=== PATIENT | male | born 1945 | race Caucasian/White ===

== ENCOUNTER 2017-05-26 16:38 | Inpatient (IN) | payer OTHER, MEDICARE ==
[~2017-05-26] VITALS: Ht 172.7 cm; Wt 82.2 kg
[2017-05-26] VITALS (8 sets, daily range): BP systolic 102–134; BP diastolic 74–91; PULSE 96–150; RESP 16–18; TEMP 97.6; O2SAT 94–97
[~2017-05-26 16:38] MED LIST: AMLO5 PO; CARD120C4 PO; ECASA PO; METO25 PO; TERA5CAP3 PO
[2017-05-26] MEDS ORDERED: TERA5CAP3 PO (16:54)
[2017-05-26] MEDS ORDERED: AMLO5TAB2 PO (16:54)
[2017-05-26] MEDS ORDERED: ASPIRIN 81 MG CHEW TAB PO ONE (17:00)
[2017-05-26] MEDS ORDERED: SODIUM CHLORIDE 0.9% FLUSH 10 ML FLUSH IVF PRN ×2 (17:00→20:15)
--- NOTE | 2017-05-26 17:01 | PD ---
HPI Chief Complaint: Cardiac Complaint Time Seen by Provider: 16:54 Travel History International Travel<30 days: No Contact w/Intl Traveler<30days: No Traveled to known affect area: No History of Present Illness HPI Patient is a 71-year-old male presents emergency department for evaluation of shortness of breath. Patient states that he call 911 today because he felt like he was in the back. Patient was found to be in A. fib RVR by EMS and was given 20 Cardizem prior to arrival. Transported in position of comfort. He denies any chest pain but states she still feeling short of breath. Fairly heavy smoker, normal saturations in the field. States she's never had a heart attack cardiac catheterization before. Patient is unsure of all of his histories. States his been taking his medications as prescribed. PFSH Past Medical History Cancer: No Cardiovascular Problems: Yes (HTN) High Cholesterol: Yes COPD: Yes Diminished Hearing: No Endocrine: No Genitourinary: No Headaches: Yes Hypertension: Yes Immune Disorder: No Kidney Stones: Yes Musculoskeletal: No Neurologic: Yes Psychiatric: No Reproductive: No Respiratory: Yes Tetanus Vaccination: Unknown Influenza Vaccination: No ?: Not Past Surgical History Oral Surgery: Yes (EXTENSIVE JAW SURGERY DUE TO TRAUMA) Other Surgery: Yes Social History Alcohol Use: Yes (1-2 beers per day) Tobacco Use: Yes (4-5 cig per day) Substance Use: No Allergies-Medications (Allergen,Severity, Reaction): Coded Allergies: No Known Allergies (Unverified , 06/23/15) Reported Meds & Prescriptions Reported Meds & Active Scripts Active Reported Terazosin (Terazosin HCl) 5 Mg Cap 5 Mg PO HS Amlodipine (Amlodipine Besylate) 5 Mg Tab 5 Mg PO DAILY Review of Systems Except as stated in HPI: all other systems reviewed are Neg Physical Exam Narrative GENERAL: Well-developed well-nourished no apparent distress. Smells heavily of cigarette smoke. Unkempt. SKIN: Focused skin assessment warm/dry. HEAD: Atraumatic. Normocephalic. EYES: Pupils equal and round. No scleral icterus. No injection or drainage. ENT: No nasal bleeding or discharge. Mucous membranes pink and moist. NECK: Trachea midline. No JVD. CARDIOVASCULAR: Irregularly irregular and tachycardic. No murmur appreciated. 2+ bilateral equal pulses in all 4 extremities. RESPIRATORY: No accessory muscle use. Clear to auscultation. Breath sounds equal bilaterally. GASTROINTESTINAL: Abdomen soft, non-tender, nondistended. Hepatic and splenic margins not palpable. MUSCULOSKELETAL: No obvious deformities. No clubbing. No cyanosis. There is 2 + pitting edema bilateral lower extremities, significantly larger on the right.. NEUROLOGICAL: Awake and alert. No obvious cranial nerve deficits. Motor grossly within normal limits. Normal speech. PSYCHIATRIC: Appropriate mood and affect; insight and judgment normal. Data Data Last Documented VS Vital Signs Date Time Temp Pulse Resp B/P Pulse Ox O2 Delivery O2 Flow Rate FiO2 05/26/17 18:22 140 102/81 94 05/26/17 17:28 16 05/26/17 16:48 97.6 Orders Vital Signs (Adult) Q15MX4,Q4H (05/26/17 16:58) Student Dean / Telemetry CATE.Q8H (05/26/17 16:58) Cardiac Rhythm CATE.Q8H (05/26/17 16:58) Notify Dr: Other (05/26/17 16:58) Diltiazem Inj (Cardizem Inj) (05/26/17 17:00) Diltiazem Inj (Cardizem Inj) (05/26/17 17:30) Electrocardiogram (05/26/17 16:58) Ckmb (Isoenzyme) Profile (05/26/17 16:58) Complete Blood Count With Diff (05/26/17 16:58) Comprehensive Metabolic Panel (05/26/17 16:58) Magnesium (Mg) (05/26/17 16:58) Prothrombin Time / Inr (Pt) (05/26/17 16:58) Act Partial Throm Time (Ptt) (05/26/17 16:58) Troponin I (05/26/17 16:58) Chest, Single Ap (05/26/17 16:58) Ecg Monitoring (05/26/17 16:58) Iv Access Insert/Monitor (05/26/17 16:58) Oximetry (05/26/17 16:58) Oxygen Administration (05/26/17 16:58) Aspirin Chew (Aspirin Chew) (05/26/17 17:00) Sodium Chloride 0.9% Flush (Ns Flush) (05/26/17 17:00) Ct Pulmonary Angiogram (05/26/17 16:58) Us Leg Venous Doppler (05/26/17 16:58) Sodium Chlor 0.9% 1000 Ml Inj (Ns 1000 M (05/26/17 17:30) Phosphorus (Po4) (05/26/17 17:28) Lactic Acid (05/26/17 17:28) Iohexol 350 Inj (Omnipaque 350 Inj) (05/26/17 18:34) Amiodarone Inj (Cordarone Inj) (05/26/17 19:15) Amiodarone Inj (Cordarone Inj) (05/26/17 19:30) Calcium Gluconate Inj (Calcium Gluconate (05/26/17 20:00) Alcohol (Ethanol) (05/26/17 17:00) Admit Order (Ed Use Only) (05/26/17 ) ^ Saline Lock (05/26/17 20:14) Resp Oxygen Rojas C Titrat 1-4 L (05/26/17 ) Notify Dr: Other (05/26/17 20:14) Consult Cardiology (05/26/17 20:14) Digoxin Inj (Lanoxin Inj) (05/26/17 20:15) Labs Laboratory Tests Test 05/26/17 05/26/17 17:00 20:00 White Blood Count 6.7 TH/MM3 Red Blood Count 5.65 MIL/MM3 Hemoglobin 15.9 GM/DL Hematocrit 47.4 % Mean Corpuscular Volume 83.9 FL Mean Corpuscular Hemoglobin 28.1 PG Mean Corpuscular Hemoglobin 33.5 % Concent Red Cell Distribution Width 13.5 % Platelet Count 180 TH/MM3 Mean Platelet Volume 9.6 FL Neutrophils (%) (Auto) 73.2 % Lymphocytes (%) (Auto) 12.1 % Monocytes (%) (Auto) 14.5 % Eosinophils (%) (Auto) 0.0 % Basophils (%) (Auto) 0.2 % Neutrophils # (Auto) 4.9 TH/MM3 Lymphocytes # (Auto) 0.8 TH/MM3 Monocytes # (Auto) 1.0 TH/MM3 Eosinophils # (Auto) 0.0 TH/MM3 Basophils # (Auto) 0.0 TH/MM3 CBC Comment DIFF FINAL Differential Comment Prothrombin Time 22.2 SEC Prothromb Time International 2.0 RATIO Ratio Activated Partial 33.3 SEC Thromboplast Time Sodium Level 136 MEQ/L Potassium Level 4.1 MEQ/L Chloride Level 103 MEQ/L Carbon Dioxide Level 20.2 MEQ/L Anion Gap 13 MEQ/L Blood Urea Nitrogen 48 MG/DL Creatinine 1.50 MG/DL Estimat Glomerular Filtration 46 ML/MIN Rate Random Glucose 111 MG/DL Calcium Level 7.9 MG/DL Phosphorus Level 5.4 MG/DL Magnesium Level 1.9 MG/DL Total Bilirubin 2.1 MG/DL Aspartate Amino Transf 195 U/L (AST/SGOT) Alanine Aminotransferase 179 U/L (ALT/SGPT) Alkaline Phosphatase 69 U/L Total Creatine Kinase 85 U/L Troponin I 0.04 NG/ML Total Protein 5.8 GM/DL Albumin 2.9 GM/DL Ethyl Alcohol Level LESS THAN 3 MG/DL Lactic Acid Level 1.6 mmol/L MDM Medical Decision Making Medical Screen Exam Complete: Yes Emergency Medical Condition: Yes Differential Diagnosis PE, DVT, CHF, COPD, A. fib RVR, ACS, AMI. Narrative Course Patient roomed in the emergency department, he did receive 20 mg of Cardizem IV prior to arrival. He was given an additional bolus of 25 mg Cardizem on arrival. This did not significantly control his rate. He was started on a drip and his rate was gradually increased to 15 mg an hour. He is gradually becoming more controlled however still having runs of significant tachycardia. Rate is now between 90 and 120. There are short durations of rate of approximately 150. Patient also received 2 L of fluid. Patient is mildly acidotic with a CO2 of 20.2, normal anion gap, phosphorus of 5.4. Creatinine 1.5 a BUN of 48. AST and ALT are elevated. No fever in the emergency department. Patient DVT study negative, PE study negative for PE but does have a pleural effusion Patient discussed with Dr. Mellisa Mccall to continue to monitor heart rate and reassess patient after some time on 15 mg per hour. Patient will obviously need admission. Diagnosis Primary Impression: Atrial fibrillation with RVR Additional Impression: CHF (congestive heart failure) Qualified Code: I50.9 - Congestive heart failure, unspecified congestive heart failure chronicity, unspecified congestive heart failure type Disposition: 01 DISCHARGE HOME Condition: Stable Rakesh Oconnor MD May 26, 2017 17:01
[2017-05-26] MEDS ORDERED: NORC5TAB PO (17:22)
[2017-05-26] MEDS ORDERED: CLIN1CAP5 PO (17:22)
[2017-05-26] MEDS ORDERED: DOXY100C PO (17:22)
[2017-05-26] MEDS ORDERED: LEVA750T9 PO (17:22)
--- NOTE | 2017-05-26 17:22 | RADRPT ---
EXAM DATE/TIME: 05/26/2017 17:11 [facility] COMPARISON: NBilateral chest FINDINGS: The lungs are clear without infiltrate, nodule, or mass. There is no appreciable pleural effusion fo r technique. Borderline cardiomegaly has not changed. CONCLUSION: No acute cardiopulmonary disease. Jimi Aalmo MD on May 26, 2017 at 17:19 Board Certified Radiologist. This report was verified electronically.
[2017-05-26] MEDS: DILTIAZEM INJ 125 MG in SODIUM CHLORIDE 0.9% INJ 100 ML IV SCH (17:24)
[2017-05-26 17:28] LABS: AUTOMATED NEUTROPHIL # 4.9 TH/MM3 (1.8-7.7); BASOPHIL % 0.2 % (0.0-2.0); HEMATOCRIT 47.4 % (39.0-51.0); HEMO FLAGS DIFF FINAL; LYMPH % 12.1 % (9.0-44.0); LYMPHOCYTE # 0.8 TH/MM3 (1.0-4.8); MEAN CELL VOLUME 83.9 FL (80.0-100.0); MEAN CORPUSCULAR HEMOGLOBIN 28.1 PG (27.0-34.0); MEAN CORPUSCULAR HGB CONC 33.5 % (32.0-36.0); MONO % 14.5 % (0.0-8.0); NEUT % 73.2 % (16.0-70.0); PLATELET COUNT 180 TH/MM3 (150-450); RED BLOOD COUNT 5.65 MIL/MM3 (4.50-5.90); RED CELL DISTRIBUTION WIDTH 13.5 % (11.6-17.2); WHITE BLOOD COUNT 6.7 TH/MM3 (4.0-11.0)
[2017-05-26 17:29] LABS: CHLORIDE 103 MEQ/L (98-107); POTASSIUM 4.1 MEQ/L (3.5-5.1); SODIUM (NA) 136 MEQ/L (136-145)
[2017-05-26] MEDS ORDERED: DILTIAZEM HCL 25 MG/5 ML VIAL IV PUSH PRN (17:30)
[2017-05-26] MEDS ORDERED: SODIUM CHLOR 0.9% 1000 ML INJ 1,000 ML IV ONE (17:30)
[2017-05-26 17:33] LABS: ANION GAP 13 MEQ/L (5-15); BICARBONATE 20.2 MEQ/L (21.0-32.0); BLOOD UREA NITROGEN 48 MG/DL (7-18); MAGNESIUM 1.9 MG/DL (1.5-2.5)
[2017-05-26 17:35] LABS: APTT (PATIENT) 33.3 SEC (24.3-30.1); PROTHROMBIN TIME - PATIENT 22.2 SEC (9.8-11.6)
[2017-05-26 17:36] LABS: ALT (GPT) 179 U/L (12-78); AST (GOT) 195 U/L (15-37); GLOMERULAR FILTRATION RATE 46 ML/MIN (>89)
[2017-05-26 17:37] LABS: TOTAL BILIRUBIN ADULT 2.1 MG/DL (0.2-1.0)
[2017-05-26 17:39] LABS: ALKALINE PHOSPHATASE 69 U/L (45-117)
--- NOTE | 2017-05-26 17:48 | RADRPT ---
EXAM DATE/TIME: 05/26/2017 22:30 [facility] COMPARISON: No previous studies available for comparison. INDICATIONS : Right leg swelling. MEDICAL HISTORY : Hypertension. Chronic obstructive pulmonary disease. Kidney stones. SURGICAL HISTORY : Jaw surgery. ENCOUNTER: Initial ACUITY: 1 day PAIN SCORE: 0/10 LOCATION: Right leg. TECHNIQUE: Venous ultrasound of the leg was performed from the inguinal ligament to the proximal calf. Real-navin e, color Doppler and spectral tracing, compression and augmentation techniques were used. FINDINGS: There is normal compressibility of the deep venous system from the inguinal region to the proximal ca lf. No echogenic clot is seen in the lumen of the common femoral, femoral, popliteal, and posterior tibial veins. There is a normal response of the venous system to proximal and distal augmentation an d respiration. CONCLUSION: Normal examination. Jimi Alamo MD on May 26, 2017 at 17:46 Board Certified Radiologist. This report was verified electronically.
[2017-05-26 18:05] LABS: CREATINE KINASE 85 U/L (39-308)
--- NOTE | 2017-05-26 18:14 | RADRPT ---
EXAM DATE/TIME: 05/26/2017 17:52 [place] Corrected on: May 26, 2017; [facility] COMPARISON: No previous studies available for comparison. INDICATIONS : Rapid heart rate. IV CONTRAST: 75 cc Omnipaque 350 (iohexol) IV RADIATION DOSE: 14.92 CTDIvol (mGy) MEDICAL HISTORY : Hypertension. SURGICAL HISTORY : None. ENCOUNTER: Initial ACUITY: 1 day PAIN SCALE: 4/10 LOCATION: middle chest TECHNIQUE: Volumetric scanning of the chest was performed using a pulmonary embolism protocol MIP images were re constructed. Using automated exposure control and adjustment of the mA and/or kV according to patien t size, radiation dose was kept as low as reasonably achievable to obtain optimal diagnostic quality images. DICOM format image data is available electronically for review and comparison. Follow-up recommendations for detected pulmonary nodules are based at a minimum on nodule size and pa tient risk factors according to Fleischner Society Guidelines. FINDINGS: There is no evidence for PE for technique. Small right pleural effusion is seen. Lungs are clear . There are atherosclerotic calcifications of the aorta due to chronic atherosclerotic disease. CONCLUSION: Small right pleural effusion. Jimi Alamo MD on May 26, 2017 at 18:17 Board Certified Radiologist. This report was verified electronically.
[2017-05-26] MEDS ORDERED: IOHEXOL 350 MG/ML 10 ML VIAL (for RAD DIAG) IV ONE (18:34)
[2017-05-26] MEDS ORDERED: CALCIUM GLUCONATE 10% 1 GM/10 ML VIAL IV PUSH ONE (19:00)
[2017-05-26] MEDS ORDERED: AMIODARONE INJ 150 MG in DEXTROSE 5% IN WATER 100ML INJ 97 ML IV ONE ×2 (19:15)
--- NOTE | 2017-05-26 19:19 | PD ---
Physical Exam Date Seen by Provider: May 26, 2017 Time Seen by Provider: 19:15 Narrative Accepted transfer of care from Dr. Oconnor GENERAL: Well-developed disheveled male in no acute distress no respiratory distress SKIN: Warm and dry. HEAD: Normocephalic. EYES: No scleral icterus. No injection or drainage. NECK: Supple, trachea midline. No JVD or lymphadenopathy. CARDIOVASCULAR: Increased irregular irregular rate and rhythm without murmurs, gallops, or rubs. RESPIRATORY: Breath sounds equal bilaterally. No accessory muscle use. GASTROINTESTINAL: Abdomen soft, non-tender, nondistended. MUSCULOSKELETAL: No cyanosis, mild bilateral ankle edema. Data Data Last Documented VS Vital Signs Date Time Temp Pulse Resp B/P Pulse Ox O2 Delivery O2 Flow Rate FiO2 05/26/17 20:11 122 18 125/82 97 Room Air 05/26/17 16:48 97.6 Orders Vital Signs (Adult) Q15MX4,Q4H (05/26/17 16:58) Paint Supervisor / Telemetry CATE.Q8H (05/26/17 16:58) Cardiac Rhythm CATE.Q8H (05/26/17 16:58) Notify Dr: Other (05/26/17 16:58) Diltiazem Inj (Cardizem Inj) (05/26/17 17:00) Diltiazem Inj (Cardizem Inj) (05/26/17 17:30) Electrocardiogram (05/26/17 16:58) Ckmb (Isoenzyme) Profile (05/26/17 16:58) Complete Blood Count With Diff (05/26/17 16:58) Comprehensive Metabolic Panel (05/26/17 16:58) Magnesium (Mg) (05/26/17 16:58) Prothrombin Time / Inr (Pt) (05/26/17 16:58) Act Partial Throm Time (Ptt) (05/26/17 16:58) Troponin I (05/26/17 16:58) Chest, Single Ap (05/26/17 16:58) Ecg Monitoring (05/26/17 16:58) Iv Access Insert/Monitor (05/26/17 16:58) Oximetry (05/26/17 16:58) Oxygen Administration (05/26/17 16:58) Aspirin Chew (Aspirin Chew) (05/26/17 17:00) Sodium Chloride 0.9% Flush (Ns Flush) (05/26/17 17:00) Ct Pulmonary Angiogram (05/26/17 16:58) Us Leg Venous Doppler (05/26/17 16:58) Sodium Chlor 0.9% 1000 Ml Inj (Ns 1000 M (05/26/17 17:30) Phosphorus (Po4) (05/26/17 17:28) Lactic Acid (05/26/17 17:28) Iohexol 350 Inj (Omnipaque 350 Inj) (05/26/17 18:34) Amiodarone Inj (Cordarone Inj) (05/26/17 19:15) Amiodarone Inj (Cordarone Inj) (05/26/17 19:30) Calcium Gluconate Inj (Calcium Gluconate (05/26/17 20:00) Alcohol (Ethanol) (05/26/17 17:00) Admit Order (Ed Use Only) (05/26/17 ) ^ Saline Lock (05/26/17 20:14) Resp Oxygen Rojas C Titrat 1-4 L (05/26/17 ) Notify Dr: Other (05/26/17 20:14) Consult Cardiology (05/26/17 20:14) Digoxin Inj (Lanoxin Inj) (05/26/17 20:15) Labs Laboratory Tests Test 05/26/17 05/26/17 17:00 20:00 White Blood Count 6.7 TH/MM3 Red Blood Count 5.65 MIL/MM3 Hemoglobin 15.9 GM/DL Hematocrit 47.4 % Mean Corpuscular Volume 83.9 FL Mean Corpuscular Hemoglobin 28.1 PG Mean Corpuscular Hemoglobin 33.5 % Concent Red Cell Distribution Width 13.5 % Platelet Count 180 TH/MM3 Mean Platelet Volume 9.6 FL Neutrophils (%) (Auto) 73.2 % Lymphocytes (%) (Auto) 12.1 % Monocytes (%) (Auto) 14.5 % Eosinophils (%) (Auto) 0.0 % Basophils (%) (Auto) 0.2 % Neutrophils # (Auto) 4.9 TH/MM3 Lymphocytes # (Auto) 0.8 TH/MM3 Monocytes # (Auto) 1.0 TH/MM3 Eosinophils # (Auto) 0.0 TH/MM3 Basophils # (Auto) 0.0 TH/MM3 CBC Comment DIFF FINAL Differential Comment Prothrombin Time 22.2 SEC Prothromb Time International 2.0 RATIO Ratio Activated Partial 33.3 SEC Thromboplast Time Sodium Level 136 MEQ/L Potassium Level 4.1 MEQ/L Chloride Level 103 MEQ/L Carbon Dioxide Level 20.2 MEQ/L Anion Gap 13 MEQ/L Blood Urea Nitrogen 48 MG/DL Creatinine 1.50 MG/DL Estimat Glomerular Filtration 46 ML/MIN Rate Random Glucose 111 MG/DL Calcium Level 7.9 MG/DL Phosphorus Level 5.4 MG/DL Magnesium Level 1.9 MG/DL Total Bilirubin 2.1 MG/DL Aspartate Amino Transf 195 U/L (AST/SGOT) Alanine Aminotransferase 179 U/L (ALT/SGPT) Alkaline Phosphatase 69 U/L Total Creatine Kinase 85 U/L Troponin I 0.04 NG/ML Total Protein 5.8 GM/DL Albumin 2.9 GM/DL Ethyl Alcohol Level LESS THAN 3 MG/DL Lactic Acid Level 1.6 mmol/L [facility] Medical Record Reviewed: Yes Supervised Visit with SARIAH: No Differential Diagnosis Accepted in transfer of care from Dr. Oconnor; please refer to his dictation Narrative Course Accepted in transfer of care from Dr. Oconnor for follow-up of patient response to medical therapy and patient disposition with plan for admission in view of atrial fibrillation with rapid ventricular response and congestive heart failure and for rate control. Patient's case was discussed with on-call cardiology Patient's case was discussed with on-call medicine Patient will be admitted to intermediate care for ongoing medication/infusions Patient given a loading dose of digoxin as discussed with cardiology Physician Communication Physician Communication Patient's case discussed with on-call cardiology Dr. Frias recommends proceeding with digoxin therapy and may require Lopressor; case discussed with admitting physician Dr. Delgado will admit to intermediate care and consult to cardiology Diagnosis Primary Impression: Atrial fibrillation with RVR Additional Impression: CHF (congestive heart failure) Qualified Code: I50.9 - Congestive heart failure, unspecified congestive heart failure chronicity, unspecified congestive heart failure type Admitting Information Admitting Physician Requests: Admit Mellisa Mccall MD May 26, 2017 19:19 Disposition: 01 DISCHARGE HOME Condition: Stable Mellisa Mccall MD May 26, 2017 19:19
[2017-05-26] MEDS ORDERED: AMIODARONE INJ 900 MG in D5W 500 ML (EXCEL BAG) 482 ML IV SCH (19:30)
[2017-05-26 19:42] LABS: ALCOHOL LESS THAN 3 MG/DL (0-5)
[2017-05-26] MEDS ORDERED: CALCIUM GLUCONATE INJ 2 GM in SODIUM CHLORIDE 0.9% INJ 100 ML IV ONE (20:00)
[2017-05-26] MEDS ORDERED: ONDANSETRON HCL 4 MG/2 ML VIAL IVP PRN (20:15)
[2017-05-26] MEDS ORDERED: ACETAMINOPHEN 325 MG TAB PO PRN (20:15)
[2017-05-26] MEDS ORDERED: MAGNESIUM HYDROXIDE SUSP 30 ML CUP PO PRN (20:15)
[2017-05-26] MEDS ORDERED: BISACODYL 10 MG SUPP RECTAL PRN (20:15)
[2017-05-26] MEDS ORDERED: SODIUM CHLORIDE 0.9% FLUSH 10 ML FLUSH IV FLUSH PRN (20:15)
[2017-05-26] MEDS ORDERED: LACTULOSE SYRUP 20 GM/30 ML CUP PO PRN (20:15)
[2017-05-26] MEDS ORDERED: SENNOSIDES 8.6 MG TAB PO PRN (20:15)
[2017-05-26] MEDS ORDERED: DIGOXIN 0.5 MG/2 ML VIAL IV PUSH ONE (20:15)
[2017-05-26] MEDS ORDERED: MORPHINE SULFATE 4 MG/ML INJ IV PRN (20:15)
[2017-05-26] MEDS ORDERED: ACETAMINOPHEN/HYDROcodone 325 MG/5 MG TAB PO PRN (20:15)
[2017-05-26] MEDS ORDERED: SODIUM CHLORIDE 0.9% FLUSH 10 ML FLUSH IV FLUSH SCH (21:00)
[2017-05-26] MEDS: DOCUSATE SODIUM 50 MG/SENNA 8.6 MG TAB PO SCH (21:00)
[2017-05-26] MEDS: SODIUM CHLORIDE 0.9% FLUSH 10 ML FLUSH IV FLUSH SCH (21:00)
[2017-05-26] MEDS: HEPARIN SODIUM - SQ 10,000 UNITS/ML VIAL SQ SCH (21:20)
[2017-05-26] MEDS: SODIUM CHLOR 0.9% 1000 ML INJ 1,000 ML IV SCH (21:21)
[2017-05-26 22:22] LABS: BLOOD, URINE NEG (NEG); GLUCOSE,URINE NEG (NEG); KETONE, URINE TRACE mg/dL (NEG); NITRITE,URINE NEG (NEG)
[2017-05-26 22:24] LABS: URINE COLOR AMBER (YELLW/STRAW)
[2017-05-26 22:27] LABS: RBC, URINE 0-2 /hpf (0-3); SQUAMOUS EPITHELIAL CELL URINE 0-5 /hpf (0-5)
[2017-05-26 22:28] LABS: COMMENT (UR) CULT NOT INDICATED; CULTURE IF INDICATED CULT NOT INDICATED
[2017-05-27] VITALS (18 sets, daily range): BP systolic 93–133; BP diastolic 66–94; PULSE 92–120; RESP 17–31; TEMP 97.3–97.8; O2SAT 92–97
[2017-05-27] MEDS ORDERED: CHLORHEXIDINE GLUCONATE 2 % 1 PACK (2 CLOTHS)(extra cloths) TOPICAL PRN (01:00)
[2017-05-27] MEDS: CHLORHEXIDINE GLUCONATE 2 % 1 PACK (2 CLOTHS)(taper/protocol) TOPICAL SCH (01:48)
[2017-05-27] MEDS ORDERED: DIGOXIN 0.5 MG/2 ML VIAL IV PUSH ONE ×2 (02:00→08:00)
[2017-05-27] MEDS: DILTIAZEM INJ 125 MG in SODIUM CHLORIDE 0.9% INJ 100 ML IV SCH ×4 (03:34→21:23)
[2017-05-27 05:12] LABS: AUTOMATED NEUTROPHIL # 4.1 TH/MM3 (1.8-7.7); BASOPHIL % 0.1 % (0.0-2.0); EOSINOPHIL % 0.3 % (0.0-4.0); HEMATOCRIT 46.1 % (39.0-51.0); HEMO FLAGS DIFF FINAL; LYMPH % 13.2 % (9.0-44.0); LYMPHOCYTE # 0.8 TH/MM3 (1.0-4.8); MEAN CELL VOLUME 85.2 FL (80.0-100.0); MEAN CORPUSCULAR HEMOGLOBIN 27.7 PG (27.0-34.0); MEAN CORPUSCULAR HGB CONC 32.5 % (32.0-36.0); MONO % 18.3 % (0.0-8.0); NEUT % 68.1 % (16.0-70.0); PLATELET COUNT 155 TH/MM3 (150-450); RED BLOOD COUNT 5.42 MIL/MM3 (4.50-5.90); RED CELL DISTRIBUTION WIDTH 13.8 % (11.6-17.2)
[2017-05-27 05:20] LABS: CHLORIDE 106 MEQ/L (98-107); POTASSIUM 4.2 MEQ/L (3.5-5.1); SODIUM (NA) 138 MEQ/L (136-145)
[2017-05-27 05:24] LABS: ANION GAP 9 MEQ/L (5-15); BICARBONATE 23.1 MEQ/L (21.0-32.0); BLOOD UREA NITROGEN 40 MG/DL (7-18)
[2017-05-27 05:27] LABS: ALT (GPT) 142 U/L (12-78); AST (GOT) 115 U/L (15-37); GLOMERULAR FILTRATION RATE 60 ML/MIN (>89)
[2017-05-27 05:30] LABS: ALKALINE PHOSPHATASE 62 U/L (45-117)
[2017-05-27] MEDS: SODIUM CHLOR 0.9% 1000 ML INJ 1,000 ML IV SCH ×2 (06:16→15:58)
[2017-05-27] MEDS: SODIUM CHLORIDE 0.9% FLUSH 10 ML FLUSH IV FLUSH SCH ×2 (09:00→21:18)
[2017-05-27] MEDS: DOCUSATE SODIUM 50 MG/SENNA 8.6 MG TAB PO SCH ×2 (09:00→21:18)
[2017-05-27] MEDS: HEPARIN SODIUM - SQ 10,000 UNITS/ML VIAL SQ SCH ×2 (09:00→21:18)
--- NOTE | 2017-05-27 12:56 | HHI.HP ---
[facility] Service [facility] Primary Care Physician [facility] Admission Diagnosis AFRVR Diagnoses: (1) Atrial fibrillation with RVR Diagnosis: Principal (2) Elevated liver enzymes Diagnosis: Principal (3) Coagulopathy Diagnosis: Principal (4) Acute renal failure Diagnosis: Principal (5) Cardiomyopathy Diagnosis: Secondary (6) Hypertension Diagnosis: Principal (7) Chronic obstructive pulmonary disease Diagnosis: Secondary Chief Complaint: Shortness of breath Travel History International Travel<30 Days: No Contact w/Intl Traveler <30 Da: No Traveled to Known Affected Are: No History of Present Illness Written by Jorge Winston, acting as scribe for Dr. Joe on 05/27/17 at 12 :00. 71-year-old male with known history of atrial fibrillation, hypertension, chronic obstructive pulmonary disease, chronic tobacco use, chronic alcohol use who presented to hospital because of shortness of breath. Patient states that for 2 weeks now he is been developing shortness of breath whenever he tries to go to sleep. In keeping awaken night because he thinks that he is having cancer or maybe even a heart attack because the way he is breathing. He states that it was significantly worse last night so he called a neighbor to get an ambulance to come evaluate him. When [facility] showed up, patient was found to have A. fib with RVR and was given 20 mg of Cardizem. When the patient presented to the emergency department patient still had a heart rate of 150. Patient was given another dose of Cardizem 25 mg IV, started on Cardizem drip. Patient's heart rate wasn't controlled so patient was also started on amiodarone without conversion. Information Systems Auditor on-call was contacted by ER physician and patient was started on digoxin IV. Patient was recommended admission to the intermediate care for continued management and care with cardiology consult. Patient does have history of atrial fibrillation which he was seen 2 years ago in the hospital. Patient does go to [facility] on a regular basis. He states that his last visit was 4 months ago. He is on a standard of his medications. However there are no medications prescribed for the patient's atrial fibrillation. 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 Patient denies any palpitations, chest pain, nausea, vomiting, abdominal pain, lightheadedness, dizziness. Review of Systems Respiratory: COMPLAINS OF: Shortness of breath Except as stated in HPI: all other systems reviewed are Neg Past Family Social History Past Medical History Hypertension Chronic obstructive pulmonary disease Tobacco use History of kidney stones Past Surgical History Facial and jaw reconstruction due to trauma Reported Medications Norvasc 5 mg daily Hytrin 5 mg daily Allergies: Coded Allergies: No Known Allergies (Unverified , 06/23/15) Family History Reviewed and mother at age 86 and father at age 72, patient denied any heart disease on disease, diabetes, cancer, seizures, stroke Social History Patient state he quit smoking 1 month ago, prior to that the patient smoked approximately one quarter pack of cigarettes a day, patient had a smoker since he was 15 years old up to 1-1/2 pack of cigarettes daily. Patient states that he quit drinking alcohol 23 weeks ago, P prior to that he drank approximately 2 beers daily. Patient denies any illicit drugs Physical Exam Vital Signs Vital Signs Date Time Temp Pulse Resp B/P (MAP) Pulse Ox O2 Delivery O2 Flow Rate FiO2 05/27/17 07:31 92 21 05/27/17 05:00 108 25 127/82 (97) 94 05/27/17 04:00 97.3 100 22 123/84 (97) 93 05/27/17 03:00 92 22 111/80 (90) 97 05/27/17 02:00 120 31 119/94 (102) 05/27/17 01:30 106 23 126/79 (95) 96 05/27/17 01:00 112 20 121/91 (101) 96 05/27/17 00:45 102 17 105/94 (98) 95 05/27/17 00:45 112 05/27/17 00:41 97.7 102 22 132/86 (101) 05/27/17 00:37 96 18 106/84 (91) 96 Room Air 05/27/17 00:20 95 21 05/26/17 23:00 112 18 104/88 (93) 96 Room Air 05/26/17 21:32 96 18 106/81 (89) 96 Room Air 05/26/17 20:11 122 18 125/82 (96) 97 Room Air 05/26/17 19:30 122 18 96 Room Air 05/26/17 19:08 128 18 115/91 (99) 96 Room Air 05/26/17 18:22 140 102/81 (88) 94 05/26/17 17:28 120 16 102/74 (83) 96 05/26/17 17:16 96 05/26/17 16:55 150 05/26/17 16:48 97.6 150 18 134/81 (98) 94 Physical Exam GENERAL: Well-developed, well-nourished, in no acute distress. alert and orientated HEENT: Head is normocephalic without any lesions or masses noted. Facial features are symmetric. Eyes: Pupils equal round reactive to light. Extraocular muscles are intact. Conjunctivae were clear. Oropharyngeal: Pharynx without any erythema edema. Tongue is midline without deviation. Buccal mucosa is moist without any masses or lesions NECK: Supple without any masses. Trachea midline no deviation. No JVD, no bruits are appreciated CARDIAC: Irregular rhythm, irregular rate. S1/S2 are heard. No murmurs gallops or rubs. LUNGS: Clear to auscultation bilaterally. No wheeze, rhonchi or rales. No use of accessory muscles on inspiration or expiration. ABDOMEN: Soft, nontender. Nondistended. Bowel sounds heard in all 4 quadrants. No organomegaly or masses. Negative rebound, negative guarding EXTREMITIES: Right lower extremity has 2+ pitting edema., pulses are equal bilaterally. No cyanosis or clubbing NEUROLOGY: Mood and affect appear appropriate. Cranial nerves II through XII grossly intact. Muscle strength 5/5 in upper and lower extremities bilaterally. Deep tendon reflexes are 2+ in upper and lower extremities bilaterally. Laboratory Laboratory Tests Test 05/26/17 17:00 05/26/17 20:00 05/26/17 22:00 05/27/17 00:11 White Blood Count 6.7 Red Blood Count 5.65 Hemoglobin 15.9 Hematocrit 47.4 Mean Corpuscular Volume 83.9 Mean Corpuscular Hemoglobin 28.1 Mean Corpuscular Hemoglobin Concent 33.5 Red Cell Distribution Width 13.5 Platelet Count 180 Mean Platelet Volume 9.6 Neutrophils (%) (Auto) 73.2 Lymphocytes (%) (Auto) 12.1 Monocytes (%) (Auto) 14.5 Eosinophils (%) (Auto) 0.0 Basophils (%) (Auto) 0.2 Neutrophils # (Auto) 4.9 Lymphocytes # (Auto) 0.8 Monocytes # (Auto) 1.0 Eosinophils # (Auto) 0.0 Basophils # (Auto) 0.0 CBC Comment DIFF FINAL Differential Comment Prothrombin Time 22.2 Prothromb Time International Ratio 2.0 Activated Partial Thromboplast Time 33.3 Blood Urea Nitrogen 48 Creatinine 1.50 Random Glucose 111 Total Protein 5.8 Albumin 2.9 Calcium Level 7.9 Magnesium Level 1.9 Alkaline Phosphatase 69 Aspartate Amino Transf (AST/SGOT) 195 Alanine Aminotransferase (ALT/SGPT) 179 Total Bilirubin 2.1 Sodium Level 136 Potassium Level 4.1 Chloride Level 103 Carbon Dioxide Level 20.2 Anion Gap 13 Estimat Glomerular Filtration Rate 46 Phosphorus Level 5.4 Total Creatine Kinase 85 Troponin I 0.04 0.05 Ethyl Alcohol Level LESS THAN 3 Lactic Acid Level 1.6 Urine Color WHITNEY Urine Turbidity CLEAR Urine pH 5.0 Urine Specific [place] GREATER THAN 1.035 Urine Protein TRACE Urine Glucose (UA) NEG Urine Ketones TRACE Urine Occult Blood NEG Urine Nitrite NEG Urine Bilirubin NEG Urine Leukocyte Esterase NEG Urine RBC 0-2 Urine WBC 3-5 Urine Squamous Epithelial Cells 0-5 Urine Bacteria NONE Urine Hyaline Casts 6-9 Microscopic Urinalysis Comment CULT NOT INDICATED Test 05/27/17 00:45 05/27/17 04:50 Nasal Screen MRSA (PCR) MRSA NOT DETECTED White Blood Count 6.0 Red Blood Count 5.42 Hemoglobin 15.0 Hematocrit 46.1 Mean Corpuscular Volume 85.2 Mean Corpuscular Hemoglobin 27.7 Mean Corpuscular Hemoglobin Concent 32.5 Red Cell Distribution Width 13.8 Platelet Count 155 Mean Platelet Volume 9.1 Neutrophils (%) (Auto) 68.1 Lymphocytes (%) (Auto) 13.2 Monocytes (%) (Auto) 18.3 Eosinophils (%) (Auto) 0.3 Basophils (%) (Auto) 0.1 Neutrophils # (Auto) 4.1 Lymphocytes # (Auto) 0.8 Monocytes # (Auto) 1.1 Eosinophils # (Auto) 0.0 Basophils # (Auto) 0.0 CBC Comment DIFF FINAL Differential Comment Blood Urea Nitrogen 40 Creatinine 1.20 Random Glucose 110 Total Protein 5.5 Albumin 2.7 Calcium Level 7.6 Alkaline Phosphatase 62 Aspartate Amino Transf (AST/SGOT) 115 Alanine Aminotransferase (ALT/SGPT) 142 Total Bilirubin 2.0 Sodium Level 138 Potassium Level 4.2 Chloride Level 106 Carbon Dioxide Level 23.1 Anion Gap 9 Estimat Glomerular Filtration Rate 60 Troponin I 0.05 Result Diagram: 05/27/1744905/27/17449 Imaging Last Impressions Lower Extremity Ultrasound 05/26/171657 Signed Impressions: Service Date/Time: Friday, May 26, 2017 22:30 - CONCLUSION: Normal examination. Jimi Alamo MD Chest X-Ray 05/26/171657 Signed Impressions: Service Date/Time: Friday, May 26, 2017 17:11 - CONCLUSION: No acute cardiopulmonary disease. Jimi Alamo MD CT Angiography 05/26/171657 Signed Impressions: Service Date/Time: Friday, May 26, 2017 17:52 - CONCLUSION: Small right pleural effusion. Jimi Alamo MD Caprini VTE Risk Assessment Caprini VTE Risk Assessment: Mod/High Risk (score >= 2) VTE Pharm Contraindication: Coagulopathy,INR elevated Caprini Risk Assessment Model Point Value = 1 Point Value = 2 Point Value = 3 Point Value = 5 Age 41-60 Minor surgery BMI > 25 kg/m2 Swollen legs Varicose veins or History of unexplained or recurrent spontaneous Oral contraceptives or hormone replacement Sepsis (< 1 month) Serious lung disease, including pneumonia (< 1 month) Abnormal pulmonary function Acute myocardial infarction Congestive heart failure (< 1 month) History of inflammatory bowel disease Medical patient at bed rest Age 61-74 Arthroscopic surgery Major open surgery (> 45 min) Laparoscopic surgery (> 45 min) Malignancy Confined to bed (> 72 hours) Immobilizing plaster cast Central venous access Age >= 75 History of VTE Family history of VTE Factor V Leiden Prothrombin [id number] Lupus anticoagulant Anticardiolipin antibodies Elevated serum homocysteine Heparin-induced thrombocytopenia Other congenital or acquired thrombophilia Stroke (< 1 month) Elective arthroplasty Hip, pelvis, or leg fracture Acute spinal cord injury (< 1 month) Prophylaxis Regimen Total Risk Factor Score Risk Level Prophylaxis Regimen 0-1 Low Early ambulation 2 Moderate Order ONE of the following: *Sequential Compression Device (SCD) *Heparin 5000 units SQ BID 3-4 Higher Order ONE of the following medications: *Heparin 5000 units SQ TID *Enoxaparin/Lovenox 40 mg SQ daily (WT < 150 kg, CrCl > 30 mL/min) *Enoxaparin/Lovenox 30 mg SQ daily (WT < 150 kg, CrCl > 10-29 mL/min) *Enoxaparin/Lovenox 30 mg SQ BID (WT < 150 kg, CrCl > 30 mL/min) AND/OR *Sequential Compression Device (SCD) 5 or more Highest Order ONE of the following medications: *Heparin 5000 units SQ TID (Preferred with Epidurals) *Enoxaparin/Lovenox 40 mg SQ daily (WT < 150 kg, CrCl > 30 mL/min) *Enoxaparin/Lovenox 30 mg SQ daily (WT < 150 kg, CrCl > 10-29 mL/min) *Enoxaparin/Lovenox 30 mg SQ BID (WT < 150 kg, CrCl > 30 mL/min) AND *Sequential Compression Device (SCD) Assessment and Plan Assessment and Plan Atrial fibrillation with RVR. Patient was diagnosed with atrial fibrillation, 2 years ago. He is not any type of medications for rate control or anticoagulation. Patient denies any follow-up since his last admission Patient continued on Cardizem IV Patient continued on amiodarone IV Patient continued on digoxin IV Cardiology consulted for recommendations, deferred rate management and anticoagulation to them Obtain echocardiogram Obtain TSH Shortness of breath with right lower extremity edema Ultrasound of the lower extremity did not indicate any acute DVT CT angiography does not indicate any pulmonary emboli Shortness of breath likely secondary to A. fib with RVR, COPD Elevated liver enzymes with coagulopathy Patient does have history of chronic alcohol use Continue monitor liver enzymes, obtain hepatitis panel, monitor coagulation studies Acute renal failure, improved Could be secondary to atrial fibrillation, dehydration Continue monitor renal function Avoid nephrotoxins Cardiomyopathy Previous echocardiogram done June 2015 shows ejection fraction 20-30%, moderate diffuse hypokinesis, moderately severely reduced systolic function, moderately to severely calcified mitral annulus Cardiology has been consulted, will also defer care to them if patient will need LifeVest or not prior to discharge Chronic obstructive pulmonary disease Continue O2 supplementation maintain O2 sats greater 92% Duo nebs as needed DVT prevention Subcutaneous heparin at this time, however patient has coagulopathy with INR 2.0 This note was transcribed by [email or web address]. I, Dr. Marie Joe personally performed the history, physical exam, and medical decision making; and confirmed the accuracy of the information in the transcribed note. Authenticated by Dr. Marie Joe on 05/27/17 at 13:27. Discussed Condition With Patient Physician Certification 2 Midnight Certification Type: Admission for Inpatient Services Order for Inpatient Services The services are ordered in accordance with Medicare regulations or non- Medicare payer requirements, as applicable. In the case of services not specified as inpatient-only, they are appropriately provided as inpatient services in accordance with the 2-midnight benchmark. Estimated LOS (days): 3 days is the estimated time the patient will need to remain in the hospital, assuming treatment plan goals are met and no additional complications. Post-Hospital Plan: Not yet determined Problem Qualifiers (1) Cardiomyopathy: Qualified Codes: I42.9 - Cardiomyopathy, unspecified (2) Hypertension: Qualified Codes: I10 - Essential (primary) hypertension (3) Chronic obstructive pulmonary disease: Jorge Winston May 27, 2017 12:56 Marie Joe MD May 27, 2017 13:27
[2017-05-27] MEDS: WARFARIN SOD 2.5 MG TAB PO SCH (15:57)
[2017-05-27] MEDS: AMIODARONE INJ 450 MG in DEXTROSE 5% IN WATE(EXCEL) INJ 241 ML IV SCH ×2 (16:00)
--- NOTE | 2017-05-27 16:09 | EKG ---
Date Performed: 05/26/2017 Time Performed: 16:50:35 PTAGE: 71 years EKG: ATRIAL FIBRILLATION WITH RAPID VENTRICULAR RESPONSE MARKED RIGHT AXIS DEVIATION RIGHT BUNDL E BRANCH BLOCK INFERIOR MYOCARDIAL INFARCTION Compared to previous tracing, changes compatible with i nferior Myocardial infarction are new. HR is somewhat faster ABNORMAL ECG NO PREVIOUS TRACING DOCTOR: Jeancarlos Cruz Interpretating Date/Time 05/27/2017 16:07:22
--- NOTE | 2017-05-27 16:12 | MB ---
cc: JACINTO THORNTON MD DATE OF CONSULTATION 05/27/2017 REASON FOR CONSULTATION Atrial fibrillation. HISTORY OF PRESENT ILLNESS The patient is a pleasant 71-year-old gentleman who had been followed at the [facility] for a history of hypertension, COPD and alcohol use. The chart notes a history of atrial fibrillation and the patient was anticoagulated with an INR of 2.0 on admission. However, the patient denies being on any blood thinners and denies any history of atrial fibrillation. He says that the day before admission he was unable to catch his breath and asked a friend to bring him to the hospital where he was found to be in rapid atrial fibrillation. He was started on IV amiodarone and IV Cardizem drip in order to get somewhat reasonable rate control. He still is mildly rapid at rates just over 100. He is currently asymptomatic denying any residual shortness of breath. He has no chest pain, lightheadedness, dizziness or syncope. PAST MEDICAL HISTORY 1. Hypertension. 2. COPD. 3. Tobacco use (recently quit). 4. Alcohol abuse (recently quit). MEDICATIONS Current medications: 1. Amiodarone drip. 2. Subcutaneous Heparin. 3. Cardizem drip. ALLERGIES NO KNOWN DRUG ALLERGIES. PHYSICAL EXAMINATION VITAL SIGNS: Afebrile, pulse 102, respiratory 25, BP 127/82, sating 92 on 2 liters. GENERAL: Pleasant, disheveled appearing gentleman in no distress. NECK: No JVD. LUNGS: Clear to auscultation bilaterally. CARDIOVASCULAR: Distant heart sounds, irregularly irregular rhythm with a mildly rapid rate. No murmurs appreciated. ABDOMEN: Benign. EXTREMITIES: No edema. LABORATORY DATA Sodium 138, potassium 4.2, chloride 106, bicarb 23.1, BUN 40, creatinine 1.2, glucose 110. INR is 2.0. White count 6.0, hematocrit 46.1, platelets 155. EKG shows atrial fibrillation with rapid ventricular response with right bundle-branch block and left anterior fascicular block with possible old inferior VT. IMAGING CT of the chest showed a small right pleural effusion. IMPRESSION Atrial fibrillation. The patient with a history of at least daily alcohol use (not daily heavy alcohol use) presents with rapid atrial fibrillation that is difficult to control. His EKG is abnormal and there is a possibility of a prior VT. We will have him undergo an echocardiogram. I will increase his oral rate control medications and try to wean him off of drips. His LFTs are somewhat elevated, as was his initial INR which does raise the possibility of liver disease as he is not on Coumadin. I will order an ultrasound of his liver. At this time I will also anticoagulant him with warfarin given his relatively high stroke risk. Further recommendations will be based on the clinical course. Thank you again for the opportunity to participate in this patient's care. MD TIERNEY Alcocer/KK /3:29 PM /3:55 PM
[2017-05-27] MEDS: DILTIAZEM HCL 90 MG TAB PO SCH ×2 (18:19→21:17)
[2017-05-28] VITALS (11 sets, daily range): BP systolic 92–119; BP diastolic 55–76; PULSE 56–118; RESP 18–28; TEMP 97.6–97.7; O2SAT 91–95
[2017-05-28] MEDS: SODIUM CHLOR 0.9% 1000 ML INJ 1,000 ML IV SCH ×3 (02:02→22:16)
[2017-05-28] MEDS: CHLORHEXIDINE GLUCONATE 2 % 1 PACK (2 CLOTHS)(taper/protocol) TOPICAL SCH (04:00)
[2017-05-28 05:31] LABS: POTASSIUM 3.7 MEQ/L (3.5-5.1)
[2017-05-28 05:34] LABS: BICARBONATE 22.2 MEQ/L (21.0-32.0); MAGNESIUM 1.9 MG/DL (1.5-2.5)
[2017-05-28 05:48] LABS: AUTOMATED NEUTROPHIL # 5.8 TH/MM3 (1.8-7.7); BASOPHIL % 0.2 % (0.0-2.0); EOSINOPHIL % 0.2 % (0.0-4.0); HEMATOCRIT 48.6 % (39.0-51.0); HEMO FLAGS DIFF FINAL; LYMPH % 6.7 % (9.0-44.0); LYMPHOCYTE # 0.5 TH/MM3 (1.0-4.8); MEAN CELL VOLUME 85.9 FL (80.0-100.0); MEAN CORPUSCULAR HEMOGLOBIN 27.1 PG (27.0-34.0); MEAN CORPUSCULAR HGB CONC 31.6 % (32.0-36.0); MONO % 13.9 % (0.0-8.0); PLATELET COUNT 128 TH/MM3 (150-450); RED BLOOD COUNT 5.66 MIL/MM3 (4.50-5.90); RED CELL DISTRIBUTION WIDTH 14.5 % (11.6-17.2); WHITE BLOOD COUNT 7.3 TH/MM3 (4.0-11.0)
[2017-05-28 06:12] LABS: APTT (PATIENT) 33.2 SEC (24.3-30.1); INTERNATIONAL NORMALIZED RATIO 1.4 RATIO; PROTHROMBIN TIME - PATIENT 15.3 SEC (9.8-11.6)
[2017-05-28] MEDS: SODIUM CHLORIDE 0.9% FLUSH 10 ML FLUSH IV FLUSH SCH ×2 (07:25→20:42)
[2017-05-28] MEDS: DILTIAZEM INJ 125 MG in SODIUM CHLORIDE 0.9% INJ 100 ML IV SCH (08:18)
[2017-05-28] MEDS: AMIODARONE INJ 450 MG in DEXTROSE 5% IN WATE(EXCEL) INJ 241 ML IV SCH ×4 (08:19→22:17)
[2017-05-28] MEDS: DILTIAZEM HCL 90 MG TAB PO SCH ×4 (08:23→20:42)
[2017-05-28] MEDS: DOCUSATE SODIUM 50 MG/SENNA 8.6 MG TAB PO SCH ×2 (08:23→20:42)
[2017-05-28] MEDS: HEPARIN SODIUM - SQ 10,000 UNITS/ML VIAL SQ SCH ×2 (08:24→20:42)
--- NOTE | 2017-05-28 09:14 | RADRPT ---
EXAM DATE/TIME: 05/28/2017 08:02 [facility] COMPARISON: No previous studies available for comparison. INDICATIONS : Increased lab values. MEDICAL HISTORY : Hypercholesterolemia. Hypertension. COPD. Dyspnea. Kidney stones. Atrial fibrillation. SURGICAL HISTORY : Jaw surgery. ENCOUNTER: Initial ACUITY: 1 day PAIN SCORE: 0/10 LOCATION: Abdomen. MEASUREMENTS: LIVER: 16.7 cm length COMMON DUCT: 3 mm RIGHT KIDNEY: 11.9 x 5.5 x 5.9 cm SPLEEN: 10.9 cm length FINDINGS: LIVER: Normal echotexture without focal lesion or ductal dilatation. Hepatopedal flow within the portal vein . Trace amount of free fluid. The COMMON DUCT: No intraluminal mass or stone visualized. GALLBLADDER: Echogenic non-shadowing material throughout the gallbladder consistent with sludge. A 3 mm solitary s tone. This is freely mobile. Gallbladder wall thickness is at the upper range of normal. No free flui d around the gallbladder. PANCREAS: The visualized portions are within normal limits. RIGHT KIDNEY: No hydronephrosis, stone or mass. SPLEEN: No focal lesion. CONCLUSION: 1. Trace ascitic fluid. 2. Gallbladder sludge and tiny solitary stone without sonographic evidence to suggest acute cholecyst itis. Sterling Reeves Jr., MD on May 28, 2017 at 9:09 Board Certified Radiologist. This report was verified electronically.
--- NOTE | 2017-05-28 10:17 | PD.CARD.PN ---
Subjective Subjective Remarks Pt feels well, no complaints. Still fast afib rates on dilt ggt. Objective Medications Administered Medications Medications (Trade) Dose Ordered Sig/Alanis Route PRN Reason Start Time Stop Time Status Last Admin Dose Admin Diltiazem HCl 125 mg/Sodium Chloride 125 ml @ 0 mls/hr TITRATE IV 05/26/17 17:00 05/28/17 08:18 Diltiazem HCl (Cardizem Inj) 25 mg UNSCH X1 PRN IV PUSH SEE LABEL COMMENTS 05/26/17 17:30 05/26/17 17:10 Sodium Chloride 1,000 ml @ 100 mls/hr Q10H IV 05/26/17 20:12 05/28/17 02:02 Sodium Chloride (NS Flush) 2 ml BID IV FLUSH 05/26/17 21:00 05/27/17 21:18 Heparin Sodium (Porcine) (Heparin Inj) 5,000 units Q12H SQ 05/26/17 21:00 05/28/17 08:24 Senna/Docusate Sodium (Caitlin-Colace) 1 tab BID PO 05/26/17 21:00 05/28/17 08:23 Miscellaneous Information Patient in critical care unit? Ass... [id number] .XX 05/27/17 01:00 05/27/17 01:00 Chlorhexidine Gluconate (Chlorhexidine 2% Cloth) 3 pack DAILY@04 TOPICAL 05/27/17 04:00 05/31/17 04:01 05/27/17 01:48 Amiodarone HCl 450 mg/Dextrose 250 ml @ 0 mls/hr CONTINUOUS IV 05/27/17 15:30 05/28/17 08:19 Diltiazem HCl (Cardizem) 90 mg QID PO 05/27/17 18:00 05/28/17 08:23 Warfarin Sodium (Coumadin) 2.5 mg DAILY@1600 PO 05/27/17 16:00 05/27/17 15:57 Vital Signs / I&O Vital Signs Date Time Temp Pulse Resp B/P (MAP) Pulse Ox O2 Delivery O2 Flow Rate FiO2 05/28/17 08:19 112 114/60 05/28/17 08:09 93 21 05/28/17 08:00 118 05/28/17 08:00 97.7 106 18 114/60 (78) 95 05/28/17 04:00 98 05/28/17 04:00 100 26 109/76 (87) 93 05/28/17 00:00 90 25 117/76 (90) 91 05/28/17 00:00 88 05/27/17 20:17 94 21 05/27/17 20:00 96 05/27/17 20:00 97.8 104 24 102/78 (86) 93 05/27/17 19:00 116 25 93/66 (75) 93 05/27/17 16:20 97.5 105 18 133/79 (97) 93 05/27/17 16:20 105 05/27/17 16:00 105 136/72 05/27/17 15:00 102 05/27/17 11:00 102 I/O 05/27/17 05/27/17 05/27/17 05/28/17 05/28/17 05/28/17 07:00 15:00 23:00 07:00 15:00 23:00 Intake Total 946 ml 2980 ml 560 ml 340 ml Output Total 500 ml 100 ml 320 ml 200 ml Balance 446 ml 2880 ml 240 ml 140 ml Intake Oral 240 ml 290 ml IV Total 706 ml 2690 ml 560 ml 340 ml Output Urine Total 500 ml 100 ml 320 ml 200 ml # Voids 4 # Bowel Movements 0 Physical Exam GENERAL: This is a well-nourished, well-developed patient, in no apparent distress. CARDIOVASCULAR: Mildly rapid rate and irregular rhythm without murmurs, gallops , or rubs. RESPIRATORY: Clear to auscultation. Breath sounds equal bilaterally. No wheezes , rales, or rhonchi. GASTROINTESTINAL: Abdomen soft, non-tender, nondistended. Normal, active bowel sounds MUSCULOSKELETAL: Extremities without clubbing, cyanosis, or edema. NEURO: Alert & Oriented x4 to person, place, time, situation. Moves all ext x4 Laboratory Laboratory Tests Test 05/27/17 15:35 05/28/17 04:25 Thyroid Stimulating Hormone 3rd Gen 3.190 uIU/ML White Blood Count 7.3 TH/MM3 Red Blood Count 5.66 MIL/MM3 Hemoglobin 15.3 GM/DL Hematocrit 48.6 % Mean Corpuscular Volume 85.9 FL Mean Corpuscular Hemoglobin 27.1 PG Mean Corpuscular Hemoglobin Concent 31.6 % Red Cell Distribution Width 14.5 % Platelet Count 128 TH/MM3 Mean Platelet Volume 9.6 FL Neutrophils (%) (Auto) 79.0 % Lymphocytes (%) (Auto) 6.7 % Monocytes (%) (Auto) 13.9 % Eosinophils (%) (Auto) 0.2 % Basophils (%) (Auto) 0.2 % Neutrophils # (Auto) 5.8 TH/MM3 Lymphocytes # (Auto) 0.5 TH/MM3 Monocytes # (Auto) 1.0 TH/MM3 Eosinophils # (Auto) 0.0 TH/MM3 Basophils # (Auto) 0.0 TH/MM3 CBC Comment DIFF FINAL Differential Comment Prothrombin Time 15.3 SEC Prothromb Time International Ratio 1.4 RATIO Activated Partial Thromboplast Time 33.2 SEC Blood Urea Nitrogen 22 MG/DL Creatinine 0.76 MG/DL Random Glucose 109 MG/DL Calcium Level 7.9 MG/DL Magnesium Level 1.9 MG/DL Sodium Level 139 MEQ/L Potassium Level 3.7 MEQ/L Chloride Level 107 MEQ/L Carbon Dioxide Level 22.2 MEQ/L Anion Gap 10 MEQ/L Estimat Glomerular Filtration Rate 101 ML/MIN Imaging Last Impressions Lower Extremity Ultrasound 05/26/171657 Signed Impressions: Service Date/Time: Friday, May 26, 2017 22:30 - CONCLUSION: Normal examination. Jimi Alamo MD Chest X-Ray 05/26/171657 Signed Impressions: Service Date/Time: Friday, May 26, 2017 17:11 - CONCLUSION: No acute cardiopulmonary disease. Jimi Alamo MD CT Angiography 05/26/171657 Signed Impressions: Service Date/Time: Friday, May 26, 2017 17:52 - CONCLUSION: Small right pleural effusion. Jimi Alamo MD Assessment and Plan Problem List: (1) New onset atrial fibrillation ICD Codes: I48.91 - New onset atrial fibrillation Status: Acute Plan: on warfarin, rates still high on dilt/amio ggt; added lopressor and oral digoxin, dig level tomorrow; try to wean down/off gtt's (2) Cardiomyopathy ICD Codes: I42.9 - Cardiomyopathy, unspecified Plan: echo pending Problem Qualifiers (1) Cardiomyopathy: Qualified Codes: I42.9 - Cardiomyopathy, unspecified Nakul Frias MD May 28, 2017 10:17
--- NOTE | 2017-05-28 10:18 | HHI.PR ---
Subjective Remarks Patient denies any dyspnea or palpitations or chest pain. Remains on amiodarone drip and Cardizem drip. He was started on Cardizem and metoprolol by mouth by cardiology. Heart rate remains in the 110s and will briefly run in the 130s. Blood pressure is stable. Objective Vitals Vital Signs Date Time Temp Pulse Resp B/P (MAP) Pulse Ox O2 Delivery O2 Flow Rate FiO2 05/28/17 08:19 112 114/60 05/28/17 08:09 93 21 05/28/17 08:00 97.7 106 18 114/60 (78) 95 05/28/17 04:00 98 05/28/17 04:00 100 26 109/76 (87) 93 05/28/17 00:00 90 25 117/76 (90) 91 05/28/17 00:00 88 05/27/17 20:17 94 21 05/27/17 20:00 96 05/27/17 20:00 97.8 104 24 102/78 (86) 93 05/27/17 19:00 116 25 93/66 (75) 93 05/27/17 16:20 97.5 105 18 133/79 (97) 93 05/27/17 16:20 105 05/27/17 16:00 105 136/72 05/27/17 15:00 102 05/27/17 11:00 102 I/O 05/27/17 05/27/17 05/27/17 05/28/17 05/28/17 05/28/17 06:59 14:59 22:59 06:59 14:59 22:59 Intake Total 946 ml 2980 ml 560 ml 340 ml Output Total 500 ml 100 ml 320 ml 200 ml Balance 446 ml 2880 ml 240 ml 140 ml Intake Oral 240 ml 290 ml IV Total 706 ml 2690 ml 560 ml 340 ml Output Urine Total 500 ml 100 ml 320 ml 200 ml # Voids 4 # Bowel Movements 0 Result Diagram: 05/28/1742405/28/17424 Objective Remarks GENERAL: Well-nourished, well-developed male patient with long cervantes. SKIN: Warm and dry. HEAD: Normocephalic. EYES: No scleral icterus. No injection or drainage. NECK: Supple, trachea midline. No JVD or lymphadenopathy. CARDIOVASCULAR: Irregularly irregular rate and rhythm without murmurs, gallops, or rubs. RESPIRATORY: Breath sounds equal bilaterally. No accessory muscle use. GASTROINTESTINAL: Abdomen soft, non-tender, nondistended. EXTREMITIES: 1+ edema the right leg. NEUROLOGICAL: Awake, alert, and oriented x 3. Non-focal. A/P Problem List: (1) Atrial fibrillation with RVR ICD Code: I48.91 - Unspecified atrial fibrillation Status: Acute (2) Elevated liver enzymes ICD Code: R74.8 - Abnormal levels of other serum enzymes (3) Coagulopathy ICD Code: D68.9 - Coagulation defect, unspecified (4) Acute renal failure ICD Code: N17.9 - Acute kidney failure, unspecified (5) Cardiomyopathy ICD Code: I42.9 - Cardiomyopathy, unspecified (6) Hypertension ICD Code: I10 - Hypertension Status: Acute (7) Chronic obstructive pulmonary disease ICD Code: J44.9 - Chronic obstructive pulmonary disease Status: Acute Assessment and Plan Atrial fibrillation with RVR. Difficult to control rate Patient was diagnosed with atrial fibrillation, 2 years ago. He is not any type of medications for rate control or anticoagulation. Patient denies any follow-up since his last admission Patient continued on Cardizem IV Patient continued on amiodarone IV Continue digoxin 0.25 mg by mouth daily, metoprolol 50 mg by mouth every 12 hours, Cardizem 90 mg by mouth 4 times a day. Cardiology /Dr. Kaba following. -Patient has been started on Coumadin. We'll consult pharmacy to follow INR levels. Patient was counseled on the importance of following up at least weekly at the [place] clinic for INR checks, we discussed the importance of Coumadin for stroke prevention but also discussed the risk of bleeding especially if he is not compliant with checking his Coumadin levels. We'll follow-up echocardiogram TSH is within normal limits Shortness of breath with right lower extremity edema Ultrasound of the lower extremity did not indicate any acute DVT CT angiography does not indicate any pulmonary emboli Shortness of breath likely secondary to A. fib with RVR, COPD Elevated liver enzymes with coagulopathy Liver ultrasound shows trace ascitic fluid, normal liver, gallbladder sludge and tiny solitary stone Patient does have history of chronic alcohol use Continue monitor liver enzymes, obtain hepatitis panel, monitor coagulation studies, Acute renal failure, improved Likely secondary to atrial fibrillation, dehydration Continue monitor renal function Avoid nephrotoxins Cardiomyopathy Previous echocardiogram done June 2015 shows ejection fraction 20-30%, moderate diffuse hypokinesis, moderately severely reduced systolic function, moderately to severely calcified mitral annulus Cardiology has been consulted, will also defer care to them if patient will need LifeVest or not prior to discharge Chronic obstructive pulmonary disease without acute exacerbation Continue O2 supplementation maintain O2 sats greater 92% Duo nebs as needed DVT prevention Coumadin Problem Qualifiers (1) Cardiomyopathy: Qualified Codes: I42.9 - Cardiomyopathy, unspecified (2) Hypertension: Qualified Codes: I10 - Essential (primary) hypertension (3) Chronic obstructive pulmonary disease: Marie Joe MD May 28, 2017 10:18
--- NOTE | 2017-05-28 10:26 | ECHRPT ---
Indication: A-FIB CONCLUSIONS Poor echocardiographic windows The left ventricular systolic function is severely reduced with an estimated ejection fraction in th e range of 20-25%. There is global left ventricular dysfunction. Normal left ventricular size. Mild concentric left ventricular hypertrophy. Moderate thickening of the mitral valve leaflets. Moderate mitral annular calcification. There is trace tricuspid valve regurgitation. The estimated pulmonary arterial pressure is 34 mmHg. BP: 109 / 76 HR: 87 Rhythm: Atrial fibrillation MEASUREMENTS (Male / Female) Normal Values Technical Quality:Very technically difficult study 2D ECHO LV Diastolic Diameter PLAX 5.4 cm 4.2 - 5.9 / 3.9 - 5.3 cm LV Systolic Diameter PLAX 4.8 cm IVS Diastolic Thickness 1.4 cm 0.6 - 1.0 / 0.6 - 0.9 cm LVPW Diastolic Thickness 1.4 cm 0.6 - 1.0 / 0.6 - 0.9 cm LV Relative Wall Thickness 0.5 RV Internal Dim ED PLAX 3.0 cm LA Systolic Diameter LX 3.8 cm 3.0 - 4.0 / 2.7 - 3.8 cm M-MODE Aortic Root Diameter MM 3.0 cm AV Cusp Separation MM 1.9 cm DOPPLER AV Peak Velocity 112.0 cm/s AV Peak Gradient 5.0 mmHg LVOT Peak Velocity 78.0 cm/s LVOT Peak Gradient 2.4 mmHg MV Area PHT 6.9 cm Mitral E Point Velocity 103.0 cm/s Mitral A Point Velocity 84.9 cm/s Mitral E to A Ratio 1.2 TR Peak Velocity 243.0 cm/s TR Peak Gradient 23.6 mmHg FINDINGS LEFT VENTRICLE The left ventricular systolic function is severely reduced with an estimated ejection fraction in th e range of 20-25%. There is global left ventricular dysfunction. Normal left ventricular size. Mild concentric left ventricular hypertrophy. RIGHT VENTRICLE The right ventricle was not well visualized. LEFT ATRIUM The left atrial size is normal. RIGHT ATRIUM The right atrial size is normal. ATRIAL SEPTUM The interatrial septum not well visualized. AORTA The aortic root and proximal ascending aorta are not well visualized. MITRAL VALVE Moderate thickening of the mitral valve leaflets. Moderate mitral annular calcification. AORTIC VALVE The aortic valve is not well visualized. TRICUSPID VALVE There is trace tricuspid valve regurgitation. The estimated pulmonary arterial pressure is 34 mmHg. PULMONARY VALVE The pulmonary valve is not well visualized. VESSELS The inferior vena cava is normal in size. PERICARDIUM No pericardial effusion. Facundo Alonso-Zari MD (Electronically Signed) Final Date:28 May 2017 10:26
[2017-05-28] MEDS ORDERED: DIGOXIN 0.25 MG TAB PO SCH (11:00)
[2017-05-28] MEDS: METOPROLOL TARTRATE 50 MG TAB PO SCH ×2 (11:08→20:42)
[2017-05-28] MEDS ORDERED: WARFARIN SOD 2.5 MG TAB PO ONE (16:00)
[2017-05-28] MEDS: WARFARIN SOD 2.5 MG TAB PO SCH (16:36)
[2017-05-28] MEDS ORDERED: RESP: ALBUTEROL 2.5 MG/IPRATROPIUM 0.5 MG NEB (PRN) NEB (22:15)
--- NOTE | 2017-05-28 22:32 | RADRPT ---
EXAM DATE/TIME: 05/28/2017 22:23 [facility] COMPARISON: CHEST SINGLE AP, May 26, 2017, 17:11. INDICATIONS : Shortness of breath. MEDICAL HISTORY : Hypertension. SURGICAL HISTORY : None. ENCOUNTER: Subsequent ACUITY: 3 days PAIN SCORE: Non-responsive. LOCATION: Bilateral chest FINDINGS: A single view of the chest demonstrates mild basilar airspace disease. Heart is mildly enlarged The c ardiomediastinal contours are otherwise unremarkable. Osseous structures are intact. CONCLUSION: Bibasilar airspace disease suspicious for early congestion. Joaquin Moore MD on May 28, 2017 at 22:30 Board Certified Radiologist. This report was verified electronically.
[2017-05-29] VITALS (13 sets, daily range): BP systolic 94–142; BP diastolic 61–78; PULSE 50–82; RESP 16–23; TEMP 96.2–97.8; O2SAT 94–100
[2017-05-29] MEDS ORDERED: FUROSEMIDE 20 MG/2 ML VIAL IV PUSH ONE ×2 (01:15)
[2017-05-29] MEDS: CHLORHEXIDINE GLUCONATE 2 % 1 PACK (2 CLOTHS)(taper/protocol) TOPICAL SCH (04:00)
[2017-05-29 05:57] LABS: INTERNATIONAL NORMALIZED RATIO 1.5 RATIO; PROTHROMBIN TIME - PATIENT 16.4 SEC (9.8-11.6)
--- NOTE | 2017-05-29 07:41 | PD.CARD.PN ---
Subjective Subjective Remarks The patient denies chest pain, shortness of breath, GI symptoms or bleeding. Amiodarone was discontinued because of bradycardia. Present telemetry shows mild bradycardia with atrial fibrillation and bundle branch block. Echocardiogram shows 20-25% ejection fraction which is global but he has had this on an echocardiogram 2 years ago. Objective Medications Reviewed Vital Signs / I&O Vital Signs Date Time Temp Pulse Resp B/P (MAP) Pulse Ox O2 Delivery O2 Flow Rate FiO2 05/29/17 07:37 97 Nasal Cannula 3.00 05/29/17 04:00 97.8 50 94/67 (76) 94 05/29/17 04:00 50 05/29/17 00:00 97.8 50 94/67 (76) 94 05/29/17 00:00 50 05/28/17 22:54 95 Nasal Cannula 3.00 05/28/17 22:17 52 92/63 05/28/17 22:06 94 Nasal Cannula 2.00 05/28/17 20:19 93 21 05/28/17 20:00 70 05/28/17 20:00 56 28 92/55 (67) 92 05/28/17 16:35 70 05/28/17 16:30 97.6 70 20 102/65 (77) 93 05/28/17 12:00 108 18 119/67 (84) 92 05/28/17 12:00 108 05/28/17 08:19 112 114/60 05/28/17 08:09 93 21 05/28/17 08:00 118 05/28/17 08:00 97.7 106 18 114/60 (78) 95 I/O 05/28/17 05/28/17 05/28/17 05/29/17 05/29/17 05/29/17 06:59 14:59 22:59 06:59 14:59 22:59 Intake Total 560 ml 1340 ml 2787 ml Output Total 320 ml 200 ml 301 ml 40 ml Balance 240 ml 1140 ml 2486 ml -40 ml Intake Oral 480 ml IV Total 560 ml 1340 ml 2307 ml Output Urine Total 320 ml 200 ml 300 ml 40 ml Stool Total 1 ml # Voids 2 Physical Exam GENERAL: Well-nourished, well-developed patient in no apparent distress. SKIN: Warm and dry. NECK: JVD normal - less than or equal to 5 cm H20. CARDIOVASCULAR: Irregular rate and rhythm without murmurs, gallops, or rubs. RESPIRATORY: Normal breath sounds - equal bilaterally. No accessory muscle use. No wheezes, rales or rubs. PERIPHERY: No cyanosis. Trace edema. Laboratory Laboratory Tests Test 05/29/17 04:25 Prothrombin Time 16.4 SEC Prothromb Time International Ratio 1.5 RATIO Digoxin Level 1.4 NG/ML Imaging Reviewed. Assessment and Plan Assessment and Plan Problems: Atrial fibrillation with rapid response now with bradycardia Cardiomyopathy of unknown etiology Hypertension Prior alcohol and tobacco abuse Underlying liver disease Noncompliance Recommendations: Discontinue digoxin Stop amiodarone Continue beta blockers and diltiazem for rate control I would leave candidacy to anticoagulation to primary service. Ideally we would want him and it INR of 2-3. Have ordered oral furosemide. Ideally would like on HUMPHREY inhibitor or ARB but blood pressure is borderline. I have nothing more to add. We will be available if needed. [facility]. All questions were answered. Taras Solorio MD May 29, 2017 07:41
[2017-05-29] MEDS ORDERED: SODIUM CHLORID 0.9% 500 ML INJ 500 ML IV ONE (08:30)
[2017-05-29] MEDS: METOPROLOL TARTRATE 50 MG TAB PO SCH ×2 (08:50→21:05)
[2017-05-29] MEDS: DOCUSATE SODIUM 50 MG/SENNA 8.6 MG TAB PO SCH ×2 (08:50→21:05)
[2017-05-29] MEDS: SODIUM CHLORIDE 0.9% FLUSH 10 ML FLUSH IV FLUSH SCH ×2 (08:51→21:05)
[2017-05-29] MEDS: HEPARIN SODIUM - SQ 10,000 UNITS/ML VIAL SQ SCH ×2 (08:51→21:05)
[2017-05-29] MEDS: FUROSEMIDE 40 MG TAB PO SCH (08:51)
--- NOTE | 2017-05-29 09:24 | HHI.PR ---
Subjective Remarks Patient is now off the Cardizem and amiodarone drip with heart rate in the 50s on oral metoprolol and Cardizem. He denies any dyspnea. Blood pressure was running slightly low this morning however it is now systolic 106. Objective Vitals Vital Signs Date Time Temp Pulse Resp B/P (MAP) Pulse Ox O2 Delivery O2 Flow Rate FiO2 05/29/17 07:37 97 Nasal Cannula 3.00 05/29/17 04:00 97.8 50 94/67 (76) 94 05/29/17 04:00 50 05/29/17 00:00 97.8 50 94/67 (76) 94 05/29/17 00:00 50 05/28/17 22:54 95 Nasal Cannula 3.00 05/28/17 22:17 52 92/63 05/28/17 22:06 94 Nasal Cannula 2.00 05/28/17 20:19 93 21 05/28/17 20:00 70 05/28/17 20:00 56 28 92/55 (67) 92 05/28/17 16:35 70 05/28/17 16:30 97.6 70 20 102/65 (77) 93 05/28/17 12:00 108 18 119/67 (84) 92 05/28/17 12:00 108 I/O 05/28/17 05/28/17 05/28/17 05/29/17 05/29/17 05/29/17 07:00 15:00 23:00 07:00 15:00 23:00 Intake Total 560 ml 1340 ml 2787 ml Output Total 320 ml 200 ml 301 ml 40 ml Balance 240 ml 1140 ml 2486 ml -40 ml Intake Oral 480 ml IV Total 560 ml 1340 ml 2307 ml Output Urine Total 320 ml 200 ml 300 ml 40 ml Stool Total 1 ml # Voids 2 Result Diagram: 05/28/1742405/28/17424 Objective Remarks GENERAL: Well-nourished, well-developed male patient with long cervantes. SKIN: Warm and dry. HEAD: Normocephalic. EYES: No scleral icterus. No injection or drainage. NECK: Supple, trachea midline. No JVD or lymphadenopathy. CARDIOVASCULAR: Irregularly irregular rate and rhythm without murmurs, gallops, or rubs. RESPIRATORY: Breath sounds equal bilaterally. No accessory muscle use. GASTROINTESTINAL: Abdomen soft, non-tender, nondistended. EXTREMITIES: 1+ edema the right leg. NEUROLOGICAL: Awake, alert, and oriented x 3. Non-focal. A/P Problem List: (1) Atrial fibrillation with RVR ICD Code: I48.91 - Unspecified atrial fibrillation Status: Acute (2) Elevated liver enzymes ICD Code: R74.8 - Abnormal levels of other serum enzymes (3) Coagulopathy ICD Code: D68.9 - Coagulation defect, unspecified (4) Acute renal failure ICD Code: N17.9 - Acute kidney failure, unspecified (5) Cardiomyopathy ICD Code: I42.9 - Cardiomyopathy, unspecified (6) Hypertension ICD Code: I10 - Hypertension Status: Acute (7) Chronic obstructive pulmonary disease ICD Code: J44.9 - Chronic obstructive pulmonary disease Status: Acute Assessment and Plan Atrial fibrillation with RVR. Now controlled with slight bradycardia. Patient was diagnosed with atrial fibrillation, 2 years ago. He is not any type of medications for rate control or anticoagulation. Patient denies any follow-up since his last admission Cardiology consultation appreciated Continue by mouth Cardizem and metoprolol to hold for hypotension or bradycardia -Patient has been started on Coumadin. We'll consult pharmacy to follow INR levels. Patient was counseled on the importance of following up at least weekly at the [place] clinic for INR checks, we discussed the importance of Coumadin for stroke prevention but also discussed the risk of bleeding especially if he is not compliant with checking his Coumadin levels. echocardiogram shows EF of 25-30% TSH is within normal limits Shortness of breath with right lower extremity edema Ultrasound of the lower extremity did not indicate any acute DVT CT angiography does not indicate any pulmonary emboli Shortness of breath likely secondary to A. fib with RVR, COPD Shortness of breath resolved Elevated liver enzymes with coagulopathy Liver ultrasound shows trace ascitic fluid, normal liver, gallbladder sludge and tiny solitary stone Patient does have history of chronic alcohol use Continue monitor liver enzymes, obtain hepatitis panel, monitor coagulation studies Acute renal failure, resolved Likely secondary to atrial fibrillation, dehydration Continue monitor renal function Avoid nephrotoxins Cardiomyopathy echocardiogram shows ejection fraction of 25-30%, moderate diffuse hypokinesis, moderately severely reduced systolic function, moderately to severely calcified mitral annulus Cardiology was consulted. Patient started on Lasix by mouth. Blood pressure is too low to tolerate HUMPHREY inhibitor. He is on metoprolol. Chronic obstructive pulmonary disease without acute exacerbation Continue O2 supplementation maintain O2 sats greater 92% Duo nebs as needed DVT prevention Coumadin - INR is 1.5 today Discharge Planning Monitor her one more day and if vital signs are improved with stable pulse and blood pressure he can be discharged home tomorrow. Problem Qualifiers (1) Cardiomyopathy: Qualified Codes: I42.9 - Cardiomyopathy, unspecified (2) Hypertension: Qualified Codes: I10 - Essential (primary) hypertension (3) Chronic obstructive pulmonary disease: Marie Joe MD May 29, 2017 09:24
[2017-05-29] MEDS: DILTIAZEM-CD 180 MG CAP ER PO SCH (10:02)
[2017-05-29] MEDS ORDERED: WARFARIN SOD 2 MG TAB PO ONE (16:00)
[2017-05-29] MEDS ORDERED: DILTIAZEM INJ 125 MG in SODIUM CHLORIDE 0.9% INJ 100 ML IV PRN (16:00)
[2017-05-29] MEDS: WARFARIN SOD 2.5 MG TAB PO SCH (16:28)
[2017-05-30] VITALS (13 sets, daily range): BP systolic 126–174; BP diastolic 78–100; PULSE 64–93; RESP 18–20; TEMP 95.7–96.8; O2SAT 93–98
[2017-05-30] MEDS: CHLORHEXIDINE GLUCONATE 2 % 1 PACK (2 CLOTHS)(taper/protocol) TOPICAL SCH (04:30)
[2017-05-30 06:52] LABS: INTERNATIONAL NORMALIZED RATIO 2.3 RATIO; PROTHROMBIN TIME - PATIENT 26.5 SEC (9.8-11.6)
[2017-05-30] MEDS: DILTIAZEM-CD 180 MG CAP ER PO SCH (08:52)
[2017-05-30] MEDS: FUROSEMIDE 40 MG TAB PO SCH (08:52)
[2017-05-30] MEDS: HEPARIN SODIUM - SQ 10,000 UNITS/ML VIAL SQ SCH ×2 (08:53→20:35)
[2017-05-30] MEDS: DOCUSATE SODIUM 50 MG/SENNA 8.6 MG TAB PO SCH ×2 (08:53→20:35)
[2017-05-30] MEDS: SODIUM CHLORIDE 0.9% FLUSH 10 ML FLUSH IV FLUSH SCH ×2 (08:53→20:40)
[2017-05-30] MEDS: METOPROLOL TARTRATE 50 MG TAB PO SCH ×2 (08:53→20:35)
[2017-05-30] MEDS: WARFARIN SOD 2.5 MG TAB PO SCH (17:00)
[2017-05-30] MEDS: guaiFENesin E.R. 600 MG TAB PO SCH (20:35)
--- NOTE | 2017-05-30 23:32 | HHI.PR ---
Subjective Remarks Patient seen this morning. Says he lives in a trailer. Patient says he is very weak, has not walked during hospitalization. Says he has a walker at home. Does not have oxygen at home. Objective Vital Signs Date Time Temp Pulse Resp B/P (MAP) Pulse Ox O2 Delivery O2 Flow Rate FiO2 05/30/17 20:38 97 Nasal Cannula 2.00 05/30/17 16:00 96.8 64 18 126/81 (96) 94 05/30/17 12:00 96.6 86 18 146/100 (115) 94 05/30/17 10:00 98 Nasal Cannula 3.00 05/30/17 08:01 82 05/30/17 08:00 96.6 84 18 161/82 (108) 93 05/30/17 07:05 73 05/30/17 04:00 96.4 72 18 142/78 (99) 98 05/30/17 00:00 95.7 65 18 141/81 (101) 96 I/O 05/30/17 05/30/17 05/30/17 05/31/17 05/31/17 05/31/17 07:00 15:00 23:00 07:00 15:00 23:00 Output Total 1200 ml Balance -1200 ml Output Urine Total 1200 ml # Voids 5 Result Diagram: 05/28/1742405/28/17424 Objective Remarks GENERAL: patient sitting up in bed. Appears comfortable. SKIN: Warm and dry. HEAD: Normocephalic. EYES: No scleral icterus. No injection or drainage. NECK: Supple, trachea midline. No JVD or lymphadenopathy. CARDIOVASCULAR: Regular rate and rhythm without murmurs, gallops, or rubs. RESPIRATORY: Breath sounds equal bilaterally. No accessory muscle use. GASTROINTESTINAL: Abdomen soft, non-tender, nondistended. MUSCULOSKELETAL: No cyanosis, or edema. BACK: Nontender without obvious deformity. No CVA tenderness. A/P Assessment and Plan Ordered home oxygen evaluation. PT consultation. Discussed with nurse. We'll get patient out of bed to chair. Patient may be able to go home tomorrow if stable Atrial fibrillation with RVR. Now controlled with slight bradycardia. Patient was diagnosed with atrial fibrillation, 2 years ago. He is not any type of medications for rate control or anticoagulation. Patient denies any follow-up since his last admission Cardiology consultation appreciated Continue by mouth Cardizem and metoprolol to hold for hypotension or bradycardia -Patient has been started on Coumadin. We'll consult pharmacy to follow INR levels. Patient was counseled on the importance of following up at least weekly at the [place] clinic for INR checks, we discussed the importance of Coumadin for stroke prevention but also discussed the risk of bleeding especially if he is not compliant with checking his Coumadin levels. echocardiogram shows EF of 25-30% TSH is within normal limits Shortness of breath with right lower extremity edema Ultrasound of the lower extremity did not indicate any acute DVT CT angiography does not indicate any pulmonary emboli Shortness of breath likely secondary to A. fib with RVR, COPD Shortness of breath resolved Elevated liver enzymes with coagulopathy Liver ultrasound shows trace ascitic fluid, normal liver, gallbladder sludge and tiny solitary stone Patient does have history of chronic alcohol use Continue monitor liver enzymes, obtain hepatitis panel, monitor coagulation studies Acute renal failure, resolved Likely secondary to atrial fibrillation, dehydration Continue monitor renal function Avoid nephrotoxins Cardiomyopathy echocardiogram shows ejection fraction of 25-30%, moderate diffuse hypokinesis, moderately severely reduced systolic function, moderately to severely calcified mitral annulus Cardiology was consulted. Patient started on Lasix by mouth. Blood pressure is too low to tolerate HUMPHREY inhibitor. He is on metoprolol. Chronic obstructive pulmonary disease without acute exacerbation Continue O2 supplementation maintain O2 sats greater 92% Duo nebs as needed DVT prevention Coumadin - INR is 1.5 today Discharge Planning Monitor her one more day and if vital signs are improved with stable pulse and blood pressure he can be discharged home tomorrow. Moe Cantor MD May 30, 2017 23:32
[2017-05-31] VITALS (9 sets, daily range): BP systolic 130–161; BP diastolic 80–88; PULSE 66–90; RESP 17–20; TEMP 96–97.5; O2SAT 94–99
[2017-05-31 01:09] LABS: BICARBONATE 31.1 MEQ/L (21.0-32.0); MAGNESIUM 1.4 MG/DL (1.5-2.5)
[2017-05-31] MEDS: CHLORHEXIDINE GLUCONATE 2 % 1 PACK (2 CLOTHS)(taper/protocol) TOPICAL SCH (04:02)
[2017-05-31] MEDS ORDERED: POTASSIUM CHLORIDE 25 MEQ EFFERVESCENT TAB PO ONE (05:15)
[2017-05-31] MEDS: MAGNESIUM SULFATE 1 GM PREMIX 100 ML IV SCH ×2 (05:43→07:50)
[2017-05-31] MEDS: POTASSIUM CHLOR 10 MEQ PREMIX 100 ML IV SCH ×3 (05:43→07:59)
[2017-05-31 06:11] LABS: PROTHROMBIN TIME - PATIENT 22.7 SEC (9.8-11.6)
[2017-05-31] MEDS: HEPARIN SODIUM - SQ 10,000 UNITS/ML VIAL SQ SCH ×2 (07:52→20:57)
[2017-05-31] MEDS: METOPROLOL TARTRATE 50 MG TAB PO SCH ×2 (07:52→20:57)
[2017-05-31] MEDS: DOCUSATE SODIUM 50 MG/SENNA 8.6 MG TAB PO SCH ×2 (07:52→20:57)
[2017-05-31] MEDS: guaiFENesin E.R. 600 MG TAB PO SCH ×2 (07:53→20:57)
[2017-05-31] MEDS: FUROSEMIDE 40 MG TAB PO SCH (07:53)
[2017-05-31] MEDS: DILTIAZEM-CD 180 MG CAP ER PO SCH (07:58)
[2017-05-31] MEDS: SODIUM CHLORIDE 0.9% FLUSH 10 ML FLUSH IV FLUSH SCH ×2 (07:59→20:57)
[2017-05-31] MEDS ORDERED: COUM3TAB PO (11:43)
[2017-05-31] MEDS ORDERED: ACET1TAB86 PO (11:43)
[2017-05-31] MEDS ORDERED: FURO40TA PO (11:43)
[2017-05-31] MEDS ORDERED: CARD180C5 PO (11:43)
[2017-05-31] MEDS ORDERED: MAGN400T2 PO (11:48)
[2017-05-31] MEDS ORDERED: METO-309 PO (11:48)
[2017-05-31] MEDS ORDERED: POTA10TA2 PO (11:48)
[2017-05-31] MEDS ORDERED: LISI2.5T3 PO (11:48)
--- NOTE | 2017-05-31 11:57 | HHI.FF ---
Face to Face Verification Diagnosis: (1) New onset atrial fibrillation (2) Chronic obstructive pulmonary disease (3) CHF (congestive heart failure) Physical Therapy Order: Evaluate and Treat Home Health Nursing Order: Nursing assessment with vital signs I have seen patient Isaias Morfin on 05/31/17. My clinical findings support the need for the requested home health care services because: Deconditioned w/ increased weakness I certify that my clinical findings support that this patient is homebound because: Unsafe to leave home unassisted Moe Cantor MD May 31, 2017 11:57
--- NOTE | 2017-05-31 12:34 | PD.CARD.PN ---
Subjective Subjective Remarks Pt feels well, was called to see pt for NSVT. Objective Medications Administered Medications Medications (Trade) Dose Ordered Sig/Alanis Route PRN Reason Start Time Stop Time Status Last Admin Dose Admin Diltiazem HCl (Cardizem Inj) 25 mg UNSCH X1 PRN IV PUSH SEE LABEL COMMENTS 05/26/17 17:30 05/26/17 17:10 Sodium Chloride (NS Flush) 2 ml BID IV FLUSH 05/26/17 21:00 05/30/17 20:40 Ondansetron HCl (Zofran Inj) 4 mg Q6H PRN IVP NAUSEA OR VOMITING 05/26/17 20:15 05/28/17 15:22 Heparin Sodium (Porcine) (Heparin Inj) 5,000 units Q12H SQ 05/26/17 21:00 05/31/17 07:52 Senna/Docusate Sodium (Caitlin-Colace) 1 tab BID PO 05/26/17 21:00 05/31/17 07:52 Miscellaneous Information Patient in critical care unit? Ass... Q361D .XX 05/27/17 01:00 05/27/17 01:00 Metoprolol Tartrate (Lopressor) 50 mg Q12HR PO 05/28/17 11:00 05/31/17 07:52 Albuterol/ Ipratropium (Duoneb Neb) 1 ampule Q4HR NEB PRN NEB SOB/WHEEZING 05/28/17 22:15 05/28/17 22:54 Furosemide (Lasix) 40 mg DAILY PO 05/29/17 09:00 05/31/17 07:53 Diltiazem HCl (Cardizem Cd) 180 mg DAILY PO 05/29/17 09:00 05/31/17 07:58 Guaifenesin (Mucinex Er) 600 mg BID PO 05/30/17 21:00 05/31/17 07:53 Vital Signs / I&O Vital Signs Date Time Temp Pulse Resp B/P (MAP) Pulse Ox O2 Delivery O2 Flow Rate FiO2 05/31/17 12:00 97.1 75 17 139/82 (101) 96 05/31/17 08:10 96 Nasal Cannula 2.00 05/31/17 08:00 96.7 79 19 145/85 (105) 95 05/31/17 04:00 96.3 83 20 161/88 (112) 97 05/31/17 02:04 98 Nasal Cannula 2.00 21 05/31/17 00:00 96.0 66 20 150/86 (107) 99 05/30/17 23:08 93 05/30/17 22:09 93 05/30/17 20:38 97 Nasal Cannula 2.00 05/30/17 20:00 96.0 85 20 174/86 (115) 98 05/30/17 19:17 72 05/30/17 16:00 96.8 64 18 126/81 (96) 94 I/O 05/30/17 05/30/17 05/30/17 05/31/17 05/31/17 05/31/17 06:59 14:59 22:59 06:59 14:59 22:59 Intake Total 120 ml 180 ml 400 ml Output Total 1625 ml 675 ml Balance -1505 ml -495 ml 400 ml Intake Oral 120 ml 180 ml IV Total 400 ml Output Urine Total 1625 ml 675 ml # Voids 7 1 # Bowel Movements 1 0 Physical Exam GENERAL: This is a well-nourished, well-developed patient, in no apparent distress. CARDIOVASCULAR: regular rate and irregular rhythm without murmurs, gallops, or rubs. RESPIRATORY: Clear to auscultation. Breath sounds equal bilaterally. No wheezes , rales, or rhonchi. GASTROINTESTINAL: Abdomen soft, non-tender, nondistended. Normal, active bowel sounds MUSCULOSKELETAL: Extremities without clubbing, cyanosis, or edema. NEURO: Alert & Oriented x4 to person, place, time, situation. Moves all ext x4 Laboratory Laboratory Tests Test 05/31/17 00:40 05/31/17 05:30 Blood Urea Nitrogen 16 MG/DL Creatinine 0.73 MG/DL Random Glucose 98 MG/DL Calcium Level 7.6 MG/DL Magnesium Level 1.4 MG/DL Sodium Level 138 MEQ/L Potassium Level 3.0 MEQ/L Chloride Level 101 MEQ/L Carbon Dioxide Level 31.1 MEQ/L Anion Gap 6 MEQ/L Estimat Glomerular Filtration Rate 106 ML/MIN Prothrombin Time 22.7 SEC Prothromb Time International Ratio 2.0 RATIO Imaging Last Impressions Liver Ultrasound 05/28/17 0000 Signed Impressions: Service Date/Time: Sunday, May 28, 2017 08:02 - CONCLUSION: 1. Trace ascitic fluid. 2. Gallbladder sludge and tiny solitary stone without sonographic evidence to suggest acute cholecystitis. Sterling Reeves Jr., MD Chest X-Ray 05/28/17 0000 Signed Impressions: Service Date/Time: Sunday, May 28, 2017 22:23 - CONCLUSION: Bibasilar airspace disease suspicious for early congestion. Joaquin Moore MD Lower Extremity Ultrasound [id number]/26/[id number] Signed Impressions: Service Date/Time: Friday, May 26, 2017 22:30 - CONCLUSION: Normal examination. Jimi Alamo MD CT Angiography [id number]/[id number] Signed Impressions: Service Date/Time: Friday, May 26, 2017 17:52 - CONCLUSION: Small right pleural effusion. Jimi Alamo MD Assessment and Plan Problem List: (1) New onset atrial fibrillation ICD Codes: I48.91 - New onset atrial fibrillation Status: Acute (2) Cardiomyopathy ICD Codes: I42.9 - Cardiomyopathy, unspecified (3) CHF (congestive heart failure) ICD Codes: I50.9 - Heart failure, unspecified Status: Acute Plan: class II-IIl; added entresto (4) NSVT (nonsustained ventricular tachycardia) ICD Codes: I47.2 - Ventricular tachycardia Assessment and Plan Pt w/ low LVEF and runs of NSVT on tele; advised transfer to [place] facility for full ischemic workup including possible cath/PCI; may need life-vest/AICD. Problem Qualifiers (1) Cardiomyopathy: Qualified Codes: I42.9 - Cardiomyopathy, unspecified (2) CHF (congestive heart failure): Qualified Codes: I50.20 - Unspecified systolic (congestive) heart failure Nakul Frias MD May 31, 2017 12:33
[2017-05-31] MEDS: WARFARIN SOD 3 MG TAB PO SCH (16:11)
[2017-05-31] MEDS: SACUBITRIL/VALSARTAN 24 MG-26 MG TAB PO SCH (20:57)
--- NOTE | 2017-05-31 22:56 | HHI.PR ---
Subjective Remarks patient seen this morning. Says he feels all right today. Denies any chest pain or shortness of breath. Nurses noted the tach. Discussed with cardiology. Cardiology recommends against discharge, recommends transfer to [facility]. Objective Vital Signs Date Time Temp Pulse Resp B/P (MAP) Pulse Ox O2 Delivery O2 Flow Rate FiO2 05/31/17 21:02 2.00 05/31/17 20:25 94 21 05/31/17 16:00 97.5 90 19 130/80 (97) 94 05/31/17 12:00 97.1 75 17 139/82 (101) 96 05/31/17 08:10 96 Nasal Cannula 2.00 05/31/17 08:04 80 05/31/17 08:00 96.7 79 19 145/85 (105) 95 05/31/17 07:50 95 Nasal Cannula 2.00 05/31/17 04:00 96.3 83 20 161/88 (112) 97 05/31/17 02:04 98 Nasal Cannula 2.00 21 05/31/17 00:00 96.0 66 20 150/86 (107) 99 05/30/17 23:08 93 I/O 05/30/17 05/30/17 05/30/17 05/31/17 05/31/17 05/31/17 07:00 15:00 23:00 07:00 15:00 23:00 Intake Total 120 ml 180 ml 500 ml Output Total 1625 ml 675 ml 500 ml Balance -1505 ml -495 ml 0 ml Intake Oral 120 ml 180 ml IV Total 500 ml Output Urine Total 1625 ml 675 ml 500 ml # Voids 7 1 # Bowel Movements 1 0 Result Diagram: 05/28/17 0425 05/31/17 0040 Objective Remarks GENERAL: patient sitting up in bed. Appears comfortable.no change on exam. SKIN: Warm and dry. HEAD: Normocephalic. EYES: No scleral icterus. No injection or drainage. NECK: Supple, trachea midline. No JVD. CARDIOVASCULAR: irregularRegular rate and rhythm without murmurs, gallops, or rubs. RESPIRATORY: Breath sounds equal bilaterally. No accessory muscle use. GASTROINTESTINAL: Abdomen soft, non-tender, nondistended. MUSCULOSKELETAL: No cyanosis, or edema. BACK: Nontender without obvious deformity. No CVA tenderness. A/P Assessment and Plan ===05/31/17======== Hypokalemia. Potassium 3.0. Replaced Hypomagnesemia. Magnesium 1.4. Replaced monitor Atrial fibrillation. Continue warfarin. INR 2.0. Ventricular tachycardia, cardiomyopathy. Patient experienced ventricular tachycardia overnight on 05/2324 cardiology recommends further ischemic workup at [facility]. manager of drilling working on transfer. Atrial fibrillation with RVR. Now controlled with slight bradycardia. Patient was diagnosed with atrial fibrillation, 2 years ago. He is not any type of medications for rate control or anticoagulation. Patient denies any follow-up since his last admission Cardiology consultation appreciated Continue by mouth Cardizem and metoprolol to hold for hypotension or bradycardia -Patient has been started on Coumadin. We'll consult pharmacy to follow INR levels. Patient was counseled on the importance of following up at least weekly at the [place] clinic for INR checks, we discussed the importance of Coumadin for stroke prevention but also discussed the risk of bleeding especially if he is not compliant with checking his Coumadin levels. echocardiogram shows EF of 25-30% TSH is within normal limits Shortness of breath with right lower extremity edema Ultrasound of the lower extremity did not indicate any acute DVT CT angiography does not indicate any pulmonary emboli Shortness of breath likely secondary to A. fib with RVR, COPD Shortness of breath resolved Elevated liver enzymes with coagulopathy Liver ultrasound shows trace ascitic fluid, normal liver, gallbladder sludge and tiny solitary stone Patient does have history of chronic alcohol use Continue monitor liver enzymes, obtain hepatitis panel, monitor coagulation studies Acute renal failure, resolved Likely secondary to atrial fibrillation, dehydration Continue monitor renal function Avoid nephrotoxins Cardiomyopathy echocardiogram shows ejection fraction of 25-30%, moderate diffuse hypokinesis, moderately severely reduced systolic function, moderately to severely calcified mitral annulus Cardiology was consulted. Patient started on Lasix by mouth. Blood pressure is too low to tolerate HUMPHREY inhibitor. He is on metoprolol. Chronic obstructive pulmonary disease without acute exacerbation Continue O2 supplementation maintain O2 sats greater 92% Duo nebs as needed DVT prevention. continue therapeutic Coumadin. Discharge Planning further ischemic workup to be done at [facility]. embedded case manager working on transfer. Moe Cantor MD May 31, 2017 22:56
[2017-06-01] VITALS (8 sets, daily range): BP systolic 122–173; BP diastolic 89–102; PULSE 81–110; RESP 18–20; TEMP 96.6–97.8; O2SAT 92–96
--- NOTE | 2017-06-01 06:36 | PD.CARD.PN ---
Subjective Subjective Remarks The patient denies chest pain, shortness of breath, GI symptoms or bleeding. Telemetry reveals atrial fibrillation with nonsustained ventricular tachycardia. Objective Medications Reviewed Vital Signs / I&O Vital Signs Date Time Temp Pulse Resp B/P (MAP) Pulse Ox O2 Delivery O2 Flow Rate FiO2 06/01/17 04:00 97.5 81 18 173/91 (118) 92 06/01/17 00:00 97.0 84 18 149/89 (109) 92 05/31/17 21:30 Nasal Cannula 2.00 21 05/31/17 21:02 2.00 05/31/17 20:25 94 21 05/31/17 20:00 97.1 80 18 132/81 (98) 98 05/31/17 20:00 82 05/31/17 16:00 97.5 90 19 130/80 (97) 94 05/31/17 12:00 97.1 75 17 139/82 (101) 96 05/31/17 08:10 96 Nasal Cannula 2.00 05/31/17 08:04 80 05/31/17 08:00 96.7 79 19 145/85 (105) 95 05/31/17 07:50 95 Nasal Cannula 2.00 I/O 05/31/17 05/31/17 05/31/17 06/01/17 06/01/17 06/01/17 06:59 14:59 22:59 06:59 14:59 22:59 Intake Total 180 ml 500 ml 240 ml Output Total 675 ml 500 ml 1250 ml Balance -495 ml 0 ml -1010 ml Intake Oral 180 ml 240 ml IV Total 500 ml Output Urine Total 675 ml 500 ml 1250 ml # Voids 1 # Bowel Movements 0 0 Physical Exam GENERAL: Well-nourished, well-developed patient in no apparent distress. SKIN: Warm and dry. NECK: JVD normal - less than or equal to 5 cm H20. CARDIOVASCULAR: Irregular rate and rhythm without murmurs, gallops, or rubs. RESPIRATORY: Decreased breath sounds - equal bilaterally. No accessory muscle use. No wheezes, rales or rubs. PERIPHERY: No cyanosis. Trace edema. Laboratory Reviewed. Assessment and Plan Assessment and Plan Problems: Atrial fibrillation Ventricular tachycardia Cardiomyopathy of unknown etiology Hypertension Prior alcohol and tobacco abuse Underlying liver disease Noncompliance Recommendations: Continue beta blockers and diltiazem for rate control Continue Entresto Warfarin to an INR of 2-3 [facility] The patient will need further workup of his cardiomyopathy and arrhythmia and may well need invasive procedures and defibrillator. We will sign off and leave further management to the primary service. We would want optimization of his electrolytes as he was hypokalemic and had a low magnesium yesterday. Taras Solorio MD Jun 01, 2017 06:36
[2017-06-01 06:55] LABS: BASOPHIL % 0.1 % (0.0-2.0); EOSINOPHIL % 0.4 % (0.0-4.0); HEMATOCRIT 49.8 % (39.0-51.0); LYMPH % 8.6 % (9.0-44.0); LYMPHOCYTE # 0.7 TH/MM3 (1.0-4.8); MEAN CELL VOLUME 85.5 FL (80.0-100.0); MEAN CORPUSCULAR HEMOGLOBIN 26.7 PG (27.0-34.0); MEAN CORPUSCULAR HGB CONC 31.2 % (32.0-36.0); MONO % 11.8 % (0.0-8.0); NEUT % 79.1 % (16.0-70.0); PLATELET COUNT 141 TH/MM3 (150-450); RED BLOOD COUNT 5.82 MIL/MM3 (4.50-5.90); RED CELL DISTRIBUTION WIDTH 14.2 % (11.6-17.2); WHITE BLOOD COUNT 8.7 TH/MM3 (4.0-11.0)
[2017-06-01 07:01] LABS: HEMO FLAGS DIFF FINAL
[2017-06-01 07:05] LABS: PROTHROMBIN TIME - PATIENT 23.3 SEC (9.8-11.6)
[2017-06-01 07:45] LABS: BICARBONATE 35.6 MEQ/L (21.0-32.0); MAGNESIUM 1.4 MG/DL (1.5-2.5)
[2017-06-01 07:56] LABS: POTASSIUM 2.8 MEQ/L (3.5-5.1)
[2017-06-01] MEDS: DILTIAZEM-CD 180 MG CAP ER PO SCH (08:59)
[2017-06-01] MEDS: DOCUSATE SODIUM 50 MG/SENNA 8.6 MG TAB PO SCH ×2 (08:59→20:26)
[2017-06-01] MEDS: FUROSEMIDE 40 MG TAB PO SCH (08:59)
[2017-06-01] MEDS: METOPROLOL TARTRATE 50 MG TAB PO SCH ×2 (08:59→20:26)
[2017-06-01] MEDS: guaiFENesin E.R. 600 MG TAB PO SCH ×2 (09:00→20:25)
[2017-06-01] MEDS: SACUBITRIL/VALSARTAN 24 MG-26 MG TAB PO SCH ×2 (09:00→20:26)
[2017-06-01] MEDS ORDERED: POTASSIUM CHLOR 20 MEQ PREMIX 100 ML IV SCH (09:00)
[2017-06-01] MEDS: HEPARIN SODIUM - SQ 10,000 UNITS/ML VIAL SQ SCH ×2 (09:00→20:26)
[2017-06-01] MEDS: SODIUM CHLORIDE 0.9% FLUSH 10 ML FLUSH IV FLUSH SCH ×2 (09:00→20:30)
[2017-06-01] MEDS ORDERED: POTASSIUM CHLORIDE 20 MEQ CONTROLLED RELEASE TAB PO ONE (09:00)
[2017-06-01] MEDS ORDERED: MAGNESIUM SULFATE 1 GM PREMIX 100 ML IV SCH (09:00)
[2017-06-01] MEDS: WARFARIN SOD 3 MG TAB PO SCH (16:00)
--- NOTE | 2017-06-01 23:02 | HHI.PR ---
Subjective Remarks Patient seen this afternoon around 2 PM. Says he is feeling all right. Denies any chest pain or shortness of breath. Objective Vital Signs Date Time Temp Pulse Resp B/P (MAP) Pulse Ox O2 Delivery O2 Flow Rate FiO2 06/01/17 20:00 97.2 93 18 150/102 (118) 92 06/01/17 18:40 96.6 94 19 127/92 (104) 93 06/01/17 12:17 97.2 93 19 122/91 (101) 93 06/01/17 08:10 92 21 06/01/17 08:00 97.8 110 20 156/100 (118) 96 06/01/17 04:00 97.5 81 18 173/91 (118) 92 06/01/17 00:00 97.0 84 18 149/89 (109) 92 Result Diagram: 06/01/1760406/01/17604 Objective Remarks GENERAL: patient sitting up in bed. Appears comfortable.again,no change on exam. SKIN: Warm and dry. HEAD: Normocephalic. EYES: No scleral icterus. No injection or drainage. NECK: Supple, trachea midline. No JVD. CARDIOVASCULAR: irregularRegular rate and rhythm without murmurs, gallops, or rubs. RESPIRATORY: Breath sounds equal bilaterally. No accessory muscle use. GASTROINTESTINAL: Abdomen soft, non-tender, nondistended. MUSCULOSKELETAL: No cyanosis, or edema. BACK: Nontender without obvious deformity. No CVA tenderness. A/P Assessment and Plan ===06/01/17======== Hypokalemia. Potassium 2.8. Replaced Hypomagnesemia. Magnesium 1.4. Replaced monitor Atrial fibrillation. Continue warfarin. INR 2.0. Ventricular tachycardia, cardiomyopathy. Patient experienced ventricular tachycardia overnight on 05/2324 cardiology recommends further ischemic workup at [facility]. Discussed again with trimming caser. channel sales manager working on transfer. Atrial fibrillation with RVR. Now controlled with slight bradycardia. Patient was diagnosed with atrial fibrillation, 2 years ago. He is not any type of medications for rate control or anticoagulation. Patient denies any follow-up since his last admission Cardiology consultation appreciated Continue by mouth Cardizem and metoprolol to hold for hypotension or bradycardia -Patient has been started on Coumadin. We'll consult pharmacy to follow INR levels. Patient was counseled on the importance of following up at least weekly at the [facility] for [facility]R checks, we discussed the importance of Coumadin for stroke prevention but also discussed the risk of bleeding especially if he is not compliant with checking his Coumadin levels. echocardiogram shows EF of 25-30% TSH is within normal limits Shortness of breath with right lower extremity edema Ultrasound of the lower extremity did not indicate any acute DVT CT angiography does not indicate any pulmonary emboli Shortness of breath likely secondary to A. fib with RVR, COPD Shortness of breath resolved Elevated liver enzymes with coagulopathy Liver ultrasound shows trace ascitic fluid, normal liver, gallbladder sludge and tiny solitary stone Patient does have history of chronic alcohol use Continue monitor liver enzymes, obtain hepatitis panel, monitor coagulation studies Acute renal failure, resolved Likely secondary to atrial fibrillation, dehydration Continue monitor renal function Avoid nephrotoxins Cardiomyopathy echocardiogram shows ejection fraction of 25-30%, moderate diffuse hypokinesis, moderately severely reduced systolic function, moderately to severely calcified mitral annulus Cardiology was consulted. Patient started on Lasix by mouth. Blood pressure is too low to tolerate UHMPHREY inhibitor. He is on metoprolol. Chronic obstructive pulmonary disease without acute exacerbation Continue O2 supplementation maintain O2 sats greater 92% Duo nebs as needed DVT prevention. continue therapeutic Coumadin. Discharge Planning [facility]. trimming caser working on transfer. Moe Cantor MD Jun 01, 2017 23:02
--- NOTE | 2017-06-04 15:32 | HHI.DS ---
Discharge Summary Admission Date May 26, 2017 at 20:16 Discharge Date: Jun 02, 2017 Admitting Diagnosis AFRVR (1) Atrial fibrillation with RVR ICD Code: I48.91 - Unspecified atrial fibrillation Diagnosis: Principal Status: Acute (2) Elevated liver enzymes ICD Code: R74.8 - Abnormal levels of other serum enzymes Diagnosis: Principal (3) Coagulopathy ICD Code: D68.9 - Coagulation defect, unspecified Diagnosis: Principal (4) Acute renal failure ICD Code: N17.9 - Acute kidney failure, unspecified Diagnosis: Principal (5) Cardiomyopathy ICD Code: I42.9 - Cardiomyopathy, unspecified Diagnosis: Secondary (6) Hypertension ICD Code: I10 - Hypertension Diagnosis: Principal Status: Acute (7) Chronic obstructive pulmonary disease ICD Code: J44.9 - Chronic obstructive pulmonary disease Diagnosis: Secondary Status: Acute Procedures No invasive procedures. Brief History - From Admission Written by Jorge Winston, acting as scribe for Dr. Joe on 05/27/17 at 12 :00. 71-year-old male with known history of atrial fibrillation, hypertension, chronic obstructive pulmonary disease, chronic tobacco use, chronic alcohol use who presented to hospital because of shortness of breath. Patient states that for 2 weeks now he is been developing shortness of breath whenever he tries to go to sleep. In keeping awaken night because he thinks that he is having cancer or maybe even a heart attack because the way he is breathing. He states that it was significantly worse last night so he called a neighbor to get an ambulance to come evaluate him. When [facility] showed up, patient was found to have A. fib with RVR and was given 20 mg of Cardizem. When the patient presented to the emergency department patient still had a heart rate of 150. Patient was given another dose of Cardizem 25 mg IV, started on Cardizem drip. Patient's heart rate wasn't controlled so patient was also started on amiodarone without conversion. Inflated Pad Buffer on-call was contacted by ER physician and patient was started on digoxin IV. Patient was recommended admission to the intermediate care for continued management and care with cardiology consult. Patient does have history of atrial fibrillation which he was seen 2 years ago in the hospital. Patient does go to [place] on a regular basis. He states that his last visit was 4 months ago. He is on a standard of his medications. However there are no medications prescribed for the patient's atrial fibrillation. The patient indicates that he never followed up with a stave log cut off saw operator for the atrial fibrillation upon discharge 2 years ago. Patient denies any palpitations, chest pain, nausea, vomiting, abdominal pain, lightheadedness, dizziness. CBC/BMP: 06/01/17 0605 06/01/17 0605 Imaging Last Impressions Liver Ultrasound 05/28/17 0000 Signed Impressions: Service Date/Time: Sunday, May 28, 2017 08:02 - CONCLUSION: 1. Trace ascitic fluid. 2. Gallbladder sludge and tiny solitary stone without sonographic evidence to suggest acute cholecystitis. Sterling Reeves Jr., MD Chest X-Ray 05/28/17 0000 Signed Impressions: Service Date/Time: Sunday, May 28, 2017 22:23 - CONCLUSION: Bibasilar airspace disease suspicious for early congestion. Joaquin Moore MD Lower Extremity Ultrasound 05/26/17 1658 Signed Impressions: Service Date/Time: Friday, May 26, 2017 22:30 - CONCLUSION: Normal examination. Jimi Alamo MD CT Angiography 05/26/17 165 Signed Impressions: Service Date/Time: Friday, May 26, 2017 17:52 - CONCLUSION: Small right pleural effusion. Jimi Aalmo MD PE at Discharge GENERAL: Well-nourished, well-developed male patient with long cervantes. SKIN: Warm and dry. HEAD: Normocephalic. EYES: No scleral icterus. No injection or drainage. NECK: Supple, trachea midline. No JVD or lymphadenopathy. CARDIOVASCULAR: Irregularly irregular rate and rhythm without murmurs, gallops, or rubs. RESPIRATORY: Breath sounds equal bilaterally. No accessory muscle use. GASTROINTESTINAL: Abdomen soft, non-tender, nondistended. EXTREMITIES: 1+ edema the right leg. NEUROLOGICAL: Awake, alert, and oriented x 3. Non-focal. Hospital Course Patient presented with atrial fibrillation, RVR, which was controlled with diltiazem, beta blockers. Echocardiogram showed ejection fraction 2530 percent , moderately diffuse hypokinesis. Patient was treated for COPD exacerbation. She did have asymptomatic since of V. tach, for which cardiology recommended transfer to [facility] for further ischemic workup, placement of AICD. Patient symptomatically improved. Unfortunately left AGAINST MEDICAL ADVICE overnight on 06/01. For problem-based summary from most recent progress note, please see below. ===06/01/17======== Hypokalemia. Potassium 2.8. Replaced Hypomagnesemia. Magnesium 1.4. Replaced monitor Atrial fibrillation. Continue warfarin. INR 2.0. Ventricular tachycardia, cardiomyopathy. Patient experienced ventricular tachycardia overnight on 05/2324 cardiology recommends further ischemic workup at [facility]. Discussed again with case planner. remote encoding center manager working on transfer. Atrial fibrillation with RVR. Now controlled with slight bradycardia. Patient was diagnosed with atrial fibrillation, 2 years ago. He is not any type of medications for rate control or anticoagulation. Patient denies any follow-up since his last admission Cardiology consultation appreciated Continue by mouth Cardizem and metoprolol to hold for hypotension or bradycardia -Patient has been started on Coumadin. We'll consult pharmacy to follow INR levels. Patient was counseled on the importance of following up at least weekly at the [place] clinic for INR checks, we discussed the importance of Coumadin for stroke prevention but also discussed the risk of bleeding especially if he is not compliant with checking his Coumadin levels. echocardiogram shows EF of 25-30% TSH is within normal limits Shortness of breath with right lower extremity edema Ultrasound of the lower extremity did not indicate any acute DVT CT angiography does not indicate any pulmonary emboli Shortness of breath likely secondary to A. fib with RVR, COPD Shortness of breath resolved Elevated liver enzymes with coagulopathy Liver ultrasound shows trace ascitic fluid, normal liver, gallbladder sludge and tiny solitary stone Patient does have history of chronic alcohol use Continue monitor liver enzymes, obtain hepatitis panel, monitor coagulation studies Acute renal failure, resolved Likely secondary to atrial fibrillation, dehydration Continue monitor renal function Avoid nephrotoxins Cardiomyopathy echocardiogram shows ejection fraction of 25-30%, moderate diffuse hypokinesis, moderately severely reduced systolic function, moderately to severely calcified mitral annulus Cardiology was consulted. Patient started on Lasix by mouth. Blood pressure is too low to tolerate HUMPHREY inhibitor. He is on metoprolol. Chronic obstructive pulmonary disease without acute exacerbation Continue O2 supplementation maintain O2 sats greater 92% Duo nebs as needed DVT prevention. continue therapeutic Coumadin. Discharge Planning further ischemic workup [facility]. case planner working on transfer. Pt Condition on Discharge: Good Discharge Disposition: Disch w/ Home Health Serv Discharge Time: <= 30 minutes Discharge Instructions DIET: Follow Instructions for: Heart Healthy Diet Activities you can perform: Regular-No Restrictions Follow up Referrals: Cardiology - 2-3 Days with [facility] Follow-up - 1 Week New Medications: Lisinopril (Lisinopril) 2.5 Mg Tab 2.5 MG PO DAILY, #30 TAB 0 Refills Magnesium Oxide (Magnesium Oxide) 400 Mg Tab 400 MG PO DAILY for Nutritional Supplement, #30 TAB 0 Refills Potassium Chloride ER (Potassium Chloride ER) 10 Meq Tab 10 MEQ PO DAILY for Electrolyte Replacement, #30 TAB 0 Refills Acetaminophen (Eq Acetaminophen) 325 Mg Tab 650 MG PO Q6H PRN for FEVER/PAIN SCALE 1 TO 2 for 30 Days, TAB Diltiazem CD 24 HR (Cardizem CD 24 HR) 180 Mg Caper 180 MG PO DAILY for heart for 30 Days, CAP Furosemide (Furosemide) 40 Mg Tab 40 MG PO DAILY for heart for 30 Days, TAB Metoprolol Tartrate (Lopressor) 50 Mg Tab 50 MG PO Q12HR for heart for 30 Days, TAB Warfarin (Coumadin) 3 Mg Tab 3 MG PO DAILY@1600 for prevent stroke for 30 Days, TAB Continued Medications: Terazosin (Terazosin) 5 Mg Cap 5 MG PO HS, #30 CAP 0 Refills Discontinued Medications: Amlodipine (Amlodipine) 5 Mg Tab 5 MG PO DAILY for Blood Pressure Management, #30 TAB 0 Refills Moe Cantor MD Jun 04, 2017 15:31
== END 2017-06-01 21:37 | disposition left against medical advice (07) | DRG 309 ==
LOC: PHED 16:38 → PHEDA 20:16 → PHICU 05-27 00:25 → PH3B 05-29 14:04
PROVIDERS: ADMIT Internal Medicine; ATTEND Internal Medicine
DX: I48.91 Unspecified atrial fibrillation (principal); I50.20 Unspecified systolic (congestive) heart failure; N17.9 Acute kidney failure, unspecified; I47.2 Ventricular tachycardia; E87.2 Acidosis; I11.0 Hypertensive heart disease with heart failure; I42.9 Cardiomyopathy, unspecified; R18.8 Other ascites; E83.42 Hypomagnesemia; J44.9 Chronic obstructive pulmonary disease, unspecified; E78.00 Pure hypercholesterolemia, unspecified; I25.2 Old myocardial infarction; Z87.442 Personal history of urinary calculi; Z87.891 Personal history of nicotine dependence; E86.0 Dehydration; I45.2 Bifascicular block; R00.1 Bradycardia, unspecified; K76.9 Liver disease, unspecified; Z91.19 Patient's noncompliance with other medical treatment and regimen; E87.6 Hypokalemia
CPT/HCPCS: 71010; 71275; 76705; 80048; 80053; 80069; 80074; 80162; 80307; 81001; 82550; 83605; 83735; 84100; 84443; 84484; 85025; 85610; 85730; 87641; 93005; 93306; 93971; 94150; 94620; 94664; 94667; 94668; 96365; 96366; 96368; 96375; J0282; J0610; J1160; J1644; J1940; J2405; J3475; J3480; J7030; J7040; J7060; Q9967

== ENCOUNTER 2017-06-26 03:33 | Observation (INO) | payer MEDICARE, OTHER ==
[~2017-06-26] VITALS: Ht 172.7 cm; Wt 83.4 kg
[2017-06-26] VITALS (16 sets, daily range): BP systolic 101–144; BP diastolic 63–110; PULSE 53–144; RESP 16–22; TEMP 97.8–99; O2SAT 94–100
[~2017-06-26 03:33] MED LIST changes: +ACET1TAB86 PO; -AMLO5 PO; -CARD120C4 PO; +CARD180C5 PO; +COUM3TAB PO; -ECASA PO; +FURO40TA PO; +LISI2.5T3 PO; +MAGN400T2 PO; +METO-309 PO; -METO25 PO; +POTA10TA2 PO
--- NOTE | 2017-06-26 04:11 | PD ---
HPI Chief Complaint: Cardiac Complaint Time Seen by Provider: 04:00 Travel History International Travel<30 days: No Contact w/Intl Traveler<30days: No Traveled to known affect area: No History of Present Illness HPI The patient is a 71 year old male who presents to the [facility] emergency department with a history of shortness of breath that began again 3 and 1/2 hours ago. It began when he was lying down to watch TV around midnight. He was recently admitted to the hospital for 2 weeks related to similar symptoms, however he is not sure what he was diagnosed with. He is unsure whether he has a history of cardiac arrhythmia. He denies having any prior history of myocardial infarction or congestive heart failure. The patient denies having any chest pain. He reports that he does have a sensation that his heart is racing. The patient was brought in by ambulance services and was noted to be in A. fib with RVR prior to arrival. The patient was given Cardizem 20 mg IV. His heart rate did come down into the low 100s. The patient reports having some gait instability and uses a walker for assistance. The patient reports that he lives at home alone. The patient reports that he drinks 3 beers daily. He reports that he felt a half of a cigarette daily. He assistance, he denies any recent fevers, worsening cough or congestion, neck pain,abdominal pain, vomiting, diarrhea, urinary symptoms, or neurologic symptoms. PFSH Past Medical History Narrative Medical The patient's past medical history is significant for hypertension, tobacco use , chronic back pain, atrial fibrillation, COPD. The patient is unsure of his medical history. Most of these medical problems were obtained from reviewing the electronic medical record. Atrial Fibrillation: Yes Cancer: No Cardiovascular Problems: Yes (HTN afib rvr) High Cholesterol: Yes COPD: Yes Diminished Hearing: No Endocrine: No Genitourinary: No Headaches: Yes Hypertension: Yes Immune Disorder: No Kidney Stones: Yes Musculoskeletal: No Neurologic: Yes Psychiatric: No Reproductive: No Respiratory: Yes Past Surgical History Narrative Surgical The patient's past surgical history is significant for facial sx. Oral Surgery: Yes (EXTENSIVE JAW SURGERY DUE TO TRAUMA) Other Surgery: Yes Social History Alcohol Use: Yes (3 beers per day) Tobacco Use: Yes (1 cig per day) Substance Use: No Allergies-Medications (Allergen,Severity, Reaction): Coded Allergies: No Known Allergies (Unverified , 06/26/17) Reported Meds & Prescriptions Reported Meds & Active Scripts Active Magnesium Oxide 400 Mg Tab 400 Mg PO DAILY Potassium Chloride ER (Potassium Chloride) 10 Meq Tab 10 Meq PO DAILY Lisinopril 2.5 Mg Tab 2.5 Mg PO DAILY Lopressor (Metoprolol Tartrate) 50 Mg Tab 50 Mg PO Q12HR 30 Days Furosemide 40 Mg Tab 40 Mg PO DAILY 30 Days Eq Acetaminophen (Acetaminophen) 325 Mg Tab 650 Mg PO Q6H PRN 30 Days Cardizem CD 24 HR (Diltiazem CD 24 HR) 180 Mg Caper 180 Mg PO DAILY 30 Days Coumadin (Warfarin) 3 Mg Tab 3 Mg PO DAILY@1600 30 Days Reported Terazosin (Terazosin HCl) 5 Mg Cap 5 Mg PO HS Review of Systems Except as stated in HPI: all other systems reviewed are Neg General / Constitutional: No: Fever Eyes: No: Visual changes HENT: No: Headaches, Congestion Cardiovascular: Positive: Palpitations, Dyspnea on exertion, No: Chest Pain or Discomfort Respiratory: Positive: Shortness of Breath, No: Cough Gastrointestinal: No: Abdominal Pain Genitourinary: No: Dysuria Musculoskeletal: No: Pain Skin: No Rash Neurologic: No: Weakness Psychiatric: No: Depression Endocrine: No: Polydipsia Hematologic/Lymphatic: No: Easy Bruising Physical Exam Narrative General: The patient is a well-developed well-nourished male in no acute distress. Head and Neck exam: Head is normocephalic atraumatic. Eyes: EOMI, pupils are equal round and reactive to light. Nose: Midline septum with pink mucous membranes Mouth: Dentition unremarkable. Moist mucus membranes. Posterior oropharynx is not erythematous. No tonsillar hypertrophy. Uvula midline. Airway patent. Neck: No palpable lymphadenopathy. No nuchal rigidity. No thyromegaly. Cardiovascular: Tachycardic with an irregularly irregular rhythm in the 1 teens to 130s without murmurs, gallops, or rubs. Lungs: Decreased breath sounds in the bases. No wheezes, rhonchi, or crackles audible. No accessory muscle use. The patient does have a prolonged expiratory phase of breathing. Abdomen: Soft, without tenderness to palpation in all 4 quadrants of the abdomen. No guarding, rebound, or rigidity. Normal bowel sounds are audible. No tenderness on palpation of McBurney's point. Extremities: No clubbing or cyanosis. The patient has trace nonpitting edema bilateral lower extremities. 2+ pulses radial pulses bilaterally. Back: No spinous process tenderness to palpation. No costovertebral angle tenderness to palpation. Neurologic Exam: Grossly nonfocal. Skin Exam: No rash noted. Intact skin that is warm and dry. Data Data Last Documented VS Vital Signs Date Time Temp Pulse Resp B/P (MAP) Pulse Ox O2 Delivery O2 Flow Rate FiO2 06/26/17 06:20 91 115/83 (94) 06/26/17 05:56 20 96 Nasal Cannula 2.00 06/26/17 03:35 99.0 Orders Orders Electrocardiogram (06/26/17 04:01) Complete Blood Count With Diff (06/26/17 04:01) Comprehensive Metabolic Panel (06/26/17 04:01) Creatine Kinase (Cpk) (06/26/17 04:01) Ckmb (Isoenzyme) Profile (06/26/17 04:01) Troponin I (06/26/17 04:01) B-Type Natriuretic Peptide (06/26/17 04:01) Prothrombin Time / Inr (Pt) (06/26/17 04:01) Act Partial Throm Time (Ptt) (06/26/17 04:01) Lipase (06/26/17 04:01) Urinalysis - C+S If Indicated (06/26/17 04:01) Magnesium (Mg) (06/26/17 04:01) Thyroid Stimulating Hormone (06/26/17 04:01) Chest, Single Ap (06/26/17 04:01) Iv Access Insert/Monitor (06/26/17 04:01) Ecg Monitoring (06/26/17 04:01) Oximetry (06/26/17 04:01) Diltiazem Inj (Cardizem Inj) (06/26/17 04:15) Sodium Chloride 0.9% Flush (Ns Flush) (06/26/17 04:15) Aspirin Chew (Aspirin Chew) (06/26/17 09:00) Diltiazem Inj (Cardizem Inj) (06/26/17 05:30) Admit Order (Ed Use Only) (06/26/17 06:28) Labs Laboratory Tests Test 06/26/17 04:15 White Blood Count 7.6 TH/MM3 Red Blood Count 5.06 MIL/MM3 Hemoglobin 13.7 GM/DL Hematocrit 42.7 % Mean Corpuscular Volume 84.5 FL Mean Corpuscular Hemoglobin 27.1 PG Mean Corpuscular Hemoglobin Concent 32.0 % Red Cell Distribution Width 15.5 % Platelet Count 171 TH/MM3 Mean Platelet Volume 8.5 FL Neutrophils (%) (Auto) 77.3 % Lymphocytes (%) (Auto) 10.7 % Monocytes (%) (Auto) 11.1 % Eosinophils (%) (Auto) 0.5 % Basophils (%) (Auto) 0.4 % Neutrophils # (Auto) 5.9 TH/MM3 Lymphocytes # (Auto) 0.8 TH/MM3 Monocytes # (Auto) 0.8 TH/MM3 Eosinophils # (Auto) 0.0 TH/MM3 Basophils # (Auto) 0.0 TH/MM3 CBC Comment DIFF FINAL Differential Comment Prothrombin Time 14.0 SEC Prothromb Time International Ratio 1.3 RATIO Activated Partial Thromboplast Time 27.9 SEC Blood Urea Nitrogen 13 MG/DL Creatinine 0.93 MG/DL Random Glucose 116 MG/DL Total Protein 6.7 GM/DL Albumin 3.1 GM/DL Calcium Level 8.1 MG/DL Magnesium Level 1.9 MG/DL Alkaline Phosphatase 121 U/L Aspartate Amino Transf (AST/SGOT) 24 U/L Alanine Aminotransferase (ALT/SGPT) 20 U/L Total Bilirubin 1.3 MG/DL Sodium Level 139 MEQ/L Potassium Level 3.9 MEQ/L Chloride Level 105 MEQ/L Carbon Dioxide Level 24.3 MEQ/L Anion Gap 10 MEQ/L Estimat Glomerular Filtration Rate 80 ML/MIN Total Creatine Kinase 38 U/L Troponin I 0.04 NG/ML B-Type Natriuretic Peptide 1258 PG/ML Lipase 65 U/L Thyroid Stimulating Hormone 3rd Gen 3.400 uIU/ML MDM Medical Decision Making Medical Screen Exam Complete: Yes Emergency Medical Condition: Yes Medical Record Reviewed: Yes Interpretation(s) Last Impressions Chest X-Ray 06/26/17 0401 Signed Impressions: Service Date/Time: Monday, June 26, 2017 04:46 - CONCLUSION: No acute disease. Sterling Reeves Jr., MD Differential Diagnosis A. fib with RVR, versus SVT, versus other cardiac arrhythmia, versus acute coronary syndrome, versus congestive heart failure Narrative Course During the course of the patients emergency department visit, the patients history, examination, and differential diagnosis were reviewed with the patient. The patient had IV access obtained and blood work sent for analysis. The patient was placed on a mechanical manufacturing technician with oximetry and blood pressure monitoring. An ECG was done on arrival. The patient's ECG reveals atrial fibrillation with RVR, heart rate of 109, right bundle branch block, left anterior fascicular block, no acute ST segment elevation, T waves are inverted in V1, V2. QRS duration is 142 ms, QTC 440 ms. The patient was initially provided Cardizem 5 mg IV by drip. The patient was given Cardizem bolus 1 prior to arrival by ambulance services. The patient was given aspirin 162 mg by mouth 1. The patients laboratory studies were reviewed and remarkable for white count 7.6 , hemoglobin 13.7, platelets 171, with neutrophils 77.3, monocytes 11.1. CMP was remarkable for glucose 116, calcium 8.1, total bilirubin 1.3, alkaline phosphatase 121, CPK 38, troponin I 0.04, lipase 65, TSH 3.4, BNP 1258, PT 14, INR 1.3, PTT 27.9. Radiology studies were reviewed and remarkable for a chest x-ray that showed no acute cardiopulmonary disease. The patients results were discussed with the patient, including the plan of care. I explained that further testing and/ or monitoring is indicated based on the patients history, examination, and/ or laboratory findings. Therefore, I recommended admission for additional evaluation. The patient expressed understanding and was agreeable with this plan. The patient was admitted to the hospital in stable condition and [facility] Physician Communication Physician Communication The patient's case was discussed with Dr. Armendariz who did agree to admit the patient for further evaluation and treatment at this time. Diagnosis Primary Impression: Atrial fibrillation with RVR Admitting Information Admitting Physician Requests: it Louise Chan MD Jun 26, 2017 04:11
[2017-06-26] MEDS ORDERED: SODIUM CHLORIDE 0.9% FLUSH 5 ML FLUSH IV FLUSH PRN (04:15)
[2017-06-26] MEDS ORDERED: DILTIAZEM INJ 125 MG in SODIUM CHLORIDE 0.9% INJ 100 ML IV PRN (04:15)
[2017-06-26 05:05] LABS: AUTOMATED NEUTROPHIL # 5.9 TH/MM3 (1.8-7.7); BASOPHIL % 0.4 % (0.0-2.0); EOSINOPHIL % 0.5 % (0.0-4.0); HEMATOCRIT 42.7 % (39.0-51.0); HEMO FLAGS DIFF FINAL; LYMPH % 10.7 % (9.0-44.0); LYMPHOCYTE # 0.8 TH/MM3 (1.0-4.8); MEAN CELL VOLUME 84.5 FL (80.0-100.0); MEAN CORPUSCULAR HEMOGLOBIN 27.1 PG (27.0-34.0); MONO % 11.1 % (0.0-8.0); NEUT % 77.3 % (16.0-70.0); PLATELET COUNT 171 TH/MM3 (150-450); RED BLOOD COUNT 5.06 MIL/MM3 (4.50-5.90); RED CELL DISTRIBUTION WIDTH 15.5 % (11.6-17.2); WHITE BLOOD COUNT 7.6 TH/MM3 (4.0-11.0)
[2017-06-26 05:16] LABS: APTT (PATIENT) 27.9 SEC (24.3-30.1); INTERNATIONAL NORMALIZED RATIO 1.3 RATIO
[2017-06-26 05:17] LABS: ANION GAP 10 MEQ/L (5-15); AST (GOT) 24 U/L (15-37); BICARBONATE 24.3 MEQ/L (21.0-32.0); BLOOD UREA NITROGEN 13 MG/DL (7-18); CHLORIDE 105 MEQ/L (98-107); GLOMERULAR FILTRATION RATE 80 ML/MIN (>89); MAGNESIUM 1.9 MG/DL (1.5-2.5); POTASSIUM 3.9 MEQ/L (3.5-5.1); SODIUM (NA) 139 MEQ/L (136-145)
[2017-06-26 05:18] LABS: ALT (GPT) 20 U/L (12-78)
[2017-06-26 05:27] LABS: ALKALINE PHOSPHATASE 121 U/L (45-117); TOTAL BILIRUBIN ADULT 1.3 MG/DL (0.2-1.0)
[2017-06-26] MEDS ORDERED: DILTIAZEM HCL 25 MG/5 ML VIAL IV ONE (05:30)
--- NOTE | 2017-06-26 05:50 | RADRPT ---
EXAM DATE/TIME: 06/26/2017 04:46 [facility] COMPARISON: CHEST SINGLE AP, May 28, 2017, 22:23. INDICATIONS : Short of breath. MEDICAL HISTORY : Hypertension. SURGICAL HISTORY : None. ENCOUNTER: Initial ACUITY: 1 day PAIN SCORE: 0/10 LOCATION: Bilateral chest FINDINGS: A single view of the chest demonstrates the lungs to be symmetrically aerated without evidence of mas s, infiltrate or effusion. The cardiomediastinal contours are unremarkable. Osseous structures are intact. CONCLUSION: No acute disease. Sterling Reeves Jr., MD on June 26, 2017 at 5:48 Board Certified Radiologist. This report was verified electronically.
[2017-06-26 06:00] LABS: CREATINE KINASE 38 U/L (39-308)
[2017-06-26] MEDS ORDERED: SODIUM CHLORIDE 0.9% FLUSH 10 ML FLUSH IV FLUSH PRN ×2 (06:30→16:00)
[2017-06-26] MEDS ORDERED: NALOXONE HCL 0.4 MG/ML AMP IV PUSH PRN ×2 (06:30→16:00)
[2017-06-26] MEDS ORDERED: ACETAMINOPHEN 325 MG TAB PO PRN ×2 (06:45→16:00)
--- NOTE | 2017-06-26 08:25 | HHI.HP ---
HPI [facility] Admission Diagnosis Afib with rvr Diagnoses: Chief Complaint: sob Travel History International Travel<30 Days: No Contact w/Intl Traveler <30 Da: No Traveled to Known Affected Are: No History of Present Illness 71-year-old male with known history of atrial fibrillation, cardiomyopathy EF 25-30%, hypertension, chronic obstructive pulmonary disease, chronic tobacco use, chronic alcohol use who presented to hospital because of shortness of breath. Patient says has shortness of breath that began when he was lying down to watch TV around midnight. He was recently admitted to the hospital for 2 weeks related to similar symptoms, however he is not sure what he was diagnosed with. He is unsure whether he has a history of cardiac arrhythmia, however admits not taking meds as he run out of meds. Says he does follow up at [facility]. He denies having any prior history of myocardial infarction or congestive heart failure. The patient denies having any chest pain. He reports that he does have a sensation that his heart is racing, however his main complaint is SOB. Says he doesn't get much fluid in his legs. The patient was brought in by ambulance services and was noted to be in A. fib with RVR prior to arrival. The patient was given Cardizem 20 mg IV. His heart rate did come down into the low 100s. The patient reports having some gait instability and uses a walker for assistance. The patient reports that he lives at home alone. The patient reports that he drinks 3 beers daily. Denies any recent fevers, worsening cough or congestion, neck pain, abdominal pain, vomiting, diarrhea, urinary symptoms, or neurologic symptoms. Patient denies any palpitations, chest pain, nausea, vomiting, abdominal pain, lightheadedness, dizziness. Review of Systems Except as stated in HPI: all other systems reviewed are Neg Past Family Social History Past Medical History Afib Hypertension Chronic obstructive pulmonary disease Tobacco use History of kidney stones Past Surgical History Facial and jaw reconstruction due to trauma Reported Medications Reported Meds & Active Scripts Active Magnesium Oxide 400 Mg Tab 400 Mg PO DAILY Potassium Chloride ER (Potassium Chloride) 10 Meq Tab 10 Meq PO DAILY Lisinopril 2.5 Mg Tab 2.5 Mg PO DAILY Lopressor (Metoprolol Tartrate) 50 Mg Tab 50 Mg PO Q12HR 30 Days Furosemide 40 Mg Tab 40 Mg PO DAILY 30 Days Eq Acetaminophen (Acetaminophen) 325 Mg Tab 650 Mg PO Q6H PRN 30 Days Cardizem CD 24 HR (Diltiazem CD 24 HR) 180 Mg Caper 180 Mg PO DAILY 30 Days Coumadin (Warfarin) 3 Mg Tab 3 Mg PO DAILY@1600 30 Days Reported Terazosin (Terazosin HCl) 5 Mg Cap 5 Mg PO HS Allergies: Coded Allergies: No Known Allergies (Unverified , 06/26/17) Family History Mother at age 86 and father at age 72, patient denied any heart disease on disease, diabetes, cancer, seizures, stroke Social History Quit smoking 2 month ago, prior to that the patient smoked approximately one quarter pack of cigarettes a day, patient had a smoker since he was 15 years old up to 1-1/2 pack of cigarettes daily. Patient states that he quit drinking alcohol 23 weeks ago, P prior to that he drank approximately 2 beers daily. Patient denies any illicit drugs Physical Exam Vital Signs Vital Signs Date Time Temp Pulse Resp B/P (MAP) Pulse Ox O2 Delivery O2 Flow Rate FiO2 06/26/17 06:40 97 18 116/89 (98) 98 Nasal Cannula 2.00 06/26/17 06:20 91 115/83 (94) 06/26/17 05:56 97 20 144/75 (98) 96 Nasal Cannula 2.00 06/26/17 05:40 144 06/26/17 03:35 99.0 113 22 140/82 (101) Physical Exam GENERAL: This is a well-nourished, well-developed patient, in no apparent distress. SKIN: No rashes, ecchymoses or lesions. Cool and dry. HEAD: Atraumatic. Normocephalic. No temporal or scalp tenderness. EYES: Pupils equal round and reactive. Extraocular motions intact. No scleral icterus. No injection or drainage. ENT: Nose without bleeding, purulent drainage or septal hematoma. Throat without erythema, tonsillar hypertrophy or exudate. Uvula midline. Airway patent. NECK: Trachea midline. No JVD or lymphadenopathy. Supple, nontender, no meningeal signs. CARDIOVASCULAR: Irregularly irregular rate and rhythm without murmurs, gallops , or rubs. RESPIRATORY: Clear to auscultation. Breath sounds equal bilaterally. No wheezes , rales, or rhonchi. GASTROINTESTINAL: Abdomen soft, non-tender, nondistended. No hepato-splenomegaly , or palpable masses. No guarding. MUSCULOSKELETAL: Extremities without clubbing, cyanosis, or edema. No joint tenderness, effusion, or edema noted. No calf tenderness. Negative Homans sign bilaterally. NEUROLOGICAL: Awake and alert. Cranial nerves II through XII intact. Motor and sensory grossly within normal limits. Five out of 5 muscle strength in all muscle groups. Normal speech. Laboratory Laboratory Tests Test 06/26/17 04:15 White Blood Count 7.6 Red Blood Count 5.06 Hemoglobin 13.7 Hematocrit 42.7 Mean Corpuscular Volume 84.5 Mean Corpuscular Hemoglobin 27.1 Mean Corpuscular Hemoglobin Concent 32.0 Red Cell Distribution Width 15.5 Platelet Count 171 Mean Platelet Volume 8.5 Neutrophils (%) (Auto) 77.3 Lymphocytes (%) (Auto) 10.7 Monocytes (%) (Auto) 11.1 Eosinophils (%) (Auto) 0.5 Basophils (%) (Auto) 0.4 Neutrophils # (Auto) 5.9 Lymphocytes # (Auto) 0.8 Monocytes # (Auto) 0.8 Eosinophils # (Auto) 0.0 Basophils # (Auto) 0.0 CBC Comment DIFF FINAL Differential Comment Prothrombin Time 14.0 Prothromb Time International Ratio 1.3 Activated Partial Thromboplast Time 27.9 Blood Urea Nitrogen 13 Creatinine 0.93 Random Glucose 116 Total Protein 6.7 Albumin 3.1 Calcium Level 8.1 Magnesium Level 1.9 Alkaline Phosphatase 121 Aspartate Amino Transf (AST/SGOT) 24 Alanine Aminotransferase (ALT/SGPT) 20 Total Bilirubin 1.3 Sodium Level 139 Potassium Level 3.9 Chloride Level 105 Carbon Dioxide Level 24.3 Anion Gap 10 Estimat Glomerular Filtration Rate 80 Total Creatine Kinase 38 Troponin I 0.04 B-Type Natriuretic Peptide 1258 Lipase 65 Thyroid Stimulating Hormone 3rd Gen 3.400 Result Diagram: 06/26/17 0415 06/26/17414 Imaging Last Impressions Chest X-Ray 06/26/171 Signed Impressions: Service Date/Time: Monday, June 26, 2017 04:46 - CONCLUSION: No acute disease. MD Lisa Reinoso Jr. VTE Risk Assessment Caprini VTE Risk Assessment: Mod/High Risk (score >= 2) Caprini Risk Assessment Model Point Value = 1 Point Value = 2 Point Value = 3 Point Value = 5 Age 41-60 Minor surgery BMI > 25 kg/m2 Swollen legs Varicose veins or History of unexplained or recurrent spontaneous Oral contraceptives or hormone replacement Sepsis (< 1 month) Serious lung disease, including pneumonia (< 1 month) Abnormal pulmonary function Acute myocardial infarction Congestive heart failure (< 1 month) History of inflammatory bowel disease Medical patient at bed rest Age 61-74 Arthroscopic surgery Major open surgery (> 45 min) Laparoscopic surgery (> 45 min) Malignancy Confined to bed (> 72 hours) Immobilizing plaster cast Central venous access Age >= 75 History of VTE Family history of VTE Factor V Leiden Prothrombin [id number] Lupus anticoagulant Anticardiolipin antibodies Elevated serum homocysteine Heparin-induced thrombocytopenia Other congenital or acquired thrombophilia Stroke (< 1 month) Elective arthroplasty Hip, pelvis, or leg fracture Acute spinal cord injury (< 1 month) Prophylaxis Regimen Total Risk Factor Score Risk Level Prophylaxis Regimen 0-1 Low Early ambulation 2 Moderate Order ONE of the following: *Sequential Compression Device (SCD) *Heparin 5000 units SQ BID 3-4 Higher Order ONE of the following medications: *Heparin 5000 units SQ TID *Enoxaparin/Lovenox 40 mg SQ daily (WT < 150 kg, CrCl > 30 mL/min) *Enoxaparin/Lovenox 30 mg SQ daily (WT < 150 kg, CrCl > 10-29 mL/min) *Enoxaparin/Lovenox 30 mg SQ BID (WT < 150 kg, CrCl > 30 mL/min) AND/OR *Sequential Compression Device (SCD) 5 or more Highest Order ONE of the following medications: *Heparin 5000 units SQ TID (Preferred with Epidurals) *Enoxaparin/Lovenox 40 mg SQ daily (WT < 150 kg, CrCl > 30 mL/min) *Enoxaparin/Lovenox 30 mg SQ daily (WT < 150 kg, CrCl > 10-29 mL/min) *Enoxaparin/Lovenox 30 mg SQ BID (WT < 150 kg, CrCl > 30 mL/min) AND *Sequential Compression Device (SCD) Assessment and Plan Assessment and Plan Atrial fibrillation with RVR. Cardiomyopathy. CHF with exacerbation elevated BNP on admission-Previous echocardiogram shows ejection fraction 20-30%, moderate diffuse hypokinesis, moderately severely reduced systolic function, moderately to severely calcified mitral annulus Patient was diagnosed with atrial fibrillation, 2 years ago. Patient continued on Cardizem IV Restart home eds Cardizem PO and metoprolol Cardiology consulted for recommendations Recent echocardiogram with EF of 25-30% On coumadin, INR subterapeutic on admission. Monitor INR consult pharmacy to monitor INR Continue lasix, monitor UOP and monitor closely kidney function Shortness of breath with right lower extremity edema Shortness of breath likely secondary to A. fib with RVR, COPD Elevated liver enzymes with coagulopathy Patient does have history of chronic alcohol use Continue monitor liver enzymes, monitor coagulation studies Chronic obstructive pulmonary disease Continue O2 supplementation maintain O2 sats greater 92% Duo nebs as needed DVT prevention on coumadin, monitor INR Darleen Landeros MD Jun 26, 2017 08:25
[2017-06-26] MEDS ORDERED: SODIUM CHLORIDE 0.9% FLUSH 10 ML FLUSH IV FLUSH SCH (09:00)
[2017-06-26] MEDS: METOPROLOL TARTRATE 50 MG TAB PO SCH ×2 (09:11→20:26)
[2017-06-26] MEDS: MAGNESIUM OXIDE 400 MG TAB PO SCH (09:11)
[2017-06-26] MEDS: LISINOPRIL 5 MG TAB PO SCH (09:11)
[2017-06-26] MEDS: DILTIAZEM-CD 180 MG CAP ER PO SCH (09:12)
[2017-06-26] MEDS: POTASSIUM CHLORIDE 10 MEQ CONTROLLED RELEASE TAB PO SCH (09:12)
[2017-06-26] MEDS: ASPIRIN 81 MG CHEW TAB CHEW SCH (09:12)
[2017-06-26] MEDS: FUROSEMIDE 40 MG TAB PO SCH (09:12)
[2017-06-26 10:40] LABS: BACTERIA, URINE RARE /hpf; BLOOD, URINE TRACE (NEG); COMMENT (UR) CULT NOT INDICATED; CULTURE IF INDICATED CULT NOT INDICATED; GLUCOSE,URINE NEG (NEG); HYALINE CAST, URINE 1 /lpf (RARE); KETONE, URINE NEG (NEG); MUCUS URINE FEW /lpf (OCC); NITRITE,URINE NEG (NEG); SQUAMOUS EPITHELIAL CELL URINE <1 /hpf (0-5); URINE COLOR YELLOW (YELLW/STRAW)
--- NOTE | 2017-06-26 15:48 | PD.CONS ---
HPI Consult Requested By Primary Care Physician [facility] History of Present Illness 71-year-old M with known history of atrial fibrillation on Coumadin, LV systolic dysfunction EF 25-30%, hypertension,COPD, chronic alcohol, noncompliance with medications use who presented to hospital because of shortness of breath fouidn to be in afib with RVR. He does follow up at [place]. He denies history of myocardial infarction. He reports sudden onset of palpitations with associated shortness of breath. Denies any recent fevers, worsening cough or congestion, neck pain, abdominal pain, vomiting, diarrhea, urinary symptoms, or neurologic symptoms. Denies chest pain, nausea, vomiting, abdominal pain, lightheadedness, dizziness. Review of Systems Consitutional: DENIES: Fatigue, Fever, Chills, Weight gain, Weight loss Eyes: DENIES: Amaurosis Fugax, Change in vision HEENT: DENIES: Lightheadedness, Change in hearing Respiratory: COMPLAINS OF: Shortness of breath, DENIES: See HPI, Cough, Snoring , Wheezing, Sputum production Cardiovascular: COMPLAINS OF: Palpitations Gastrointestinal: DENIES: Nausea, Vomiting, Change in bowel habits, Reflux, Bloody stools, Melena Genitourinary: DENIES: Urinary incontinence, Difficulty voiding Integumentary: DENIES: Rash Neurologic: DENIES: Tingling or numbness, Memory problems, Poor Balance, Stroke symptoms Musculoskeletal: DENIES: Joint pain, Muscle pain, Limited range of motion, Back pain Psychiatric: DENIES: Anxiety, Depression, Sleep disturbances Hematologic: DENIES: Bruising tendencies, Bleeding tendencies Endocrine: DENIES: Weight gain, Weight loss, Thyroid disease Past Family Social History Allergies: Coded Allergies: No Known Allergies (Unverified , 06/26/17) Past Medical History Afib Hypertension Chronic obstructive pulmonary disease Tobacco use History of kidney stones Past Surgical History Facial and jaw reconstruction due to trauma Reported Medications Reported Meds & Active Scripts Active Magnesium Oxide 400 Mg Tab 400 Mg PO DAILY Potassium Chloride ER (Potassium Chloride) 10 Meq Tab 10 Meq PO DAILY Lisinopril 2.5 Mg Tab 2.5 Mg PO DAILY Lopressor (Metoprolol Tartrate) 50 Mg Tab 50 Mg PO Q12HR 30 Days Furosemide 40 Mg Tab 40 Mg PO DAILY 30 Days Eq Acetaminophen (Acetaminophen) 325 Mg Tab 650 Mg PO Q6H PRN 30 Days Cardizem CD 24 HR (Diltiazem CD 24 HR) 180 Mg Caper 180 Mg PO DAILY 30 Days Coumadin (Warfarin) 3 Mg Tab 3 Mg PO DAILY@1600 30 Days Reported Terazosin (Terazosin HCl) 5 Mg Cap 5 Mg PO HS Active Ordered Medications Current Medications Medications (Trade) Dose Ordered Sig/Alanis Route Start Time Stop Time Status Last Admin (Aspirin Chew) 162 mg DAILY CHEW 06/26/17 09:00 06/26/17 09:12 (NS Flush) 2 ml UNSCH PRN IV FLUSH 06/26/17 06:30 (NS Flush) 2 ml BID IV FLUSH 06/26/17 09:00 06/26/17 09:13 (Narcan Inj) 0.4 mg UNSCH PRN IV PUSH 06/26/17 06:30 (Tylenol) 650 mg Q6H PRN PO 06/26/17 06:45 (Cardizem Cd) 180 mg DAILY PO 06/26/17 09:00 06/26/17 09:12 (Lasix) 40 mg DAILY PO 06/26/17 09:00 06/26/17 09:12 (Mag-Ox) 400 mg DAILY PO 06/26/17 09:00 06/26/17 09:11 (Lopressor) 50 mg Q12HR PO 06/26/17 09:00 06/26/17 09:11 (KCl) 10 meq DAILY PO 06/26/17 09:00 06/26/17 09:12 (Hytrin) 5 mg HS PO 06/26/17 21:00 (Coumadin) 3 mg DAILY@1600 PO 06/26/17 16:00 (Prinivil) 2.5 mg DAILY PO 06/26/17 09:00 06/26/17 09:11 Pharmacy Profile Note 0 ml @ 0 mls/hr UNSCH OTHER 06/26/17 12:30 (Coumadin Booklet) 1 ONCE ONCE .XX 06/26/17 16:00 06/26/17 16:01 Family History Mother at age 86 and father at age 72, patient denied any heart disease on disease, diabetes, cancer, seizures, stroke Social History Quit smoking 2 month ago, prior to that the patient smoked approximately one quarter pack of cigarettes a day, patient had a smoker since he was 15 years old up to 1-1/2 pack of cigarettes daily. Patient states that he quit drinking alcohol 23 weeks ago, P prior to that he drank approximately 2 beers daily. Patient denies any illicit drugs Physical Exam Vital Signs Vital Signs Date Time Temp Pulse Resp B/P (MAP) Pulse Ox O2 Delivery O2 Flow Rate FiO2 06/26/17 15:31 98.0 59 16 140/110 (120) 100 06/26/17 14:41 06/26/17 12:10 64 06/26/17 11:50 76 20 101/69 (80) 99 Nasal Cannula 2.00 06/26/17 09:10 89 20 124/82 (96) 98 Nasal Cannula 2.00 06/26/17 08:28 124 06/26/17 08:00 98.7 112 22 134/81 (98) 97 Nasal Cannula 2.00 06/26/17 06:40 97 18 116/89 (98) 98 Nasal Cannula 2.00 06/26/17 06:20 91 115/83 (94) 06/26/17 05:56 97 20 144/75 (98) 96 Nasal Cannula 2.00 06/26/17 05:40 144 06/26/17 03:35 99.0 113 22 140/82 (101) Physical Exam GENERAL: Well-nourished, well-developed patient. SKIN: Warm and dry. HEAD: Normocephalic. EYES: No scleral icterus. No injection or drainage. NECK: Supple, trachea midline. No JVD or lymphadenopathy. CARDIOVASCULAR: Irr Irr without murmurs, gallops, or rubs. RESPIRATORY: Breath sounds equal bilaterally. No accessory muscle use. GASTROINTESTINAL: Abdomen soft, non-tender, nondistended. EXTREMITIES: No cyanosis, or edema. NEUROLOGICAL: Awake, alert, and oriented x 3. Non-focal. Laboratory Laboratory Tests Test 06/26/17 04:15 06/26/17 10:23 06/26/17 10:45 White Blood Count 7.6 Red Blood Count 5.06 Hemoglobin 13.7 Hematocrit 42.7 Mean Corpuscular Volume 84.5 Mean Corpuscular Hemoglobin 27.1 Mean Corpuscular Hemoglobin Concent 32.0 Red Cell Distribution Width 15.5 Platelet Count 171 Mean Platelet Volume 8.5 Neutrophils (%) (Auto) 77.3 Lymphocytes (%) (Auto) 10.7 Monocytes (%) (Auto) 11.1 Eosinophils (%) (Auto) 0.5 Basophils (%) (Auto) 0.4 Neutrophils # (Auto) 5.9 Lymphocytes # (Auto) 0.8 Monocytes # (Auto) 0.8 Eosinophils # (Auto) 0.0 Basophils # (Auto) 0.0 CBC Comment DIFF FINAL Differential Comment Prothrombin Time 14.0 Prothromb Time International Ratio 1.3 Activated Partial Thromboplast Time 27.9 Blood Urea Nitrogen 13 Creatinine 0.93 Random Glucose 116 Total Protein 6.7 Albumin 3.1 Calcium Level 8.1 Magnesium Level 1.9 Alkaline Phosphatase 121 Aspartate Amino Transf (AST/SGOT) 24 Alanine Aminotransferase (ALT/SGPT) 20 Total Bilirubin 1.3 Sodium Level 139 Potassium Level 3.9 Chloride Level 105 Carbon Dioxide Level 24.3 Anion Gap 10 Estimat Glomerular Filtration Rate 80 Total Creatine Kinase 38 30 Troponin I 0.04 0.03 B-Type Natriuretic Peptide 1258 Lipase 65 Thyroid Stimulating Hormone 3rd Gen 3.400 Urine Color YELLOW Urine Turbidity HAZY Urine pH 5.0 Urine Specific [place] 1.021 Urine Protein 30 Urine Glucose (UA) NEG Urine Ketones NEG Urine Occult Blood TRACE Urine Nitrite NEG Urine Bilirubin NEG Urine Urobilinogen 4.0 Urine Leukocyte Esterase NEG Urine RBC 1 Urine WBC 2 Urine Squamous Epithelial Cells <1 Urine Bacteria RARE Urine Hyaline Casts 1 Urine Mucus FEW Microscopic Urinalysis Comment CULT NOT INDICATED Result Diagram: 06/26/1741406/26/17414 Imaging Last Impressions Chest X-Ray 06/26/17400 Signed Impressions: Service Date/Time: Monday, June 26, 2017 04:46 - CONCLUSION: No acute disease. Sterling Reeves Jr., MD Assessment and Plan Problem List: (1) Atrial fibrillation with RVR ICD Codes: I48.91 - Unspecified atrial fibrillation Status: Acute Plan: 71 y/o M with afib with RVR and complaints of SOB in the setting of noncompliance with medications. He remains afebrile and hemodynamically stable. +diarrhea, nausea and vomiting. Echo 05/28/17 EF 20-25%. Recommendations: 1. Restart home medications for rate control, BB and CCB and optimize as tolerated by HR and BP 2. Cont OAC 3. Toxicology screen 4. Avoid electrolytes abnormalities 5. Strict I&O 6. Low salt diet Thank you for the opportunity to participate in the care of this patient Will be available PRN for questions or concerns (2) NSVT (nonsustained ventricular tachycardia) ICD Codes: I47.2 - Ventricular tachycardia (3) CHF (congestive heart failure) ICD Codes: I50.9 - Heart failure, unspecified Status: Acute (4) Cardiomyopathy ICD Codes: I42.9 - Cardiomyopathy, unspecified (5) Coagulopathy ICD Codes: D68.9 - Coagulation defect, unspecified (6) Hypertension ICD Codes: I10 - Hypertension Status: Acute (7) Chronic obstructive pulmonary disease ICD Codes: J44.9 - Chronic obstructive pulmonary disease Status: Acute Gavin-Facundo Hameed MD Jun 26, 2017 15:48
[2017-06-26] MEDS ORDERED: ONDANSETRON HCL 4 MG/2 ML VIAL IVP PRN (16:00)
[2017-06-26] MEDS ORDERED: MAGNESIUM HYDROXIDE SUSP 30 ML CUP PO PRN (16:00)
[2017-06-26] MEDS ORDERED: SENNOSIDES 8.6 MG TAB PO PRN (16:00)
[2017-06-26] MEDS: WARFARIN SOD 3 MG TAB PO SCH (16:38)
[2017-06-26] MEDS: TERAZOSIN HCL 5 MG CAP PO SCH (20:26)
[2017-06-26] MEDS: SODIUM CHLORIDE 0.9% FLUSH 10 ML FLUSH IV FLUSH SCH (20:26)
[2017-06-26] MEDS: DOCUSATE SODIUM 50 MG/SENNA 8.6 MG TAB PO SCH (20:26)
[2017-06-27] VITALS (11 sets, daily range): BP systolic 96–119; BP diastolic 58–75; PULSE 80–120; RESP 16–19; TEMP 97.1–97.8; O2SAT 92–99
[2017-06-27 05:02] LABS: INTERNATIONAL NORMALIZED RATIO 1.6 RATIO; PROTHROMBIN TIME - PATIENT 18.1 SEC (9.8-11.6)
[2017-06-27 05:10] LABS: AUTOMATED NEUTROPHIL # 6.9 TH/MM3 (1.8-7.7); BASOPHIL % 0.1 % (0.0-2.0); EOSINOPHIL % 0.1 % (0.0-4.0); HEMATOCRIT 42.1 % (39.0-51.0); LYMPH % 9.9 % (9.0-44.0); LYMPHOCYTE # 0.8 TH/MM3 (1.0-4.8); MEAN CORPUSCULAR HEMOGLOBIN 27.4 PG (27.0-34.0); MEAN CORPUSCULAR HGB CONC 32.2 % (32.0-36.0); MONO % 9.2 % (0.0-8.0); NEUT % 80.7 % (16.0-70.0); PLATELET COUNT 83 TH/MM3 (150-450); RED BLOOD COUNT 4.96 MIL/MM3 (4.50-5.90); RED CELL DISTRIBUTION WIDTH 15.2 % (11.6-17.2); WHITE BLOOD COUNT 8.5 TH/MM3 (4.0-11.0)
[2017-06-27 05:22] LABS: BICARBONATE 25.9 MEQ/L (21.0-32.0); POTASSIUM 4.9 MEQ/L (3.5-5.1)
[2017-06-27 06:00] LABS: HEMO FLAGS AUTO DIFF
[2017-06-27 06:04] LABS: PLATELET ESTIMATE SMEAR LOW (NORMAL); PLATELET MORPHOLOGY NORMAL (NORMAL); SCAN/DIFF AUTO DIFF CONFIRMED
[2017-06-27] MEDS: LISINOPRIL 5 MG TAB PO SCH (09:00)
[2017-06-27] MEDS: SODIUM CHLORIDE 0.9% FLUSH 10 ML FLUSH IV FLUSH SCH ×2 (09:00→20:39)
[2017-06-27] MEDS: DILTIAZEM-CD 180 MG CAP ER PO SCH (09:00)
[2017-06-27] MEDS: FUROSEMIDE 40 MG TAB PO SCH (09:00)
[2017-06-27] MEDS: METOPROLOL TARTRATE 50 MG TAB PO SCH ×2 (09:00→22:00)
[2017-06-27] MEDS: POTASSIUM CHLORIDE 10 MEQ CONTROLLED RELEASE TAB PO SCH (09:19)
[2017-06-27] MEDS: ASPIRIN 81 MG CHEW TAB CHEW SCH (09:20)
[2017-06-27] MEDS: MAGNESIUM OXIDE 400 MG TAB PO SCH (09:20)
[2017-06-27] MEDS: DOCUSATE SODIUM 50 MG/SENNA 8.6 MG TAB PO SCH ×2 (09:21→22:00)
--- NOTE | 2017-06-27 11:48 | PD.CARD.PN ---
Subjective Subjective Remarks no cv complaint afib control Objective Medications Current Medications Medications (Trade) Dose Ordered Sig/Alanis Route Start Time Stop Time Status Last Admin (Aspirin Chew) 162 mg DAILY CHEW 06/26/17 09:00 06/27/17 09:20 (Tylenol) 650 mg Q6H PRN PO 06/26/17 06:45 (Cardizem Cd) 180 mg DAILY PO 06/26/17 09:00 06/26/17 09:12 (Lasix) 40 mg DAILY PO 06/26/17 09:00 06/26/17 09:12 (Mag-Ox) 400 mg DAILY PO 06/26/17 09:00 06/27/17 09:20 (Lopressor) 50 mg Q12HR PO 06/26/17 09:00 06/26/17 20:26 (KCl) 10 meq DAILY PO 06/26/17 09:00 06/27/17 09:19 (Hytrin) 5 mg HS PO 06/26/17 21:00 06/26/17 20:26 (Coumadin) 3 mg DAILY@1600 PO 06/26/17 16:00 06/26/17 16:38 (Prinivil) 2.5 mg DAILY PO 06/26/17 09:00 06/26/17 09:11 Pharmacy Profile Note 0 ml @ 0 mls/hr UNSCH OTHER 06/26/17 12:30 (NS Flush) 2 ml UNSCH PRN IV FLUSH 06/26/17 16:00 (NS Flush) 2 ml BID IV FLUSH 06/26/17 21:00 06/27/17 09:00 (Tylenol) 650 mg Q4H PRN PO 06/26/17 16:00 (Zofran Inj) 4 mg Q6H PRN IVP 06/26/17 16:00 06/26/17 18:11 (Narcan Inj) 0.4 mg UNSCH PRN IV PUSH 06/26/17 16:00 (Caitlin-Colace) 1 tab BID PO 06/26/17 21:00 06/27/17 09:21 (Milk Of Magnesia Liq) 30 ml Q12H PRN PO 06/26/17 16:00 (Senokot) 17.2 mg Q12H PRN PO 06/26/17 16:00 Vital Signs / I&O Vital Signs Date Time Temp Pulse Resp B/P (MAP) Pulse Ox O2 Delivery O2 Flow Rate FiO2 06/27/17 10:55 Nasal Cannula 2.00 06/27/17 09:26 97.8 81 19 103/59 (74) 96 06/27/17 08:47 98 Nasal Cannula 2.00 06/27/17 08:47 2.00 06/27/17 07:12 97.5 80 16 96/59 (71) 99 06/27/17 04:00 84 06/27/17 03:25 87 16 97/58 (71) 92 06/27/17 00:00 96 06/26/17 23:33 97.8 103 18 108/70 (83) 94 06/26/17 20:40 53 18 110/63 (79) 100 06/26/17 20:38 97 Nasal Cannula 2.00 06/26/17 20:00 66 06/26/17 16:31 100 Nasal Cannula 2.00 06/26/17 15:31 98.0 59 16 140/110 (120) 100 06/26/17 14:41 06/26/17 12:10 64 06/26/17 11:50 76 20 101/69 (80) 99 Nasal Cannula 2.00 I/O 06/26/17 06/26/17 06/26/17 06/27/17 06/27/17 06/27/17 07:00 15:00 23:00 07:00 15:00 23:00 Intake Total 460 ml Output Total 100 ml Balance 460 ml -100 ml Intake Oral 460 ml Output Urine Total 100 ml # Voids 2 # Bowel Movements 1 Physical Exam GENERAL: Well-nourished, well-developed patient. SKIN: Warm and dry. HEAD: Normocephalic. EYES: No scleral icterus. No injection or drainage. NECK: Supple, trachea midline. No JVD or lymphadenopathy. CARDIOVASCULAR: irr irr without murmurs, gallops, or rubs. RESPIRATORY: Breath sounds equal bilaterally. No accessory muscle use. GASTROINTESTINAL: Abdomen soft, non-tender, nondistended. EXTREMITIES: No cyanosis, or edema. Laboratory Laboratory Tests Test 06/26/17 16:24 06/27/17 04:18 Total Creatine Kinase 36 U/L Troponin I 0.04 NG/ML White Blood Count 8.5 TH/MM3 Red Blood Count 4.96 MIL/MM3 Hemoglobin 13.6 GM/DL Hematocrit 42.1 % Mean Corpuscular Volume 85.0 FL Mean Corpuscular Hemoglobin 27.4 PG Mean Corpuscular Hemoglobin Concent 32.2 % Red Cell Distribution Width 15.2 % Platelet Count 83 TH/MM3 Mean Platelet Volume 9.5 FL Neutrophils (%) (Auto) 80.7 % Lymphocytes (%) (Auto) 9.9 % Monocytes (%) (Auto) 9.2 % Eosinophils (%) (Auto) 0.1 % Basophils (%) (Auto) 0.1 % Neutrophils # (Auto) 6.9 TH/MM3 Lymphocytes # (Auto) 0.8 TH/MM3 Monocytes # (Auto) 0.8 TH/MM3 Eosinophils # (Auto) 0.0 TH/MM3 Basophils # (Auto) 0.0 TH/MM3 CBC Comment AUTO DIFF Differential Comment AUTO DIFF CONFIRMED Platelet Estimate LOW Platelet Morphology Comment NORMAL Prothrombin Time 18.1 SEC Prothromb Time International Ratio 1.6 RATIO Blood Urea Nitrogen 24 MG/DL Creatinine 1.61 MG/DL Random Glucose 118 MG/DL Calcium Level 8.2 MG/DL Sodium Level 139 MEQ/L Potassium Level 4.9 MEQ/L Chloride Level 107 MEQ/L Carbon Dioxide Level 25.9 MEQ/L Anion Gap 6 MEQ/L Estimat Glomerular Filtration Rate 43 ML/MIN B-Type Natriuretic Peptide 535 PG/ML Imaging Last Impressions Chest X-Ray 06/26/17 0401 Signed Impressions: Service Date/Time: Monday, June 26, 2017 04:46 - CONCLUSION: No acute disease. Sterling Reeves Jr., MD Assessment and Plan Problem List: (1) Atrial fibrillation with RVR ICD Codes: I48.91 - Unspecified atrial fibrillation Status: Acute Plan: 71 y/o M with afib with RVR and complaints of SOB in the setting of noncompliance with medications. He remains afebrile and hemodynamically stable. +diarrhea, nausea and vomiting. Echo 05/28/17 EF 20-25%. Recommendations: 1. Con rate control, BB and CCB and optimize as tolerated by HR and BP 2. Cont OAC 3. Toxicology screen 4. Avoid electrolytes abnormalities 5. Strict I&O 6. Low salt diet Will be available PRN for questions or concerns sign off (2) NSVT (nonsustained ventricular tachycardia) ICD Codes: I47.2 - Ventricular tachycardia (3) CHF (congestive heart failure) ICD Codes: I50.9 - Heart failure, unspecified Status: Acute (4) Cardiomyopathy ICD Codes: I42.9 - Cardiomyopathy, unspecified (5) Coagulopathy ICD Codes: D68.9 - Coagulation defect, unspecified (6) Hypertension ICD Codes: I10 - Hypertension Status: Acute (7) Chronic obstructive pulmonary disease ICD Codes: J44.9 - Chronic obstructive pulmonary disease Status: Acute Alonso-Facundo Hameed MD Jun 27, 2017 11:47
--- NOTE | 2017-06-27 12:08 | HHI.PR ---
Subjective Remarks Cr elevated likely 2/2 Afib/lasix use Patient with PT walking. Patient needs PT at DC and bedside commode. Says he feels tired. [place] nauseated yesterday but not today, able to eat some food. No n /v/d/c. No chest pain . SOB improved. With LE edema. Poor insight and judgement, forgets easily. Objective Vitals Vital Signs Date Time Temp Pulse Resp B/P (MAP) Pulse Ox O2 Delivery O2 Flow Rate FiO2 06/27/17 10:55 Nasal Cannula 2.00 06/27/17 09:26 97.8 81 19 103/59 (74) 96 06/27/17 08:47 98 Nasal Cannula 2.00 06/27/17 08:47 2.00 06/27/17 07:12 97.5 80 16 96/59 (71) 99 06/27/17 04:00 84 06/27/17 03:25 87 16 97/58 (71) 92 06/27/17 00:00 96 06/26/17 23:33 97.8 103 18 108/70 (83) 94 06/26/17 20:40 53 18 110/63 (79) 100 06/26/17 20:38 97 Nasal Cannula 2.00 06/26/17 20:00 66 06/26/17 16:31 100 Nasal Cannula 2.00 06/26/17 15:31 98.0 59 16 140/110 (120) 100 06/26/17 14:41 06/26/17 12:10 64 I/O 06/26/17 06/26/17 06/26/17 06/27/17 06/27/17 06/27/17 07:00 15:00 23:00 07:00 15:00 23:00 Intake Total 460 ml Output Total 100 ml Balance 460 ml -100 ml Intake Oral 460 ml Output Urine Total 100 ml # Voids 2 # Bowel Movements 1 Result Diagram: 06/27/1741706/27/17417 Imaging Last Impressions Chest X-Ray 06/26/17400 Signed Impressions: Service Date/Time: Monday, June 26, 2017 04:46 - CONCLUSION: No acute disease. Sterling Reeves Jr., MD Objective Remarks GENERAL: This is a well-nourished, well-developed patient, appears chronically ill. Poor insight and judgement. NECK: Trachea midline. No JVD or lymphadenopathy. Supple, nontender, no meningeal signs. CARDIOVASCULAR: Irregularly irregular rate and rhythm without murmurs, gallops , or rubs. RESPIRATORY: Clear to auscultation. Breath sounds equal bilaterally. No wheezes , rales, or rhonchi. GASTROINTESTINAL: Abdomen soft, non-tender, nondistended. No hepato-splenomegaly , or palpable masses. No guarding. MUSCULOSKELETAL: Extremities without clubbing, cyanosis. There is +3 bilateral LE edema. No joint tenderness, effusion, or edema noted. No calf tenderness. Negative Homans sign bilaterally. NEUROLOGICAL: Awake and alert. Cranial nerves II through XII intact. Motor and sensory grossly within normal limits. Five out of 5 muscle strength in all muscle groups. Normal speech. A/P Assessment and Plan Atrial fibrillation with RVR. Cardiomyopathy. CHF with exacerbation elevated BNP on admission-Previous echocardiogram shows ejection fraction 20-30%, moderate diffuse hypokinesis, moderately severely reduced systolic function, moderately to severely calcified mitral annulus Patient was diagnosed with atrial fibrillation, 2 years ago. Patient continued on Cardizem IV Restart home eds Cardizem PO and metoprolol Cardiology consulted for recommendations Recent echocardiogram with EF of 25-30% On coumadin, INR subterapeutic on admission. Monitor INR consult pharmacy to monitor INR Continue lasix, monitor UOP and monitor closely kidney function Shortness of breath with right lower extremity edema Shortness of breath likely secondary to A. fib with RVR, COPD RUSSELL: Cr elevated at 1.6 . Monitor renal function .Patient received lasix. Will DC lasix and start bumex if BP permits. Avoid if possible nephrotoxic agents. Monitor kidney function closely Elevated liver enzymes with coagulopathy Patient does have history of chronic alcohol use Continue monitor liver enzymes, monitor coagulation studies Chronic obstructive pulmonary disease Continue O2 supplementation maintain O2 sats greater 92% Duo nebs as needed DVT prevention on coumadin, monitor INR DC plan: Now with RUSSELL, will dDC when improves and kidney function at baseline. Need PT at home and bedside commode. Darleen Landeros MD Jun 27, 2017 12:08
--- NOTE | 2017-06-27 12:10 | HHI.FF ---
Face to Face Verification Diagnosis: (1) Acute renal failure (2) Elevated liver enzymes (3) Atrial fibrillation with RVR (4) Coagulopathy (5) CHF (congestive heart failure) (6) Chronic obstructive pulmonary disease (7) Cardiomyopathy Physical Therapy Order: Evaluate and Treat Home Health Nursing Order: Medical education Signs/symptoms of disease process CHF education Oxygen administration education Medication education-adverse effect Nursing assessment with vital signs I have seen patient Isaias Morfin on 06/27/17. My clinical findings support the need for the requested home health care services because: Ltd mobility - disease progression Patient has SOB Deconditioned w/ increased weakness I certify that my clinical findings support that this patient is homebound because: Post-op weakness Poor cardiac reserve Darleen Landeros MD Jun 27, 2017 12:10
[2017-06-27] MEDS ORDERED: TERA5CAP3 PO (12:13)
[2017-06-27] MEDS ORDERED: CARD180C5 PO (12:13)
[2017-06-27] MEDS ORDERED: COUM3TAB PO (12:13)
[2017-06-27] MEDS ORDERED: LISI2.5T3 PO (12:13)
[2017-06-27] MEDS ORDERED: POTA10TA2 PO (12:13)
[2017-06-27] MEDS ORDERED: FURO40TA PO (12:13)
[2017-06-27] MEDS ORDERED: METO-309 PO (12:13)
[2017-06-27] MEDS ORDERED: BEDSIDE COMMODE1 MI1 (13:40)
[2017-06-27] MEDS: WARFARIN SOD 3 MG TAB PO SCH (16:30)
--- NOTE | 2017-06-27 20:57 | EKG ---
Date Performed: 06/26/2017 Time Performed: 16:50:19 PTAGE: 71 years EKG: ATRIAL FIBRILLATION WITH SLOW VENTRICULAR RESPONSE RIGHT BUNDLE BRANCH BLOCK ANTERIOR MYOCA RDIAL INFARCTION INFERIOR MYOCARDIAL INFARCTION MARKED T-WAVE ABNORMALITY, CONSIDER LATERAL ISCHEMIA ABNORMAL ECG NO PREVIOUS TRACING DOCTOR: Joaquin Rizo Interpretating Date/Time 06/27/2017 20:50:01
--- NOTE | 2017-06-27 21:07 | EKG ---
Date Performed: 06/26/2017 Time Performed: 10:00:49 PTAGE: 71 years EKG: ATRIAL FIBRILLATION WITH RAPID VENTRICULAR RESPONSE RIGHT BUNDLE BRANCH BLOCK ANTERIOR MYOC ARDIAL INFARCTION INFERIOR MYOCARDIAL INFARCTION ABNORMAL ECG PREVIOUS TRACING : 06/26/2017 03.46 Compared to prior tracing no significant change DOCTOR: Joaquin Rizo Interpretating Date/Time 06/27/2017 20:57:04
--- NOTE | 2017-06-27 21:08 | EKG ---
Date Performed: 06/26/2017 Time Performed: 03:46:08 PTAGE: 71 years EKG: ATRIAL FIBRILLATION WITH RAPID VENTRICULAR RESPONSE RIGHT BUNDLE BRANCH BLOCK LEFT ANTERIOR FASCICULAR BLOCK POSSIBLE ANTERIOR MYOCARDIAL INFARCTION ABNORMAL ECG PREVIOUS TRACING : 05/26/2017 16.50 Compared to prior tracing no significant change DOCTOR: Joaquin Rizo Interpretating Date/Time 06/27/2017 20:57:38
[2017-06-27] MEDS: TERAZOSIN HCL 5 MG CAP PO SCH (22:00)
[2017-06-28] VITALS (7 sets, daily range): BP systolic 94–117; BP diastolic 60–75; PULSE 75–120; RESP 19–22; TEMP 97.3–97.9; O2SAT 92–98
[2017-06-28 08:42] LABS: AUTOMATED NEUTROPHIL # 5.4 TH/MM3 (1.8-7.7); BASOPHIL % 0.3 % (0.0-2.0); EOSINOPHIL % 0.2 % (0.0-4.0); HEMATOCRIT 40.5 % (39.0-51.0); LYMPH % 9.4 % (9.0-44.0); LYMPHOCYTE # 0.6 TH/MM3 (1.0-4.8); MEAN CELL VOLUME 85.9 FL (80.0-100.0); MEAN CORPUSCULAR HEMOGLOBIN 27.1 PG (27.0-34.0); MEAN CORPUSCULAR HGB CONC 31.6 % (32.0-36.0); MONO % 9.5 % (0.0-8.0); NEUT % 80.6 % (16.0-70.0); PLATELET COUNT 84 TH/MM3 (150-450); RED BLOOD COUNT 4.72 MIL/MM3 (4.50-5.90); RED CELL DISTRIBUTION WIDTH 15.3 % (11.6-17.2); WHITE BLOOD COUNT 6.7 TH/MM3 (4.0-11.0)
[2017-06-28 08:44] LABS: INTERNATIONAL NORMALIZED RATIO 1.4 RATIO; PROTHROMBIN TIME - PATIENT 15.2 SEC (9.8-11.6)
[2017-06-28 08:52] LABS: HEMO FLAGS AUTO DIFF
[2017-06-28] MEDS: LISINOPRIL 5 MG TAB PO SCH (09:00)
[2017-06-28] MEDS: FUROSEMIDE 40 MG TAB PO SCH (09:00)
[2017-06-28] MEDS: METOPROLOL TARTRATE 50 MG TAB PO SCH (09:00)
[2017-06-28] MEDS: DILTIAZEM-CD 180 MG CAP ER PO SCH (09:00)
[2017-06-28 09:10] LABS: BICARBONATE 26.4 MEQ/L (21.0-32.0)
[2017-06-28 09:12] LABS: POTASSIUM 4.2 MEQ/L (3.5-5.1)
--- NOTE | 2017-06-28 09:22 | HHI.PR ---
Subjective Remarks BP is into a lower side will hold meds in am. SOB improved significantly. + LE edema imprpved. Overall improved. No chest pain or sob. No n/v/d/c. Objective Vitals Vital Signs Date Time Temp Pulse Resp B/P (MAP) Pulse Ox O2 Delivery O2 Flow Rate FiO2 06/28/17 08:00 97.3 97 22 96/60 (72) 98 06/28/17 04:00 97.9 112 19 97/64 (75) 93 06/28/17 00:00 97.5 101 22 94/60 (71) 93 06/27/17 20:15 Nasal Cannula 2.00 06/27/17 19:15 97.3 120 19 119/75 (90) 97 06/27/17 19:00 Nasal Cannula 2.00 06/27/17 17:30 98 Nasal Cannula 2.00 06/27/17 16:30 97.2 103 18 104/70 (81) 98 06/27/17 16:00 97.1 98 19 104/72 (83) 98 06/27/17 12:00 97.3 91 17 107/71 (83) 99 06/27/17 10:55 Nasal Cannula 2.00 06/27/17 09:26 97.8 81 19 103/59 (74) 96 I/O 06/27/17 06/27/17 06/27/17 06/28/17 06/28/17 06/28/17 06:59 14:59 22:59 06:59 14:59 22:59 Intake Total 720 ml 480 ml Output Total 100 ml 500 ml Balance -100 ml 720 ml -20 ml Intake Oral 720 ml 480 ml Output Urine Total 100 ml 500 ml # Bowel Movements 1 Result Diagram: 06/28/17 0520 06/28/17 0520 Imaging Last Impressions Chest X-Ray 06/26/17 0401 Signed Impressions: Service Date/Time: Monday, June 26, 2017 04:46 - CONCLUSION: No acute disease. Sterling Reeves Jr., MD Objective Remarks GENERAL: This is a well-nourished, well-developed patient, appears chronically ill. Poor insight and judgement. NECK: Trachea midline. No JVD or lymphadenopathy. Supple, nontender, no meningeal signs. CARDIOVASCULAR: Irregularly irregular rate and rhythm without murmurs, gallops , or rubs. RESPIRATORY: Clear to auscultation. Breath sounds equal bilaterally. No wheezes , rales, or rhonchi. GASTROINTESTINAL: Abdomen soft, non-tender, nondistended. No hepato-splenomegaly , or palpable masses. No guarding. MUSCULOSKELETAL: Extremities without clubbing, cyanosis. There is +3 bilateral LE edema. No joint tenderness, effusion, or edema noted. No calf tenderness. Negative Homans sign bilaterally. NEUROLOGICAL: Awake and alert. Cranial nerves II through XII intact. Motor and sensory grossly within normal limits. Five out of 5 muscle strength in all muscle groups. Normal speech. A/P Assessment and Plan Atrial fibrillation with RVR. Cardiomyopathy. CHF with exacerbation elevated BNP on admission-Previous echocardiogram shows ejection fraction 20-30%, moderate diffuse hypokinesis, moderately severely reduced systolic function, moderately to severely calcified mitral annulus Patient was diagnosed with atrial fibrillation, 2 years ago. Patient continued on Cardizem IV Restart home eds Cardizem PO and metoprolol Cardiology consulted for recommendations Recent echocardiogram with EF of 25-30% On coumadin, INR subterapeutic on admission. Monitor INR consult pharmacy to monitor INR Continue lasix, monitor UOP and monitor closely kidney function Shortness of breath with right lower extremity edema. Improved significantly Shortness of breath likely secondary to A. fib with RVR, COPD Passed O2 walking test RUSSELL: Cr elevated at 1.6 on 06/28. Repeat Cr level imprpved significantly, at baseline. Monitor renal function. Avoid if possible nephrotoxic agents. Monitor kidney function closely Elevated liver enzymes with coagulopathy Patient does have history of chronic alcohol use Continue monitor liver enzymes, monitor coagulation studies Chronic obstructive pulmonary disease Continue O2 supplementation maintain O2 sats greater 92% Duo nebs as needed DVT prevention on coumadin, monitor INR DC plan: Kidney function improved and back to baseline. PT at home and bedside commode. CM ff for DC plan Improved, discharge home with home health. To follow up as OP with PCP and consultants. Darleen Landeros MD Jun 28, 2017 09:22
[2017-06-28 09:25] LABS: PLATELET ESTIMATE SMEAR LOW (NORMAL); PLATELET MORPHOLOGY NORMAL (NORMAL); SCAN/DIFF AUTO DIFF CONFIRMED
[2017-06-28] MEDS: ASPIRIN 81 MG CHEW TAB CHEW SCH (09:44)
[2017-06-28] MEDS: SODIUM CHLORIDE 0.9% FLUSH 10 ML FLUSH IV FLUSH SCH (09:45)
[2017-06-28] MEDS: POTASSIUM CHLORIDE 10 MEQ CONTROLLED RELEASE TAB PO SCH (09:45)
[2017-06-28] MEDS: DOCUSATE SODIUM 50 MG/SENNA 8.6 MG TAB PO SCH (09:46)
[2017-06-28] MEDS: MAGNESIUM OXIDE 400 MG TAB PO SCH (09:46)
--- NOTE | 2017-06-28 11:08 | HHI.DS ---
Discharge Summary Admission Date Jun 26, 2017 at 06:30 Discharge Date: Jun 28, 2017 Admitting Diagnosis Afib with rvr (1) Chronic obstructive pulmonary disease ICD Code: J44.9 - Chronic obstructive pulmonary disease Status: Acute (2) Physical deconditioning ICD Code: R53.81 - Other malaise (3) COPD with hypoxia ICD Code: J44.9 - Chronic obstructive pulmonary disease, unspecified; R09.02 - Hypoxemia (4) Acute renal failure ICD Code: N17.9 - Acute kidney failure, unspecified (5) Coagulopathy ICD Code: D68.9 - Coagulation defect, unspecified (6) CHF (congestive heart failure) ICD Code: I50.9 - Heart failure, unspecified Status: Acute (7) Cardiomyopathy ICD Code: I42.9 - Cardiomyopathy, unspecified (8) Atrial fibrillation with RVR ICD Code: I48.91 - Unspecified atrial fibrillation Status: Acute Procedures none Brief History - From Admission 71-year-old male with known history of atrial fibrillation, cardiomyopathy EF 25-30%, hypertension, chronic obstructive pulmonary disease, chronic tobacco use, chronic alcohol use who presented to hospital because of shortness of breath. Patient says has shortness of breath that began when he was lying down to watch TV around midnight. He was recently admitted to the hospital for 2 weeks related to similar symptoms, however he is not sure what he was diagnosed with. He is unsure whether he has a history of cardiac arrhythmia, however admits not taking meds as he run out of meds. Says he does follow up at [facility]. He denies having any prior history of myocardial infarction or congestive heart failure. The patient denies having any chest pain. He reports that he does have a sensation that his heart is racing, however his main complaint is SOB. Says he doesn't get much fluid in his legs. The patient was brought in by ambulance services and was noted to be in A. fib with RVR prior to arrival. The patient was given Cardizem 20 mg IV. His heart rate did come down into the low 100s. The patient reports having some gait instability and uses a walker for assistance. The patient reports that he lives at home alone. The patient reports that he drinks 3 beers daily. Denies any recent fevers, worsening cough or congestion, neck pain, abdominal pain, vomiting, diarrhea, urinary symptoms, or neurologic symptoms. Patient denies any palpitations, chest pain, nausea, vomiting, abdominal pain, lightheadedness, dizziness. CBC/BMP: 06/28/17 0520 06/28/17 0520 Significant Findings Laboratory Tests Test 06/26/17 04:15 06/26/17 10:23 06/26/17 10:45 06/26/17 16:24 Neutrophils (%) (Auto) 77.3 % (16.0-70.0) Monocytes (%) (Auto) 11.1 % (0.0-8.0) Lymphocytes # (Auto) 0.8 TH/MM3 (1.0-4.8) Prothrombin Time 14.0 SEC (9.8-11.6) Random Glucose 116 MG/DL (74-106) Albumin 3.1 GM/DL (3.4-5.0) Calcium Level 8.1 MG/DL (8.5-10.1) Alkaline Phosphatase 121 U/L (45-117) Total Bilirubin 1.3 MG/DL (0.2-1.0) Estimat Glomerular Filtration Rate 80 ML/MIN (>89) Total Creatine Kinase 38 U/L (39-308) 30 U/L (39-308) 36 U/L (39-308) B-Type Natriuretic Peptide 1258 PG/ML (0-100) Lipase 65 U/L (73-393) Urine Turbidity HAZY (CLEAR) Urine Protein 30 mg/dL (NEG-TRACE) Urine Occult Blood TRACE (NEG) Urine Urobilinogen 4.0 MG/DL (LESS THAN Urine Bacteria RARE /hpf (NONE) Urine Mucus FEW /lpf (OCC) Test 06/27/17 04:18 06/28/17 05:20 Platelet Count 83 TH/MM3 (150-450) 84 TH/MM3 (150-450) Neutrophils (%) (Auto) 80.7 % (16.0-70.0) 80.6 % (16.0-70.0) Monocytes (%) (Auto) 9.2 % (0.0-8.0) 9.5 % (0.0-8.0) Lymphocytes # (Auto) 0.8 TH/MM3 (1.0-4.8) 0.6 TH/MM3 (1.0-4.8) Platelet Estimate LOW (NORMAL) LOW (NORMAL) Prothrombin Time 18.1 SEC (9.8-11.6) 15.2 SEC (9.8-11.6) Blood Urea Nitrogen 24 MG/DL (7-18) 28 MG/DL (7-18) Creatinine 1.61 MG/DL (0.60-1.30) Random Glucose 118 MG/DL (74-106) Calcium Level 8.2 MG/DL (8.5-10.1) 7.9 MG/DL (8.5-10.1) Estimat Glomerular Filtration Rate 43 ML/MIN (>89) 64 ML/MIN (>89) B-Type Natriuretic Peptide 535 PG/ML (0-100) Hemoglobin 12.8 GM/DL (13.0-17.0) Mean Corpuscular Hemoglobin Concent 31.6 % (32.0-36.0) Imaging Last Impressions Chest X-Ray 06/26/17 0401 Signed Impressions: Service Date/Time: Monday, June 26, 2017 04:46 - CONCLUSION: No acute disease. Sterling Reeves Jr., MD PE at Discharge GENERAL: This is a well-nourished, well-developed patient, appears chronically ill. Poor insight and judgement. NECK: Trachea midline. No JVD or lymphadenopathy. Supple, nontender, no meningeal signs. CARDIOVASCULAR: Irregularly irregular rate and rhythm without murmurs, gallops , or rubs. RESPIRATORY: Clear to auscultation. Breath sounds equal bilaterally. No wheezes , rales, or rhonchi. GASTROINTESTINAL: Abdomen soft, non-tender, nondistended. No hepato-splenomegaly , or palpable masses. No guarding. MUSCULOSKELETAL: Extremities without clubbing, cyanosis. There is +3 bilateral LE edema. No joint tenderness, effusion, or edema noted. No calf tenderness. Negative Homans sign bilaterally. NEUROLOGICAL: Awake and alert. Cranial nerves II through XII intact. Motor and sensory grossly within normal limits. Five out of 5 muscle strength in all muscle groups. Normal speech. Hospital Course 71-year-old male with known history of atrial fibrillation, cardiomyopathy EF 25-30%, hypertension, chronic obstructive pulmonary disease, chronic tobacco use, chronic alcohol use who presented to hospital because of shortness of breath. The patient was brought in by ambulance services and was noted to be in A. fib with RVR prior to arrival. Patient also wit hCHF exacerbation received lasix. The patient was given Cardizem 20 mg IV. His heart rate did come down into the low 100s. The patient reports having some gait instability and uses a walker for assistance. Seen by cardiology, switched to po cardizem and metoprolol. Also cr was noted elevated on 06/27, repeat back to baseline, avoid nephrotoxics if possible. INR subterapeutic , continue coumadin. Patient improved, PT recommends home with home helath. Was DC home with home health to follow up as OP with PCP and consultants. Atrial fibrillation with RVR. Cardiomyopathy. CHF with exacerbation elevated BNP on admission-Previous echocardiogram shows ejection fraction 20-30%, moderate diffuse hypokinesis, moderately severely reduced systolic function, moderately to severely calcified mitral annulus Patient was diagnosed with atrial fibrillation, 2 years ago. Patient continued on Cardizem IV Restart home eds Cardizem PO and metoprolol Cardiology consulted for recommendations Recent echocardiogram with EF of 25-30% On coumadin, INR subterapeutic on admission. Monitor INR consult pharmacy to monitor INR Continue lasix, monitor UOP and monitor closely kidney function Shortness of breath with right lower extremity edema. Improved significantly Shortness of breath likely secondary to A. fib with RVR, COPD O2 walking test prior to discharge failed patient needs O2 at home , case management f/u RUSSELL: Cr elevated at 1.6 on 06/28. Repeat Cr level imprpved significantly, at baseline. Monitor renal function. Avoid if possible nephrotoxic agents. Monitor kidney function closely Elevated liver enzymes with coagulopathy Patient does have history of chronic alcohol use Continue monitor liver enzymes, monitor coagulation studies Chronic obstructive pulmonary disease Continue O2 supplementation maintain O2 sats greater 92% Duo nebs as needed DVT prevention on coumadin, monitor INR DC plan: Kidney function improved and back to baseline. PT at home and bedside commode. Improved, discharge home with home health. Failed O2 walking test, will need O2 at home. To follow up as OP with PCP and consultants. Pt Condition on Discharge: Stable Discharge Disposition: Disch w/ Home Health Serv Discharge Time: > 30 minutes Discharge Instructions DIET: Follow Instructions for: Heart Healthy Diet, Coumadin (Warfarin) Diet Activities you can perform: Regular-No Restrictions Other Activity Instructions: Fall precautions Follow up Referrals: Cardiology - 1 Week PCP Follow-up - 2-3 Days New Medications: Bedside Commode (Bedside Commode) 1 Mis Mis EA .ROUTE DIRECTED, #1 Oxygen (O2) (Oxygen (O2)) Inha LITER MERLE.CANULA CONTINUOUS for Prevent Hypoxemia, #2 Oxygen Concentrator Portable Gaseous 2 L/min via Nasal Canula Continuous For 99 months Continued Medications: Acetaminophen (Eq Acetaminophen) 325 Mg Tab 650 MG PO Q6H PRN for FEVER/PAIN SCALE 1 TO 2 for 30 Days, TAB Diltiazem CD 24 HR (Cardizem CD 24 HR) 180 Mg Caper 180 MG PO DAILY for heart for 30 Days, CAP (This prescription has been renewed) Furosemide (Furosemide) 40 Mg Tab 40 MG PO DAILY for heart for 30 Days, TAB (This prescription has been renewed) Lisinopril (Lisinopril) 2.5 Mg Tab 2.5 MG PO DAILY for Blood Pressure Management, #30 TAB 0 Refills (This prescription has been renewed) Magnesium Oxide (Magnesium Oxide) 400 Mg Tab 400 MG PO DAILY for Nutritional Supplement, #30 TAB 0 Refills Metoprolol Tartrate (Lopressor) 50 Mg Tab 50 MG PO Q12HR for heart for 30 Days, TAB (This prescription has been renewed) Potassium Chloride ER (Potassium Chloride ER) 10 Meq Tab 10 MEQ PO DAILY for Electrolyte Replacement, #30 TAB 0 Refills (This prescription has been renewed) Terazosin (Terazosin) 5 Mg Cap 5 MG PO HS for BPH, #30 CAP 0 Refills (This prescription has been renewed) Warfarin (Coumadin) 3 Mg Tab 3 MG PO DAILY@1600 for prevent stroke for 30 Days, TAB (This prescription has been renewed) Darleen Landeros MD Jun 28, 2017 10:35
[2017-06-28] MEDS ORDERED: OXYGEN NAS.CANULA (13:40)
[2017-06-28] MEDS ORDERED: WARFARIN SOD 1 MG TAB PO ONE (16:00)
[2017-06-28] MEDS: WARFARIN SOD 3 MG TAB PO SCH (17:36)
--- NOTE | 2017-07-02 12:58 | MB ---
cc: MARLENA LUDWIG M.D. DATE OF CONSULTATION: 07/02/[address] Frias has requested I perform a cardiac catheterization. HISTORY OF PRESENT ILLNESS is a 71-year-old man with history of a cardiomyopathy, hypertension, COPD, previous alcohol abuse, previous longstanding tobacco abuse with COPD, who has been having runs of nonsustained V-tach. Because of the arrhythmias, Dr. Frias felt he should have a cardiac catheterization. I cannot really elicit any typical anginal type symptoms from the patient. Of note, the patient currently is wearing a diaper but he denies urinary incontinence. His heart rate has been difficult to bring under control. Dr. Frias has just increased his metoprolol to 125 mg p.o. b.i.d. CURRENT MEDICATIONS Include: 1. Metoprolol 125 mg p.o. b.i.d. 2. Lisinopril 2-1/2 mg daily. 3. Furosemide 40 mg daily. 4. Diltiazem 180 mg daily. 5. Warfarin is on hold. PAST MEDICAL HISTORY 1. Atrial fibrillation. 2. Hypertension. 3. COPD. 4. Tobacco use. 5. Kidney stones. PAST SURGICAL HISTORY 1. Facial and jaw reconstruction due to trauma. PHYSICAL EXAMINATION GENERAL: Reveals a man who appears older than his stated age. VITAL SIGNS: Charted. Last blood pressure is 140/91, pulse 92. HEENT: Exam unremarkable. NECK: Shows no JVD, no bruits. CHEST: Shows diminished breath sounds. CARDIAC: S1-S2, regular rate and rhythm. ABDOMEN: Abdomen is obese. EXTREMITIES: Reveal severely diminished femoral and pedal pulses. Radial pulses are, however, in good shape. LABORATORY His creatinine was 0.75 on the 24th, hematocrit of 41.4 on the 25th. IMPRESSION Known cardiomyopathy with runs of ventricular tachycardia. PLAN Perform a diagnostic cardiac cath in the morning if the INR is acceptable. I am keeping him n.p.o. and ordering an INR check in the morning. If his creatinine is acceptable plan to do a diagnostic cath tomorrow. Probably plan a radial artery approach to minimize risk of bleeding and in addition he has got suggestion of PAD in his lower extremities on exam. Further therapy to be determined. I have obtained informed consent for possible cath in a.m. MD LENNIE Miller/TLL /11:55 AM /12:37 PM
== END 2017-06-28 18:30 | disposition home health service (06) ==
LOC: NEPC 03:33 → NEDA 06:30 → NEPGCP 14:27 → N04A 06-27 08:55
PROVIDERS: ADMIT Hospitalist; ATTEND Hospitalist
DX: J44.1 Chronic obstructive pulmonary disease with (acute) exacerbation (principal); R09.02 Hypoxemia; N17.9 Acute kidney failure, unspecified; I42.9 Cardiomyopathy, unspecified; I48.91 Unspecified atrial fibrillation; I11.0 Hypertensive heart disease with heart failure; I50.9 Heart failure, unspecified; R26.9 Unspecified abnormalities of gait and mobility; F17.210 Nicotine dependence, cigarettes, uncomplicated
CPT/HCPCS: 71010; 80048; 80053; 81001; 82550; 83690; 83735; 83880; 84443; 84484; 85025; 85610; 85730; 93005; 94620; 96374; 96375; 97162; 97530; 99285; G0378; G8987; G8988; J2405

== ENCOUNTER 2017-06-29 13:58 | Inpatient (IN) | payer OTHER, MEDICARE ==
[2017-06-29] VITALS (11 sets, daily range): BP systolic 118–152; BP diastolic 67–98; PULSE 88–148; RESP 18–24; TEMP 97.9–98.6; O2SAT 92–99
[~2017-06-29 13:58] MED LIST changes: +BEDSIDE COMMODE1 MI1; +OXYGEN NAS.CANULA
[2017-06-29] MEDS ORDERED: SODIUM CHLORIDE 0.9% FLUSH 10 ML FLUSH IVF PRN (14:15)
[2017-06-29] MEDS ORDERED: FUROSEMIDE 40 MG TAB PO ONE (14:30)
[2017-06-29] MEDS ORDERED: DILTIAZEM-CD 180 MG CAP ER PO ONE (14:30)
--- NOTE | 2017-06-29 14:34 | PD ---
HPI Chief Complaint: Cardiac Complaint Time Seen by Provider: 14:07 Travel History International Travel<30 days: No Contact w/Intl Traveler<30days: No Traveled to known affect area: No History of Present Illness HPI 71-year-old male admitted to the hospital few days ago for A. fib with RVR, released at 3 AM last night, [facility] was in A. fib with RVR and rate of 150 bpm. He states that he feels fine, denies any chest pains, shortness of breath, or any other symptoms. He states that he has not yet taken his medications for this morning because [facility]. Modifying Factors: None Associated Signs & Symptoms: Tachycardia, A. fib with RVR Risk Factors: Recent admission for A. fib with RVR PFS Past Medical History Atrial Fibrillation: Yes Blood Disorders: No Cancer: No Cardiovascular Problems: Yes (HTN afib rvr) High Cholesterol: Yes COPD: Yes Diminished Hearing: No Endocrine: No Genitourinary: No Headaches: Yes Hypertension: Yes Immune Disorder: No Kidney Stones: Yes Musculoskeletal: No Neurologic: No Psychiatric: No Reproductive: No Respiratory: No Past Surgical History Oral Surgery: Yes (EXTENSIVE JAW SURGERY DUE TO TRAUMA) Other Surgery: Yes (facial reconstruction) Social History Alcohol Use: Yes (3 beers 2-3 TIMES A WEEK ) Tobacco Use: No Substance Use: No Allergies-Medications (Allergen,Severity, Reaction): Coded Allergies: No Known Allergies (Unverified , 06/29/17) Reported Meds & Prescriptions Reported Meds & Active Scripts Active Oxygen (O2) (Miscellaneous Medication) Inha Liter MERLE.CANULA CONTINUOUS Oxygen Concentrator Portable Gaseous 2 L/min via Nasal Canula Continuous For 99 months Bedside Commode (Device) 1 Mis Mis Ea .ROUTE DIRECTED Potassium Chloride ER (Potassium Chloride) 10 Meq Tab 10 Meq PO DAILY Lisinopril 2.5 Mg Tab 2.5 Mg PO DAILY Lopressor (Metoprolol Tartrate) 50 Mg Tab 50 Mg PO Q12HR 30 Days Furosemide 40 Mg Tab 40 Mg PO DAILY 30 Days Cardizem CD 24 HR (Diltiazem CD 24 HR) 180 Mg Caper 180 Mg PO DAILY 30 Days Coumadin (Warfarin) 3 Mg Tab 3 Mg PO DAILY@1600 30 Days Terazosin (Terazosin HCl) 5 Mg Cap 5 Mg PO HS Magnesium Oxide 400 Mg Tab 400 Mg PO DAILY Eq Acetaminophen (Acetaminophen) 325 Mg Tab 650 Mg PO Q6H PRN 30 Days Review of Systems Except as stated in HPI: all other systems reviewed are Neg Physical Exam Narrative GENERAL: Well-developed elderly white male patient currently not in acute distress. Awake and oriented 3. SKIN: Focused skin assessment warm/dry. HEAD: Atraumatic. Normocephalic. EYES: Pupils equal and round. No scleral icterus. No injection or drainage. ENT: No nasal bleeding or discharge. Mucous membranes pink and moist. NECK: Trachea midline. No JVD. CARDIOVASCULAR: Fast and irregularly irregular. RESPIRATORY: No accessory muscle use. Clear to auscultation. Breath sounds equal bilaterally. GASTROINTESTINAL: Abdomen soft, non-tender, nondistended. Hepatic and splenic margins not palpable. MUSCULOSKELETAL: No obvious deformities. No clubbing. No cyanosis. No edema. NEUROLOGICAL: Awake and alert. No obvious cranial nerve deficits. Motor grossly within normal limits. Normal speech. PSYCHIATRIC: Appropriate mood and affect; insight and judgment normal. Data Data Last Documented VS Vital Signs Date Time Temp Pulse Resp B/P (MAP) Pulse Ox O2 Delivery O2 Flow Rate FiO2 06/29/17 15:39 137 20 133/87 (102) 97 Nasal Cannula 2.00 Orders Orders Electrocardiogram (06/29/17 14:07) B-Type Natriuretic Peptide (06/29/17 14:07) Ckmb (Isoenzyme) Profile (06/29/17 14:07) Complete Blood Count With Diff (06/29/17 14:07) Comprehensive Metabolic Panel (06/29/17 14:07) Magnesium (Mg) (06/29/17 14:07) Prothrombin Time / Inr (Pt) (06/29/17 14:07) Act Partial Throm Time (Ptt) (06/29/17 14:07) Troponin I (06/29/17 14:07) Chest, Single Ap (06/29/17 14:07) Ecg Monitoring (06/29/17 14:07) Bilateral Bp Monitoring (06/29/17 14:07) Iv Access Insert/Monitor (06/29/17 14:07) Oximetry (06/29/17 14:07) Oxygen Administration (06/29/17 14:07) Sodium Chloride 0.9% Flush (Ns Flush) (06/29/17 14:15) Diltiazem Cd (Cardizem Cd) (06/29/17 14:30) Furosemide (Lasix) (06/29/17 14:30) Diltiazem Inj (Cardizem Inj) (06/29/17 15:45) Sodium Chloride 0.9% Flush (Ns Flush) (06/29/17 15:45) CKMB (06/29/17 14:45) CKMB% (06/29/17 14:45) Admit Order (Ed Use Only) (06/29/17 16:37) Diltiazem Inj (Cardizem Inj) (06/29/17 16:45) Sodium Chloride 0.9% Flush (Ns Flush) (06/29/17 16:45) Labs Laboratory Tests Test 06/29/17 14:45 White Blood Count 6.5 TH/MM3 Red Blood Count 5.11 MIL/MM3 Hemoglobin 13.9 GM/DL Hematocrit 43.7 % Mean Corpuscular Volume 85.5 FL Mean Corpuscular Hemoglobin 27.1 PG Mean Corpuscular Hemoglobin Concent 31.7 % Red Cell Distribution Width 15.8 % Platelet Count 104 TH/MM3 Mean Platelet Volume 8.7 FL Neutrophils (%) (Auto) 79.7 % Lymphocytes (%) (Auto) 10.1 % Monocytes (%) (Auto) 9.8 % Eosinophils (%) (Auto) 0.1 % Basophils (%) (Auto) 0.3 % Neutrophils # (Auto) 5.2 TH/MM3 Lymphocytes # (Auto) 0.7 TH/MM3 Monocytes # (Auto) 0.6 TH/MM3 Eosinophils # (Auto) 0.0 TH/MM3 Basophils # (Auto) 0.0 TH/MM3 CBC Comment DIFF FINAL Differential Comment Prothrombin Time 15.4 SEC Prothromb Time International Ratio 1.4 RATIO Activated Partial Thromboplast Time 28.4 SEC Blood Urea Nitrogen 18 MG/DL Creatinine 0.93 MG/DL Random Glucose 93 MG/DL Total Protein 6.8 GM/DL Albumin 3.1 GM/DL Calcium Level 7.9 MG/DL Magnesium Level 2.2 MG/DL Alkaline Phosphatase 124 U/L Aspartate Amino Transf (AST/SGOT) 456 U/L Alanine Aminotransferase (ALT/SGPT) 568 U/L Total Bilirubin 1.3 MG/DL Sodium Level 136 MEQ/L Potassium Level 4.4 MEQ/L Chloride Level 101 MEQ/L Carbon Dioxide Level 29.0 MEQ/L Anion Gap 6 MEQ/L Estimat Glomerular Filtration Rate 80 ML/MIN Total Creatine Kinase 105 U/L Creatine Kinase MB 1.9 NG/ML Troponin I 0.05 NG/ML B-Type Natriuretic Peptide 1129 PG/ML MDM Medical Decision Making Medical Screen Exam Complete: Yes Emergency Medical Condition: Yes Medical Record Reviewed: Yes Interpretation(s) EKG shows A. fib with RVR at a ventricular rate of 140 bpm. No signs of acute ST-T changes. Laboratory Tests Test 06/29/17 14:45 Mean Corpuscular Hemoglobin Concent 31.7 % (32.0-36.0) Platelet Count 104 TH/MM3 (150-450) Neutrophils (%) (Auto) 79.7 % (16.0-70.0) Monocytes (%) (Auto) 9.8 % (0.0-8.0) Lymphocytes # (Auto) 0.7 TH/MM3 (1.0-4.8) Prothrombin Time 15.4 SEC (9.8-11.6) Albumin 3.1 GM/DL (3.4-5.0) Calcium Level 7.9 MG/DL (8.5-10.1) Alkaline Phosphatase 124 U/L (45-117) Aspartate Amino Transf (AST/SGOT) 456 U/L (15-37) Alanine Aminotransferase (ALT/SGPT) 568 U/L (12-78) Total Bilirubin 1.3 MG/DL (0.2-1.0) Estimat Glomerular Filtration Rate 80 ML/MIN (>89) B-Type Natriuretic Peptide 1129 PG/ML (0-100) Last 24 hours Impressions Chest X-Ray 06/29/17 1407 Signed Impressions: Service Date/Time: Thursday, June 29, 2017 14:29 - CONCLUSION: No acute disease. No significant change has occurred. Jose M Faustin MD Differential Diagnosis Tachycardia/A. fib with RVR: Rule out metabolic issues versus dehydration versus need for control medications Narrative Course Patient is an A. fib with RVR and by mouth Cardizem and Lasix which she was supposed to take this morning was given. However, after waiting an hour, A. fib with RVR was still continuing and IV Cardizem was also given with some improvement heart rate. At this point, lab work returns showing elevated BNP and liver and signs concerning for CHF. Chest x-ray did not show obvious uncompensated he CHF the patient is fairly symptomatic with leg swelling. At this point, my plan would be to admit the patient for further treatment. Case was discussed with Dr. Daniel for admission. He would also like be to put him on a Cardizem drip. Diagnosis Primary Impression: Atrial fibrillation with RVR Additional Impression: CHF (congestive heart failure) Admitting Information Admitting Physician Requests: it Catrina Perry MD Jun 29, 2017 14:34
--- NOTE | 2017-06-29 15:08 | RADRPT ---
EXAM DATE/TIME: 06/29/2017 14:29 [facility] COMPARISON: CHEST SINGLE AP, June 26, 2017, 4:46. INDICATIONS : Palpitations. Shortness of breath. MEDICAL HISTORY : Hypertension. Smoker. SURGICAL HISTORY : None. ENCOUNTER: Initial ACUITY: 1 day PAIN SCORE: 0/10 LOCATION: Bilateral chest FINDINGS: A single view of the chest demonstrates the lungs to be symmetrically aerated without evidence of mas s, infiltrate or effusion. The cardiomediastinal contours are unremarkable. Osseous structures are intact. CONCLUSION: No acute disease. No significant change has occurred. Jose M Faustin MD on June 29, 2017 at 15:06 Board Certified Radiologist. This report was verified electronically.
[2017-06-29 15:18] LABS: AUTOMATED NEUTROPHIL # 5.2 TH/MM3 (1.8-7.7); BASOPHIL % 0.3 % (0.0-2.0); EOSINOPHIL % 0.1 % (0.0-4.0); HEMATOCRIT 43.7 % (39.0-51.0); HEMO FLAGS DIFF FINAL; LYMPH % 10.1 % (9.0-44.0); LYMPHOCYTE # 0.7 TH/MM3 (1.0-4.8); MEAN CELL VOLUME 85.5 FL (80.0-100.0); MEAN CORPUSCULAR HEMOGLOBIN 27.1 PG (27.0-34.0); MEAN CORPUSCULAR HGB CONC 31.7 % (32.0-36.0); MONO % 9.8 % (0.0-8.0); NEUT % 79.7 % (16.0-70.0); PLATELET COUNT 104 TH/MM3 (150-450); RED BLOOD COUNT 5.11 MIL/MM3 (4.50-5.90); RED CELL DISTRIBUTION WIDTH 15.8 % (11.6-17.2); WHITE BLOOD COUNT 6.5 TH/MM3 (4.0-11.0)
[2017-06-29 15:28] LABS: APTT (PATIENT) 28.4 SEC (24.3-30.1); INTERNATIONAL NORMALIZED RATIO 1.4 RATIO; PROTHROMBIN TIME - PATIENT 15.4 SEC (9.8-11.6)
[2017-06-29 15:44] LABS: ALT (GPT) 568 U/L (12-78); ANION GAP 6 MEQ/L (5-15); AST (GOT) 456 U/L (15-37); BLOOD UREA NITROGEN 18 MG/DL (7-18); CHLORIDE 101 MEQ/L (98-107); GLOMERULAR FILTRATION RATE 80 ML/MIN (>89); MAGNESIUM 2.2 MG/DL (1.5-2.5); POTASSIUM 4.4 MEQ/L (3.5-5.1); SODIUM (NA) 136 MEQ/L (136-145)
[2017-06-29] MEDS ORDERED: SODIUM CHLORIDE 0.9% FLUSH 5 ML FLUSH IV FLUSH PRN ×2 (15:45→16:45)
[2017-06-29] MEDS ORDERED: DILTIAZEM HCL 25 MG/5 ML VIAL IV PUSH ONE (15:45)
[2017-06-29 15:50] LABS: ALKALINE PHOSPHATASE 124 U/L (45-117); CREATINE KINASE 105 U/L (39-308); TOTAL BILIRUBIN ADULT 1.3 MG/DL (0.2-1.0)
[2017-06-29 16:17] LABS: CKMB 1.9 NG/ML (0.5-3.6)
[2017-06-29] MEDS ORDERED: DILTIAZEM INJ 125 MG in SODIUM CHLORIDE 0.9% INJ 100 ML IV PRN (16:45)
--- NOTE | 2017-06-29 17:07 | HHI.HP ---
[facility] Admission Diagnosis CHF Diagnoses: Chief Complaint: sent by [place] [facility] Travel History International Travel<30 Days: No Contact w/Intl Traveler <30 Da: No Traveled to Known Affected Are: No History of Present Illness Written by Ángela Bravo, acting as scribe for Dr. Daniel on 06/29/17 at 17 :07. This is a 71-year-old male with known history of atrial fibrillation diagnosed 2015, chronic systolic CHF cardiomyopathy echocardiogram 05/28/17 showed EF 25-30%, hypertension, chronic obstructive pulmonary disease, chronic tobacco use, chronic alcohol in the past use who presented to hospital sent by the [place] for A Fib RVR. Patient was admitted 05/27/17 and 06/26/17 with A Fib RVR as well. Patient [facility]28[facility] noted to be in A fib RVR and sent back to the hospital. Patient denies shortness of breath , palpations, chest pain, dyspnea on exertion or feeling light headed. Patient endorses BLE pitting edema unable to tell how long it has been this way. Patient unsure if he has gained any weight. Patient reports he has been compliant with his medication, "when I have them." Patient's prescribed Coumadin with subtherapeutic INR 1.4. Review of Systems All systems reviewed and positive as mentioned in HPI otherwise negative Past Family Social History Past Medical History Afib Hypertension Chronic obstructive pulmonary disease Cardiomyopathy Chronic systolic CHF Tobacco use History of kidney stones Past Surgical History Facial and jaw reconstruction due to trauma Reported Medications Oxygen (O2) (Miscellaneous Medication) Inha Liter MERLE.CANULA CONTINUOUS Oxygen Concentrator Portable Gaseous 2 L/min via Nasal Canula Continuous For 99 months Potassium Chloride ER (Potassium Chloride) 10 Meq Tab 10 Meq PO DAILY Lisinopril 2.5 Mg Tab 2.5 Mg PO DAILY Lopressor (Metoprolol Tartrate) 50 Mg Tab 50 Mg PO Q12HR 30 Days Furosemide 40 Mg Tab 40 Mg PO DAILY 30 Days Cardizem CD 24 HR (Diltiazem CD 24 HR) 180 Mg Caper 180 Mg PO DAILY 30 Days Coumadin (Warfarin) 3 Mg Tab 3 Mg PO DAILY@1600 30 Days Magnesium Oxide 400 Mg Tab 400 Mg PO DAILY Eq Acetaminophen (Acetaminophen) 325 Mg Tab 650 Mg PO Q6H PRN 30 Days Allergies: Coded Allergies: No Known Allergies (Unverified , 06/29/17) Active Ordered Medications Current Medications Medications (Trade) Dose Ordered Sig/Alanis Route Start Time Stop Time Status Last Admin (NS Flush) 2 ml UNSCH PRN IVF 06/29/17 14:15 (NS Flush) 2 ml UNSCH PRN IV FLUSH 06/29/17 15:45 Diltiazem HCl 125 mg/Sodium Chloride 125 ml @ 5 mls/hr TITRATE PRN IV 06/29/17 16:45 (NS Flush) 2 ml UNSCH PRN IV FLUSH 06/29/17 16:45 Family History Mother at age 86 and father at age 72, patient denied any heart disease on disease, diabetes, cancer, seizures, stroke Social History Quit smoking 1 month ago, prior to that the patient smoked approximately one quarter pack of cigarettes a day, patient had a smoker since he was 15 years old up to 1-1/2 pack of cigarettes daily. Patient states that he quit drinking alcohol completely 1 month ago, Prior to that he drank approximately 2- 3 beers daily. Patient denies any illicit drugs Physical Exam Vital Signs Vital Signs Date Time Temp Pulse Resp B/P (MAP) Pulse Ox O2 Delivery O2 Flow Rate FiO2 06/29/17 15:39 137 20 133/87 (102) 97 Nasal Cannula 2.00 06/29/17 14:43 148 24 118/94 (102) 93 Nasal Cannula 2.00 152/88 (109) 06/29/17 14:24 93 Nasal Cannula 2.00 06/29/17 14:24 Nasal Cannula 2.00 06/29/17 14:21 145 34 93 Nasal Cannula 2.00 06/29/17 14:08 134 24 152/88 (109) 92 Physical Exam GENERAL: This is a well-nourished, well-developed patient, in no apparent distress. SKIN: No rashes, ecchymoses or lesions. Cool and dry. HEAD: Atraumatic. Normocephalic. No temporal or scalp tenderness. EYES: Extraocular motions intact. No scleral icterus. No injection or drainage. CARDIOVASCULAR: Irregularly irregular tachycardic RESPIRATORY: Diminished bilateral bases GASTROINTESTINAL: Abdomen soft, non-tender, nondistended. liver 4.5 cm below costophrenic angle. No guarding. MUSCULOSKELETAL: No joint tenderness, effusion, or edema noted. No calf tenderness. Negative Homans sign bilaterally. 2+ BLE pitting edema NEUROLOGICAL: Awake and alert. No focal deficits noted. Motor and sensory grossly within normal limits. 4-5 out of 5 muscle strength in all muscle groups. Normal speech. Laboratory Laboratory Tests Test 06/29/17 14:45 White Blood Count 6.5 Red Blood Count 5.11 Hemoglobin 13.9 Hematocrit 43.7 Mean Corpuscular Volume 85.5 Mean Corpuscular Hemoglobin 27.1 Mean Corpuscular Hemoglobin Concent 31.7 Red Cell Distribution Width 15.8 Platelet Count 104 Mean Platelet Volume 8.7 Neutrophils (%) (Auto) 79.7 Lymphocytes (%) (Auto) 10.1 Monocytes (%) (Auto) 9.8 Eosinophils (%) (Auto) 0.1 Basophils (%) (Auto) 0.3 Neutrophils # (Auto) 5.2 Lymphocytes # (Auto) 0.7 Monocytes # (Auto) 0.6 Eosinophils # (Auto) 0.0 Basophils # (Auto) 0.0 CBC Comment DIFF FINAL Differential Comment Prothrombin Time 15.4 Prothromb Time International Ratio 1.4 Activated Partial Thromboplast Time 28.4 Blood Urea Nitrogen 18 Creatinine 0.93 Random Glucose 93 Total Protein 6.8 Albumin 3.1 Calcium Level 7.9 Magnesium Level 2.2 Alkaline Phosphatase 124 Aspartate Amino Transf (AST/SGOT) 456 Alanine Aminotransferase (ALT/SGPT) 568 Total Bilirubin 1.3 Sodium Level 136 Potassium Level 4.4 Chloride Level 101 Carbon Dioxide Level 29.0 Anion Gap 6 Estimat Glomerular Filtration Rate 80 Total Creatine Kinase 105 Creatine Kinase MB 1.9 Troponin I 0.05 B-Type Natriuretic Peptide 1129 Result Diagram: 06/29/17 1445 06/29/17 1445 Imaging Last Impressions Chest X-Ray 06/29/17 1407 Signed Impressions: Service Date/Time: Thursday, June 29, 2017 14:29 - CONCLUSION: No acute disease. No significant change has occurred. MD Lisa Gallo VTE Risk Assessment Lisa VTE Risk Assessment: Mod/High Risk (score >= 2) Caprini Risk Assessment Model Point Value = 1 Point Value = 2 Point Value = 3 Point Value = 5 Age 41-60 Minor surgery BMI > 25 kg/m2 Swollen legs Varicose veins or History of unexplained or recurrent spontaneous Oral contraceptives or hormone replacement Sepsis (< 1 month) Serious lung disease, including pneumonia (< 1 month) Abnormal pulmonary function Acute myocardial infarction Congestive heart failure (< 1 month) History of inflammatory bowel disease Medical patient at bed rest Age 61-74 Arthroscopic surgery Major open surgery (> 45 min) Laparoscopic surgery (> 45 min) Malignancy Confined to bed (> 72 hours) Immobilizing plaster cast Central venous access Age >= 75 History of VTE Family history of VTE Factor V Leiden Prothrombin [id number] Lupus anticoagulant Anticardiolipin antibodies Elevated serum homocysteine Heparin-induced thrombocytopenia Other congenital or acquired thrombophilia Stroke (< 1 month) Elective arthroplasty Hip, pelvis, or leg fracture Acute spinal cord injury (< 1 month) Prophylaxis Regimen Total Risk Factor Score Risk Level Prophylaxis Regimen 0-1 Low Early ambulation 2 Moderate Order ONE of the following: *Sequential Compression Device (SCD) *Heparin 5000 units SQ BID 3-4 Higher Order ONE of the following medications: *Heparin 5000 units SQ TID *Enoxaparin/Lovenox 40 mg SQ daily (WT < 150 kg, CrCl > 30 mL/min) *Enoxaparin/Lovenox 30 mg SQ daily (WT < 150 kg, CrCl > 10-29 mL/min) *Enoxaparin/Lovenox 30 mg SQ BID (WT < 150 kg, CrCl > 30 mL/min) AND/OR *Sequential Compression Device (SCD) 5 or more Highest Order ONE of the following medications: *Heparin 5000 units SQ TID (Preferred with Epidurals) *Enoxaparin/Lovenox 40 mg SQ daily (WT < 150 kg, CrCl > 30 mL/min) *Enoxaparin/Lovenox 30 mg SQ daily (WT < 150 kg, CrCl > 10-29 mL/min) *Enoxaparin/Lovenox 30 mg SQ BID (WT < 150 kg, CrCl > 30 mL/min) AND *Sequential Compression Device (SCD) Assessment and Plan Problem List: (1) Atrial fibrillation with RVR ICD Code: I48.91 - Unspecified atrial fibrillation Status: Acute (2) CHF (congestive heart failure) ICD Code: I50.9 - Heart failure, unspecified Status: Acute Assessment and Plan Atrial fibrillation with RVR Patient was diagnosed with atrial fibrillation, 2 years ago. Continuous telemetry Give additional Cardizem 10 mg IV now if improvement will start Cardizem drip Restart home Cardizem 180 mg PO daily and metoprolol 50 mg PO Q12H On Coumadin, INR subtherapeutic 1.4 on admission. Start heparin drip Cardiomyopathy. Acute on Chronic systolic CHF currently in exacerbation- likely worsening secondary to A Fib RVR Previous echocardiogram 05/28/18 shows ejection fraction 20-30%, moderate diffuse hypokinesis, moderately severely reduced systolic function, moderately to severely calcified mitral annulus BNP elevated at 1129 CXR reviewed by me and reveals: No acute disease. No significant change has occurred Lasix 40 mg IV BID Elevated liver enzymes likely related to vascular congestion Continue monitor liver enzymes, monitor coagulation studies CMP in AM Chronic obstructive pulmonary disease Continue O2 supplementation maintain O2 sats greater 92% Duo nebs as needed DVT prevention patient on heparin drip This note was transcribed by scribmanda [[email or web address]]. I, Dr. Delmi Daniel personally performed the history, physical exam, and medical decision making; and confirmed the accuracy of the information in the transcribed note. Authenticated by Dr. Delmi Daniel on 06/30/17 at 09:51. Problem Qualifiers (1) CHF (congestive heart failure): Qualified Codes: I50.23 - Acute on chronic systolic (congestive) heart failure Ángela Bravo Jun 29, 2017 17:07 Delmi Daniel MD Jun 30, 2017 09:51
[2017-06-29] MEDS ORDERED: ACETAMINOPHEN 325 MG TAB PO PRN (17:15)
[2017-06-29] MEDS ORDERED: NALOXONE HCL 0.4 MG/ML AMP IV PUSH PRN (17:15)
[2017-06-29] MEDS: DILTIAZEM HCL 25 MG/5 ML VIAL IV ONE ×2 (17:15→17:42)
[2017-06-29] MEDS ORDERED: BISACODYL 10 MG SUPP RECTAL PRN (17:15)
[2017-06-29] MEDS ORDERED: MAGNESIUM HYDROXIDE SUSP 30 ML CUP PO PRN (17:15)
[2017-06-29] MEDS ORDERED: SENNOSIDES 8.6 MG TAB PO PRN (17:15)
[2017-06-29] MEDS ORDERED: ONDANSETRON HCL 4 MG/2 ML VIAL IVP PRN (17:15)
[2017-06-29] MEDS: FUROSEMIDE 40 MG/4 ML VIAL IV PUSH SCH (17:41)
[2017-06-29] MEDS: HEPARIN-D5W 25,000 U/250 ML 250 ML IV PRN (18:32)
[2017-06-29] MEDS: METOPROLOL TARTRATE 50 MG TAB PO SCH (20:33)
[2017-06-29 20:34] LABS: APTT (PATIENT) 32.9 SEC (24.3-30.1)
[2017-06-29] MEDS: DOCUSATE SODIUM 50 MG/SENNA 8.6 MG TAB PO SCH (20:34)
[2017-06-29] MEDS ORDERED: HEPARIN SODIUM - IV 10,000 UNITS/10 ML VIAL IV PRN ×2 (23:45)
[2017-06-30] VITALS (28 sets, daily range): BP systolic 105–129; BP diastolic 70–91; PULSE 66–139; RESP 16; TEMP 97.6–97.8; O2SAT 92–99
[2017-06-30 02:30] LABS: APTT (PATIENT) 44.2 SEC (24.3-30.1)
[2017-06-30 02:35] LABS: ALT (GPT) 507 U/L (12-78); ANION GAP 5 MEQ/L (5-15); AST (GOT) 376 U/L (15-37); BICARBONATE 33.6 MEQ/L (21.0-32.0); BLOOD UREA NITROGEN 19 MG/DL (7-18); CHLORIDE 98 MEQ/L (98-107); GLOMERULAR FILTRATION RATE 87 ML/MIN (>89); POTASSIUM 3.7 MEQ/L (3.5-5.1); SODIUM (NA) 137 MEQ/L (136-145)
[2017-06-30 02:37] LABS: ALKALINE PHOSPHATASE 116 U/L (45-117); TOTAL BILIRUBIN ADULT 1.1 MG/DL (0.2-1.0)
[2017-06-30] MEDS: FUROSEMIDE 40 MG/4 ML VIAL IV PUSH SCH (09:03)
[2017-06-30] MEDS: METOPROLOL TARTRATE 50 MG TAB PO SCH (09:04)
[2017-06-30] MEDS: MAGNESIUM OXIDE 400 MG TAB PO SCH (09:04)
[2017-06-30] MEDS: DOCUSATE SODIUM 50 MG/SENNA 8.6 MG TAB PO SCH ×2 (09:04→20:41)
[2017-06-30] MEDS: DILTIAZEM-CD 180 MG CAP ER PO SCH (09:05)
[2017-06-30] MEDS: POTASSIUM CHLORIDE 10 MEQ CONTROLLED RELEASE TAB PO SCH (09:05)
[2017-06-30] MEDS ORDERED: METOPROLOL TARTRATE 50 MG TAB PO ONE (10:15)
[2017-06-30 11:34] LABS: APTT (PATIENT) 41.1 SEC (24.3-30.1)
[2017-06-30 11:38] LABS: INTERNATIONAL NORMALIZED RATIO 1.3 RATIO; PROTHROMBIN TIME - PATIENT 14.7 SEC (9.8-11.6)
--- NOTE | 2017-06-30 11:38 | HHI.PR ---
Subjective Remarks Patient sitting on the chair, heart rate increased to 130 this morning, mostly with exertion as per the nurse He denied chest pain or short of breath, leg swelling improved since yesterday, BMP decrease also 12 beats of nonsustained V. tach has been recorded on the telemetry Objective Vitals Vital Signs Date Time Temp Pulse Resp B/P (MAP) Pulse Ox O2 Delivery O2 Flow Rate FiO2 06/30/17 11:00 94 Room Air 06/30/17 11:00 97.8 115 16 122/76 (91) 94 06/30/17 09:00 139 06/30/17 08:00 96 Room Air 06/30/17 08:00 97.7 139 16 129/87 (101) 97 06/30/17 08:00 134 06/30/17 07:00 104 06/30/17 06:12 95 06/30/17 06:00 118 06/30/17 05:00 112 06/30/17 04:28 90 06/30/17 03:36 97.8 105 117/88 (98) 92 06/30/17 03:00 106 06/30/17 02:00 100 06/30/17 01:00 92 06/30/17 00:00 88 06/29/17 23:00 97 06/29/17 22:18 97.9 116 130/80 (97) 99 06/29/17 22:00 92 06/29/17 21:00 94 06/29/17 20:00 Nasal Cannula 2.00 06/29/17 20:00 90 06/29/17 19:00 88 06/29/17 18:17 06/29/17 18:13 99 Room Air 2.00 06/29/17 18:12 98.6 96 18 122/98 (106) 99 06/29/17 17:46 95 23 149/67 (94) 97 Nasal Cannula 2.00 06/29/17 15:39 137 20 133/87 (102) 97 Nasal Cannula 2.00 06/29/17 14:43 148 24 118/94 (102) 93 Nasal Cannula 2.00 152/88 (109) 06/29/17 14:24 93 Nasal Cannula 2.00 06/29/17 14:24 Nasal Cannula 2.00 06/29/17 14:21 145 34 93 Nasal Cannula 2.00 06/29/17 14:08 134 24 152/88 109 92 I/O 06/29/17 06/29/17 06/29/17 06/30/17 06/30/17 06/30/17 07:00 15:00 23:00 07:00 15:00 23:00 Intake Total 120 ml 339 ml Output Total 840 ml 1775 ml Balance -720 ml -1436 ml Intake Oral 120 ml 240 ml IV Total 99 ml Output Urine Total 840 ml 1775 ml # Voids 2 # Bowel Movements 1 Result Diagram: 06/29/17 1445 06/30/17 0157 Objective Remarks GENERAL: This is a well-nourished, well-developed patient, in no apparent distress. SKIN: No rashes, ecchymoses or lesions. Cool and dry. HEAD: Atraumatic. Normocephalic. No temporal or scalp tenderness. EYES: Extraocular motions intact. No scleral icterus. No injection or drainage. CARDIOVASCULAR: Irregularly irregular tachycardic RESPIRATORY: Diminished bilateral bases GASTROINTESTINAL: Abdomen soft, non-tender, nondistended. liver 4.5 cm below costophrenic angle. No guarding. MUSCULOSKELETAL: No joint tenderness, effusion, or edema noted. No calf tenderness. Negative Homans sign bilaterally. 1+ BLE pitting edema slightly better NEUROLOGICAL: Awake and alert. No focal deficits noted. Motor and sensory grossly within normal limits. 4-5 out of 5 muscle strength in all muscle groups. Normal speech. A/P Problem List: (1) Atrial fibrillation with RVR ICD Code: I48.91 - Unspecified atrial fibrillation Status: Acute (2) CHF (congestive heart failure) ICD Code: I50.9 - Heart failure, unspecified Status: Acute Assessment and Plan Atrial fibrillation with RVR Patient was diagnosed with atrial fibrillation, 2 years ago. Continuous telemetry Patient was given additional Cardizem 10 mg IV Restart home Cardizem 180 mg PO daily and metoprolol 50 mg PO Q12H, I will increase Lopressor to 100 mg to optimize heart rate less than 100 On Coumadin, INR subtherapeutic 1.4 on admission dropped to 1.3 today we'll give 5 mg daily Start heparin drip Cardiomyopathy. Acute on Chronic systolic CHF currently in exacerbation- likely worsening secondary to A Fib RVR Previous echocardiogram 05/28/18 shows ejection fraction 20-30%, moderate diffuse hypokinesis, moderately severely reduced systolic function, moderately to severely calcified mitral annulus BNP elevated at 1129 dropped to 740, CXR reviewed by me and reveals: No acute disease. No significant change has occurred Lasix 40 mg IV BID Nonsustained V. tach Patient had 12 beats this morning, mostly due to CMP, will consult cardiology may need ICD Also check magnesium and replace if needed, potassium 3.6 today we'll give 40 mEq by mouth 1 Elevated liver enzymes likely related to vascular congestion Continue monitor liver enzymes, monitor coagulation studies AST and ALT slightly dropped 376/02/11 respectively Chronic obstructive pulmonary disease Continue O2 supplementation maintain O2 sats greater 92% Duo nebs as needed DVT prevention patient on heparin drip Problem Qualifiers (1) CHF (congestive heart failure): Qualified Codes: I50.23 - Acute on chronic systolic (congestive) heart failure Delmi Daniel MD Jun 30, 2017 11:38
[2017-06-30] MEDS ORDERED: POTASSIUM CHLORIDE 20 MEQ CONTROLLED RELEASE TAB PO ONE ×2 (12:00)
[2017-06-30 13:42] LABS: POTASSIUM 3.7 MEQ/L (3.5-5.1)
[2017-06-30 13:43] LABS: MAGNESIUM 1.8 MG/DL (1.5-2.5)
[2017-06-30] MEDS ORDERED: MAGNESIUM SULFATE 2 GM/NS 100 ML IV ONE ×2 (14:15)
--- NOTE | 2017-06-30 14:41 | PD.CARD.PN ---
Subjective Subjective Remarks Pt was discharged and returned the day after due to afib/rvr. Pls see full cardiac consult from Dr. Alonso 06-26. He is currently asymptomatic except for n/v and was found to have NSVT on telemetry, though afib now rate controlled. Objective Medications Administered Medications Medications (Trade) Dose Ordered Sig/Alanis Route PRN Reason Start Time Stop Time Status Last Admin Dose Admin Furosemide (Lasix Inj) 40 mg BID@09,18 IV PUSH 06/29/17 18:00 06/30/17 09:03 Senna/Docusate Sodium (Caitlin-Colace) 1 tab BID PO 06/29/17 21:00 06/30/17 09:04 Heparin Sodium/ Dextrose 250 ml @ 9 mls/hr TITRATE PRN IV Coagulation management 06/29/17 17:45 06/29/17 18:32 Diltiazem HCl (Cardizem Cd) 180 mg DAILY PO 06/30/17 09:00 06/30/17 09:05 Magnesium Oxide (Mag-Ox) 400 mg DAILY PO 06/30/17 09:00 06/30/17 09:04 Potassium Chloride (KCl) 10 meq DAILY PO 06/30/17 09:00 06/30/17 09:05 Vital Signs / I&O Vital Signs Date Time Temp Pulse Resp B/P (MAP) Pulse Ox O2 Delivery O2 Flow Rate FiO2 06/30/17 11:00 94 Room Air 06/30/17 11:00 97.8 115 16 122/76 (91) 94 06/30/17 09:00 139 06/30/17 08:00 96 Room Air 06/30/17 08:00 97.7 139 16 129/87 (101) 97 06/30/17 08:00 134 06/30/17 07:00 104 06/30/17 06:12 95 06/30/17 06:00 118 06/30/17 05:00 112 06/30/17 04:28 90 06/30/17 03:36 97.8 105 117/88 (98) 92 06/30/17 03:00 106 06/30/17 02:00 100 06/30/17 01:00 92 06/30/17 00:00 88 06/29/17 23:00 97 06/29/17 22:18 97.9 116 130/80 (97) 99 06/29/17 22:00 92 06/29/17 21:00 94 06/29/17 20:00 Nasal Cannula 2.00 06/29/17 20:00 90 06/29/17 19:00 88 06/29/17 18:17 06/29/17 18:13 99 Room Air 2.00 06/29/17 18:12 98.6 96 18 122/98 (106) 99 06/29/17 17:46 95 23 149/67 (94) 97 Nasal Cannula 2.00 06/29/17 15:39 137 20 133/87 (102) 97 Nasal Cannula 2.00 06/29/17 14:43 148 24 118/94 (102) 93 Nasal Cannula 2.00 152/88 (109) I/O 06/29/17 06/29/17 06/29/17 06/30/17 06/30/17 06/30/17 07:00 15:00 23:00 07:00 15:00 23:00 Intake Total 120 ml 339 ml Output Total 840 ml 1775 ml Balance -720 ml -1436 ml Intake Oral 120 ml 240 ml IV Total 99 ml Output Urine Total 840 ml 1775 ml # Voids 2 # Bowel Movements 1 Physical Exam GENERAL: This is a well-nourished, well-developed patient, in no apparent distress. CARDIOVASCULAR: Regular rate and irregular rhythm without murmurs, gallops, or rubs. RESPIRATORY: Clear to auscultation. Breath sounds equal bilaterally. No wheezes , rales, or rhonchi. GASTROINTESTINAL: Abdomen soft, non-tender, nondistended. Normal, active bowel sounds MUSCULOSKELETAL: Extremities without clubbing, cyanosis, or edema. NEURO: Alert & Oriented x4 to person, place, time, situation. Moves all ext x4 Laboratory Laboratory Tests Test 06/29/17 14:45 06/29/17 19:31 06/30/17 01:57 06/30/17 08:12 White Blood Count 6.5 TH/MM3 Red Blood Count 5.11 MIL/MM3 Hemoglobin 13.9 GM/DL Hematocrit 43.7 % Mean Corpuscular Volume 85.5 FL Mean Corpuscular Hemoglobin 27.1 PG Mean Corpuscular Hemoglobin Concent 31.7 % Red Cell Distribution Width 15.8 % Platelet Count 104 TH/MM3 Mean Platelet Volume 8.7 FL Neutrophils (%) (Auto) 79.7 % Lymphocytes (%) (Auto) 10.1 % Monocytes (%) (Auto) 9.8 % Eosinophils (%) (Auto) 0.1 % Basophils (%) (Auto) 0.3 % Neutrophils # (Auto) 5.2 TH/MM3 Lymphocytes # (Auto) 0.7 TH/MM3 Monocytes # (Auto) 0.6 TH/MM3 Eosinophils # (Auto) 0.0 TH/MM3 Basophils # (Auto) 0.0 TH/MM3 CBC Comment DIFF FINAL Differential Comment Prothrombin Time 15.4 SEC 14.7 SEC Prothromb Time International Ratio 1.4 RATIO 1.3 RATIO Activated Partial Thromboplast Time 28.4 SEC 32.9 SEC 44.2 SEC 41.1 SEC Blood Urea Nitrogen 18 MG/DL 19 MG/DL Creatinine 0.93 MG/DL 0.87 MG/DL Random Glucose 93 MG/DL 98 MG/DL Total Protein 6.8 GM/DL 6.2 GM/DL Albumin 3.1 GM/DL 2.8 GM/DL Calcium Level 7.9 MG/DL 8.0 MG/DL Magnesium Level 2.2 MG/DL Alkaline Phosphatase 124 U/L 116 U/L Aspartate Amino Transf (AST/SGOT) 456 U/L 376 U/L Alanine Aminotransferase (ALT/SGPT) 568 U/L 507 U/L Total Bilirubin 1.3 MG/DL 1.1 MG/DL Sodium Level 136 MEQ/L 137 MEQ/L Potassium Level 4.4 MEQ/L 3.7 MEQ/L Chloride Level 101 MEQ/L 98 MEQ/L Carbon Dioxide Level 29.0 MEQ/L 33.6 MEQ/L Anion Gap 6 MEQ/L 5 MEQ/L Estimat Glomerular Filtration Rate 80 ML/MIN 87 ML/MIN Total Creatine Kinase 105 U/L Creatine Kinase MB 1.9 NG/ML Troponin I 0.05 NG/ML B-Type Natriuretic Peptide 1129 PG/ML Test 06/30/17 12:30 Potassium Level 3.7 MEQ/L Magnesium Level 1.8 MG/DL B-Type Natriuretic Peptide 740 PG/ML Imaging Last Impressions Chest X-Ray 06/29/17 3707 Signed Impressions: Service Date/Time: Thursday, June 29, 2017 14:29 - CONCLUSION: No acute disease. No significant change has occurred. Jose M Faustin MD Assessment and Plan Problem List: (1) Cardiomyopathy ICD Codes: I42.9 - Cardiomyopathy, unspecified Plan: Echo showed LVEF 20-25%; as far as I can see no ischemic workup has yet been done. Given NSVT cath may be necessary as well as EP study and/or AICD. Given the extensive w/u required recommended he be transferred to [place] inpatient facility. (2) CHF (congestive heart failure) ICD Codes: I50.9 - Heart failure, unspecified Status: Acute Plan: currently compensated, will change to PO lasix (3) NSVT (nonsustained ventricular tachycardia) ICD Codes: I47.2 - Ventricular tachycardia (4) Chronic obstructive pulmonary disease ICD Codes: J44.9 - Chronic obstructive pulmonary disease Status: Acute (5) Atrial fibrillation with RVR ICD Codes: I48.91 - Unspecified atrial fibrillation Status: Acute Plan: on warfarin, rate controlled. Problem Qualifiers (1) CHF (congestive heart failure): Qualified Codes: I50.23 - Acute on chronic systolic (congestive) heart failure Nakul Frias MD Jun 30, 2017 14:41
[2017-06-30] MEDS ORDERED: PILL SPLITTER OTHER PRN (15:00)
[2017-06-30] MEDS ORDERED: WARFARIN SOD 3 MG TAB PO SCH (16:00)
[2017-06-30] MEDS: HEPARIN-D5W 25,000 U/250 ML 250 ML IV PRN (16:21)
[2017-06-30] MEDS: WARFARIN SOD 5 MG TAB PO SCH (16:31)
--- NOTE | 2017-06-30 16:50 | EKG ---
Date Performed: 06/29/2017 Time Performed: 14:15:38 PTAGE: 71 years EKG: ATRIAL FIBRILLATION WITH RAPID VENTRICULAR RESPONSE WITH ABERRANT CONDUCTION OR VENTRICULAR PREMATURE COMPLEXES RIGHT BUNDLE BRANCH BLOCK POSSIBLE SEPTAL MYOCARDIAL INFARCTION INFERIOR MYOCARD IAL INFARCTION ABNORMAL ECG PREVIOUS TRACING : 06/26/2017 16.50 SINCE PREVIOUS TRACING 06/26/2017, THERE IS SIGNIFICANT IMPR OVEMENT IN THE T-WAVE CHANGES ANTEROLATERALY. DOCTOR: Jeancarlos Cruz Interpretating Date/Time 06/30/2017 16:50:10
[2017-06-30] MEDS: RESP: ALBUTEROL 2.5 MG/IPRATROPIUM 0.5 MG NEB (SCH) NEB (20:20)
[2017-06-30] MEDS: METOPROLOL TARTRATE 100 MG TAB PO SCH (20:42)
[2017-07-01] VITALS (28 sets, daily range): BP systolic 106–119; BP diastolic 74–84; PULSE 68–108; RESP 16–20; TEMP 97.5–98.5; O2SAT 92–98
[2017-07-01 07:10] LABS: ALT (GPT) 438 U/L (12-78); ANION GAP 4 MEQ/L (5-15); AST (GOT) 247 U/L (15-37); BICARBONATE 32.8 MEQ/L (21.0-32.0); BLOOD UREA NITROGEN 18 MG/DL (7-18); CHLORIDE 100 MEQ/L (98-107); GLOMERULAR FILTRATION RATE 103 ML/MIN (>89); POTASSIUM 4.2 MEQ/L (3.5-5.1); SODIUM (NA) 137 MEQ/L (136-145)
[2017-07-01 07:11] LABS: ALKALINE PHOSPHATASE 112 U/L (45-117); TOTAL BILIRUBIN ADULT 1.1 MG/DL (0.2-1.0)
[2017-07-01 07:23] LABS: INTERNATIONAL NORMALIZED RATIO 1.4 RATIO
[2017-07-01 07:25] LABS: APTT (PATIENT) 48.5 SEC (24.3-30.1)
[2017-07-01] MEDS: RESP: ALBUTEROL 2.5 MG/IPRATROPIUM 0.5 MG NEB (SCH) NEB ×2 (08:24→19:58)
[2017-07-01] MEDS: FUROSEMIDE 40 MG TAB PO SCH (09:00)
[2017-07-01] MEDS: MAGNESIUM OXIDE 400 MG TAB PO SCH (09:08)
[2017-07-01] MEDS: METOPROLOL TARTRATE 100 MG TAB PO SCH ×2 (09:09→21:50)
[2017-07-01] MEDS: DILTIAZEM-CD 180 MG CAP ER PO SCH (09:09)
[2017-07-01] MEDS: LISINOPRIL 5 MG TAB PO SCH (09:10)
[2017-07-01] MEDS: POTASSIUM CHLORIDE 10 MEQ CONTROLLED RELEASE TAB PO SCH (09:10)
[2017-07-01] MEDS: DOCUSATE SODIUM 50 MG/SENNA 8.6 MG TAB PO SCH ×2 (09:11→21:00)
--- NOTE | 2017-07-01 13:47 | HHI.PR ---
Subjective Remarks no cp , no sob denied f/c Objective Vitals Vital Signs Date Time Temp Pulse Resp B/P (MAP) Pulse Ox O2 Delivery O2 Flow Rate FiO2 07/01/17 12:02 88 07/01/17 11:00 97.6 83 18 111/78 (89) 96 07/01/17 11:00 91 07/01/17 10:00 108 07/01/17 09:00 104 07/01/17 08:25 98 Nasal Cannula 1.50 07/01/17 08:00 96 07/01/17 07:00 96 07/01/17 07:00 Nasal Cannula 2.00 07/01/17 07:00 97.5 107 20 119/84 (96) 98 07/01/17 06:03 94 07/01/17 05:51 82 07/01/17 04:18 80 07/01/17 03:28 74 07/01/17 03:28 97.6 89 16 106/74 (85) 98 07/01/17 02:23 76 07/01/17 01:26 82 07/01/17 00:57 68 06/30/17 23:47 82 06/30/17 23:47 97.8 79 16 114/70 (85) 98 06/30/17 22:00 86 06/30/17 21:00 86 06/30/17 20:20 98 Nasal Cannula 1.50 06/30/17 20:00 93 06/30/17 19:50 97.6 93 16 128/91 (103) 99 06/30/17 19:30 99 Nasal Cannula 2.00 06/30/17 19:30 79 06/30/17 18:00 68 06/30/17 17:00 66 06/30/17 16:00 79 06/30/17 15:00 94 Room Air 06/30/17 15:00 97.8 87 16 105/78 (87) 94 06/30/17 14:00 79 I/O 06/30/17 06/30/17 06/30/17 07/01/17 07/01/17 07/01/17 07:00 15:00 23:00 07:00 15:00 23:00 Intake Total 339 ml 918 ml 480 ml Output Total 1775 ml 1350 ml 350 ml Balance -1436 ml -432 ml 130 ml Intake Oral 240 ml 600 ml 480 ml IV Total 99 ml 318 ml Output Urine Total 1775 ml 1350 ml 350 ml # Bowel Movements 2 1 Result Diagram: 06/29/17 1445 07/01/17 0622 Objective Remarks GENERAL: This is a well-nourished, well-developed patient, in no apparent distress. SKIN: No rashes, ecchymoses or lesions. Cool and dry. HEAD: Atraumatic. Normocephalic. No temporal or scalp tenderness. EYES: Extraocular motions intact. No scleral icterus. No injection or drainage. CARDIOVASCULAR: Irregularly irregular tachycardic RESPIRATORY: Diminished bilateral bases GASTROINTESTINAL: Abdomen soft, non-tender, nondistended. liver 4.5 cm below costophrenic angle. No guarding. MUSCULOSKELETAL: No joint tenderness, effusion, or edema noted. No calf tenderness. Negative Homans sign bilaterally. 1+ BLE pitting edema slightly better NEUROLOGICAL: Awake and alert. No focal deficits noted. Motor and sensory grossly within normal limits. 4-5 out of 5 muscle strength in all muscle groups. Normal speech. A/P Problem List: (1) Atrial fibrillation with RVR ICD Code: I48.91 - Unspecified atrial fibrillation Status: Acute (2) CHF (congestive heart failure) ICD Code: I50.9 - Heart failure, unspecified Status: Acute Assessment and Plan Atrial fibrillation with RVR Patient was diagnosed with atrial fibrillation, 2 years ago. Continuous telemetry Patient was given additional Cardizem 10 mg IV Restart home Cardizem 180 mg PO daily and metoprolol 50 mg PO Q12H, I will increase Lopressor to 100 mg to optimize heart rate less than 100 On Coumadin, INR subtherapeutic 1.4 on admission dropped to 1.3 today we'll give 5 mg daily Start heparin drip Cardiomyopathy. Acute on Chronic systolic CHF currently in exacerbation- likely worsening secondary to A Fib RVR Previous echocardiogram 05/28/18 shows ejection fraction 20-30%, moderate diffuse hypokinesis, moderately severely reduced systolic function, moderately to severely calcified mitral annulus BNP elevated at 1129 dropped to 740>>back up today repeat in am , CXR reviewed by me and reveals: No acute disease. No significant change has occurred Lasix 40 mg IV BID Nonsustained V. tach Patient had 12 beats this morning, mostly due to CMP, await cardiology consult may need ICD Also check magnesium and replace if needed, potassium 3.6 today we'll give 40 mEq by mouth 1 Elevated liver enzymes likely related to vascular congestion Continue monitor liver enzymes, monitor coagulation studies AST and ALT slightly dropped respectively Chronic obstructive pulmonary disease Continue O2 supplementation maintain O2 sats greater 92% Duo nebs as needed DVT prevention patient on heparin drip Problem Qualifiers (1) CHF (congestive heart failure): Qualified Codes: I50.23 - Acute on chronic systolic (congestive) heart failure Delmi Daniel MD Jul 01, 2017 13:47
--- NOTE | 2017-07-01 15:11 | PD.CARD.PN ---
Subjective Subjective Remarks well controlled afib on tele. Objective Medications Administered Medications Medications (Trade) Dose Ordered Sig/Alanis Route PRN Reason Start Time Stop Time Status Last Admin Dose Admin Ondansetron HCl (Zofran Inj) 4 mg Q6H PRN IVP NAUSEA OR VOMITING 06/29/17 17:15 06/30/17 14:44 Senna/Docusate Sodium (Caitlin-Colace) 1 tab BID PO 06/29/17 21:00 07/01/17 09:11 Heparin Sodium/ Dextrose 250 ml @ 9 mls/hr TITRATE PRN IV Coagulation management 06/29/17 17:45 06/30/17 16:21 Diltiazem HCl (Cardizem Cd) 180 mg DAILY PO 06/30/17 09:00 07/01/17 09:09 Magnesium Oxide (Mag-Ox) 400 mg DAILY PO 06/30/17 09:00 07/01/17 09:08 Potassium Chloride (KCl) 10 meq DAILY PO 06/30/17 09:00 07/01/17 09:10 Metoprolol Tartrate (Lopressor) 100 mg Q12HR PO 06/30/17 21:00 07/01/17 09:09 Furosemide (Lasix) 40 mg DAILY PO 07/01/17 09:00 07/01/17 09:00 Lisinopril (Prinivil) 2.5 mg DAILY PO 07/01/17 09:00 07/01/17 09:10 Warfarin Sodium (Coumadin) 5 mg DAILY@1600 PO 06/30/17 16:00 06/30/17 16:31 Albuterol/ Ipratropium (Duoneb Neb) 1 ampule BID NEB NEB 06/30/17 20:00 07/01/17 08:24 Vital Signs / I&O Vital Signs Date Time Temp Pulse Resp B/P (MAP) Pulse Ox O2 Delivery O2 Flow Rate FiO2 07/01/17 13:00 86 07/01/17 12:02 88 07/01/17 11:00 97.6 83 18 111/78 (89) 96 07/01/17 11:00 91 07/01/17 10:00 108 07/01/17 09:00 104 07/01/17 08:25 98 Nasal Cannula 1.50 07/01/17 08:00 96 07/01/17 07:00 96 07/01/17 07:00 Nasal Cannula 2.00 07/01/17 07:00 97.5 107 20 119/84 (96) 98 07/01/17 06:03 94 07/01/17 05:51 82 07/01/17 04:18 80 07/01/17 03:28 74 07/01/17 03:28 97.6 89 16 106/74 (85) 98 07/01/17 02:23 76 07/01/17 01:26 82 07/01/17 00:57 68 06/30/17 23:47 82 06/30/17 23:47 97.8 79 16 114/70 (85) 98 06/30/17 22:00 86 06/30/17 21:00 86 06/30/17 20:20 98 Nasal Cannula 1.50 06/30/17 20:00 93 06/30/17 19:50 97.6 93 16 128/91 (103) 99 06/30/17 19:30 99 Nasal Cannula 2.00 06/30/17 19:30 79 06/30/17 18:00 68 06/30/17 17:00 66 06/30/17 16:00 79 I/O 06/30/17 06/30/17 06/30/17 07/01/17 07/01/17 07/01/17 07:00 15:00 23:00 07:00 15:00 23:00 Intake Total 339 ml 918 ml 480 ml Output Total 1775 ml 1350 ml 350 ml Balance -1436 ml -432 ml 130 ml Intake Oral 240 ml 600 ml 480 ml IV Total 99 ml 318 ml Output Urine Total 1775 ml 1350 ml 350 ml # Bowel Movements 2 1 Physical Exam GENERAL: This is a well-nourished, well-developed patient, in no apparent distress. CARDIOVASCULAR: Regular rate and irregular rhythm without murmurs, gallops, or rubs. RESPIRATORY: Clear to auscultation. Breath sounds equal bilaterally. No wheezes , rales, or rhonchi. GASTROINTESTINAL: Abdomen soft, non-tender, nondistended. Normal, active bowel sounds MUSCULOSKELETAL: Extremities without clubbing, cyanosis, or edema. NEURO: Alert & Oriented x4 to person, place, time, situation. Moves all ext x4 Laboratory Laboratory Tests Test 07/01/17 06:22 Prothrombin Time 16.0 SEC Prothromb Time International Ratio 1.4 RATIO Activated Partial Thromboplast Time 48.5 SEC Blood Urea Nitrogen 18 MG/DL Creatinine 0.75 MG/DL Random Glucose 109 MG/DL Total Protein 6.2 GM/DL Albumin 2.7 GM/DL Calcium Level 8.1 MG/DL Alkaline Phosphatase 112 U/L Aspartate Amino Transf (AST/SGOT) 247 U/L Alanine Aminotransferase (ALT/SGPT) 438 U/L Total Bilirubin 1.1 MG/DL Sodium Level 137 MEQ/L Potassium Level 4.2 MEQ/L Chloride Level 100 MEQ/L Carbon Dioxide Level 32.8 MEQ/L Anion Gap 4 MEQ/L Estimat Glomerular Filtration Rate 103 ML/MIN B-Type Natriuretic Peptide 1886 PG/ML Imaging Last Impressions Chest X-Ray 06/29/17 1407 Signed Impressions: Service Date/Time: Thursday, June 29, 2017 14:29 - CONCLUSION: No acute disease. No significant change has occurred. Jose M Faustin MD Assessment and Plan Problem List: (1) Cardiomyopathy ICD Codes: I42.9 - Cardiomyopathy, unspecified Plan: Echo showed LVEF 20-25%; as far as I can see no ischemic workup has yet been done. Given NSVT cath may be necessary as well as EP study and/or AICD. Given the extensive w/u required recommended he be transferred to [place] inpatient facility. (2) CHF (congestive heart failure) ICD Codes: I50.9 - Heart failure, unspecified Status: Acute (3) NSVT (nonsustained ventricular tachycardia) ICD Codes: I47.2 - Ventricular tachycardia (4) Chronic obstructive pulmonary disease ICD Codes: J44.9 - Chronic obstructive pulmonary disease Status: Acute (5) Atrial fibrillation with RVR ICD Codes: I48.91 - Unspecified atrial fibrillation Status: Acute Plan: on warfarin, rate controlled. Problem Qualifiers (1) CHF (congestive heart failure): Qualified Codes: I50.23 - Acute on chronic systolic (congestive) heart failure Nakul Frias MD Jul 01, 2017 15:11
[2017-07-01] MEDS: WARFARIN SOD 5 MG TAB PO SCH (16:56)
[2017-07-01] MEDS: HEPARIN-D5W 25,000 U/250 ML 250 ML IV PRN (17:41)
[2017-07-01] MEDS ORDERED: RESP: ALBUTEROL 2.5 MG/IPRATROPIUM 0.5 MG NEB (PRN) NEB (22:45)
[2017-07-02] VITALS (32 sets, daily range): BP systolic 90–140; BP diastolic 51–94; PULSE 62–104; RESP 16–20; TEMP 97.4–97.9; O2SAT 93–100
[2017-07-02] MEDS: RESP: ALBUTEROL 2.5 MG/IPRATROPIUM 0.5 MG NEB (SCH) NEB ×2 (07:34→20:00)
[2017-07-02] MEDS: FUROSEMIDE 40 MG TAB PO SCH (09:00)
[2017-07-02 09:07] LABS: HEMATOCRIT 41.4 % (39.0-51.0); MEAN CELL VOLUME 84.6 FL (80.0-100.0); MEAN CORPUSCULAR HEMOGLOBIN 26.9 PG (27.0-34.0); MEAN CORPUSCULAR HGB CONC 31.8 % (32.0-36.0); PLATELET COUNT 117 TH/MM3 (150-450); RED BLOOD COUNT 4.89 MIL/MM3 (4.50-5.90); RED CELL DISTRIBUTION WIDTH 15.6 % (11.6-17.2); REVIEW FLAG FINAL; WHITE BLOOD COUNT 5.5 TH/MM3 (4.0-11.0)
[2017-07-02 09:16] LABS: APTT (PATIENT) 50.7 SEC (24.3-30.1); INTERNATIONAL NORMALIZED RATIO 1.5 RATIO; PROTHROMBIN TIME - PATIENT 16.8 SEC (9.8-11.6)
--- NOTE | 2017-07-02 09:18 | PD.CARD.PN ---
Subjective Subjective Remarks Pt feeling well, no complaints; reasonable afib rates on tele. Objective Medications Administered Medications Medications (Trade) Dose Ordered Sig/Alanis Route PRN Reason Start Time Stop Time Status Last Admin Dose Admin Ondansetron HCl (Zofran Inj) 4 mg Q6H PRN IVP NAUSEA OR VOMITING 06/29/17 17:15 06/30/17 14:44 Senna/Docusate Sodium (Caitlin-Colace) 1 tab BID PO 06/29/17 21:00 07/01/17 09:11 Heparin Sodium/ Dextrose 250 ml @ 9 mls/hr TITRATE PRN IV Coagulation management 06/29/17 17:45 07/01/17 17:41 Diltiazem HCl (Cardizem Cd) 180 mg DAILY PO 06/30/17 09:00 07/01/17 09:09 Magnesium Oxide (Mag-Ox) 400 mg DAILY PO 06/30/17 09:00 07/01/17 09:08 Potassium Chloride (KCl) 10 meq DAILY PO 06/30/17 09:00 07/01/17 09:10 Metoprolol Tartrate (Lopressor) 100 mg Q12HR PO 06/30/17 21:00 07/01/17 21:50 Furosemide (Lasix) 40 mg DAILY PO 07/01/17 09:00 07/01/17 09:00 Lisinopril (Prinivil) 2.5 mg DAILY PO 07/01/17 09:00 07/01/17 09:10 Warfarin Sodium (Coumadin) 5 mg DAILY@1600 PO 06/30/17 16:00 07/01/17 16:56 Albuterol/ Ipratropium (Duoneb Neb) 1 ampule BID NEB NEB 06/30/17 20:00 07/01/17 19:58 Vital Signs / I&O Vital Signs Date Time Temp Pulse Resp B/P (MAP) Pulse Ox O2 Delivery O2 Flow Rate FiO2 07/02/17 08:18 97.5 98 18 110/62 (78) 93 07/02/17 07:36 98 07/02/17 06:13 83 07/02/17 05:45 85 136/87 (103) 07/02/17 05:04 81 07/02/17 04:36 67 07/02/17 03:01 81 07/02/17 03:00 97.6 81 16 108/51 (70) 96 07/02/17 02:06 64 07/02/17 01:01 79 07/02/17 00:19 81 07/01/17 23:30 98.0 81 16 119/74 (89) 98 07/01/17 23:06 82 07/01/17 22:00 97 07/01/17 21:00 96 07/01/17 20:43 83 07/01/17 19:58 97 Nasal Cannula 2.00 07/01/17 19:31 98.5 90 16 111/80 (90) 92 07/01/17 19:30 92 Nasal Cannula 2.00 07/01/17 19:11 97 07/01/17 18:00 84 07/01/17 17:00 86 07/01/17 16:00 76 07/01/17 15:00 80 07/01/17 15:00 98.3 82 18 110/75 (87) 98 07/01/17 14:00 80 07/01/17 13:00 86 07/01/17 12:02 88 07/01/17 11:00 97.6 83 18 111/78 (89) 96 07/01/17 11:00 91 07/01/17 10:00 108 I/O 07/01/17 07/01/17 07/01/17 07/02/17 07/02/17 07/02/17 07:00 15:00 23:00 07:00 15:00 23:00 Intake Total 480 ml 880 ml 480 ml Output Total 350 ml 701 ml 275 ml Balance 130 ml 179 ml 205 ml Intake Oral 480 ml 630 ml 480 ml IV Total 250 ml Output Urine Total 350 ml 700 ml 275 ml Stool Total 1 ml # Bowel Movements 1 Physical Exam GENERAL: This is a well-nourished, well-developed patient, in no apparent distress. CARDIOVASCULAR: Regular rate and irregular rhythm without murmurs, gallops, or rubs. RESPIRATORY: Clear to auscultation. Breath sounds equal bilaterally. No wheezes , rales, or rhonchi. GASTROINTESTINAL: Abdomen soft, non-tender, nondistended. Normal, active bowel sounds MUSCULOSKELETAL: Extremities without clubbing, cyanosis, or edema. NEURO: Alert & Oriented x4 to person, place, time, situation. Moves all ext x4 Laboratory Laboratory Tests Test 07/02/17 07:49 White Blood Count 5.5 TH/MM3 Red Blood Count 4.89 MIL/MM3 Hemoglobin 13.1 GM/DL Hematocrit 41.4 % Mean Corpuscular Volume 84.6 FL Mean Corpuscular Hemoglobin 26.9 PG Mean Corpuscular Hemoglobin Concent 31.8 % Red Cell Distribution Width 15.6 % Platelet Count 117 TH/MM3 Mean Platelet Volume 8.3 FL Imaging Last Impressions Chest X-Ray 06/29/17 1407 Signed Impressions: Service Date/Time: Thursday, June 29, 2017 14:29 - CONCLUSION: No acute disease. No significant change has occurred. Jose M Faustin MD Assessment and Plan Problem List: (1) Cardiomyopathy ICD Codes: I42.9 - Cardiomyopathy, unspecified Plan: Echo showed LVEF 20-25%; as far as I can see no ischemic workup has yet been done. Given multiple runs of NSVT cath may be necessary as well as EP study and/or AICD. (2) CHF (congestive heart failure) ICD Codes: I50.9 - Heart failure, unspecified Status: Acute (3) NSVT (nonsustained ventricular tachycardia) ICD Codes: I47.2 - Ventricular tachycardia Plan: on BB; multiple runs seen, given low LVEF asked for EP assistance. (4) Chronic obstructive pulmonary disease ICD Codes: J44.9 - Chronic obstructive pulmonary disease Status: Acute (5) Atrial fibrillation with RVR ICD Codes: I48.91 - Unspecified atrial fibrillation Status: Acute Plan: on heparin ggt, will hold Coumadin, will increase beta kee as some room in both rates and bp Problem Qualifiers (1) CHF (congestive heart failure): Qualified Codes: I50.23 - Acute on chronic systolic (congestive) heart failure Nakul Frias MD Jul 02, 2017 09:18
[2017-07-02] MEDS: POTASSIUM CHLORIDE 10 MEQ CONTROLLED RELEASE TAB PO SCH (09:41)
[2017-07-02] MEDS: DOCUSATE SODIUM 50 MG/SENNA 8.6 MG TAB PO SCH ×2 (09:45→21:39)
[2017-07-02] MEDS: MAGNESIUM OXIDE 400 MG TAB PO SCH (09:45)
[2017-07-02] MEDS: DILTIAZEM-CD 180 MG CAP ER PO SCH (09:45)
[2017-07-02] MEDS: LISINOPRIL 5 MG TAB PO SCH (09:45)
[2017-07-02] MEDS: ASPIRIN 81 MG CHEW TAB PO SCH (13:17)
[2017-07-02] MEDS: METOPROLOL TARTRATE 50 MG TAB PO SCH ×2 (13:18→21:38)
--- NOTE | 2017-07-02 13:24 | HHI.PR ---
Subjective Remarks Follow-up NSVT and A. fib. Patient has no complaints and his chest pain and shortness of breath. Discussed with RN Objective Vitals Vital Signs Date Time Temp Pulse Resp B/P (MAP) Pulse Ox O2 Delivery O2 Flow Rate FiO2 07/02/17 12:00 97.4 104 18 132/93 (106) 94 07/02/17 12:00 97 07/02/17 11:39 92 07/02/17 11:00 92 Nasal Cannula 2.00 07/02/17 10:00 99 07/02/17 09:46 140/91 (107) 07/02/17 09:00 96 07/02/17 08:18 97.5 98 18 110/62 (78) 93 07/02/17 08:00 88 07/02/17 07:36 98 07/02/17 07:15 74 07/02/17 07:00 92 Nasal Cannula 2.00 07/02/17 06:13 83 07/02/17 05:45 85 136/87 (103) 07/02/17 05:04 81 07/02/17 04:36 67 07/02/17 03:01 81 07/02/17 03:00 97.6 81 16 108/51 (70) 96 07/02/17 02:06 64 07/02/17 01:01 79 07/02/17 00:19 81 07/01/17 23:30 98.0 81 16 119/74 (89) 98 07/01/17 23:06 82 07/01/17 22:00 97 07/01/17 21:00 96 07/01/17 20:43 83 07/01/17 19:58 97 Nasal Cannula 2.00 07/01/17 19:31 98.5 90 16 111/80 (90) 92 07/01/17 19:30 92 Nasal Cannula 2.00 07/01/17 19:11 97 07/01/17 18:00 84 07/01/17 17:00 86 07/01/17 16:00 76 07/01/17 15:00 80 07/01/17 15:00 98.3 82 18 110/75 (87) 98 07/01/17 14:00 80 I/O 07/01/17 07/01/17 07/01/17 07/02/17 07/02/17 07/02/17 07:00 15:00 23:00 07:00 15:00 23:00 Intake Total 480 ml 880 ml 480 ml Output Total 350 ml 701 ml 275 ml Balance 130 ml 179 ml 205 ml Intake Oral 480 ml 630 ml 480 ml IV Total 250 ml Output Urine Total 350 ml 700 ml 275 ml Stool Total 1 ml # Bowel Movements 1 Result Diagram: 07/02/17 0749 07/01/17 0622 Imaging Last Impressions Chest X-Ray 06/29/17 1407 Signed Impressions: Service Date/Time: Thursday, June 29, 2017 14:29 - CONCLUSION: No acute disease. No significant change has occurred. Jose M Faustin MD Objective Remarks Well-developed, well-nourished in no distress Pupils equal and reactive to light no jaundice Neck no JVD and no bruit Equal in expansion clear To auscultation Irregularly irregular Abdomen soft nontender Positive pitting edema no cyanosis Alert and oriented nonfocal A/P Problem List: (1) Atrial fibrillation with RVR ICD Code: I48.91 - Unspecified atrial fibrillation Status: Acute (2) CHF (congestive heart failure) ICD Code: I50.9 - Heart failure, unspecified Status: Acute Assessment and Plan Atrial fibrillation with RVR Still with episodes of RVR. Lopressor increased to 125 mg twice a day, continue Cardizem and anticoagulation currently on heparin. Hold Coumadin for cardiac procedure tomorrow. Continue telemetry Cardiomyopathy. Acute on Chronic systolic CHF currently in exacerbation- likely worsening secondary to A Fib RVR Previous echocardiogram 05/28/18 shows ejection fraction 20-30%, moderate diffuse hypokinesis, moderately severely reduced systolic function, moderately to severely calcified mitral annulus Stable continue Lasix, lisinopril and Lopressor. Nonsustained V. tach Aggressive electrolyte replacement. May need EPS and AICD. For cardiac catheterization Elevated liver enzymes likely related to vascular congestion Continue monitor liver enzymes Chronic obstructive pulmonary disease Continue O2 supplementation maintain O2 sats greater 92% Duo nebs as needed Hyperglycemia. Obtain A1c DVT prevention patient on heparin drip Discharge Planning Not ready for discharge Problem Qualifiers (1) CHF (congestive heart failure): Qualified Codes: I50.23 - Acute on chronic systolic (congestive) heart failure Fahad Duarte MD Jul 02, 2017 13:24
[2017-07-02 13:44] LABS: ANION GAP 2 MEQ/L (5-15); BICARBONATE 36.7 MEQ/L (21.0-32.0); BLOOD UREA NITROGEN 17 MG/DL (7-18); CHLORIDE 97 MEQ/L (98-107); GLOMERULAR FILTRATION RATE 97 ML/MIN (>89); MAGNESIUM 2.1 MG/DL (1.5-2.5); POTASSIUM 4.1 MEQ/L (3.5-5.1); SODIUM (NA) 136 MEQ/L (136-145)
[2017-07-02 14:32] LABS: HEMOGLOBIN A1a 1.1 %; HEMOGLOBIN A1b 1.9 %; HEMOGLOBIN Ao 83.8 %; HEMOGLOBIN LA1C 2.1 %; HEMOGLOBIN P3 5.8 %
[2017-07-02] MEDS: HEPARIN-D5W 25,000 U/250 ML 250 ML IV PRN (17:53)
[2017-07-03] VITALS (24 sets, daily range): BP systolic 108–133; BP diastolic 72–92; PULSE 53–95; RESP 16–18; TEMP 97.4–98.1; O2SAT 98–100
[2017-07-03 06:46] LABS: APTT (PATIENT) 49.4 SEC (24.3-30.1); INTERNATIONAL NORMALIZED RATIO 1.5 RATIO; PROTHROMBIN TIME - PATIENT 16.7 SEC (9.8-11.6)
[2017-07-03] MEDS: RESP: ALBUTEROL 2.5 MG/IPRATROPIUM 0.5 MG NEB (SCH) NEB ×2 (07:25→19:48)
[2017-07-03] MEDS: METOPROLOL TARTRATE 50 MG TAB PO SCH ×2 (08:30→20:20)
[2017-07-03] MEDS: MAGNESIUM OXIDE 400 MG TAB PO SCH (08:31)
[2017-07-03] MEDS: ASPIRIN 81 MG CHEW TAB PO SCH (08:31)
[2017-07-03] MEDS: POTASSIUM CHLORIDE 10 MEQ CONTROLLED RELEASE TAB PO SCH (08:31)
[2017-07-03] MEDS: FUROSEMIDE 40 MG TAB PO SCH (08:32)
[2017-07-03] MEDS: DILTIAZEM-CD 180 MG CAP ER PO SCH (08:32)
[2017-07-03] MEDS: LISINOPRIL 5 MG TAB PO SCH (08:33)
[2017-07-03] MEDS: DOCUSATE SODIUM 50 MG/SENNA 8.6 MG TAB PO SCH ×2 (08:33→20:21)
--- NOTE | 2017-07-03 09:38 | HHI.PR ---
Subjective Remarks Follow-up NSVT and A. fib. Patient doing okay awaiting cardiac catheterization. Denies chest pain or shortness of breath. Patient with active wheezing on 2 L nasal cannula. Complaining of nonproductive cough. Discussed with RN Objective Vitals Vital Signs Date Time Temp Pulse Resp B/P (MAP) Pulse Ox O2 Delivery O2 Flow Rate FiO2 07/03/17 07:58 97.6 71 18 120/76 (91) 98 07/03/17 06:00 64 07/03/17 05:00 68 07/03/17 04:00 64 07/03/17 03:30 61 16 115/73 (87) 99 07/03/17 03:00 60 07/03/17 02:00 64 07/03/17 01:00 64 07/03/17 00:00 72 07/02/17 23:00 97.8 84 20 90/54 (66) 100 07/02/17 23:00 72 07/02/17 22:00 82 07/02/17 21:41 98 Nasal Cannula 2.00 07/02/17 21:00 78 07/02/17 20:00 88 07/02/17 20:00 85 16 127/94 (105) 99 07/02/17 20:00 99 2.00 07/02/17 19:00 78 07/02/17 18:00 78 07/02/17 17:54 62 07/02/17 16:13 62 07/02/17 15:24 70 07/02/17 15:17 97.9 78 18 120/78 (92) 98 07/02/17 14:02 79 07/02/17 13:19 132/93 (106) 07/02/17 13:00 86 07/02/17 12:00 97.4 104 18 132/93 (106) 94 07/02/17 12:00 97 07/02/17 11:39 92 07/02/17 11:00 92 Nasal Cannula 2.00 07/02/17 10:00 99 07/02/17 09:46 140/91 (107) I/O 07/02/17 07/02/17 07/02/17 07/03/17 07/03/17 07/03/17 07:00 15:00 23:00 07:00 15:00 23:00 Intake Total 480 ml 880 ml 240 ml Output Total 275 ml 1196 ml 350 ml Balance 205 ml -316 ml -110 ml Intake Oral 480 ml 640 ml 240 ml IV Total 240 ml Output Urine Total 275 ml 1195 ml 350 ml Stool Total 1 ml Result Diagram: 07/02/17 0749 07/02/17 1250 Imaging Last Impressions Chest X-Ray 06/29/17 1407 Signed Impressions: Service Date/Time: Thursday, June 29, 2017 14:29 - CONCLUSION: No acute disease. No significant change has occurred. Jose M Faustin MD Objective Remarks Well-developed, well-nourished in no distress Pupils equal and reactive to light no jaundice Neck no JVD and no bruit Equal in expansion mild expiratory wheezes with no retractions Irregularly irregular Abdomen soft nontender Positive pitting edema no cyanosis Alert and oriented nonfocal A/P Problem List: (1) Atrial fibrillation with RVR ICD Code: I48.91 - Unspecified atrial fibrillation Status: Acute (2) CHF (congestive heart failure) ICD Code: I50.9 - Heart failure, unspecified Status: Acute Assessment and Plan Atrial fibrillation with RVR Improved now with CPR. Lopressor increased to 125 mg twice a day, continue Cardizem and anticoagulation currently on heparin. Hold Coumadin for cardiac procedure today. Continue telemetry Cardiomyopathy. Acute on Chronic systolic CHF currently in exacerbation- likely worsening secondary to A Fib RVR Previous echocardiogram 05/28/18 shows ejection fraction 20-30%, moderate diffuse hypokinesis, moderately severely reduced systolic function, moderately to severely calcified mitral annulus Stable continue Lasix, lisinopril and Lopressor. Nonsustained V. tach Aggressive electrolyte replacement. May need EPS and AICD. For cardiac catheterization Elevated liver enzymes likely related to vascular congestion Continue monitor liver enzymes Chronic obstructive pulmonary disease exacerbation Start prednisone 40 mg daily for 5 days, doxycycline and mucolytics. Continue nebulizations and O2 supplementation maintain O2 sats greater 92% Hyperglycemia. A1c 6.3. Diabetic education DVT prevention patient on heparin drip Discharge Planning Not ready for discharge Problem Qualifiers (1) CHF (congestive heart failure): Qualified Codes: I50.23 - Acute on chronic systolic (congestive) heart failure Fahad Duarte MD Jul 03, 2017 09:38
[2017-07-03] MEDS ORDERED: BENZONATATE 100 MG CAP PO PRN (09:45)
[2017-07-03] MEDS ORDERED: HEPARIN-NS/PF INJ 1,000 ML ONE (10:00)
[2017-07-03] MEDS ORDERED: HEPARIN SODIUM - IV 10,000 UNITS/10 ML VIAL ONE (10:01)
[2017-07-03] MEDS ORDERED: VERAPAMIL HCL 5 MG/2 ML VIAL ONE (10:01)
[2017-07-03] MEDS ORDERED: IOHEXOL 350 MG/ML 100 ML BTL (for Cath Lab) OTHER ONE (10:01)
[2017-07-03] MEDS ORDERED: MIDAZOLAM HCL 2 MG/2 ML VIAL ONE (10:40)
[2017-07-03] MEDS ORDERED: CLOPIDOGREL 300 MG TAB ONE (11:18)
[2017-07-03] MEDS ORDERED: MISC INFORMATION XX ONE ×2 (11:30)
[2017-07-03] MEDS ORDERED: ONDANSETRON HCL 4 MG/2 ML VIAL IVP PRN (11:30)
[2017-07-03] MEDS ORDERED: BACITRACIN OINT 0.9 GM PKT TOP ONE ×2 (11:30→12:30)
--- NOTE | 2017-07-03 11:44 | MA ---
cc: MARLENA LUDWIG M.D. DATE: 07/03/2017 PROCEDURE PERFORMED 1. Coronary angiography. 2. Stenting of the mid left circumflex coronary artery. DESCRIPTION OF PROCEDURE The patient was brought to the cardiac construction laborer in a fasting state. Using 1% lidocaine for local anesthesia a Terumo sheath was inserted into the right renal artery without complications. A standard cocktail was administered. Coronary angiography was then performed using a [place] catheter. Critical stenosis was seen in the circumflex artery. I switched to an EBU and then an XB 3.5 guiding catheter which engaged the left main nicely. I wired the circumflex vessel with a BMW wire. I then stented it with a 3.5 x 12 mm bare metal integrity stent at 10 atmospheres. I post dilated the midportion of the stent with a 4.0 x 8 mm noncompliant balloon at 14 atmospheres and the proximal portion of the stent at 20 atmospheres. An outstanding angiographic result was achieved. The patient tolerated the procedure well. The procedure was done with IV heparin with a therapeutic ACT achieved. At the end of the procedure the sheath was removed with a Terumo band placed. There were no complications. FINDINGS HEMODYNAMICS Aortic pressure is 109/62 with a mean of 82. CORONARY ANGIOGRAPHY The left main coronary artery is large and normal-appearing. It trifurcates into the LAD and ramus intermediate branch and the circumflex vessel. The LAD and ramus intermediate branch are normal. The circumflex artery has a discrete 90% stenosis just before the bifurcation of an obtuse marginal branch and distal circumflex vessel. The right coronary artery is dominant with some smooth 25% proximal and mid disease. RESULTS OF STENTING Following stenting of the circumflex artery a 0% residual stenosis had been achieved. CONCLUSIONS 1. Patient with a known severe cardiomyopathy with severe ventricular arrhythmias. 2. Successful bare metal stenting of a high grade circumflex lesion which could be accounting for some of the ventricular arrhythmias. PLAN Continue the patient on anticoagulation with clopidogrel and warfarin with an INR of 2.0 to 3.0. Will discharge without aspirin following the so-called "WOEST" approach. MD LENNIE Miller/RAUL /11:25 AM /11:29 AM
--- NOTE | 2017-07-03 11:49 | CATHPROC ---
The Switch HIS Report Study Information Study Number Admission Scheduled Start Study Start [id number] Jun 29 2017 5:15PM 07/03/2017 Jul 03 2017 10:15AM [place] Service Cardiac Catheterization Admit Source Facility Department Emergency department [facility] - Erp Developer Physician and Clinical Staff Initial Alejandro [address] Worker Chad Brown,RN Recorder Brandi Torres,JESSICA TECH2 Scrub Rochelle Faustin,RT(R) Procedures Performed Procedure Location (Site) Vessel Name Coronary Angiograms LCA Left Coronary Coronary Angiograms RCA Right Coronary PTCA CIRC Prox CIRC Stent CIRC Prox CIRC Wire insertion Radial (right) Radial Art. Equipment Time Salon Shampoo Assistant Description Size Mfg Part Number Used/Scraped WIRE, BALANCE MIDDLEWEIGHT [id number] 10:52 [employer] 190CM Used 190CM *[id number] TRANSDUCER, TRUWAVE [id number] 10:26 MORRELL BRUNNER * Used W/STOCKCOCK *[id number] *[id number] 10:26 MALLINCKRODT SYRINGE, ANGIOMAT 150ML 150ML *[id number] Used 2SUB [id number] 10:26 [employer] PACK, CCL CUSTOM * Used *[id number] 10:26 [employer] SUPPORT, ARTERIAL ADULT [id number] *[id number] Used [id number] 10:26 [employer] PACER PEN, SKIN DUAL W/ RULER * Used *[id number] BALLOON, 4.0 X 8MM NC [id number] 11:15 [employer] 8MM Used EUPHORA *[id number] 11:11 [employer] STENT, 3.5 12 INTEGRITY 3.5 12 Used *[id number] 10:58 [employer]/AVE EBU 3.5 Z2 GUIDE CATHETER FR 6 Used *[id number] 11:11 [employer] MEDICAL 30 KAR INDEFLATOR Used *[id number] BAND, RADIAL COMPRESSION TR [id number] 11:25 [employer] MEDICAL 24CM Used SHORT 24 *[id number] 10:26 [employer] WIRE, EXCHANGE 260CM 3MMJ 260CM Used *[id number] 10:26 NAMIC MANIFOLD, 4 PORT * Used *[id number] 10:26 [employer] OMNIPAQUE, 350 MG, 100ML 100ML [id number] Used [id number] 10:26 [employer] BLANKET,WARM AIR CCL * Used *[id number] 10:26 [facility] JELCO NEEDLE 4056 *[id number] Used CATHETER, FR5 OPTITORQUE [id number] 10:43 Ion Core FR 5 Used RADIAL TIG 4.0 *[id number] SHEATH, FR6 TRANSRADIAL RM*[id number] 10:26 [employer] FR 6 Used SLENDER 10CM *[id number] Equipment Model, Serial, Lot Number and Expiration Data Description Model Number Serial Number Lot Number Expiration Date STENT, 3.5 12 INTEGRITY [id number] 02-08-2018 History: Current Medications Medication Dosage/Unit Route Frequency Last Date/Time Taken Coumadin CARDIZEM Magnesium LASIX LOPRESSOR LISINOPRIL K-Dur History: Allergies Allergy Reaction No Known Allergies History: Risk Factors Family History of Hypertension Dyslipidemia Previous SC Previous Heart Failure Premature CAD Yes Yes No No Yes Prior Valve Prior PCI Prior CABG Surgery No No No Cerebrovascular Peripheral Artery Chronic Lung On Dialysis Diabetes Disease Disease Disease No No No Yes No History: Symptoms/Diagnosis Selection Items Palpitations History: CV Disease Selection Items Cardiomyopathy History: Stress Tests Stress or Imaging Studies Performed No History: Arrhythmias Selection Items Atrial fibrillation History: Other Current Smoker Method Packs a Day Years Used Pack Years Yes Cigarettes 1 55 55 Labs Hgb (g/dl) Hct (%) WBC (l/cumm) Platelets (thousands) 11.60-17.00 35.00-51.00 4.00-11.00 150.00-450.00 13.1 41.4 5.5 117 Glucose (mg/dl) BUN (mg/dl) Creatinine (mg/dl) BUN:Creatinine (1:x) 74.00-106.00 7.00-18.00 0.50-1.30 10.00-20.00 87 17 0.7 24.3 Na (meq/l) K (meq/l) 136.00-145.00 3.50-5.10 136 4.1 INR (PTT:PT) 0.90-1.10 1.5 Troponin I (ng/ml) CPK (u/l) CPK-MB (ng/ML) 0.02-0.05 26.00-308.00 0.50-3.60 0.05 105 1.9 Medication Medication Total Dose (Bolus/Oral) Medication Total Dosage/Unit 1% XYLOCAINE 20 mL HEPARIN 5000 units NTG (IC) 75 mcg PLAVIX 600 mg RADIAL COCKTAIL 5 mL (Bolus) VERSED 1 mg Medications (Bolus/Oral) Medication Time Given Dosage/Unit Administered By Reason VERSED 07/03/2017 10:38:59 AM 1 mg Chad Brown 1 mg VERSED given in lab by Chad Brown, FRANSISCO via Peripheral IV. Ordered by Alejandro Chan. 1% XYLOCAINE 07/03/2017 10:41:46 AM 20 mL Alejandro Chan 20 mL 1% XYLOCAINE given in lab by Alejandro Chan in Right Radial via Subcutaneous. Ordered by Alejandro Chan. Ntg 200mcg Verapamil 2.5mg Heparin RADIAL COCKTAIL 07/03/2017 10:43:53 AM 5 mL (Bolus) Alejandro Chan 2000U 5 mL (Bolus) RADIAL COCKTAIL given in lab by Alejandro Chan in Right Radial via Radial. Using [Solutio n Name]. Ordered by Alejandro Chan. Reason: Ntg 200mcg Verapamil 2.5mg Heparin 2000U. HEPARIN 07/03/2017 10:53:29 AM 5000 units Chad Brown 5000 units HEPARIN given in lab by Chad Brown, FRANSISCO in Left Antecubital via Peripheral IV. Ordered b y Alejandro Chan. NTG (IC) 07/03/2017 11:08:37 AM 75 mcg Alejandro Chan 75 mcg NTG (IC) given in lab by Alejandro Chan in Right Radial via Intra-coronary. Ordered by Alejandro Chan. PLAVIX 07/03/2017 11:21:55 AM 600 mg Chad Brown 600 mg PLAVIX given in lab by Chad Brown, RN via Oral. Ordered by Alejandro Chan. Medication (Drip) Medication Time Given Dosage/Unit Concentration/Unit Diluent (ml) Solution IV Solutions 07/03/2017 10:26:39 AM 0 mL (IV) 500 NaCl .9 Patient arrived on IV Solutions in Left Antecubital via Peripheral IV. Pump/Drip Flow = 20 ml/hr usin g NaCl .9. Initial Case Assessment Cardiovascular HR Rhythm NIBP Chest Pain 63 afib 128/83 0 Circulatory - Right Pulses Dorsalis Pedis Femoral Radial 1 1 2 Scale (0,1,2,3,4,d) Scale (0,1,2,3,4,d) Neurological State Oriented to time-place- Alert Moves all extremities person Respiration - General Respiration Rate SpO2 (%) O2 (lpm) (B/min) 17 97 2 Final Case Assessment Cardiovascular HR Rhythm NIBP Chest Pain 77 AFIB 138/86 0 Circulatory - Right Pulses Dorsalis Pedis Femoral Radial 1 1 2 Scale (0,1,2,3,4,d) Scale (0,1,2,3,4,d) Neurological State Oriented to time-place- Alert Moves all extremities person Respiration - General Respiration Rate SpO2 (%) O2 (lpm) (B/min) 19 97 2 Chronological Log Time Study Chronological Log 10:01:40 Patient arrived via Bed. 10:01:46 Patient Name, D.O.B, / Armband Verified By R.N. 10:01:56 Pre-op and post- op instructions given; patient acknowledges understanding of instructions. 10:02:20 Verbal Stimulation=2 Physical Stimulation=2 Airway=2 Respiration=2 TOTAL=8. (0=absent, 1=li mited, 2=present) 10:05:57 Presedation assessment performed by Erp Developer RN. Vitals capture started with the following parameters, Patient=Adult, Interval=5 min, Initial Pr kdncxa=969 mmHg, 10:15:29 Deflation Rate=5 mmHg, Cuff placed on Right Arm 10:16:06 Allens test performed on the right radial and ulnar artery. 10:16:09 HR=63 bpm, JVMI=520/81 mmhg, SpO2=94.0 %, Resp=14 B/min 10:16:15 Patient has been NPO for More than 6Hrs. 10:16:22 Skin Breakdown-none 10:16:29 Lucia Prominences Protected Assessment: Initial Case, HR=63 BPM, Rhythm=afib, VPIB=416/83 mmhg, Chest Pain=0 Right Pulses: Rock Ped=1, Femoral=1, Radial=2 10:16:46 Neurological: State=Alert, Ox3, AVILES Respiration: Resp=17 B/min, SpO2=97 %, O2=2 lpm 10:20:39 Right groin and right wrist prepped with 2% chlorhexidine, and draped after a 3 min. waitin g time. 10:21:32 HR=70 bpm, DLAC=321/83 mmhg, SpO2=97.0 %, Resp=17 B/min, Pain=0, Judge=2 10:24:54 Consent signed by the physician and the patient and verified by the Erp Developer staff. 10:25:58 HR=94 bpm, TGPI=135/96 mmhg, SpO2=95.0 %, Resp=17 B/min, Pain=0, Judge=2 10:26:38 A # 20 IV was noted in the Antecubital (left). Grade = patent 10:26:39 Patient arrived on IV Solutions in Left Antecubital via Peripheral IV. Pump/Drip Flow = 20 ml/hr using NaCl .9. 10:26:40 History and physical on the chart or being dictated. 10:29:20 Pressure channel 1 zeroed. 10:29:43 A # 20 IV was noted in the Antecubital (right). Grade = 0 not in use 10:31:04 HR=75 bpm, WPND=548/86 mmhg, SpO2=96.0 %, Resp=20 B/min 10:33:30 MD paged 10:36:03 HR=70 bpm, UEZK=985/86 mmhg, SpO2=98.0 %, Resp=19 B/min 10:37:30 MD arrived. 10:38:59 1 mg VERSED given in lab by Chad Brown RN via Peripheral IV. Ordered by Alejandro Chan. Time Out. Correct patient, correct procedure,correct physician, power injector loaded with cont rast with surgical team 10:41:14 present. Time Out Concurred by MD and individual staff in procedure 10:41:30 HR=70 bpm, HZQZ=476/95 mmhg, SpO2=97.0 %, Resp=17 B/min 10:41:46 Case Start 10::46 20 mL 1% XYLOCAINE given in lab by Alejandro Chan in Right Radial via Subcutaneous. Ordered by Alejandro Chan. 10:43:28 Access site was Radial Artery. right A SHEATH, FR6 TRANSRADIAL SLENDER 10CM FR 6 was advanced into the Radial (right) using the Perc utaneous 10:43:41 technique. 5 mL (Bolus) RADIAL COCKTAIL given in lab by Alejandro Chan in Right Radial via Radial. Using [S olution Name]. 10:43:53 Ordered by Alejandro Chan. Reason: Ntg 200mcg Verapamil 2.5mg Heparin 2000U. A CATHETER, FR5 OPTITORQUE RADIAL TIG 4.0 FR 5 was advanced over a wire. OMNIPAQUE, 350 MG, 100 ML 100ML 10:45:30 was used for injections. 10:46:07 HR=76 bpm, CUGZ=759/72 mmhg, SpO2=95.0 %, Resp=21 B/min 10:46:13 Reference ECG taken Recorded Pressure: Ao, HR=72, Condition=Condition 1 10:46:28 (Aorta) Ao 109/62/82 10:46:37 The LCA was injected and visualized at various angles. OMNIPAQUE, 350 MG, 100ML 100ML used . 10:49:19 The RCA was injected and visualized at various angles. OMNIPAQUE, 350 MG, 100ML 100ML used . 10:51:02 HR=78 bpm, XXLY=884/73 mmhg, SpO2=95.0 %, Resp=23 B/min After removing the current catheter a EBU 3.5 Z2 GUIDE CATHETER FR 6 was advanced over a WIRE, EXCHANGE 10:52:18 260CM 3MMJ 260CM. 10:53:29 5000 units HEPARIN given in lab by Chad Brown, RN in Left Antecubital via Peripheral IV. Ordered by Alejandro Chan. 10:56:03 HR=73 bpm, HUJG=728/72 mmhg, SpO2=94.0 %, Resp=19 B/min After removing the current catheter a XB 3.5 GUIDE CATHETER FR 6 was advanced over a WIRE, EXCH KAROLINA 260CM 10:58:18 3MMJ 260CM. 11:01:04 HR=64 bpm, ZMAH=763/65 mmhg, SpO2=95.0 %, Resp=21 B/min 11:02:26 Activated Clotting Time Drawn 11:03:19 A WIRE, BALANCE MIDDLEWEIGHT 190CM 190CM was inserted via Radial (right). 11:06:38 HR=65 bpm, XMJR=663/79 mmhg, SpO2=97.0 %, Resp=20 B/min 11:08:30 ACT (Normal Range 90-180) = 344 11:08:37 75 mcg NTG (IC) given in lab by Alejandro Chan in Right Radial via Intra-coronary. Ordered b Alejandro Heredia. An STENT, 3.5 12 INTEGRITY 3.5 12 Bare Metal Stent was inserted through a XB 3.5 GUIDE CATHETER FR 6 over a 11:09:37 WIRE, BALANCE MIDDLEWEIGHT 190CM 190CM. A STENT, 3.5 12 INTEGRITY 3.5 12 was deployed using a 30 KAR INDEFLATOR at 10 atmospheres for 3 0 seconds in 11:10:53 the CIRC Prox. 11:11:08 HR=66 bpm, NEVC=791/68 mmhg, SpO2=96 %, Resp=20 B/min 11:12:45 Delivery device removed A BALLOON, 4.0 X 8MM NC EUPHORA 8MM was inserted over WIRE, BALANCE MIDDLEWEIGHT 190CM 190CM vi a the 11:14:11 CIRC Prox. A BALLOON, 4.0 X 8MM NC EUPHORA 8MM over a WIRE, BALANCE MIDDLEWEIGHT 190CM 190CM in the CIRC P ramon 11:15:26 was inflated using a 30 KAR INDEFLATOR at 14 kar for 18 sec. 11:16:05 HR=81 bpm, RXGP=515/87 mmhg, SpO2=97.0 %, Resp=21 B/min A BALLOON, 4.0 X 8MM NC EUPHORA 8MM over a WIRE, BALANCE MIDDLEWEIGHT 190CM 190CM in the CIRC P ramon 11:16:30 was inflated using a 30 KAR INDEFLATOR at 20 kar for 16 sec. 11:17:10 Balloon Removed. 11:17:17 Wire removed 11:17:37 Catheter was removed 11:17:42 Case End 11:21:08 HR=77 bpm, TUUJ=160/86 mmhg, SpO2=95.0 %, Resp=19 B/min, Pain=0, Judge=2 11:21:55 600 mg PLAVIX given in lab by Chad Brown, FRANSISCO via Oral. Ordered by Alejandro Chan. Radial Compression Device Used. 11 mLs of air placed in BAND, RADIAL COMPRESSION TR SHORT 24 24 CM. Affected 11:24:37 hand 91 % O2 saturation. 11:25:17 No case complications noted. 11:25:18 Cine recording checked. 11:25:21 Bedside Report will be given. Assessment: Final Case, HR=77 BPM, Rhythm=AFIB, TLYI=725/86 mmhg, Chest Pain=0 Right Pulses: Rock Ped=1, Femoral=1, Radial=2 11:25:24 Neurological: State=Alert, Ox3, AVILES Respiration: Resp=19 B/min, SpO2=97 %, O2=2 lpm 11:25:44 Vitals capture stopped. 11:27:56 Urinal placed 11:30:13 Patient moved to stretcher 11:33:31 Patient transported to [facility] End Study - Contrast Media Used In Study Contrast Total Opened (mL) Total Used (mL) Total Wasted (mL) Omnipaque 100 100 0 End Study - Maximum Contrast Load Max Contrast Load (mL) 551.3 End Study - Radiation Exposure Fluoro Time (minutes) 11.2 End Study - Sheaths Sheaths Pulled By Sheath Hold Time (min) Rochelle Faustin End Study - Patient Disposition Complications Transferred To Interventional Outcome No Telemetry Bed successful
[2017-07-03] MEDS ORDERED: SODIUM CHLOR 0.9% 1000 ML INJ 1,000 ML IV SCH (12:30)
[2017-07-03] MEDS: DOXYCYCLINE HYCLATE 100 MG TAB PO SCH ×2 (13:41→20:21)
[2017-07-03] MEDS: predniSONE 20 MG TAB PO SCH (13:41)
[2017-07-03] MEDS ORDERED: IPRASOL NEB ×2 (16:18)
[2017-07-03] MEDS ORDERED: COUM7.5T PO (16:18)
[2017-07-03] MEDS ORDERED: DOXY100T PO (16:18)
[2017-07-03] MEDS ORDERED: PLAV75TA29 PO (16:18)
[2017-07-03] MEDS ORDERED: METO-309 PO (16:18)
[2017-07-03] MEDS ORDERED: PRED20 PO (16:18)
--- NOTE | 2017-07-03 16:19 | HHI.DCPOC ---
Discharge Care Plan Diagnosis: (1) Cardiomyopathy (2) NSVT (nonsustained ventricular tachycardia) (3) Atrial fibrillation with RVR Your Health Problems Are: Difficulty with ADL Exercise Tolerance Goals to Promote Your Health * To prevent worsening of your condition and complications * To maintain your health at the optimal level Directions to Meet Your Goals Take your medications as prescribed Follow your dietary instruction Follow activity as directed Keep your appointments as scheduled Take your immunizations and boosters as scheduled If your symptoms worsen call your PCP, if no PCP go to Urgent Care Center or Emergency Room Smoking is Dangerous to Your Health. Avoid second hand smoke Call the 24-hour hour crisis hotline for domestic abuse at Fahad Duarte MD Jul 03, 2017 16:19
[2017-07-03] MEDS: WARFARIN SOD 7.5 MG TAB PO SCH (16:55)
[2017-07-03] MEDS: guaiFENesin E.R. 600 MG TAB PO SCH (20:20)
[2017-07-04] VITALS (29 sets, daily range): BP systolic 113–150; BP diastolic 71–89; PULSE 58–104; RESP 16–18; TEMP 97.3–98.2; O2SAT 94–97
[2017-07-04 06:21] LABS: BASOPHIL % 0.1 % (0.0-2.0); HEMATOCRIT 39.2 % (39.0-51.0); HEMO FLAGS DIFF FINAL; LYMPH % 7.3 % (9.0-44.0); LYMPHOCYTE # 0.4 TH/MM3 (1.0-4.8); MEAN CELL VOLUME 84.2 FL (80.0-100.0); MEAN CORPUSCULAR HEMOGLOBIN 27.2 PG (27.0-34.0); MEAN CORPUSCULAR HGB CONC 32.3 % (32.0-36.0); MONO % 7.7 % (0.0-8.0); NEUT % 84.9 % (16.0-70.0); PLATELET COUNT 133 TH/MM3 (150-450); RED BLOOD COUNT 4.65 MIL/MM3 (4.50-5.90); RED CELL DISTRIBUTION WIDTH 15.5 % (11.6-17.2); WHITE BLOOD COUNT 5.9 TH/MM3 (4.0-11.0)
[2017-07-04 06:29] LABS: INTERNATIONAL NORMALIZED RATIO 1.5 RATIO
[2017-07-04 06:52] LABS: BICARBONATE 34.9 MEQ/L (21.0-32.0); POTASSIUM 4.4 MEQ/L (3.5-5.1)
[2017-07-04] MEDS: DILTIAZEM-CD 180 MG CAP ER PO SCH (08:44)
[2017-07-04] MEDS: POTASSIUM CHLORIDE 10 MEQ CONTROLLED RELEASE TAB PO SCH (08:44)
[2017-07-04] MEDS: predniSONE 20 MG TAB PO SCH (08:44)
[2017-07-04] MEDS: ASPIRIN 81 MG CHEW TAB PO SCH (08:44)
[2017-07-04] MEDS: CLOPIDOGREL 75 MG TAB PO SCH (08:44)
[2017-07-04] MEDS: FUROSEMIDE 40 MG TAB PO SCH (08:45)
[2017-07-04] MEDS: DOCUSATE SODIUM 50 MG/SENNA 8.6 MG TAB PO SCH ×2 (08:45→20:36)
[2017-07-04] MEDS: guaiFENesin E.R. 600 MG TAB PO SCH ×2 (08:45→20:36)
[2017-07-04] MEDS: MAGNESIUM OXIDE 400 MG TAB PO SCH (08:45)
[2017-07-04] MEDS: DOXYCYCLINE HYCLATE 100 MG TAB PO SCH ×2 (08:45→20:36)
[2017-07-04] MEDS: RESP: ALBUTEROL 2.5 MG/IPRATROPIUM 0.5 MG NEB (SCH) NEB ×2 (08:46→18:55)
[2017-07-04] MEDS: LISINOPRIL 5 MG TAB PO SCH (08:46)
[2017-07-04] MEDS: METOPROLOL TARTRATE 50 MG TAB PO SCH ×2 (08:46→20:36)
--- NOTE | 2017-07-04 11:31 | HHI.PR ---
Subjective Remarks F/U NSVT and Fib. No complaints. tele CVR. Cath results noted dw RN. Objective Vitals Vital Signs Date Time Temp Pulse Resp B/P (MAP) Pulse Ox O2 Delivery O2 Flow Rate FiO2 07/04/17 11:11 58 07/04/17 11:05 98.2 90 18 128/79 (95) 95 07/04/17 11:01 76 07/04/17 10:18 86 07/04/17 08:48 94 07/04/17 08:35 97.3 80 16 142/89 (106) 96 07/04/17 08:15 96 Room Air 07/04/17 07:01 83 07/04/17 06:02 73 07/04/17 05:36 76 07/04/17 04:01 81 07/04/17 03:05 87 07/04/17 03:00 97.5 83 17 141/86 (104) 97 07/04/17 02:00 96 07/04/17 01:39 79 07/03/17 23:21 98.0 89 18 133/79 (97) 100 07/03/17 23:04 83 07/03/17 22:08 87 07/03/17 21:34 95 07/03/17 20:33 88 07/03/17 19:52 99 Nasal Cannula 2.00 07/03/17 19:44 97.8 65 18 121/76 (91) 100 07/03/17 19:44 63 07/03/17 19:43 Nasal Cannula 2.00 07/03/17 18:07 92 07/03/17 17:11 70 07/03/17 15:00 53 07/03/17 15:00 98.1 76 18 108/72 (84) 98 07/03/17 13:00 68 07/03/17 11:45 97.4 70 18 123/92 (102) 98 I/O 07/03/17 07/03/17 07/03/17 07/04/17 07/04/17 07/04/17 07:00 15:00 23:00 07:00 15:00 23:00 Intake Total 240 ml 690 ml 400 ml Output Total 350 ml 550 ml 500 ml Balance -110 ml 140 ml -100 ml Intake Oral 240 ml 240 ml 400 ml IV Total 450 ml Output Urine Total 350 ml 550 ml 500 ml Stool Total 0 ml Result Diagram: 07/04/17 0604 07/04/17 0604 Imaging Last Impressions Chest X-Ray 06/29/17 1407 Signed Impressions: Service Date/Time: Thursday, June 29, 2017 14:29 - CONCLUSION: No acute disease. No significant change has occurred. Jose M Faustin MD Objective Remarks Well-developed, well-nourished in no distress Pupils equal and reactive to light no jaundice Neck no JVD and no bruit Equal in expansion no expiratory wheezes Irregularly irregular Abdomen soft nontender Positive pitting edema no cyanosis Alert and oriented nonfocal Procedures Cardiac catheterization A/P Problem List: (1) Atrial fibrillation with RVR ICD Code: I48.91 - Unspecified atrial fibrillation Status: Acute (2) CHF (congestive heart failure) ICD Code: I50.9 - Heart failure, unspecified Status: Acute Assessment and Plan Atrial fibrillation with RVR Improved now with CPR. Lopressor increased to 125 mg twice a day, continue Cardizem and anticoagulation with Coumadin. Consider bridging with Lovenox awaiting return call from cardiology. Continue telemetry Nonsustained V. tach with known severe cardiomyopathy with severe ventricular arrhythmias s/p successful bare metal stenting of a high grade circumflex lesion which could be accounting for some of the ventricular arrhythmias. Acute on Chronic systolic CHF currently in exacerbation- likely worsening secondary to A Fib RVR Previous echocardiogram 05/28/18 shows ejection fraction 20-30%, moderate diffuse hypokinesis, moderately severely reduced systolic function, moderately to severely calcified mitral annulus Stable continue Lasix, lisinopril and Lopressor. Continue the patient on anticoagulation with clopidogrel and warfarin with an INR of 2.0 to 3.0. Will discharge without aspirin following the so-called "WOEST" approach. Aggressive electrolyte replacement. Elevated liver enzymes likely related to vascular congestion Continue to monitor liver enzymes Chronic obstructive pulmonary disease exacerbation Continue prednisone 40 mg daily for 5 days, doxycycline and mucolytics. Continue nebulizations and O2 supplementation maintain O2 sats greater 92% Hyperglycemia. A1c 6.3. Diabetic education DVT prevention patient on Coumadin Discharge Planning Possible discharge today Problem Qualifiers (1) CHF (congestive heart failure): Qualified Codes: I50.23 - Acute on chronic systolic (congestive) heart failure Fahad Duarte MD Jul 04, 2017 11:31
--- NOTE | 2017-07-04 12:54 | HHI.DS ---
Discharge Summary Admission Date Jun 29, 2017 at 17:15 Discharge Date: Jul 05, 2017 Admitting Diagnosis CHF (1) Atrial fibrillation with RVR ICD Code: I48.91 - Unspecified atrial fibrillation Diagnosis: Principal Status: Acute (2) CHF (congestive heart failure) ICD Code: I50.9 - Heart failure, unspecified Diagnosis: Principal Status: Acute Procedures Cardiac catheterization Brief History - From Admission This is a 71-year-old male with known history of atrial fibrillation diagnosed 2014, chronic systolic CHF cardiomyopathy echocardiogram 05/28/17 showed EF 25-30%, hypertension, chronic obstructive pulmonary disease, chronic tobacco use, chronic alcohol in the past use who [facility]. Patient was admitted 05/27/17 and 06/26/17 with A Fib RVR as well. Patient discharged 06/28/17 had an appointment today [facility] the [facility] was noted to be in A fib RVR and sent back to the hospital. Patient denies shortness of breath , palpations, chest pain, dyspnea on exertion or feeling light headed. Patient endorses BLE pitting edema unable to tell how long it has been this way. Patient unsure if he has gained any weight. Patient reports he has been compliant with his medication, "when I have them." Patient's prescribed Coumadin with subtherapeutic INR 1.4. CBC/BMP: 07/04/17 0604 07/04/17 0604 Significant Findings Laboratory Tests Test 07/02/17 07:49 07/02/17 12:50 07/03/17 06:13 07/04/17 06:04 Mean Corpuscular Hemoglobin 26.9 PG (27.0-34.0) Mean Corpuscular Hemoglobin Concent 31.8 % (32.0-36.0) Platelet Count 117 TH/MM3 (150-450) 133 TH/MM3 (150-450) Prothrombin Time 16.8 SEC (9.8-11.6) 16.7 SEC (9.8-11.6) 17.0 SEC (9.8-11.6) Activated Partial Thromboplast Time 50.7 SEC (24.3-30.1) 49.4 SEC (24.3-30.1) B-Type Natriuretic Peptide 1837 PG/ML (0-100) Chloride Level 97 MEQ/L (98-107) 97 MEQ/L (98-107) Carbon Dioxide Level 36.7 MEQ/L (21.0-32.0) 34.9 MEQ/L (21.0-32.0) Anion Gap 2 MEQ/L (5-15) Hemoglobin A1c 6.3 % (4.3-6.0) Hemoglobin 12.7 GM/DL (13.0-17.0) Neutrophils (%) (Auto) 84.9 % (16.0-70.0) Lymphocytes (%) (Auto) 7.3 % (9.0-44.0) Lymphocytes # (Auto) 0.4 TH/MM3 (1.0-4.8) Random Glucose 162 MG/DL (74-106) Imaging Last Impressions Chest X-Ray 06/29/17 1407 Signed Impressions: Service Date/Time: Thursday, June 29, 2017 14:29 - CONCLUSION: No acute disease. No significant change has occurred. Jose M Faustin MD PE at Discharge Well-developed, well-nourished in no distress Pupils equal and reactive to light no jaundice Neck no JVD and no bruit Equal in expansion no expiratory wheezes Irregularly irregular Abdomen soft nontender Positive pitting edema no cyanosis Alert and oriented nonfocal Hospital Course Atrial fibrillation with RVR Improved now with CVR. Lopressor increased to 125 mg twice a day, continue Cardizem and anticoagulation with Coumadin. Continue telemetry Nonsustained V. tach with known severe cardiomyopathy with severe ventricular arrhythmias s/p successful bare metal stenting of a high grade circumflex lesion which could be accounting for some of the ventricular arrhythmias. Acute on Chronic systolic CHF currently in exacerbation- likely worsening secondary to A Fib RVR Previous echocardiogram 05/28/18 shows ejection fraction 20-30%, moderate diffuse hypokinesis, moderately severely reduced systolic function, moderately to severely calcified mitral annulus Stable continue Lasix, lisinopril and Lopressor. Per cardiology, continue anticoagulation with clopidogrel and warfarin with an INR of 2.0 to 3.0. Will discharge without aspirin following the so-called "WOEST" approach. Aggressive electrolyte replacement. Elevated liver enzymes likely related to vascular congestion Continue to monitor liver enzymes Chronic obstructive pulmonary disease exacerbation Continue prednisone 40 mg daily for 5 days, doxycycline and mucolytics. Continue nebulizations and O2 supplementation maintain O2 sats greater 92% Hyperglycemia. A1c 6.3. Diabetic education DVT prevention patient on Coumadin Pt Condition on Discharge: Stable Discharge Disposition: Disch w/ Home Health Serv Discharge Time: > 30 minutes Discharge Instructions DIET: Follow Instructions for: Heart Healthy Diet, Coumadin (Warfarin) Diet Activities you can perform: Regular-No Restrictions Activities to Avoid: Driving Follow up Referrals: Cardiology - 1 Week PCP Follow-up - 1 Week New Orders: PT/INR New Medications: Clopidogrel (Plavix) 75 Mg Tab 75 MG PO DAILY for Prevent Blood Clot, #30 TAB Doxycycline Hyclate (Doxycycline Hyclate) 100 Mg Tab 100 MG PO Q12HR for Infection, #12 TAB Ipratropium-Albuterol Neb (Duoneb) 0.5-2.5 Mg/3 Ml Neb 1 AMPULE NEB Q4HR NEB PRN for SHORTNESS OF BREATH, #30 ML Ipratropium-Albuterol Neb (Duoneb) 0.5-2.5 Mg/3 Ml Neb 1 AMPULE NEB BID NEB for Breathing Treatment, #60 ML Metoprolol Tartrate (Lopressor) 50 Mg Tab 125 MG PO Q12HR for Regulate Heart Beat, #90 TAB Prednisone (Prednisone) 20 Mg Tab 40 MG PO DAILY for Control Inflammation, #6 TAB Warfarin (Coumadin) 7.5 Mg Tab 7.5 MG PO DAILY@16 for Prevent Blood Clot, #30 TAB Continued Medications: Diltiazem CD 24 HR (Cardizem CD 24 HR) 180 Mg Caper 180 MG PO DAILY for heart for 30 Days, CAP Furosemide (Furosemide) 40 Mg Tab 40 MG PO DAILY for heart for 30 Days, TAB Lisinopril (Lisinopril) 2.5 Mg Tab 2.5 MG PO DAILY for Blood Pressure Management, #30 TAB 0 Refills Magnesium Oxide (Magnesium Oxide) 400 Mg Tab 400 MG PO DAILY for Nutritional Supplement, #30 TAB 0 Refills Oxygen (O2) (Oxygen (O2)) Inha LITER MERLE.CANULA CONTINUOUS for Prevent Hypoxemia, #2 Oxygen Concentrator Portable Gaseous 2 L/min via Nasal Canula Continuous For 99 months Potassium Chloride ER (Potassium Chloride ER) 10 Meq Tab 10 MEQ PO DAILY for Electrolyte Replacement, #30 TAB 0 Refills Discontinued Medications: Acetaminophen (Eq Acetaminophen) 325 Mg Tab 650 MG PO Q6H PRN for FEVER/PAIN SCALE 1 TO 2 for 30 Days, TAB Metoprolol Tartrate (Lopressor) 50 Mg Tab 50 MG PO Q12HR for heart for 30 Days, TAB Warfarin (Coumadin) 3 Mg Tab 3 MG PO DAILY@1600 for prevent stroke for 30 Days, TAB Fahad Duarte MD Jul 04, 2017 12:54
--- NOTE | 2017-07-04 14:55 | HHI.FF ---
Face to Face Verification Diagnosis: (1) NSVT (nonsustained ventricular tachycardia) (2) Cardiomyopathy (3) Atrial fibrillation with RVR Physical Therapy Order: Evaluate and Treat, Improve ambulation, Strength and gait training Home Health Nursing Order: Medical education Signs/symptoms of disease process CHF education Oxygen administration education Medication education-adverse effect Nursing assessment with vital signs Instructions: PT/INR q Mon and Thurs keep INR 2-3 I have seen patient Isaias Morfin on 07/04/17. My clinical findings support the need for the requested home health care services because: Patient has SOB Deconditioned w/ increased weakness I certify that my clinical findings support that this patient is homebound because: Unsteady gait/balance Unsafe to leave home unassisted Fahad Duarte MD Jul 04, 2017 14:55
--- NOTE | 2017-07-04 15:46 | EKG ---
Date Performed: 07/03/2017 Time Performed: 07:36:46 PTAGE: 71 years EKG: Atrial fibrillation. Left axis deviation RBBB with left anterior fascicular block Inferior infarct - age undetermined Lateral ST-T changes Abnormal ECG PREVIOUS TRACING : 06/29/2017 14.15 Compared to the previous tracing rate slower DOCTOR: Davie Hernández Interpretating Date/Time 07/04/2017 15:44:37
[2017-07-04] MEDS: WARFARIN SOD 7.5 MG TAB PO SCH (16:06)
[2017-07-05] VITALS (16 sets, daily range): BP systolic 131–139; BP diastolic 81–87; PULSE 75–98; RESP 18; TEMP 97.4–97.8; O2SAT 93–97
[2017-07-05 06:50] LABS: INTERNATIONAL NORMALIZED RATIO 1.7 RATIO; PROTHROMBIN TIME - PATIENT 19.5 SEC (9.8-11.6)
[2017-07-05 06:54] LABS: HEMATOCRIT 39.6 % (39.0-51.0); MEAN CELL VOLUME 83.8 FL (80.0-100.0); MEAN CORPUSCULAR HEMOGLOBIN 27.4 PG (27.0-34.0); MEAN CORPUSCULAR HGB CONC 32.7 % (32.0-36.0); PLATELET COUNT 155 TH/MM3 (150-450); RED BLOOD COUNT 4.73 MIL/MM3 (4.50-5.90); RED CELL DISTRIBUTION WIDTH 15.5 % (11.6-17.2); REVIEW FLAG FINAL; WHITE BLOOD COUNT 8.1 TH/MM3 (4.0-11.0)
[2017-07-05] MEDS: ASPIRIN 81 MG CHEW TAB PO SCH (08:25)
[2017-07-05] MEDS: LISINOPRIL 5 MG TAB PO SCH (08:25)
[2017-07-05] MEDS: DILTIAZEM-CD 180 MG CAP ER PO SCH (08:25)
[2017-07-05] MEDS: MAGNESIUM OXIDE 400 MG TAB PO SCH (08:26)
[2017-07-05] MEDS: guaiFENesin E.R. 600 MG TAB PO SCH (08:26)
[2017-07-05] MEDS: POTASSIUM CHLORIDE 10 MEQ CONTROLLED RELEASE TAB PO SCH (08:26)
[2017-07-05] MEDS: DOXYCYCLINE HYCLATE 100 MG TAB PO SCH (08:26)
[2017-07-05] MEDS: CLOPIDOGREL 75 MG TAB PO SCH (08:26)
[2017-07-05] MEDS: FUROSEMIDE 40 MG TAB PO SCH (08:26)
[2017-07-05] MEDS: METOPROLOL TARTRATE 50 MG TAB PO SCH (08:27)
[2017-07-05] MEDS: DOCUSATE SODIUM 50 MG/SENNA 8.6 MG TAB PO SCH (08:27)
[2017-07-05] MEDS: predniSONE 20 MG TAB PO SCH (08:27)
--- NOTE | 2017-07-05 09:50 | HHI.PR ---
Subjective Remarks Follow up fib and NSVT. He is doing okay he does not want to go to SNF. Discussed with RN and case management, discharge held yesterday pending home health care arrangements Objective Vitals Vital Signs Date Time Temp Pulse Resp B/P (MAP) Pulse Ox O2 Delivery O2 Flow Rate FiO2 07/05/17 08:01 96 Room Air 07/05/17 08:01 97.6 83 18 139/87 (104) 93 07/05/17 07:01 75 07/05/17 06:20 85 07/05/17 05:38 75 07/05/17 04:02 85 07/05/17 03:18 79 07/05/17 03:00 97.4 81 18 131/81 (98) 97 07/05/17 02:42 76 07/05/17 01:03 84 07/05/17 00:01 88 07/04/17 23:58 91 07/04/17 23:00 98.2 80 18 120/82 (95) 95 07/04/17 22:00 104 07/04/17 21:00 102 07/04/17 20:00 94 07/04/17 19:00 98 Room Air 07/04/17 19:00 98.0 98 18 150/88 (108) 94 07/04/17 18:55 97 Nasal Cannula 2.00 07/04/17 18:00 94 07/04/17 17:00 86 07/04/17 16:00 78 07/04/17 15:30 97.7 81 18 142/80 (100) 97 07/04/17 15:00 66 07/04/17 14:00 80 07/04/17 13:00 82 07/04/17 12:25 78 07/04/17 11:11 58 07/04/17 11:05 98.2 90 18 128/79 (95) 95 07/04/17 11:01 76 07/04/17 10:18 86 I/O 07/04/17 07/04/17 07/04/17 07/05/17 07/05/17 07/05/17 07:00 15:00 23:00 07:00 15:00 23:00 Intake Total 400 ml 720 ml 480 ml Output Total 500 ml 1225 ml 850 ml Balance -100 ml -505 ml -370 ml Intake Oral 400 ml 720 ml 480 ml Output Urine Total 500 ml 1225 ml 850 ml Stool Total 0 ml # Voids 5 # Bowel Movements 0 1 Result Diagram: 07/05/17 0615 07/04/17 0604 Objective Remarks Well-developed, well-nourished in no distress Pupils equal and reactive to light no jaundice Equal in expansion no expiratory wheezes Irregularly irregular Abdomen soft nontender Positive pitting edema no cyanosis Alert and oriented nonfocal No significant change in PE from previous Procedures Cardiac catheterization A/P Problem List: (1) Atrial fibrillation with RVR ICD Code: I48.91 - Unspecified atrial fibrillation Status: Acute (2) CHF (congestive heart failure) ICD Code: I50.9 - Heart failure, unspecified Status: Acute Assessment and Plan Atrial fibrillation with RVR Improved now with CVR. Lopressor increased to 125 mg twice a day, continue Cardizem and anticoagulation with Coumadin. Continue telemetry Nonsustained V. tach with known severe cardiomyopathy with severe ventricular arrhythmias s/p successful bare metal stenting of a high grade circumflex lesion which could be accounting for some of the ventricular arrhythmias. Acute on Chronic systolic CHF currently in exacerbation- likely worsening secondary to A Fib RVR Previous echocardiogram 05/28/18 shows ejection fraction 20-30%, moderate diffuse hypokinesis, moderately severely reduced systolic function, moderately to severely calcified mitral annulus Stable continue Lasix, lisinopril and Lopressor. Continue the patient on anticoagulation with clopidogrel and warfarin with an INR of 2.0 to 3.0. Will discharge without aspirin following the so-called "WOEST" approach. Aggressive electrolyte replacement. Elevated liver enzymes likely related to vascular congestion Continue to monitor liver enzymes Chronic obstructive pulmonary disease exacerbation Continue prednisone 40 mg daily for 5 days, doxycycline and mucolytics. Continue nebulizations and O2 supplementation maintain O2 sats greater 92% Hyperglycemia. A1c 6.3. Diabetic education DVT prevention patient on Coumadin Discharge Planning Stable for discharge pending home health care arrangements Problem Qualifiers (1) CHF (congestive heart failure): Qualified Codes: I50.23 - Acute on chronic systolic (congestive) heart failure Fahad Duarte MD Jul 05, 2017 09:50
[2017-07-05] MEDS ORDERED: DOXY100T PO (10:39)
[2017-07-05] MEDS ORDERED: IPRASOL NEB ×2 (10:39)
[2017-07-05] MEDS ORDERED: PRED20 PO (10:39)
[2017-07-05] MEDS ORDERED: PLAV75TA29 PO (10:39)
[2017-07-05] MEDS ORDERED: COUM7.5T PO (10:39)
[2017-07-05] MEDS ORDERED: METO-309 PO (10:39)
--- NOTE | 2017-07-05 11:08 | PD.CARD.PN ---
Subjective Subjective Remarks No angina Objective Medications Current Medications Medications (Trade) Dose Ordered Sig/Alanis Route Start Time Stop Time Status Last Admin (NS Flush) 2 ml UNSCH PRN IV FLUSH 06/29/17 15:45 (NS Flush) 2 ml UNSCH PRN IV FLUSH 06/29/17 16:45 (Tylenol) 650 mg Q4H PRN PO 06/29/17 17:15 (Zofran Inj) 4 mg Q6H PRN IVP 06/29/17 17:15 06/30/17 14:44 (Narcan Inj) 0.4 mg UNSCH PRN IV PUSH 06/29/17 17:15 (Caitlin-Colace) 1 tab BID PO 06/29/17 21:00 07/05/17 08:27 (Milk Of Magnsusan Liq) 30 ml Q12H PRN PO 06/29/17 17:15 (Senokot) 17.2 mg Q12H PRN PO 06/29/17 17:15 (Dulcolax Supp) 10 mg DAILY PRN RECTAL 06/29/17 17:15 (Cardizem Cd) 180 mg DAILY PO 06/30/17 09:00 07/05/17 08:25 (Mag-Ox) 400 mg DAILY PO 06/30/17 09:00 07/05/17 08:26 (KCl) 10 meq DAILY PO 06/30/17 09:00 07/05/17 08:26 Pharmacy Profile Note 0 ml @ 0 mls/hr UNSCH OTHER 06/29/17 17:45 (Lasix) 40 mg DAILY PO 07/01/17 09:00 07/05/17 08:26 (Prinivil) 2.5 mg DAILY PO 07/01/17 09:00 07/05/17 08:25 (Pill Splitter) 1 ea UNSCH PRN OTHER 06/30/17 15:00 (Duoneb Neb) 1 ampule Q4HR NEB PRN NEB 07/01/17 22:45 (Lopressor) 125 mg Q12HR PO 07/02/17 13:30 07/05/17 08:27 (Aspirin Chew) 81 mg DAILY PO 07/02/17 11:45 07/05/17 08:25 (Deltasone) 40 mg DAILY PO 07/03/17 09:45 07/08/17 09:44 07/05/17 08:27 (Tessalon) 200 mg Q8H PRN PO 07/03/17 09:45 (Mucinex Er) 600 mg BID PO 07/03/17 21:00 07/05/17 08:26 (Vibratab) 100 mg Q12HR PO 07/03/17 09:45 07/10/17 09:44 07/05/17 08:26 (Coumadin) 7.5 mg DAILY@16 PO 07/03/17 16:00 07/04/17 16:06 (Plavix) 75 mg DAILY PO 07/04/17 09:00 07/05/17 08:26 Vital Signs / I&O Vital Signs Date Time Temp Pulse Resp B/P (MAP) Pulse Ox O2 Delivery O2 Flow Rate FiO2 07/05/17 10:30 94 21 07/05/17 08:01 96 Room Air 07/05/17 08:01 97.6 83 18 139/87 (104) 93 07/05/17 07:01 75 07/05/17 06:20 85 07/05/17 05:38 75 07/05/17 04:02 85 07/05/17 03:18 79 07/05/17 03:00 97.4 81 18 131/81 (98) 97 07/05/17 02:42 76 07/05/17 01:03 84 07/05/17 00:01 88 07/04/17 23:58 91 07/04/17 23:00 98.2 80 18 120/82 (95) 95 07/04/17 22:00 104 07/04/17 21:00 102 07/04/17 20:00 94 07/04/17 19:00 98 Room Air 07/04/17 19:00 98.0 98 18 150/88 (108) 94 07/04/17 18:55 97 Nasal Cannula 2.00 07/04/17 18:00 94 07/04/17 17:00 86 07/04/17 16:00 78 07/04/17 15:30 97.7 81 18 142/80 (100) 97 07/04/17 15:00 66 07/04/17 14:00 80 07/04/17 13:00 82 07/04/17 12:25 78 07/04/17 11:11 58 I/O 07/04/17 07/04/17 07/04/17 07/05/17 07/05/17 07/05/17 07:00 15:00 23:00 07:00 15:00 23:00 Intake Total 400 ml 720 ml 480 ml Output Total 500 ml 1225 ml 850 ml Balance -100 ml -505 ml -370 ml Intake Oral 400 ml 720 ml 480 ml Output Urine Total 500 ml 1225 ml 850 ml Stool Total 0 ml # Voids 5 # Bowel Movements 0 1 Physical Exam Alert Chest Clear CV S1S2 irr irr Right wrist OK Laboratory Laboratory Tests Test 07/05/17 06:15 White Blood Count 8.1 TH/MM3 Red Blood Count 4.73 MIL/MM3 Hemoglobin 12.9 GM/DL Hematocrit 39.6 % Mean Corpuscular Volume 83.8 FL Mean Corpuscular Hemoglobin 27.4 PG Mean Corpuscular Hemoglobin Concent 32.7 % Red Cell Distribution Width 15.5 % Platelet Count 155 TH/MM3 Mean Platelet Volume 8.5 FL Prothrombin Time 19.5 SEC Prothromb Time International Ratio 1.7 RATIO Assessment and Plan Problem List: (1) Cardiomyopathy ICD Codes: I42.9 - Cardiomyopathy, unspecified (2) CHF (congestive heart failure) ICD Codes: I50.9 - Heart failure, unspecified Status: Acute (3) NSVT (nonsustained ventricular tachycardia) ICD Codes: I47.2 - Ventricular tachycardia (4) Chronic obstructive pulmonary disease ICD Codes: J44.9 - Chronic obstructive pulmonary disease Status: Acute (5) Atrial fibrillation with RVR ICD Codes: I48.91 - Unspecified atrial fibrillation Status: Acute Plan: controlled (6) Stented coronary artery ICD Codes: Z95.5 - Presence of coronary angioplasty implant and graft Plan: Continue clopidogrel 75 mg daily and warfarin with INR 2-3. No ASA so as to limit bleeding risk Assessment and Plan OK with me to discharge home Problem Qualifiers (1) CHF (congestive heart failure): Qualified Codes: I50.23 - Acute on chronic systolic (congestive) heart failure Alejandro Chan MD Jul 05, 2017 11:08
--- NOTE | 2017-07-11 09:42 | HHI.PR ---
Addendum to Inpatient Note Addendum Reason: Additional Documentation Additional Information Patient should be on a statin for his heart disease but a statin is contraindicated due to severely elevated liver transaminases. Alejandro Chan MD Jul 11, 2017 09:42
== END 2017-07-05 12:42 | disposition home or self-care (01) | DRG 249 ==
LOC: NEPE 13:58 → NEDA 16:39 → OBSVTOIN 17:15 → HCIN 18:01 → UNDODISIN 07-05 11:35
PROVIDERS: ADMIT Internal Medicine; ATTEND Internal Medicine
PROC: 4A023N7 Measurement of Cardiac Sampling and Pressure, Left Heart, Percutaneous Approach (ICD-10-PCS; 2017-07-03)
PROC: B2111ZZ Fluoroscopy of Multiple Coronary Arteries using Low Osmolar Contrast (ICD-10-PCS; 2017-07-03)
PROC: 02703DZ Dilation of Coronary Artery, One Artery with Intraluminal Device, Percutaneous Approach (ICD-10-PCS; principal; 2017-07-03 07:30)
DX: I11.0 Hypertensive heart disease with heart failure (principal); I47.2 Ventricular tachycardia; I42.9 Cardiomyopathy, unspecified; J44.1 Chronic obstructive pulmonary disease with (acute) exacerbation; Z99.81 Dependence on supplemental oxygen; R73.9 Hyperglycemia, unspecified; I48.91 Unspecified atrial fibrillation; I25.10 Atherosclerotic heart disease of native coronary artery without angina pectoris; I50.23 Acute on chronic systolic (congestive) heart failure; Z79.01 Long term (current) use of anticoagulants; Z87.891 Personal history of nicotine dependence
CPT/HCPCS: 71010; 80048; 80053; 82272; 82550; 82552; 82948; 83036; 83735; 83880; 84132; 84484; 85002; 85025; 85027; 85610; 85730; 92924; 93005; 93454; 94640; 94664; 96374; C1725; C1769; C1876; C1887; C1893; J1644; J1940; J2250; J2405; J3475; J7030; J7512; Q9967

== ENCOUNTER 2017-07-06 10:52 | Emergency (ER) | payer MEDICARE, OTHER ==
[~2017-07-06] VITALS: Ht 172.7 cm; Wt 74.5 kg
[~2017-07-06 10:52] MED LIST changes: -ACET1TAB86 PO; -BEDSIDE COMMODE1 MI1; -COUM3TAB PO; +COUM7.5T PO; +DOXY100T PO; +IPRASOL NEB; +PLAV75TA29 PO; +PRED20 PO; -TERA5CAP3 PO
[2017-07-06 11:00] VITALS: BP 153/81; PULSE 101; RESP 22; TEMP 98.3; O2SAT 97
[2017-07-06 11:10] VITALS: BP 153/81; PULSE 101; RESP 22; TEMP 98.3; O2SAT 97
[2017-07-06] MEDS ORDERED: DILTIAZEM HCL 25 MG/5 ML VIAL IV ONE (11:15)
[2017-07-06 11:20] VITALS: BP 138/68; PULSE 98; RESP 18; O2SAT 92
--- NOTE | 2017-07-06 11:23 | PD ---
HPI Chief Complaint: Cardiac Complaint Time Seen by Provider: 10:55 Travel History International Travel<30 days: No Contact w/Intl Traveler<30days: No Traveled to known affect area: No History of Present Illness HPI This patient was hospitalized recently for congestive heart failure and discharged yesterday evening. He went home and did not use his oxygen or filling of his prescriptions. He got short of breath and called 911. He has history of heart failure with reduced ejection fraction as well as A. fib and is on Coumadin. He lives with multiple roommates who all smoke. Symptoms severity is moderate. He was found in A. fib with RVR and given a dose of Cardizem. He arrives with a heart rate of 120 and normal blood pressure. Saturations 99% on oxygen 2 L. Symptoms are alleviated with Cardizem and oxygen. His noncompliance is an exacerbating factor. Duration 2 hours PFSH Past Medical History Atrial Fibrillation: Yes Blood Disorders: No Cancer: No Cardiovascular Problems: Yes (HTN afib rvr) High Cholesterol: Yes COPD: Yes Diminished Hearing: No Endocrine: No Genitourinary: No Headaches: Yes Hypertension: Yes Immune Disorder: No Kidney Stones: Yes Musculoskeletal: No Neurologic: No Psychiatric: No Reproductive: No Respiratory: No Tetanus Vaccination: < 5 Years Influenza Vaccination: Yes Past Surgical History Oral Surgery: Yes (Jaw ) Other Surgery: Yes (Facial reconstruction ) Social History Alcohol Use: No (States he quit a month ago ) Tobacco Use: No (States he quit a month ago ) Substance Use: No Allergies-Medications (Allergen,Severity, Reaction): Coded Allergies: No Known Allergies (Unverified , 07/06/17) Reported Meds & Prescriptions Reported Meds & Active Scripts Active Prednisone 20 Mg Tab 40 Mg PO DAILY Lopressor (Metoprolol Tartrate) 50 Mg Tab 125 Mg PO Q12HR Plavix (Clopidogrel Bisulfate) 75 Mg Tab 75 Mg PO DAILY Coumadin (Warfarin) 7.5 Mg Tab 7.5 Mg PO DAILY@16 Duoneb (Ipratropium-Albuterol Neb) 0.5-2.5 Mg/3 Ml Neb 1 Ampule NEB BID NEB Duoneb (Ipratropium-Albuterol Neb) 0.5-2.5 Mg/3 Ml Neb 1 Ampule NEB Q4HR NEB PRN Doxycycline Hyclate 100 Mg Tab 100 Mg PO Q12HR Oxygen (O2) (Miscellaneous Medication) Inha Liter MERLE.CANULA CONTINUOUS Oxygen Concentrator Portable Gaseous 2 L/min via Nasal Canula Continuous For 99 months Potassium Chloride ER (Potassium Chloride) 10 Meq Tab 10 Meq PO DAILY Lisinopril 2.5 Mg Tab 2.5 Mg PO DAILY Furosemide 40 Mg Tab 40 Mg PO DAILY 30 Days Cardizem CD 24 HR (Diltiazem CD 24 HR) 180 Mg Caper 180 Mg PO DAILY 30 Days Magnesium Oxide 400 Mg Tab 400 Mg PO DAILY Review of Systems General / Constitutional: No: Fever Eyes: No: Visual changes HENT: No: Headaches Cardiovascular: Positive: Edema, No: Chest Pain or Discomfort Respiratory: Positive: Cough, Shortness of Breath Gastrointestinal: No: Abdominal Pain Genitourinary: No: Dysuria Musculoskeletal: Positive: Edema, No: Pain Skin: No Rash Neurologic: No: Weakness Psychiatric: No: Depression Endocrine: No: Polydipsia Hematologic/Lymphatic: No: Easy Bruising Physical Exam Narrative GENERAL: Well-nourished, well-developed patient in no apparent distress. SKIN: Focused skin assessment reveals no rash and nodules. Skin is Warm and dry. HEAD: Atraumatic. Normocephalic. EYES: Pupils equal and round. No scleral icterus. No injection or drainage. ENT: No nasal bleeding or discharge. Mucous membranes pink and moist. NECK: Trachea midline. No JVD. CARDIOVASCULAR: Irregularly irregular rhythm rhythm. No murmur appreciated. Heart rate 120 RESPIRATORY: No accessory muscle use. Clear to auscultation. Breath sounds equal bilaterally. GASTROINTESTINAL: Abdomen soft, non-tender, nondistended. Hepatic and splenic margins not palpable. MUSCULOSKELETAL: No obvious deformities. No clubbing. No cyanosis. Symmetric edema of the feet and ankles. NEUROLOGICAL: Awake and alert. No obvious cranial nerve deficits. Motor grossly within normal limits. Normal speech. PSYCHIATRIC: Appropriate mood and affect; insight and judgment poor. Data Data Last Documented VS Vital Signs Date Time Temp Pulse Resp B/P (MAP) Pulse Ox O2 Delivery O2 Flow Rate FiO2 07/06/17 11:45 07/06/17 11:20 98 18 92 Room Air 07/06/17 11:10 98.3 2.00 Orders Orders Diltiazem Inj (Cardizem Inj) (07/06/17 11:15) [facility] Medical Decision Making Medical Screen Exam Complete: Yes Emergency Medical Condition: Yes Medical Record Reviewed: Yes Differential Diagnosis COPD, congestive heart failure, noncompliance Narrative Course I have reviewed the patient's electronic medical record. Reviewed his discharge summary from yesterday IV placed Extended cardiac monitoring reveals A. fib with a rate between 115 and 125 Saturations 99 percent on 2 L Lungs are clear I gave him 20 mg IV Cardizem to achieve rate control Initial blood pressure 153 systolic He had normal labs yesterday. I don't feel like additional blood work would be helpful. I reviewed his EKG which confirms A. fib with a rapid rate He is not having any chest pain and at this point is not short of breath automotive internet sales manager Maya has met with him and reviewed things such as obtaining his prescriptions. On recheck the patient has a heart rate of 90s in A. fib which is chronic However rate is controlled He is stable for outpatient follow-up but needs to be compliant in taking care of himself better. Right is on the way to pick him up and we are going to ask them to stop at the drugstore to fill his prescriptions before going home. Diagnosis Primary Impression: Atrial fibrillation with RVR Additional Impression: Noncompliance Additional Instructions: The patient was advised to follow up with their physician and return if they worsen. Fill prescriptions on the way home Use oxygen Avoid cigarette smoke Med/Other Pt SpecificInfo: Other Disposition: 01 DISCHARGE HOME Condition: Stable Jorge Lackey MD Jul 06, 2017 11:23
--- NOTE | 2017-07-06 16:53 | EKG ---
Date Performed: 07/06/2017 Time Performed: 10:55:22 PTAGE: 71 years EKG: ATRIAL FIBRILLATION WITH RAPID VENTRICULAR RESPONSE RIGHT BUNDLE BRANCH BLOCK LEFT AXIS DEV IATION ABNORMAL ECG NO PREVIOUS TRACING DOCTOR: Juan Pathak Interpretating Date/Time 07/06/2017 16:53:04
== END 2017-07-06 12:20 | disposition home or self-care (01) ==
LOC: PHED 10:52
DX: I48.91 Unspecified atrial fibrillation (principal); R94.31 Abnormal electrocardiogram [ECG] [EKG]; I10 Essential (primary) hypertension; E78.00 Pure hypercholesterolemia, unspecified; Z91.14 Patient's other noncompliance with medication regimen; Z79.01 Long term (current) use of anticoagulants; Z86.79 Personal history of other diseases of the circulatory system; Z87.09 Personal history of other diseases of the respiratory system; Z87.442 Personal history of urinary calculi; Z87.891 Personal history of nicotine dependence
CPT/HCPCS: 93005; 96374

== ENCOUNTER 2017-07-11 11:16 | Inpatient (IN) | payer OTHER ==
[2017-07-11] VITALS (12 sets, daily range): BP systolic 115–147; BP diastolic 75–97; PULSE 88–125; RESP 16–25; TEMP 97.3–97.7; O2SAT 94–99
[~2017-07-11] VITALS: Ht 170.2 cm; Wt 72.0 kg
[2017-07-11] MEDS ORDERED: SODIUM CHLORIDE 0.9% FLUSH 10 ML FLUSH IVF PRN (11:45)
[2017-07-11] MEDS ORDERED: DILTIAZEM HCL 25 MG/5 ML VIAL IV PUSH ONE (11:45)
--- NOTE | 2017-07-11 11:55 | PD ---
HPI Chief Complaint: Respiratory Symptoms Time Seen by Provider: 11:27 Travel History International Travel<30 days: No Contact w/Intl Traveler<30days: No Traveled to known affect area: No History of Present Illness HPI 71-year-old male presents to the emergency department for evaluation of shortness of breath. Patient was discharged on June 27, 2017 after being admitted for CHF, A. fib with RVR. However, he was also seen the next day in the emergency department. He had not filled any of his prescriptions and care of the same complaint. He was given a dose of Cardizem and sent home. The patient presents back today with shortness of breath. He states he was doing okay after he was discharged, but that has been progressively becoming more and more short of breath. The patient comes with his prescriptions from his last discharge. He has not filled any prescriptions or taken any medications. He states he takes 1 "small white pill" in the mornings, but takes no other medications. The patient states he has 2 get to the pharmacy. However, when I ask him how he gets food, he states that his roommate is able to go pick pulling machine tender food. However, he still has yet to fill any prescriptions. The patient denies any fevers or chills. He denies any chest pain. No abdominal pain. No nausea , vomiting, diarrhea. Patient has history of atrial fibrillation diagnosed 2014 , chronic systolic CHF cardiomyopathy echocardiogram 05/28/17 showed EF 25-30%, hypertension, chronic obstructive pulmonary disease, chronic tobacco use, chronic alcohol in the past use. Patient states he quit smoking 3 months ago. PFSH Past Medical History Hx Anticoagulant Therapy: Yes (coumadin) Atrial Fibrillation: Yes (with RVR) Blood Disorders: No Heart Rhythm Problems: Yes Cancer: No Cardiovascular Problems: Yes (a-fib with RVR, CHF, cardiomyopathy) High Cholesterol: Yes Congestive Heart Failure: Yes COPD: Yes Diminished Hearing: No Endocrine: No Gastrointestinal Disorders: No Genitourinary: No Headaches: Yes Hypertension: Yes Immune Disorder: No Kidney Stones: Yes Musculoskeletal: No Neurologic: No Psychiatric: No Reproductive: No Respiratory: Yes (COPD) Myocardial Infarction: Yes Tetanus Vaccination: Unknown ?: Not Past Surgical History Oral Surgery: Yes (Jaw ) Other Surgery: Yes (Facial reconstruction ) Social History Alcohol Use: Yes (3 drinks daily in the morning) Tobacco Use: No (States he quit a month ago ) Substance Use: No Allergies-Medications (Allergen,Severity, Reaction): Coded Allergies: No Known Allergies (Unverified , 07/11/17) Reported Meds & Prescriptions Reported Meds & Active Scripts Active Prednisone 20 Mg Tab 40 Mg PO DAILY Lopressor (Metoprolol Tartrate) 50 Mg Tab 125 Mg PO Q12HR Plavix (Clopidogrel Bisulfate) 75 Mg Tab 75 Mg PO DAILY Coumadin (Warfarin) 7.5 Mg Tab 7.5 Mg PO DAILY@16 Duoneb (Ipratropium-Albuterol Neb) 0.5-2.5 Mg/3 Ml Neb 1 Ampule NEB BID NEB Duoneb (Ipratropium-Albuterol Neb) 0.5-2.5 Mg/3 Ml Neb 1 Ampule NEB Q4HR NEB PRN Doxycycline Hyclate 100 Mg Tab 100 Mg PO Q12HR Oxygen (O2) (Miscellaneous Medication) Inha Liter MERLE.CANULA CONTINUOUS Oxygen Concentrator Portable Gaseous 2 L/min via Nasal Canula Continuous For 99 months Potassium Chloride ER (Potassium Chloride) 10 Meq Tab 10 Meq PO DAILY Lisinopril 2.5 Mg Tab 2.5 Mg PO DAILY Furosemide 40 Mg Tab 40 Mg PO DAILY 30 Days Cardizem CD 24 HR (Diltiazem CD 24 HR) 180 Mg Caper 180 Mg PO DAILY 30 Days Magnesium Oxide 400 Mg Tab 400 Mg PO DAILY Review of Systems Except as stated in HPI: all other systems reviewed are Neg Physical Exam Narrative GENERAL: Well-nourished, well-developed male patient, afebrile. SKIN: Focused skin assessment warm/dry. HEAD: Normocephalic. Atraumatic. EYES: No scleral icterus. No injection or drainage. NECK: Supple, trachea midline. No JVD or lymphadenopathy. CARDIOVASCULAR: Irregular rhythm, tachycardic heart rate in the 120s, without murmurs, gallops, or rubs. RESPIRATORY: Breath sounds equal bilaterally. No accessory muscle use. Lungs clear to auscultation. GASTROINTESTINAL: Abdomen soft, non-tender, nondistended. MUSCULOSKELETAL: No cyanosis. Patient has bilateral 1-2+ lower extremity edema. BACK: Nontender without obvious deformity. No CVA tenderness. Data Data Last Documented VS Vital Signs Date Time Temp Pulse Resp B/P (MAP) Pulse Ox O2 Delivery O2 Flow Rate FiO2 07/11/17 13:32 92 22 98 Room Air 07/11/17 11:46 07/11/17 11:29 97.6 Orders Orders Complete Blood Count With Diff (07/11/17 11:42) Basic Metabolic Panel (Bmp) (07/11/17 11:42) B-Type Natriuretic Peptide (07/11/17 11:42) Act Partial Throm Time (Ptt) (07/11/17 11:42) Prothrombin Time / Inr (Pt) (07/11/17 11:42) Magnesium (Mg) (07/11/17 11:42) Ckmb (Isoenzyme) Profile (07/11/17 11:42) Troponin I (07/11/17 11:42) Urinalysis - C+S If Indicated (07/11/17 11:42) Iv Access Insert/Monitor (07/11/17 11:42) Electrocardiogram (07/11/17 11:42) Ecg Monitoring (07/11/17 11:42) Oximetry (07/11/17 11:42) Oxygen Administration (07/11/17 11:42) Chest, Single Ap (07/11/17 11:42) Sodium Chloride 0.9% Flush (Ns Flush) (07/11/17 11:45) Diltiazem Inj (Cardizem Inj) (07/11/17 11:45) Furosemide Inj (Lasix Inj) (07/11/17 14:00) Aspirin Chew (Aspirin Chew) (07/11/17 14:00) Admit Order (Ed Use Only) (07/11/17 14:21) Consult Cardiology (07/11/17 ) Labs Laboratory Tests Test 07/11/17 11:50 07/11/17 12:19 07/11/17 13:01 White Blood Count 13.2 TH/MM3 Red Blood Count 5.57 MIL/MM3 Hemoglobin 15.7 GM/DL Hematocrit 47.0 % Mean Corpuscular Volume 84.3 FL Mean Corpuscular Hemoglobin 28.1 PG Mean Corpuscular Hemoglobin Concent 33.3 % Red Cell Distribution Width 15.7 % Platelet Count 248 TH/MM3 Mean Platelet Volume 9.3 FL Neutrophils (%) (Auto) 78.0 % Lymphocytes (%) (Auto) 12.2 % Monocytes (%) (Auto) 9.3 % Eosinophils (%) (Auto) 0.1 % Basophils (%) (Auto) 0.4 % Neutrophils # (Auto) 10.3 TH/MM3 Lymphocytes # (Auto) 1.6 TH/MM3 Monocytes # (Auto) 1.2 TH/MM3 Eosinophils # (Auto) 0.0 TH/MM3 Basophils # (Auto) 0.1 TH/MM3 CBC Comment DIFF FINAL Differential Comment B-Type Natriuretic Peptide 2932 PG/ML Urine Color YELLOW Urine Turbidity CLEAR Urine pH 5.0 Urine Specific [place] 1.020 Urine Protein 30 mg/dL Urine Glucose (UA) NEG mg/dL Urine Ketones NEG mg/dL Urine Occult Blood NEG Urine Nitrite NEG Urine Bilirubin NEG Urine Urobilinogen 2.0 MG/DL Urine Leukocyte Esterase NEG Urine RBC LESS THAN 1 /hpf Urine WBC 1 /hpf Urine Squamous Epithelial Cells <1 /hpf Urine Hyaline Casts 27 /lpf Urine Mucus FEW /lpf Microscopic Urinalysis Comment CULT NOT INDICATED Prothrombin Time 18.1 SEC Prothromb Time International Ratio 1.6 RATIO Activated Partial Thromboplast Time 25.6 SEC Blood Urea Nitrogen 34 MG/DL Creatinine 1.22 MG/DL Random Glucose 109 MG/DL Calcium Level 9.1 MG/DL Magnesium Level 2.1 MG/DL Sodium Level 137 MEQ/L Potassium Level 5.5 MEQ/L Chloride Level 101 MEQ/L Carbon Dioxide Level 26.2 MEQ/L Anion Gap 10 MEQ/L Estimat Glomerular Filtration Rate 59 ML/MIN Total Creatine Kinase 86 U/L Troponin I 0.22 NG/ML [facility] Medical Decision Making Medical Screen Exam Complete: Yes Emergency Medical Condition: Yes Medical Record Reviewed: Yes Interpretation(s) chest x-ray - CONCLUSION: No acute disease. Mild cardiomegaly. Differential Diagnosis A. fib with RVR versus CHF exacerbation versus COPD exacerbation versus noncompliance versus electrolyte abnormality versus ACS Narrative Course 71-year-old male presents to the emergency department for worsening shortness of breath is being discharged. He rested all his prescriptions at bedside and has not filled or taken any of his medications. EKG shows A. fib with RVR, heart rate 115 with right bundle branch block. CBC, BMP, CK, troponin, BNP, magnesium, PTT, PT/INR, UA, chest x-ray are ordered and pending. CBC shows leukocytosis 13.2. BMP shows hyperkalemia 5.5, BUN 34, glucose 109. CK is 86. Troponin is elevated 0.22. BNP is 2932. Magnesium is 2.1. PT is 18.1, INR 1.6, PTT 25.6. UA is negative for acute infection. Chest x-ray show no acute disease. Mild cardiomegaly. Patient's home health nurse, Yamilet, called and is concerned that the patient is not appropriate to return home. She states that his caregiver, Deni, states that he is unable to manage the patient and help since he lost his job. She states that he is only receiving his metoprolol and has nebulizer at home. He is not receiving any other medications. She states the patient would benefit from placement in states that she spoke with the case making machine operator the [place] who agrees. However, the patient does not want placement and tells me that he wants to return home. Patient is given aspirin 162 mg by mouth, Lasix 40 mg IV. Upon further review of the chart, the patient had cardiac catheterization done on July 02, [address] Chan. The patient had successful bare-metal stenting of a high- grade circumflex lesion. The patient is subtherapeutic with his INR and is not compliant. Dr. Chan, adult specialist, is paged. [facility] is paged for admission. Dr. Knapp accepted admission. Dr. Chan, who states that he consult she go to the adult specialist on-call. However, he does recommend loading dose of Plavix 600 mg. Diagnosis Primary Impression: Atrial fibrillation with RVR Additional Impressions: CHF (congestive heart failure) Qualified Codes: I50.9 - Heart failure, unspecified Elevated troponin Admitting Information Admitting Physician Requests: Admit Polly Velasquez Jul 11, 2017 11:55
--- NOTE | 2017-07-11 12:03 | RADRPT ---
EXAM DATE/TIME: 07/11/2017 11:55 [facility] COMPARISON: CHEST SINGLE AP, June 29, 2017, 14:29. INDICATIONS : Shortness of breath. MEDICAL HISTORY : Hypercholesterolemia. Hypertension. COPD. Dyspnea. Kidney stones. A-fib. SURGICAL HISTORY : Jaw surgery. ENCOUNTER: Initial ACUITY: 1 day PAIN SCORE: 0/10 LOCATION: Bilateral chest FINDINGS: A single view of the chest demonstrates the lungs to be symmetrically aerated without evidence of mas s, infiltrate or effusion. Mild cardiomegaly. The cardiomediastinal contours are unremarkable. Osse ous structures are intact. CONCLUSION: No acute disease. Mild cardiomegaly. Deejay Cleveland MD on July 11, 2017 at 12:01 Board Certified Radiologist. This report was verified electronically.
[2017-07-11 12:35] LABS: AUTOMATED NEUTROPHIL # 10.3 TH/MM3 (1.8-7.7); BASOPHIL # 0.1 TH/MM3 (0-0.2); BASOPHIL % 0.4 % (0.0-2.0); EOSINOPHIL % 0.1 % (0.0-4.0); HEMO FLAGS DIFF FINAL; LYMPH % 12.2 % (9.0-44.0); LYMPHOCYTE # 1.6 TH/MM3 (1.0-4.8); MEAN CELL VOLUME 84.3 FL (80.0-100.0); MEAN CORPUSCULAR HEMOGLOBIN 28.1 PG (27.0-34.0); MEAN CORPUSCULAR HGB CONC 33.3 % (32.0-36.0); MONO % 9.3 % (0.0-8.0); PLATELET COUNT 248 TH/MM3 (150-450); RED BLOOD COUNT 5.57 MIL/MM3 (4.50-5.90); RED CELL DISTRIBUTION WIDTH 15.7 % (11.6-17.2); WHITE BLOOD COUNT 13.2 TH/MM3 (4.0-11.0)
[2017-07-11 12:42] LABS: BLOOD, URINE NEG (NEG); GLUCOSE,URINE NEG (NEG); HYALINE CAST, URINE 27 /lpf (RARE); KETONE, URINE NEG (NEG); MUCUS URINE FEW /lpf (OCC); NITRITE,URINE NEG (NEG); SQUAMOUS EPITHELIAL CELL URINE <1 /hpf (0-5); URINE COLOR YELLOW (YELLW/STRAW)
[2017-07-11 12:43] LABS: COMMENT (UR) CULT NOT INDICATED; CULTURE IF INDICATED CULT NOT INDICATED
[2017-07-11 13:24] LABS: INTERNATIONAL NORMALIZED RATIO 1.6 RATIO; PROTHROMBIN TIME - PATIENT 18.1 SEC (9.8-11.6)
[2017-07-11 13:25] LABS: APTT (PATIENT) 25.6 SEC (24.3-30.1)
[2017-07-11 13:36] LABS: BICARBONATE 26.2 MEQ/L (21.0-32.0); MAGNESIUM 2.1 MG/DL (1.5-2.5)
[2017-07-11 13:38] LABS: POTASSIUM 5.5 MEQ/L (3.5-5.1)
--- NOTE | 2017-07-11 13:56 | EKG ---
Date Performed: 07/11/2017 Time Performed: 11:29:23 PTAGE: 71 years EKG: ATRIAL FIBRILLATION WITH RAPID VENTRICULAR RESPONSE RIGHT BUNDLE BRANCH BLOCK LEFT ANTERIOR HEMIBLOCK INFERIOR MYOCARDIAL INFARCTION ABNORMAL ECG NO PREVIOUS TRACING DOCTOR: Evan Valencia Interpretating Date/Time 07/11/2017 13:55:25
[2017-07-11] MEDS ORDERED: FUROSEMIDE 40 MG/4 ML VIAL IV PUSH ONE (14:00)
[2017-07-11] MEDS ORDERED: ASPIRIN 81 MG CHEW TAB CHEW ONE (14:00)
--- NOTE | 2017-07-11 14:22 | HHI.HP ---
[facility] Service [facility] Primary Care Physician [facility] Admission Diagnosis Diagnoses: Chief Complaint: Shortness of breath Travel History International Travel<30 Days: No Contact w/Intl Traveler <30 Da: No Traveled to Known Affected Are: No History of Present Illness ER Notes: 71-year-old male presents to the emergency department for evaluation of shortness of breath. Patient was discharged on June 27, 2017 after being admitted for CHF, A. fib with RVR. However, he was also seen the next day in the emergency department. He had not filled any of his prescriptions and care of the same complaint. He was given a dose of Cardizem and sent home. The patient presents back today with shortness of breath. He states he was doing okay after he was discharged, but that has been progressively becoming more and more short of breath. The patient comes with his prescriptions from his last discharge. He has not filled any prescriptions or taken any medications. He states he takes 1 "small white pill" in the mornings, but takes no other medications. The patient states he has 2 get to the pharmacy. However, when I ask him how he gets food, he states that his roommate is able to go poultry picker food. However, he still has yet to fill any prescriptions. The patient denies any fevers or chills. He denies any chest pain. No abdominal pain. No nausea , vomiting, diarrhea. Patient has history of atrial fibrillation diagnosed 2014 , chronic systolic CHF cardiomyopathy echocardiogram 05/28/17 showed EF 25-30%, hypertension, chronic obstructive pulmonary disease, chronic tobacco use, chronic alcohol in the past use. Patient states he quit smoking 3 months ago. 07/11: as we know he has Multiple Hospitalizations, has Atrial Fibrillation diagnosed 2014, Chronic Systolic CHF Cardiomyopathy Echocardiogram 05/28/17 showed EF 25-30%, Hypertension, COPD, Chronic Tobacco dependence, chronic alcohol abuse, he was admitted from 05/27/17 through 06/26/17 was discharged on 06/28/17 and discharged again on 07/04/17 and came back today with similar symptoms. seen in Emergency room he is alert and oriented x 3. Review of Systems Constitutional: DENIES: Fever, Chills, Change in appetite Endocrine: DENIES: Heat/cold intolerance Eyes: DENIES: Blurred vision, Eye pain Respiratory: COMPLAINS OF: Shortness of breath Except as stated in HPI: all other systems reviewed are Neg Past Family Social History Past Medical History Coumadin chronic use Atrial Fibrillation CHF Cardiomyopathy Hyperlipidemia COPD Hypertension History of [place] Urolithiasis Tobacco dependence Alcohol abuse Past Surgical History Jaw surgery Facial Reconstruction Reported Medications Reported Meds & Active Scripts Active Prednisone 20 Mg Tab 40 Mg PO DAILY Lopressor (Metoprolol Tartrate) 50 Mg Tab 125 Mg PO Q12HR Plavix (Clopidogrel Bisulfate) 75 Mg Tab 75 Mg PO DAILY Coumadin (Warfarin) 7.5 Mg Tab 7.5 Mg PO DAILY@16 Duoneb (Ipratropium-Albuterol Neb) 0.5-2.5 Mg/3 Ml Neb 1 Ampule NEB BID NEB Duoneb (Ipratropium-Albuterol Neb) 0.5-2.5 Mg/3 Ml Neb 1 Ampule NEB Q4HR NEB PRN Doxycycline Hyclate 100 Mg Tab 100 Mg PO Q12HR Oxygen (O2) (Miscellaneous Medication) Inha Liter MERLE.CANULA CONTINUOUS Oxygen Concentrator Portable Gaseous 2 L/min via Nasal Canula Continuous For 99 months Potassium Chloride ER (Potassium Chloride) 10 Meq Tab 10 Meq PO DAILY Lisinopril 2.5 Mg Tab 2.5 Mg PO DAILY Furosemide 40 Mg Tab 40 Mg PO DAILY 30 Days Cardizem CD 24 HR (Diltiazem CD 24 HR) 180 Mg Caper 180 Mg PO DAILY 30 Days Magnesium Oxide 400 Mg Tab 400 Mg PO DAILY Allergies: Coded Allergies: No Known Allergies (Unverified , 07/11/17) Active Ordered Medications Current Medications Medications (Trade) Dose Ordered Sig/Alanis Route Start Time Stop Time Status Last Admin (NS Flush) 2 ml UNSCH PRN IVF 07/11/17 11:45 (Plavix) 75 mg DAILY PO 07/11/17 14:30 07/11/17 14:41 (Cardizem Cd) 180 mg DAILY PO 07/11/17 14:30 07/11/17 14:39 (Mag-Ox) 400 mg DAILY PO 07/11/17 14:30 07/11/17 14:44 (Lopressor) 125 mg Q12H PO 07/11/17 16:00 (Coumadin) 7.5 mg DAILY@16 PO 07/11/17 16:00 (Prinivil) 2.5 mg DAILY PO 07/12/17 09:00 (Lasix) 40 mg DAILY PO 07/12/17 09:00 (Pill Splitter) 1 ea UNSCH PRN OTHER 07/11/17 14:45 (NS Flush) 2 ml BID IV FLUSH 07/11/17 21:00 (Tylenol) 650 mg Q4H PRN PO 07/11/17 14:45 (Zofran Inj) 4 mg Q6H PRN IVP 07/11/17 14:45 (Narcan Inj) 0.4 mg UNSCH PRN IV PUSH 07/11/17 14:45 (Caitlin-Colace) 1 tab BID PO 07/11/17 21:00 (Milk Of Magnesia Liq) 30 ml Q12H PRN PO 07/11/17 14:45 (Senokot) 17.2 mg Q12H PRN PO 07/11/17 14:45 (Dulcolax Supp) 10 mg DAILY PRN RECTAL 07/11/17 14:45 (Lactulose Liq) 30 ml DAILY PRN PO 07/11/17 14:45 (Heparin Inj) 4,000 units ONCE ONCE IV PUSH 07/11/17 15:30 07/11/17 15:31 Heparin Sodium/ Dextrose 250 ml @ 8 mls/hr TITRATE PRN IV 07/11/17 14:45 (Duoneb Neb) 1 ampule Q4HR NEB NEB 07/11/17 16:00 (Mucinex Er) 600 mg BID PO 07/11/17 21:00 Family History Mother at age 86 and father at age 72, patient denied any heart disease on disease, diabetes, cancer, seizures, stroke Social History alcohol abuse 3 drinks daily Tobacco dependence Physical Exam Vital Signs Vital Signs Date Time Temp Pulse Resp B/P (MAP) Pulse Ox O2 Delivery O2 Flow Rate FiO2 07/11/17 13:32 92 22 98 Room Air 07/11/17 11:46 96 Room Air 07/11/17 11:46 96 Room Air 07/11/17 11:29 97.6 125 25 134/80 (98) 97 Room Air Physical Exam GENERAL: Well-developed male patient, afebrile. SKIN: Focused skin assessment warm/dry. HEAD: Normocephalic. Atraumatic. EYES: No scleral icterus. No injection or drainage. NECK: Supple, trachea midline. No JVD or lymphadenopathy. CARDIOVASCULAR: Irregular rhythm, tachycardic heart rate in the 120s, without murmurs, gallops, or rubs. RESPIRATORY: Breath sounds equal bilaterally. No accessory muscle use. Lungs clear to auscultation. GASTROINTESTINAL: Abdomen soft, non-tender, distended but soft. MUSCULOSKELETAL: Ecchymosis on both upper extremities. . Edema 3+ BACK: Nontender without obvious deformity. No CVA tenderness. Laboratory Laboratory Tests Test 07/11/17 11:50 07/11/17 12:19 07/11/17 13:01 White Blood Count 13.2 Red Blood Count 5.57 Hemoglobin 15.7 Hematocrit 47.0 Mean Corpuscular Volume 84.3 Mean Corpuscular Hemoglobin 28.1 Mean Corpuscular Hemoglobin Concent 33.3 Red Cell Distribution Width 15.7 Platelet Count 248 Mean Platelet Volume 9.3 Neutrophils (%) (Auto) 78.0 Lymphocytes (%) (Auto) 12.2 Monocytes (%) (Auto) 9.3 Eosinophils (%) (Auto) 0.1 Basophils (%) (Auto) 0.4 Neutrophils # (Auto) 10.3 Lymphocytes # (Auto) 1.6 Monocytes # (Auto) 1.2 Eosinophils # (Auto) 0.0 Basophils # (Auto) 0.1 CBC Comment DIFF FINAL Differential Comment B-Type Natriuretic Peptide 2932 Urine Color YELLOW Urine Turbidity CLEAR Urine pH 5.0 Urine Specific [place] 1.020 Urine Protein 30 Urine Glucose (UA) NEG Urine Ketones NEG Urine Occult Blood NEG Urine Nitrite NEG Urine Bilirubin NEG Urine Urobilinogen 2.0 Urine Leukocyte Esterase NEG Urine RBC LESS THAN 1 Urine WBC 1 Urine Squamous Epithelial Cells <1 Urine Hyaline Casts 27 Urine Mucus FEW Microscopic Urinalysis Comment CULT NOT INDICATED Prothrombin Time 18.1 Prothromb Time International Ratio 1.6 Activated Partial Thromboplast Time 25.6 Blood Urea Nitrogen 34 Creatinine 1.22 Random Glucose 109 Calcium Level 9.1 Magnesium Level 2.1 Sodium Level 137 Potassium Level 5.5 Chloride Level 101 Carbon Dioxide Level 26.2 Anion Gap 10 Estimat Glomerular Filtration Rate 59 Total Creatine Kinase 86 Troponin I 0.22 Result Diagram: 07/11/17 1150 07/11/17 1301 Caprini VTE Risk Assessment Caprini VTE Risk Assessment: Mod/High Risk (score >= 2) Caprini Risk Assessment Model Point Value = 1 Point Value = 2 Point Value = 3 Point Value = 5 Age 41-60 Minor surgery BMI > 25 kg/m2 Swollen legs Varicose veins or History of unexplained or recurrent spontaneous Oral contraceptives or hormone replacement Sepsis (< 1 month) Serious lung disease, including pneumonia (< 1 month) Abnormal pulmonary function Acute myocardial infarction Congestive heart failure (< 1 month) History of inflammatory bowel disease Medical patient at bed rest Age 61-74 Arthroscopic surgery Major open surgery (> 45 min) Laparoscopic surgery (> 45 min) Malignancy Confined to bed (> 72 hours) Immobilizing plaster cast Central venous access Age >= 75 History of VTE Family history of VTE Factor V Leiden Prothrombin [id number] Lupus anticoagulant Anticardiolipin antibodies Elevated serum homocysteine Heparin-induced thrombocytopenia Other congenital or acquired thrombophilia Stroke (< 1 month) Elective arthroplasty Hip, pelvis, or leg fracture Acute spinal cord injury (< 1 month) Prophylaxis Regimen Total Risk Factor Score Risk Level Prophylaxis Regimen 0-1 Low Early ambulation 2 Moderate Order ONE of the following: *Sequential Compression Device (SCD) *Heparin 5000 units SQ BID 3-4 Higher Order ONE of the following medications: *Heparin 5000 units SQ TID *Enoxaparin/Lovenox 40 mg SQ daily (WT < 150 kg, CrCl > 30 mL/min) *Enoxaparin/Lovenox 30 mg SQ daily (WT < 150 kg, CrCl > 10-29 mL/min) *Enoxaparin/Lovenox 30 mg SQ BID (WT < 150 kg, CrCl > 30 mL/min) AND/OR *Sequential Compression Device (SCD) 5 or more Highest Order ONE of the following medications: *Heparin 5000 units SQ TID (Preferred with Epidurals) *Enoxaparin/Lovenox 40 mg SQ daily (WT < 150 kg, CrCl > 30 mL/min) *Enoxaparin/Lovenox 30 mg SQ daily (WT < 150 kg, CrCl > 10-29 mL/min) *Enoxaparin/Lovenox 30 mg SQ BID (WT < 150 kg, CrCl > 30 mL/min) AND *Sequential Compression Device (SCD) Assessment and Plan Assessment and Plan Atrial fibrillation with RVR Patient was diagnosed with atrial fibrillation, 2 years ago. Continuous telemetry Re start his Cardizem from Discharge and Beta Blockers, consult oil fire specialist due to Elevated troponin level. On Coumadin, INR subtherapeutic 1.6 on admission. Start heparin drip Cardiomyopathy. Acute on Chronic systolic CHF currently in exacerbation- likely worsening secondary to A Fib RVR Previous echocardiogram 05/28/18 shows ejection fraction 20-30%, moderate diffuse hypokinesis, moderately severely reduced systolic function, moderately to severely calcified mitral annulus BNP elevated at 2932, Cardiology consulted, Lasix IV Elevated liver enzymes likely related to vascular congestion Continue monitor liver enzymes, monitor coagulation studies Chronic obstructive pulmonary disease Continue O2 supplementation maintain O2 sats greater 92% continue Bronchodilator, Mucolytic and incentive spirometry. Non compliant patient COPD to continue Bronchodilator, Mucolytic and incentive spirometry Hyperlipidemia by history Tobacco dependence and alcohol abuse strongly recommended to stop behavior DVT prevention patient on heparin drip as per caregiver not able to take care of the patient has [facility] Discussed Condition With Polly Velasquez Physician Certification 2 Midnight Certification Type: Admission for Inpatient Services Order for Inpatient Services The services are ordered in accordance with Medicare regulations or non- Medicare payer requirements, as applicable. In the case of services not specified as inpatient-only, they are appropriately provided as inpatient services in accordance with the 2-midnight benchmark. Estimated LOS (days): 3 days is the estimated time the patient will need to remain in the hospital, assuming treatment plan goals are met and no additional complications. Post-Hospital Plan: Not yet determined Gabriel Do MD Jul 11, 2017 14:22
[2017-07-11] MEDS ORDERED: FUROSEMIDE 40 MG TAB PO SCH (14:30)
[2017-07-11] MEDS: DILTIAZEM-CD 180 MG CAP ER PO SCH (14:39)
[2017-07-11] MEDS: CLOPIDOGREL 75 MG TAB PO SCH (14:41)
[2017-07-11] MEDS: MAGNESIUM OXIDE 400 MG TAB PO SCH (14:44)
[2017-07-11] MEDS ORDERED: BISACODYL 10 MG SUPP RECTAL PRN (14:45)
[2017-07-11] MEDS ORDERED: ONDANSETRON HCL 4 MG/2 ML VIAL IVP PRN (14:45)
[2017-07-11] MEDS ORDERED: MAGNESIUM HYDROXIDE SUSP 30 ML CUP PO PRN (14:45)
[2017-07-11] MEDS ORDERED: CLOPIDOGREL 300 MG TAB PO ONE (14:45)
[2017-07-11] MEDS ORDERED: PILL SPLITTER OTHER PRN (14:45)
[2017-07-11] MEDS ORDERED: ACETAMINOPHEN 325 MG TAB PO PRN (14:45)
[2017-07-11] MEDS ORDERED: SODIUM CHLORIDE 0.9% FLUSH 10 ML FLUSH IV FLUSH PRN (14:45)
[2017-07-11] MEDS ORDERED: NALOXONE HCL 0.4 MG/ML AMP IV PUSH PRN (14:45)
[2017-07-11] MEDS ORDERED: LACTULOSE SYRUP 20 GM/30 ML CUP PO PRN (14:45)
[2017-07-11] MEDS ORDERED: SENNOSIDES 8.6 MG TAB PO PRN (14:45)
[2017-07-11] MEDS ORDERED: HEPARIN SODIUM - IV 10,000 UNITS/10 ML VIAL IV PUSH ONE (15:30)
[2017-07-11] MEDS: HEPARIN-D5W 25,000 U/250 ML 250 ML IV PRN (16:29)
[2017-07-11] MEDS: METOPROLOL TARTRATE 50 MG TAB PO SCH (16:30)
[2017-07-11] MEDS: RESP: ALBUTEROL 2.5 MG/IPRATROPIUM 0.5 MG NEB (SCH) NEB (16:44)
[2017-07-11] MEDS: WARFARIN SOD 7.5 MG TAB PO SCH (17:53)
--- NOTE | 2017-07-11 18:57 | MB ---
cc: DAVIE FARMER DATE OF CONSULTATION 07/11/2017 REASON FOR CONSULTATION A 71-year-old white male with a history of cardiomyopathy with severe left ventricular dysfunction, chronic atrial fibrillation with rapid ventricle response and recent stenting of mid left circumflex artery by Dr. Chan. The patient presented with shortness of breath. He does not have any chest pain. He did not fill his prescriptions after coronary stenting. He has chronic systolic congestive heart failure, ejection fraction 25-30%. Previous history of and also previous history of smoking. PAST MEDICAL HISTORY Positive for: 1. Atrial fibrillation with rapid ventricular response. 2. Cardiomyopathy with severe left ventricular dysfunction, ejection fraction 25-30% on echocardiogram 05/28/2017. 3. Recent left circumflex ____ using a bare-metal stent by Dr. Chan. 4. Hypertension. 5. Chronic obstructive pulmonary disease. 6. Chronic alcohol use. 7. Dyslipidemia. 8. Jaw surgery with facial reconstruction. MEDICATIONS He is supposed to take include: 1. Prednisone. 2. Lopressor. 3. Plavix. 4. Coumadin. 5. DuoNeb. 6. Doxycycline. 7. Oxygen. 8. Potassium. 9. Lisinopril. 10. Furosemide. 11. Diltiazem. 12. Magnesium. ALLERGIES NONE. SOCIAL HISTORY The patient stated he quit smoking about 3 or four months ago. He states also he quit drinking alcohol. FAMILY HISTORY Negative for heart disease. REVIEW OF SYSTEMS Otherwise negative. PHYSICAL EXAMINATION VITAL SIGNS: Blood pressure was 134/80, pulse 100 and regular. HEENT: Negative. NECK: 2+ carotid upstrokes. No bruits. LUNGS: Clear. HEART: Irregularly irregular with no murmur, gallop or rub. ABDOMEN: Soft. No bruits. EXTREMITIES: With bilateral edema. Bilateral ecchymosis. 1-2+ pulse. NEUROLOGIC: Grossly nonfocal. EKG was reviewed and showed atrial fibrillation with rapid ventricular response, left axis, right bundle-branch block, old inferior wall myocardial infarction. LABORATORY DATA Hemoglobin 15.7. Potassium 5.5, creatinine 1.2, magnesium 2.1. Troponin 0.22. BNP 2932. DIAGNOSES 1. Atrial fibrillation with rapid ventricular response. 2. Cardiomyopathy with severe left ventricular systolic dysfunction. 3. Coronary artery disease recent and stenting. 4. Noncompliance with medical care. 5. Dyslipidemia. 6. History of smoking. 7. Alcohol use. DISPOSITION Mr. Morfin will be monitored on telemetry. I recommend to titrate medications for rate control. I recommend to continue warfarin and clopidogrel post recent stenting by Dr. Chan. Recommend continued therapy for congestive heart failure including diuresis, closely monitoring his renal function. I follow him for cardiology during his hospitalization. Davie Farmer MD OHarley/KK /4:22 PM /6:17 PM
[2017-07-11] MEDS: guaiFENesin E.R. 600 MG TAB PO SCH (21:53)
[2017-07-11] MEDS: SODIUM CHLORIDE 0.9% FLUSH 10 ML FLUSH IV FLUSH SCH (21:53)
[2017-07-11] MEDS: DOCUSATE SODIUM 50 MG/SENNA 8.6 MG TAB PO SCH (21:53)
[2017-07-11 22:00] LABS: MEAN CELL VOLUME 84.8 FL (80.0-100.0); MEAN CORPUSCULAR HEMOGLOBIN 27.1 PG (27.0-34.0); PLATELET COUNT 234 TH/MM3 (150-450); RED BLOOD COUNT 5.54 MIL/MM3 (4.50-5.90); REVIEW FLAG FINAL
[2017-07-11 22:13] LABS: APTT (PATIENT) 43.5 SEC (24.3-30.1)
[2017-07-12] VITALS (26 sets, daily range): BP systolic 110–132; BP diastolic 77–98; PULSE 75–128; RESP 18; TEMP 97.3–98.5; O2SAT 92–98
[2017-07-12] MEDS: RESP: ALBUTEROL 2.5 MG/IPRATROPIUM 0.5 MG NEB (SCH) NEB ×6 (00:49→21:37)
[2017-07-12] MEDS: METOPROLOL TARTRATE 50 MG TAB PO SCH ×2 (04:36→18:20)
[2017-07-12 06:52] LABS: APTT (PATIENT) 43.5 SEC (24.3-30.1)
[2017-07-12 07:09] LABS: AUTOMATED NEUTROPHIL # 7.5 TH/MM3 (1.8-7.7); BASOPHIL % 0.4 % (0.0-2.0); EOSINOPHIL % 0.2 % (0.0-4.0); HEMATOCRIT 46.1 % (39.0-51.0); HEMO FLAGS DIFF FINAL; LYMPH % 13.2 % (9.0-44.0); LYMPHOCYTE # 1.4 TH/MM3 (1.0-4.8); MEAN CELL VOLUME 84.5 FL (80.0-100.0); MEAN CORPUSCULAR HEMOGLOBIN 27.4 PG (27.0-34.0); MEAN CORPUSCULAR HGB CONC 32.4 % (32.0-36.0); MONO % 14.2 % (0.0-8.0); PLATELET COUNT 239 TH/MM3 (150-450); RED BLOOD COUNT 5.45 MIL/MM3 (4.50-5.90); RED CELL DISTRIBUTION WIDTH 16.1 % (11.6-17.2); WHITE BLOOD COUNT 10.4 TH/MM3 (4.0-11.0)
[2017-07-12 07:12] LABS: BICARBONATE 29.5 MEQ/L (21.0-32.0); POTASSIUM 3.5 MEQ/L (3.5-5.1)
[2017-07-12] MEDS ORDERED: POTASSIUM CHLORIDE 10 MEQ CONTROLLED RELEASE TAB PO SCH (09:00)
[2017-07-12] MEDS ORDERED: FUROSEMIDE 40 MG TAB PO SCH (09:00)
[2017-07-12] MEDS: SODIUM CHLORIDE 0.9% FLUSH 10 ML FLUSH IV FLUSH SCH ×2 (09:00→21:00)
--- NOTE | 2017-07-12 09:01 | HHI.PR ---
Subjective Remarks patient states no chest pain. Denies any palpitations. States that he does walk with a walker but does not get out much. He does have a roommate but does live with him. He admitted not filling his medications. Objective Vitals Vital Signs Date Time Temp Pulse Resp B/P (MAP) Pulse Ox O2 Delivery O2 Flow Rate FiO2 07/12/17 06:00 85 07/12/17 05:00 107 07/12/17 04:00 110 07/12/17 03:00 97.3 97 18 128/98 (108) 97 07/12/17 03:00 109 07/12/17 02:00 99 07/12/17 01:00 99 07/12/17 00:54 97 07/12/17 00:00 94 07/11/17 23:00 97.5 94 18 136/97 (110) 94 07/11/17 23:00 112 07/11/17 22:00 90 07/11/17 21:00 88 07/11/17 20:00 90 07/11/17 19:15 97.7 100 18 121/79 (93) 99 07/11/17 19:00 98 07/11/17 18:41 102 07/11/17 17:47 07/11/17 17:38 97.3 109 16 115/75 (88) 98 07/11/17 17:05 97 21 07/11/17 16:30 106 16 147/92 (110) 97 Room Air 07/11/17 13:32 92 22 98 Room Air 07/11/17 11:46 96 Room Air 07/11/17 11:46 96 Room Air 07/11/17 11:29 97.6 125 25 134/80 (98) 97 Room Air I/O 07/11/17 07/11/17 07/11/17 07/12/17 07/12/17 07/12/17 07:00 15:00 23:00 07:00 15:00 23:00 Intake Total 240 ml 480 ml Output Total 350 ml 1000 ml Balance -110 ml -520 ml Intake Oral 240 ml 480 ml Output Urine Total 350 ml 1000 ml # Voids 1 1 Result Diagram: 07/12/17 0428 07/12/17 0428 Objective Remarks GENERAL: This is a well-nourished, well-developed patient, in no apparent distress. CARDIOVASCULAR: Distant heart sounds Regular rate and irregular rhythm RESPIRATORY: Diminished breath sounds with few bibasilar crackles GASTROINTESTINAL: Abdomen soft, non-tender, nondistended. Normal, active bowel sounds MUSCULOSKELETAL: Extremities without clubbing, cyanosis, trace edema NEURO: Alert & Oriented x4 to person, place, time, situation. Moves all ext x4 A/P Assessment and Plan Atrial fibrillation with RVR with a history of medication non-adherence- Patient is currently on Cardizem drip and well start by mouth Shemar and beta kee. Cardiology recommended continuing medical treatment Nt was diagnosed with atrial fibrillation, 2 years ago. On Coumadin, INR subtherapeutic 1.6 on admission with repeat levels pending this morning, currently also on heparin drip which we'll discontinue when INR is greater than 2. Ischemic Cardiomyopathy. Acute on Chronic systolic CHF currently in exacerbation- likely worsening secondary to A Fib RVR Previous echocardiogram 05/28/18 shows ejection fraction 20-30%, moderate diffuse hypokinesis, moderately severely reduced systolic function, moderately to severely calcified mitral annulus BNP elevated at 2932, Cardiology consulted, Lasix IV will change to by mouth twice a day and continue strict monitoring of I&O's, continue lisinopril Elevated liver enzymes likely related to vascular congestion Chronic obstructive pulmonary disease Continue O2 supplementation maintain O2 sats greater 92%, wean O2 as tolerated continue Bronchodilator, encourage incentive spirometry. History of medication nonadherence, Non compliant patient- patient has been counseled, case management arranged home health care upon discharge COPD to continue Bronchodilator, Mucolytic and incentive spirometry Hyperlipidemia by history Tobacco dependence and alcohol abuse cessation counseling DVT prevention patient on heparin drip and Coumadin Deconditioning, physical therapy Discharge Planning When clinically stable, will need home health care, due to patient's history of COPD, ischemic cardiomyopathy with chronic systolic congestive heart failure and medication adherence, he is high risk for readmissions Romana Reilly MD Jul 12, 2017 09:01
--- NOTE | 2017-07-12 09:03 | HHI.FF ---
Face to Face Verification Diagnosis: (1) Acute on chronic systolic (congestive) heart failure (2) Atrial fibrillation with RVR Home Health Nursing Order: Medical education CHF education I have seen patient Isaias Morfin on 07/12/17. My clinical findings support the need for the requested home health care services because: Ltd mobility - disease progression Med compliance is questionable I certify that my clinical findings support that this patient is homebound because: Poor cardiac reserve Romana Reilly MD Jul 12, 2017 09:03
[2017-07-12] MEDS: DOCUSATE SODIUM 50 MG/SENNA 8.6 MG TAB PO SCH ×2 (09:10→21:19)
[2017-07-12] MEDS: MAGNESIUM OXIDE 400 MG TAB PO SCH (09:10)
[2017-07-12] MEDS: guaiFENesin E.R. 600 MG TAB PO SCH ×2 (09:10→21:19)
[2017-07-12] MEDS: LISINOPRIL 5 MG TAB PO SCH (09:11)
[2017-07-12] MEDS: DILTIAZEM-CD 180 MG CAP ER PO SCH (09:11)
[2017-07-12] MEDS: CLOPIDOGREL 75 MG TAB PO SCH (09:12)
[2017-07-12] MEDS ORDERED: POTASSIUM CHLORIDE 20 MEQ CONTROLLED RELEASE TAB PO ONE (10:30)
[2017-07-12] MEDS: FUROSEMIDE 40 MG TAB PO SCH ×2 (10:30→21:00)
[2017-07-12 10:40] LABS: INTERNATIONAL NORMALIZED RATIO 1.6 RATIO; PROTHROMBIN TIME - PATIENT 18.4 SEC (9.8-11.6)
--- NOTE | 2017-07-12 17:24 | PD.CARD.PN ---
Subjective Subjective Remarks No CP or SOB, nauseated after lunch Objective Medications Administered Medications Medications (Trade) Dose Ordered Sig/Alanis Route PRN Reason Start Time Stop Time Status Last Admin Dose Admin Clopidogrel Bisulfate (Plavix) 75 mg DAILY PO 07/11/17 14:30 07/12/17 09:12 Diltiazem HCl (Cardizem Cd) 180 mg DAILY PO 07/11/17 14:30 07/12/17 09:11 Magnesium Oxide (Mag-Ox) 400 mg DAILY PO 07/11/17 14:30 07/12/17 09:10 Metoprolol Tartrate (Lopressor) 125 mg Q12H PO 07/11/17 16:00 07/12/17 04:36 Warfarin Sodium (Coumadin) 7.5 mg DAILY@16 PO 07/11/17 16:00 07/11/17 17:53 Lisinopril (Prinivil) 2.5 mg DAILY PO 07/12/17 09:00 07/12/17 09:11 Sodium Chloride (NS Flush) 2 ml BID IV FLUSH 07/11/17 21:00 07/11/17 21:53 Acetaminophen (Tylenol) 650 mg Q4H PRN PO TEMP > 100.4 07/11/17 14:45 07/12/17 04:36 Senna/Docusate Sodium (Caitlin-Colace) 1 tab BID PO 07/11/17 21:00 07/12/17 09:10 Heparin Sodium/ Dextrose 250 ml @ 8 mls/hr TITRATE PRN IV Coagulation management 07/11/17 14:45 07/11/17 16:29 Albuterol/ Ipratropium (Duoneb Neb) 1 ampule Q4HR NEB NEB 07/11/17 16:00 07/12/17 17:11 Guaifenesin (Mucinex Er) 600 mg BID PO 07/11/17 21:00 07/12/17 09:10 Furosemide (Lasix) 40 mg BID PO 07/12/17 10:30 07/12/17 10:30 Vital Signs / I&O Vital Signs Date Time Temp Pulse Resp B/P (MAP) Pulse Ox O2 Delivery O2 Flow Rate FiO2 07/12/17 16:00 88 07/12/17 15:00 78 07/12/17 14:00 87 07/12/17 13:00 86 07/12/17 12:00 88 07/12/17 11:00 88 07/12/17 11:00 97.4 80 18 110/86 (94) 94 07/12/17 10:00 88 07/12/17 09:00 82 07/12/17 08:00 97.4 110 18 124/95 (105) 94 07/12/17 08:00 80 07/12/17 07:00 75 07/12/17 06:00 85 07/12/17 05:00 107 07/12/17 04:00 110 07/12/17 03:00 97.3 97 18 128/98 (108) 97 07/12/17 03:00 109 07/12/17 02:00 99 07/12/17 01:00 99 07/12/17 00:54 97 07/12/17 00:00 94 07/11/17 23:00 97.5 94 18 136/97 (110) 94 07/11/17 23:00 112 07/11/17 22:00 90 07/11/17 21:00 88 07/11/17 20:00 90 07/11/17 19:15 97.7 100 18 121/79 (93) 99 07/11/17 19:00 98 07/11/17 18:41 102 07/11/17 17:47 07/11/17 17:38 97.3 109 16 115/75 (88) 98 I/O 07/11/17 07/11/17 07/11/17 07/12/17 07/12/17 07/12/17 07:00 15:00 23:00 07:00 15:00 23:00 Intake Total 240 ml 480 ml Output Total 350 ml 1000 ml Balance -110 ml -520 ml Intake Oral 240 ml 480 ml Output Urine Total 350 ml 1000 ml # Voids 1 1 Physical Exam GENERAL: In NAD SKIN: Warm and dry. HEAD: Normocephalic. EYES: No scleral icterus. No injection or drainage. NECK: Supple, trachea midline. No JVD or lymphadenopathy. CARDIOVASCULAR: Irregular, without murmurs, gallops, or rubs. RESPIRATORY: Breath sounds equal bilaterally. No accessory muscle use. GASTROINTESTINAL: Abdomen soft, non-tender, nondistended. MUSCULOSKELETAL: No cyanosis, mild edema. Laboratory Laboratory Tests Test 07/11/17 21:50 07/12/17 04:28 White Blood Count 10.0 TH/MM3 10.4 TH/MM3 Red Blood Count 5.54 MIL/MM3 5.45 MIL/MM3 Hemoglobin 15.0 GM/DL 15.0 GM/DL Hematocrit 47.0 % 46.1 % Mean Corpuscular Volume 84.8 FL 84.5 FL Mean Corpuscular Hemoglobin 27.1 PG 27.4 PG Mean Corpuscular Hemoglobin Concent 32.0 % 32.4 % Red Cell Distribution Width 16.0 % 16.1 % Platelet Count 234 TH/MM3 239 TH/MM3 Mean Platelet Volume 8.7 FL 9.1 FL Activated Partial Thromboplast Time 43.5 SEC 43.5 SEC Total Creatine Kinase 29 U/L Troponin I 0.37 NG/ML Neutrophils (%) (Auto) 72.0 % Lymphocytes (%) (Auto) 13.2 % Monocytes (%) (Auto) 14.2 % Eosinophils (%) (Auto) 0.2 % Basophils (%) (Auto) 0.4 % Neutrophils # (Auto) 7.5 TH/MM3 Lymphocytes # (Auto) 1.4 TH/MM3 Monocytes # (Auto) 1.5 TH/MM3 Eosinophils # (Auto) 0.0 TH/MM3 Basophils # (Auto) 0.0 TH/MM3 CBC Comment DIFF FINAL Differential Comment Prothrombin Time 18.4 SEC Prothromb Time International Ratio 1.6 RATIO Blood Urea Nitrogen 35 MG/DL Creatinine 1.21 MG/DL Random Glucose 134 MG/DL Calcium Level 8.9 MG/DL Sodium Level 139 MEQ/L Potassium Level 3.5 MEQ/L Chloride Level 99 MEQ/L Carbon Dioxide Level 29.5 MEQ/L Anion Gap 11 MEQ/L Estimat Glomerular Filtration Rate 59 ML/MIN Assessment and Plan Problem List: (1) Atrial fibrillation with RVR ICD Codes: I48.91 - Unspecified atrial fibrillation Status: Acute (2) Acute on chronic systolic (congestive) heart failure ICD Codes: I50.23 - Acute on chronic systolic (congestive) heart failure (3) Cardiomyopathy ICD Codes: I42.9 - Cardiomyopathy, unspecified (4) Chronic obstructive pulmonary disease ICD Codes: J44.9 - Chronic obstructive pulmonary disease Status: Acute (5) Noncompliance ICD Codes: Z91.19 - Patient's noncompliance with other medical treatment and regimen Assessment and Plan Rate better controlled. Continue rate control and anticoagulation. Continue and titrate tx for CHF. Continue tx for COPD. He has history of noncompliance with medical care. F/u w PCP after discharge. Davie Hernández MD Jul 12, 2017 17:24
[2017-07-12] MEDS: WARFARIN SOD 7.5 MG TAB PO SCH (18:20)
[2017-07-12] MEDS: HEPARIN-D5W 25,000 U/250 ML 250 ML IV PRN (21:18)
[2017-07-13] VITALS (24 sets, daily range): BP systolic 105–154; BP diastolic 74–94; PULSE 72–126; RESP 16–18; TEMP 97.3–98.6; O2SAT 96–98
[2017-07-13] MEDS: RESP: ALBUTEROL 2.5 MG/IPRATROPIUM 0.5 MG NEB (SCH) NEB ×6 (01:16→21:40)
[2017-07-13] MEDS: METOPROLOL TARTRATE 50 MG TAB PO SCH ×2 (03:39→17:30)
[2017-07-13 06:50] LABS: INTERNATIONAL NORMALIZED RATIO 2.3 RATIO; PROTHROMBIN TIME - PATIENT 26.7 SEC (9.8-11.6)
[2017-07-13 07:17] LABS: BICARBONATE 32.5 MEQ/L (21.0-32.0)
[2017-07-13 07:52] LABS: POTASSIUM 2.9 MEQ/L (3.5-5.1)
[2017-07-13] MEDS ORDERED: POTASSIUM CHLORIDE 20 MEQ CONTROLLED RELEASE TAB PO ONE (09:00)
[2017-07-13] MEDS: FUROSEMIDE 40 MG TAB PO SCH ×2 (09:00→20:35)
[2017-07-13] MEDS: LISINOPRIL 5 MG TAB PO SCH (09:58)
[2017-07-13] MEDS: POTASSIUM CHLORIDE 20 MEQ CONTROLLED RELEASE TAB PO SCH (09:58)
[2017-07-13] MEDS: DOCUSATE SODIUM 50 MG/SENNA 8.6 MG TAB PO SCH ×2 (09:59→20:34)
[2017-07-13] MEDS: MAGNESIUM OXIDE 400 MG TAB PO SCH (09:59)
[2017-07-13] MEDS: guaiFENesin E.R. 600 MG TAB PO SCH ×2 (09:59→20:35)
[2017-07-13] MEDS: CLOPIDOGREL 75 MG TAB PO SCH (10:00)
[2017-07-13] MEDS: SODIUM CHLORIDE 0.9% FLUSH 10 ML FLUSH IV FLUSH SCH ×2 (10:00→20:35)
[2017-07-13] MEDS: DILTIAZEM-CD 180 MG CAP ER PO SCH (10:00)
[2017-07-13 13:49] LABS: APTT (PATIENT) 46.1 SEC (24.3-30.1)
--- NOTE | 2017-07-13 14:12 | HHI.PR ---
Subjective Remarks Reports no shortness of breath and breathing pattern. No palpitations or chest pain. Worried about pain his rent on time if he does go to rehabilitation. Willing to go to rehabilitation today. Objective Vitals Vital Signs Date Time Temp Pulse Resp B/P (MAP) Pulse Ox O2 Delivery O2 Flow Rate FiO2 07/13/17 14:00 111 07/13/17 13:00 109 07/13/17 12:02 94 07/13/17 11:00 103 07/13/17 11:00 97.3 103 18 154/88 (110) 96 07/13/17 10:00 115 07/13/17 09:00 110 07/13/17 08:00 126 07/13/17 07:00 95 07/13/17 07:00 97.3 126 16 129/94 (106) 98 07/13/17 06:00 101 07/13/17 05:00 110 07/13/17 04:00 114 07/13/17 03:00 101 07/13/17 03:00 98.6 86 18 106/85 (92) 96 07/13/17 02:00 94 07/13/17 01:00 115 07/13/17 00:00 100 07/12/17 23:00 114 07/12/17 23:00 98.0 110 18 129/95 (106) 98 07/12/17 22:00 96 07/12/17 21:40 98 07/12/17 21:00 110 07/12/17 20:00 98.5 108 18 129/95 (106) 96 07/12/17 20:00 128 07/12/17 19:00 101 07/12/17 18:00 99 07/12/17 17:00 97.8 99 18 132/77 (95) 92 07/12/17 17:00 88 07/12/17 16:00 88 07/12/17 15:00 78 I/O 07/12/17 07/12/17 07/12/17 07/13/17 07/13/17 07/13/17 07:00 15:00 23:00 07:00 15:00 23:00 Intake Total 480 ml 996 ml 740 ml Output Total 1000 ml 900 ml 1100 ml Balance -520 ml 96 ml -360 ml Intake Oral 480 ml 900 ml 740 ml IV Total 96 ml Output Urine Total 1000 ml 900 ml 1100 ml Result Diagram: 07/12/17 0428 07/13/17 0550 Objective Remarks GENERAL: This is a well-nourished, well-developed patient, in no apparent distress. CARDIOVASCULAR: Distant heart sounds Regular rate and irregular rhythm RESPIRATORY: Diminished breath sounds with few bibasilar crackles GASTROINTESTINAL: Abdomen soft, non-tender, nondistended. Normal, active bowel sounds MUSCULOSKELETAL: Extremities without clubbing, cyanosis, trace edema NEURO: Alert & Oriented x4 to person, place, time, situation. Moves all ext x4 A/P Problem List: (1) Atrial fibrillation with RVR ICD Code: I48.91 - Unspecified atrial fibrillation Status: Acute (2) Acute on chronic systolic (congestive) heart failure ICD Code: I50.23 - Acute on chronic systolic (congestive) heart failure Status: Acute Assessment and Plan Atrial fibrillation with RVR with a history of medication non-adherence- Patient is currently transitioned to oral Cardizem and beta kee. Cardiology recommended continuing medical treatment Nt was diagnosed with atrial fibrillation, 2 years ago. On Coumadin, INR 2.1 today and discontinue heparin. Ischemic Cardiomyopathy. Acute on Chronic systolic CHF currently in exacerbation- likely worsening secondary to A Fib RVR now symptoms improving. Previous echocardiogram 05/28/18 shows ejection fraction 20-30%, moderate diffuse hypokinesis, moderately severely reduced systolic function, moderately to severely calcified mitral annulus BNP elevated at 2932, Cardiology consulted, Lasix IV will change to by mouth twice a day and continue strict monitoring of I&O's, continue lisinopril Elevated liver enzymes likely related to vascular congestion Chronic obstructive pulmonary disease Continue O2 supplementation maintain O2 sats greater 92%, wean O2 as tolerated continue Bronchodilator, encourage incentive spirometry. History of medication nonadherence, Non compliant patient- patient has been counseled, case management arranged to [facility] facility on discharge. COPD to continue Bronchodilator, Mucolytic and incentive spirometry Hyperlipidemia by history Tobacco dependence and alcohol abuse cessation counseling DVT prevention patient on heparin drip and Coumadin Deconditioning, physical therapy Discharge Planning Discharge to [facility] facility for continued medication education and rehabilitation due to patient's history of COPD, ischemic cardiomyopathy with chronic systolic congestive heart failure and medication adherence, he is high risk for readmissions Romana Reilly MD Jul 13, 2017 14:12
[2017-07-13] MEDS ORDERED: CARD240C6 PO (14:16)
[2017-07-13] MEDS ORDERED: POTA20TA5 PO (14:16)
--- NOTE | 2017-07-13 14:21 | HHI.DS ---
Discharge Summary Admission Date Jul 12, 2017 at 08:51 Discharge Date: Jul 13, 2017 Admitting Diagnosis (1) Atrial fibrillation with RVR ICD Code: I48.91 - Unspecified atrial fibrillation Diagnosis: Principal Status: Acute (2) Acute on chronic systolic (congestive) heart failure ICD Code: I50.23 - Acute on chronic systolic (congestive) heart failure Diagnosis: Secondary Status: Acute Procedures none Brief History - From Admission Obtained from admitting physician's history and physical 71-year-old male presents to the emergency department for evaluation of shortness of breath. Patient was discharged on June 27, 2017 after being admitted for CHF, A. fib with RVR. However, he was also seen the next day in the emergency department. He had not filled any of his prescriptions and care of the same complaint. He was given a dose of Cardizem and sent home. The patient presents back today with shortness of breath. He states he was doing okay after he was discharged, but that has been progressively becoming more and more short of breath. The patient comes with his prescriptions from his last discharge. He has not filled any prescriptions or taken any medications. He states he takes 1 "small white pill" in the mornings, but takes no other medications. The patient states he has 2 get to the pharmacy. However, when I ask him how he gets food, he states that his roommate is able to go picker operator food. However, he still has yet to fill any prescriptions. The patient denies any fevers or chills. He denies any chest pain. No abdominal pain. No nausea , vomiting, diarrhea. Patient has history of atrial fibrillation diagnosed 2014 , chronic systolic CHF cardiomyopathy echocardiogram 05/28/17 showed EF 25-30%, hypertension, chronic obstructive pulmonary disease, chronic tobacco use, chronic alcohol in the past use. Patient states he quit smoking 3 months ago. 07/11: as we know he has Multiple Hospitalizations, has Atrial Fibrillation diagnosed 2014, Chronic Systolic CHF Cardiomyopathy Echocardiogram 05/28/17 showed EF 25-30%, Hypertension, COPD, Chronic Tobacco dependence, chronic alcohol abuse, he was admitted from 05/27/17 through 06/26/17 was discharged on 06/28/17 and discharged again on 07/04/17 and came back today with similar symptoms. seen in Emergency room he is alert and oriented x 3. CBC/BMP: 07/12/17 0428 07/13/17 0550 Significant Findings Laboratory Tests Test 07/11/17 11:50 07/11/17 12:19 07/11/17 13:01 07/11/17 16:57 White Blood Count 13.2 TH/MM3 (4.0-11.0) Neutrophils (%) (Auto) 78.0 % (16.0-70.0) Monocytes (%) (Auto) 9.3 % (0.0-8.0) Neutrophils # (Auto) 10.3 TH/MM3 (1.8-7.7) Monocytes # (Auto) 1.2 TH/MM3 (0-0.9) B-Type Natriuretic Peptide 2932 PG/ML (0-100) Urine Protein 30 mg/dL (NEG-TRACE) Urine Mucus FEW /lpf (OCC) Prothrombin Time 18.1 SEC (9.8-11.6) Blood Urea Nitrogen 34 MG/DL (7-18) Random Glucose 109 MG/DL (74-106) Potassium Level 5.5 MEQ/L (3.5-5.1) Estimat Glomerular Filtration Rate 59 ML/MIN (>89) Troponin I 0.22 NG/ML (0.02-0.05) 0.33 NG/ML (0.02-0.05) Total Creatine Kinase 26 U/L (39-308) Test 07/11/17 21:50 07/12/17 04:28 07/13/17 05:50 07/13/17 13:25 Activated Partial Thromboplast Time 43.5 SEC (24.3-30.1) 43.5 SEC (24.3-30.1) 46.1 SEC (24.3-30.1) Total Creatine Kinase 29 U/L (39-308) Troponin I 0.37 NG/ML (0.02-0.05) Neutrophils (%) (Auto) 72.0 % (16.0-70.0) Monocytes (%) (Auto) 14.2 % (0.0-8.0) Monocytes # (Auto) 1.5 TH/MM3 (0-0.9) Prothrombin Time 18.4 SEC (9.8-11.6) 26.7 SEC (9.8-11.6) Blood Urea Nitrogen 35 MG/DL (7-18) 24 MG/DL (7-18) Random Glucose 134 MG/DL (74-106) 115 MG/DL (74-106) Estimat Glomerular Filtration Rate 59 ML/MIN (>89) Potassium Level 2.9 MEQ/L (3.5-5.1) Chloride Level 97 MEQ/L (98-107) Carbon Dioxide Level 32.5 MEQ/L (21.0-32.0) Imaging Last Impressions Chest X-Ray 07/11/17 1142 Signed Impressions: Service Date/Time: Tuesday, July 11, 2017 11:55 - CONCLUSION: No acute disease. Mild cardiomegaly. Deejay Cleveland MD PE at Discharge GENERAL: This is a well-nourished, well-developed patient, in no apparent distress. CARDIOVASCULAR: Distant heart sounds Regular rate and irregular rhythm RESPIRATORY: Diminished breath sounds with few bibasilar crackles GASTROINTESTINAL: Abdomen soft, non-tender, nondistended. Normal, active bowel sounds MUSCULOSKELETAL: Extremities without clubbing, cyanosis, trace edema NEURO: Alert & Oriented x4 to person, place, time, situation. Moves all ext x4 Hospital Course 71-year-old white male with a history of chronic systolic ischemic cardiomyopathy and proximal atrial fibrillation, medication noncompliance who was readmitted due to not having his medication filled during the last oscillation due to atrial fibrillation with rapid ventricular rate and acute shortness of breath due to acute on chronic systolic congestive heart failure. During her hospitalization she responded well to IV diuretics along with IV Cardizem drip which was later converted to by mouth Cardizem. In addition heparin was initiated subtherapeutic INR. He was seen by cardiology who recommended continue medical conservative treatment. He was counseled on the importance of medication adherence. At this time, patient has gained maximum benefit from hospitalization and is ready to be discharged to home. Pt Condition on Discharge: Good Discharge Disposition: Discharge to SNF Discharge Time: <= 30 minutes Discharge Instructions DIET: Follow Instructions for: Heart Healthy Diet Activities you can perform: Regular-No Restrictions Follow up Referrals: PCP Follow-up New Orders: BASIC METABOLIC PROF - 2-3 Days New Medications: Diltiazem CD 24 HR (Cardizem CD 24 HR) 240 Mg Caper 240 MG PO DAILY for Regulate Heart Beat, #30 CAP Potassium Chloride Microencaps (Potassium Chloride Microencaps) 20 Meq Tab 20 MEQ PO DAILY for Electrolyte Replacement, #30 TAB Continued Medications: Clopidogrel (Plavix) 75 Mg Tab 75 MG PO DAILY for Prevent Blood Clot, #30 TAB Doxycycline Hyclate (Doxycycline Hyclate) 100 Mg Tab 100 MG PO Q12HR for Infection, #10 TAB Furosemide (Furosemide) 40 Mg Tab 40 MG PO DAILY for heart for 30 Days, TAB Ipratropium-Albuterol Neb (Duoneb) 0.5-2.5 Mg/3 Ml Neb 1 AMPULE NEB Q4HR NEB PRN for SHORTNESS OF BREATH, #30 ML Ipratropium-Albuterol Neb (Duoneb) 0.5-2.5 Mg/3 Ml Neb 1 AMPULE NEB BID NEB for Breathing Treatment, #60 ML Lisinopril (Lisinopril) 2.5 Mg Tab 2.5 MG PO DAILY for Blood Pressure Management, #30 TAB 0 Refills Magnesium Oxide (Magnesium Oxide) 400 Mg Tab 400 MG PO DAILY for Nutritional Supplement, #30 TAB 0 Refills Metoprolol Tartrate (Lopressor) 50 Mg Tab 125 MG PO Q12HR for Regulate Heart Beat, #90 TAB Oxygen (O2) (Oxygen (O2)) Inha LITER MERLE.CANULA CONTINUOUS for Prevent Hypoxemia, #2 Oxygen Concentrator Portable Gaseous 2 L/min via Nasal Canula Continuous For 99 months Warfarin (Coumadin) 7.5 Mg Tab 7.5 MG PO DAILY@16 for Prevent Blood Clot, #30 TAB Discontinued Medications: Diltiazem CD 24 HR (Cardizem CD 24 HR) 180 Mg Caper 180 MG PO DAILY for heart for 30 Days, CAP Potassium Chloride ER (Potassium Chloride ER) 10 Meq Tab 10 MEQ PO DAILY for Electrolyte Replacement, #30 TAB 0 Refills Prednisone (Prednisone) 20 Mg Tab 40 MG PO DAILY for Control Inflammation, #4 TAB Romana Reilly MD Jul 13, 2017 14:21
--- NOTE | 2017-07-13 17:02 | PD.CARD.PN ---
Subjective Subjective Remarks No CP or SOB, tired after ambulating in the halls Objective Medications Administered Medications Medications (Trade) Dose Ordered Sig/Alanis Route PRN Reason Start Time Stop Time Status Last Admin Dose Admin Clopidogrel Bisulfate (Plavix) 75 mg DAILY PO 07/11/17 14:30 07/13/17 10:00 Magnesium Oxide (Mag-Ox) 400 mg DAILY PO 07/11/17 14:30 07/13/17 09:59 Metoprolol Tartrate (Lopressor) 125 mg Q12H PO 07/11/17 16:00 07/13/17 03:39 Warfarin Sodium (Coumadin) 7.5 mg DAILY@16 PO 07/11/17 16:00 07/12/17 18:20 Lisinopril (Prinivil) 2.5 mg DAILY PO 07/12/17 09:00 07/13/17 09:58 Sodium Chloride (NS Flush) 2 ml BID IV FLUSH 07/11/17 21:00 07/13/17 10:00 Acetaminophen (Tylenol) 650 mg Q4H PRN PO TEMP > 100.4 07/11/17 14:45 07/12/17 04:36 Senna/Docusate Sodium (Caitlin-Colace) 1 tab BID PO 07/11/17 21:00 07/13/17 09:59 Albuterol/ Ipratropium (Duoneb Neb) 1 ampule Q4HR NEB NEB 07/11/17 16:00 07/13/17 12:02 Guaifenesin (Mucinex Er) 600 mg BID PO 07/11/17 21:00 07/13/17 09:59 Furosemide (Lasix) 40 mg BID PO 07/12/17 10:30 07/13/17 09:00 Potassium Chloride (KCl) 20 meq DAILY PO 07/13/17 09:00 07/13/17 09:58 Vital Signs / I&O Vital Signs Date Time Temp Pulse Resp B/P (MAP) Pulse Ox O2 Delivery O2 Flow Rate FiO2 07/13/17 15:00 92 07/13/17 15:00 97.3 92 18 141/74 (96) 96 07/13/17 14:00 111 07/13/17 13:00 109 07/13/17 12:02 94 07/13/17 11:00 103 07/13/17 11:00 97.3 103 18 154/88 (110) 96 07/13/17 10:00 115 07/13/17 09:00 110 07/13/17 08:00 126 07/13/17 07:00 95 07/13/17 07:00 97.3 126 16 129/94 (106) 98 07/13/17 06:00 101 07/13/17 05:00 110 07/13/17 04:00 114 07/13/17 03:00 101 07/13/17 03:00 98.6 86 18 106/85 (92) 96 07/13/17 02:00 94 07/13/17 01:00 115 07/13/17 00:00 100 07/12/17 23:00 114 07/12/17 23:00 98.0 110 18 129/95 (106) 98 07/12/17 22:00 96 07/12/17 21:40 98 07/12/17 21:00 110 07/12/17 20:00 98.5 108 18 129/95 (106) 96 07/12/17 20:00 128 07/12/17 19:00 101 07/12/17 18:00 99 I/O 07/12/17 07/12/17 07/12/17 07/13/17 07/13/17 07/13/17 07:00 15:00 23:00 07:00 15:00 23:00 Intake Total 480 ml 996 ml 740 ml Output Total 1000 ml 900 ml 1100 ml Balance -520 ml 96 ml -360 ml Intake Oral 480 ml 900 ml 740 ml IV Total 96 ml Output Urine Total 1000 ml 900 ml 1100 ml Physical Exam GENERAL: In NAD SKIN: Warm and dry. HEAD: Normocephalic. EYES: No scleral icterus. No injection or drainage. NECK: Supple, trachea midline. No JVD or lymphadenopathy. CARDIOVASCULAR: Irregular, without murmurs, gallops, or rubs. RESPIRATORY: Breath sounds equal bilaterally. No accessory muscle use. GASTROINTESTINAL: Abdomen soft, non-tender, nondistended. MUSCULOSKELETAL: No cyanosis, mild edema. Laboratory Laboratory Tests Test 07/13/17 05:50 07/13/17 13:25 Prothrombin Time 26.7 SEC Prothromb Time International Ratio 2.3 RATIO Blood Urea Nitrogen 24 MG/DL Creatinine 0.78 MG/DL Random Glucose 115 MG/DL Calcium Level 8.5 MG/DL Sodium Level 138 MEQ/L Potassium Level 2.9 MEQ/L Chloride Level 97 MEQ/L Carbon Dioxide Level 32.5 MEQ/L Anion Gap 9 MEQ/L Estimat Glomerular Filtration Rate 98 ML/MIN Activated Partial Thromboplast Time 46.1 SEC Assessment and Plan Problem List: (1) Atrial fibrillation with RVR ICD Codes: I48.91 - Unspecified atrial fibrillation Status: Acute (2) Acute on chronic systolic (congestive) heart failure ICD Codes: I50.23 - Acute on chronic systolic (congestive) heart failure Status: Acute (3) Cardiomyopathy ICD Codes: I42.9 - Cardiomyopathy, unspecified (4) Chronic obstructive pulmonary disease ICD Codes: J44.9 - Chronic obstructive pulmonary disease Status: Acute (5) Noncompliance ICD Codes: Z91.19 - Patient's noncompliance with other medical treatment and regimen Assessment and Plan AF rate controlled, continue rate control and anticoagulation. Continue and titrate tx for CHF. Continue tx for COPD. Increase activity. He has history of noncompliance with medical care; I stressed the importance of taking his meds after discharge. F/u w PCP after discharge. Davie Hernández MD Jul 13, 2017 17:02
[2017-07-13] MEDS: WARFARIN SOD 7.5 MG TAB PO SCH (17:30)
[2017-07-14] VITALS (24 sets, daily range): BP systolic 108–132; BP diastolic 73–89; PULSE 63–118; RESP 18; TEMP 97.6–98.4; O2SAT 93–98
[2017-07-14] MEDS: METOPROLOL TARTRATE 50 MG TAB PO SCH ×2 (03:21→16:00)
[2017-07-14] MEDS: RESP: ALBUTEROL 2.5 MG/IPRATROPIUM 0.5 MG NEB (SCH) NEB ×7 (04:00→23:31)
[2017-07-14 04:16] LABS: HEMATOCRIT 40.6 % (39.0-51.0); MEAN CELL VOLUME 83.9 FL (80.0-100.0); MEAN CORPUSCULAR HEMOGLOBIN 27.5 PG (27.0-34.0); MEAN CORPUSCULAR HGB CONC 32.7 % (32.0-36.0); PLATELET COUNT 192 TH/MM3 (150-450); RED BLOOD COUNT 4.84 MIL/MM3 (4.50-5.90); RED CELL DISTRIBUTION WIDTH 16.2 % (11.6-17.2); REVIEW FLAG FINAL; WHITE BLOOD COUNT 7.6 TH/MM3 (4.0-11.0)
[2017-07-14 04:29] LABS: APTT (PATIENT) 37.2 SEC (24.3-30.1)
[2017-07-14 04:30] LABS: INTERNATIONAL NORMALIZED RATIO 3.1 RATIO; PROTHROMBIN TIME - PATIENT 36.4 SEC (9.8-11.6)
[2017-07-14] MEDS: DOCUSATE SODIUM 50 MG/SENNA 8.6 MG TAB PO SCH ×2 (08:34→20:39)
[2017-07-14] MEDS: DILTIAZEM-CD 240 MG CAP ER PO SCH (08:35)
[2017-07-14] MEDS: MAGNESIUM OXIDE 400 MG TAB PO SCH (08:35)
[2017-07-14] MEDS: LISINOPRIL 5 MG TAB PO SCH (08:35)
[2017-07-14] MEDS: guaiFENesin E.R. 600 MG TAB PO SCH ×2 (08:35→20:39)
[2017-07-14] MEDS: CLOPIDOGREL 75 MG TAB PO SCH (08:36)
[2017-07-14] MEDS: POTASSIUM CHLORIDE 20 MEQ CONTROLLED RELEASE TAB PO SCH (08:36)
[2017-07-14] MEDS: FUROSEMIDE 40 MG TAB PO SCH ×2 (08:36→20:39)
[2017-07-14] MEDS: SODIUM CHLORIDE 0.9% FLUSH 10 ML FLUSH IV FLUSH SCH ×2 (09:00→20:39)
--- NOTE | 2017-07-14 11:33 | PD.CARD.PN ---
Subjective Subjective Remarks No CP or SOB, feels fine, INR 3.1 Objective Medications Administered Medications Medications (Trade) Dose Ordered Sig/Alanis Route PRN Reason Start Time Stop Time Status Last Admin Dose Admin Clopidogrel Bisulfate (Plavix) 75 mg DAILY PO 07/11/17 14:30 07/14/17 08:36 Magnesium Oxide (Mag-Ox) 400 mg DAILY PO 07/11/17 14:30 07/14/17 08:35 Metoprolol Tartrate (Lopressor) 125 mg Q12H PO 07/11/17 16:00 07/14/17 03:21 Warfarin Sodium (Coumadin) 7.5 mg DAILY@16 PO 07/11/17 16:00 Future Hold 07/13/17 17:30 Lisinopril (Prinivil) 2.5 mg DAILY PO 07/12/17 09:00 07/14/17 08:35 Sodium Chloride (NS Flush) 2 ml BID IV FLUSH 07/11/17 21:00 07/14/17 09:00 Acetaminophen (Tylenol) 650 mg Q4H PRN PO TEMP > 100.4 07/11/17 14:45 07/12/17 04:36 Senna/Docusate Sodium (Caitlin-Colace) 1 tab BID PO 07/11/17 21:00 07/14/17 08:34 Albuterol/ Ipratropium (Duoneb Neb) 1 ampule Q4HR NEB NEB 07/11/17 16:00 07/13/17 21:40 Guaifenesin (Mucinex Er) 600 mg BID PO 07/11/17 21:00 07/14/17 08:35 Furosemide (Lasix) 40 mg BID PO 07/12/17 10:30 07/14/17 08:36 Potassium Chloride (KCl) 20 meq DAILY PO 07/13/17 09:00 07/14/17 08:36 Diltiazem HCl (Cardizem Cd) 240 mg DAILY PO 07/14/17 09:00 07/14/17 08:35 Vital Signs / I&O Vital Signs Date Time Temp Pulse Resp B/P (MAP) Pulse Ox O2 Delivery O2 Flow Rate FiO2 07/14/17 10:00 103 07/14/17 09:00 104 07/14/17 08:00 105 07/14/17 07:00 100 07/14/17 06:00 88 07/14/17 05:00 96 07/14/17 04:00 97.7 115 18 121/73 (89) 93 07/14/17 04:00 103 07/14/17 03:00 118 07/14/17 02:00 104 07/14/17 01:00 92 07/14/17 00:00 97.6 81 18 118/77 (91) 94 07/14/17 00:00 81 07/13/17 23:00 86 07/13/17 22:00 78 07/13/17 21:42 97 07/13/17 21:00 72 07/13/17 20:00 78 07/13/17 20:00 98.0 73 18 105/79 (88) 96 07/13/17 20:00 72 07/13/17 18:12 100 07/13/17 17:00 108 07/13/17 16:00 101 07/13/17 15:00 92 07/13/17 15:00 97.3 92 18 141/74 (96) 96 07/13/17 14:00 111 07/13/17 13:00 109 07/13/17 12:02 94 I/O 07/13/17 07/13/17 07/13/17 07/14/17 07/14/17 07/14/17 07:00 15:00 23:00 07:00 15:00 23:00 Intake Total 740 ml 450 ml 240 ml Output Total 1100 ml 900 ml 300 ml Balance -360 ml -450 ml -60 ml Intake Oral 740 ml 450 ml 240 ml Output Urine Total 1100 ml 900 ml 300 ml # Voids 2 # Bowel Movements 2 Physical Exam GENERAL: In NAD SKIN: Warm and dry. HEAD: Normocephalic. EYES: No scleral icterus. No injection or drainage. NECK: Supple, trachea midline. No JVD or lymphadenopathy. CARDIOVASCULAR: Irregular, without murmurs, gallops, or rubs. RESPIRATORY: Breath sounds equal bilaterally. No accessory muscle use. GASTROINTESTINAL: Abdomen soft, non-tender, nondistended. MUSCULOSKELETAL: No cyanosis, trace edema. Laboratory Laboratory Tests Test 07/13/17 13:25 07/14/17 04:00 Activated Partial Thromboplast Time 46.1 SEC 37.2 SEC White Blood Count 7.6 TH/MM3 Red Blood Count 4.84 MIL/MM3 Hemoglobin 13.3 GM/DL Hematocrit 40.6 % Mean Corpuscular Volume 83.9 FL Mean Corpuscular Hemoglobin 27.5 PG Mean Corpuscular Hemoglobin Concent 32.7 % Red Cell Distribution Width 16.2 % Platelet Count 192 TH/MM3 Mean Platelet Volume 8.7 FL Prothrombin Time 36.4 SEC Prothromb Time International Ratio 3.1 RATIO Assessment and Plan Problem List: (1) Atrial fibrillation with RVR ICD Codes: I48.91 - Unspecified atrial fibrillation Status: Acute (2) Acute on chronic systolic (congestive) heart failure ICD Codes: I50.23 - Acute on chronic systolic (congestive) heart failure Status: Acute (3) Cardiomyopathy ICD Codes: I42.9 - Cardiomyopathy, unspecified (4) Chronic obstructive pulmonary disease ICD Codes: J44.9 - Chronic obstructive pulmonary disease Status: Acute (5) Noncompliance ICD Codes: Z91.19 - Patient's noncompliance with other medical treatment and regimen Assessment and Plan AF rate much better controlled, continue rate control and anticoagulation with warfarin. Continue tx for CHF and COPD. Increase activity. He has history of noncompliance with medical care; I stressed again today the importance of taking his meds after discharge. DC home today. D/w w PCP shortly after discharge. Davie Hernández MD Jul 14, 2017 11:33
[2017-07-14 12:10] LABS: BICARBONATE 34.1 MEQ/L (21.0-32.0); MAGNESIUM 1.8 MG/DL (1.5-2.5); POTASSIUM 3.7 MEQ/L (3.5-5.1)
--- NOTE | 2017-07-14 14:29 | HHI.PR ---
Subjective Remarks Laying in bed, denied short of breath or chest pain No fever or chills Plan to go to rehabilitation however I was told he was denied so cyanide case hardener is working on it Objective Vitals Vital Signs Date Time Temp Pulse Resp B/P (MAP) Pulse Ox O2 Delivery O2 Flow Rate FiO2 07/14/17 14:00 81 07/14/17 13:00 79 07/14/17 12:00 97 07/14/17 11:00 95 07/14/17 11:00 97.8 83 18 132/89 (103) 96 07/14/17 10:00 103 07/14/17 09:00 104 07/14/17 08:00 105 07/14/17 07:00 100 07/14/17 07:00 97.7 103 18 124/80 (95) 98 07/14/17 06:00 88 07/14/17 05:00 96 07/14/17 04:00 97.7 115 18 121/73 (89) 93 07/14/17 04:00 103 07/14/17 03:00 118 07/14/17 02:00 104 07/14/17 01:00 92 07/14/17 00:00 97.6 81 18 118/77 (91) 94 07/14/17 00:00 81 07/13/17 23:00 86 07/13/17 22:00 78 07/13/17 21:42 97 07/13/17 21:00 72 07/13/17 20:00 78 07/13/17 20:00 98.0 73 18 105/79 (88) 96 07/13/17 20:00 72 07/13/17 18:12 100 07/13/17 17:00 108 07/13/17 16:00 101 07/13/17 15:00 92 07/13/17 15:00 97.3 92 18 141/74 (96) 96 I/O 07/13/17 07/13/17 07/13/17 07/14/17 07/14/17 07/14/17 07:00 15:00 23:00 07:00 15:00 23:00 Intake Total 740 ml 450 ml 240 ml Output Total 1100 ml 900 ml 300 ml Balance -360 ml -450 ml -60 ml Intake Oral 740 ml 450 ml 240 ml Output Urine Total 1100 ml 900 ml 300 ml # Voids 2 # Bowel Movements 2 Result Diagram: 07/14/17 0400 07/14/17 1120 Objective Remarks GENERAL: This is a frail elderly patient, well-developed patient, in no apparent distress. SKIN: No rashes, warm and dry HEAD: Atraumatic. Normocephalic. EYES: Pupils equal round and reactive. Extraocular motions intact. No scleral icterus. ENT: Nose without bleeding, or drainage, Airway patent. NECK: Trachea midline. Supple CARDIOVASCULAR: Regular rate and rhythm without murmurs, gallops, or rubs. RESPIRATORY: Diminished breath sounds with crackles bilaterally. GASTROINTESTINAL: Abdomen soft, non-tender, nondistended. Positive bowel sounds MUSCULOSKELETAL: Extremities without clubbing, cyanosis, or edema. Pedal pulses appreciated NEUROLOGICAL: Awake and alert. Moves all extremity. 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 Cardiology recommended continuing medical treatment Nt was diagnosed with atrial fibrillation, 2 years ago. On Coumadin, INR 3.1 today Ischemic Cardiomyopathy. Acute on Chronic systolic CHF currently in exacerbation- likely worsening secondary to A Fib RVR now symptoms improving. Previous echocardiogram 05/28/18 shows ejection fraction 20-30%, moderate diffuse hypokinesis, moderately severely reduced systolic function, moderately to severely calcified mitral annulus BNP elevated at 2932, Cardiology consulted, Lasix IV will change to by mouth twice a day and continue strict monitoring of I&O's, continue lisinopril Elevated liver enzymes likely related to vascular congestion Chronic obstructive pulmonary disease Continue O2 supplementation maintain O2 sats greater 92%, wean O2 as tolerated continue Bronchodilator, encourage incentive spirometry. History of medication nonadherence, Non compliant patient- patient has been counseled, case management arranged to senior living facility on discharge. COPD to continue Bronchodilator, Mucolytic and incentive spirometry Hyperlipidemia by history Tobacco dependence and alcohol abuse cessation counseling DVT prevention patient on heparin drip and Coumadin Deconditioning, physical therapy Discharge Planning Discharge to senior living facility for continued medication education and rehabilitation due to patient's history of COPD, ischemic cardiomyopathy with chronic systolic congestive heart failure and medication adherence, he is high risk for readmissions Patient was denied first rehabilitation, cyanide case hardener will continue following Delmi Daniel MD Jul 14, 2017 14:29
[2017-07-14] MEDS: WARFARIN SOD 7.5 MG TAB PO SCH (16:00)
[2017-07-15] VITALS (26 sets, daily range): BP systolic 108–138; BP diastolic 67–78; PULSE 72–122; RESP 18; TEMP 97.6–98.4; O2SAT 94–98
[2017-07-15] MEDS: RESP: ALBUTEROL 2.5 MG/IPRATROPIUM 0.5 MG NEB (SCH) NEB ×3 (02:39→11:03)
[2017-07-15] MEDS: METOPROLOL TARTRATE 50 MG TAB PO SCH ×2 (03:47→16:54)
[2017-07-15 06:44] LABS: APTT (PATIENT) 41.8 SEC (24.3-30.1)
[2017-07-15] MEDS: POTASSIUM CHLORIDE 20 MEQ CONTROLLED RELEASE TAB PO SCH (09:57)
[2017-07-15] MEDS: MAGNESIUM OXIDE 400 MG TAB PO SCH (09:57)
[2017-07-15] MEDS: DILTIAZEM-CD 240 MG CAP ER PO SCH (09:57)
[2017-07-15] MEDS: DOCUSATE SODIUM 50 MG/SENNA 8.6 MG TAB PO SCH ×2 (09:57→20:43)
[2017-07-15] MEDS: guaiFENesin E.R. 600 MG TAB PO SCH ×2 (09:57→20:42)
[2017-07-15] MEDS: FUROSEMIDE 40 MG TAB PO SCH ×2 (09:57→20:43)
[2017-07-15] MEDS: CLOPIDOGREL 75 MG TAB PO SCH (09:58)
[2017-07-15] MEDS: LISINOPRIL 5 MG TAB PO SCH (09:59)
--- NOTE | 2017-07-15 11:13 | HHI.PR ---
Subjective Remarks Patient resting in bed comfortably he denied any complain He is concerned about paying his home rent I discussed with the case investigator patient has been denied by 2 custodial, [facility] through the [place] Also his landlord will be passing by the hospital to get the check payment Objective Vitals Vital Signs Date Time Temp Pulse Resp B/P (MAP) Pulse Ox O2 Delivery O2 Flow Rate FiO2 07/15/17 08:14 98 21 07/15/17 07:30 97.7 96 18 120/76 (91) 94 07/15/17 06:00 98 07/15/17 05:00 90 07/15/17 04:00 98.4 103 18 138/78 (98) 96 07/15/17 04:00 103 07/15/17 04:00 Room Air 07/15/17 03:00 100 07/15/17 02:00 96 07/15/17 01:00 88 07/15/17 00:00 Room Air 07/15/17 00:00 98.1 82 18 118/71 (87) 97 07/15/17 00:00 82 07/14/17 23:00 75 07/14/17 22:00 78 07/14/17 21:00 73 07/14/17 20:46 98 07/14/17 20:00 78 07/14/17 20:00 98.4 78 18 108/75 (86) 97 07/14/17 18:00 68 07/14/17 17:00 63 07/14/17 16:00 87 07/14/17 15:00 82 07/14/17 15:00 98.1 91 18 121/77 (92) 96 07/14/17 14:00 81 07/14/17 13:00 79 07/14/17 12:00 97 I/O 07/14/17 07/14/17 07/14/17 07/15/17 07/15/17 07/15/17 06:59 14:59 22:59 06:59 14:59 22:59 Intake Total 240 ml 500 ml 480 ml Output Total 300 ml 800 ml 1000 ml Balance -60 ml -300 ml -520 ml Intake Oral 240 ml 500 ml 480 ml Output Urine Total 300 ml 800 ml 1000 ml # Voids 2 # Bowel Movements 2 1 0 Result Diagram: 07/14/17 0400 07/14/17 1120 Objective Remarks GENERAL: This is a frail elderly patient, well-developed patient, in no apparent distress. SKIN: No rashes, warm and dry HEAD: Atraumatic. Normocephalic. EYES: Pupils equal round and reactive. Extraocular motions intact. No scleral icterus. ENT: Nose without bleeding, or drainage, Airway patent. NECK: Trachea midline. Supple CARDIOVASCULAR: Regular rate and rhythm without murmurs, gallops, or rubs. RESPIRATORY: Diminished breath sounds with crackles bilaterally. GASTROINTESTINAL: Abdomen soft, non-tender, nondistended. Positive bowel sounds MUSCULOSKELETAL: Extremities without clubbing, cyanosis, or edema. Pedal pulses appreciated NEUROLOGICAL: Awake and alert. Moves all extremity. 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 Cardiology recommended continuing medical treatment Nt was diagnosed with atrial fibrillation, 2 years ago. On Coumadin, INR 3.1 today Ischemic Cardiomyopathy. Acute on Chronic systolic CHF currently in exacerbation- likely worsening secondary to A Fib RVR now symptoms improving. Previous echocardiogram 05/28/18 shows ejection fraction 20-30%, moderate diffuse hypokinesis, moderately severely reduced systolic function, moderately to severely calcified mitral annulus BNP elevated at 2932, Cardiology consulted, Lasix IV will change to by mouth twice a day and continue strict monitoring of I&O's, continue lisinopril Elevated liver enzymes likely related to vascular congestion Chronic obstructive pulmonary disease Continue O2 supplementation maintain O2 sats greater 92%, wean O2 as tolerated continue Bronchodilator, encourage incentive spirometry. History of medication nonadherence, Non compliant patient- patient has been counseled, case management arranged to half-way facility on discharge. COPD to continue Bronchodilator, Mucolytic and incentive spirometry Hyperlipidemia by history Tobacco dependence and alcohol abuse cessation counseling DVT prevention patient on heparin drip and Coumadin Deconditioning, physical therapy Discharge Planning Discharge to half-way facility for continued medication education and rehabilitation due to patient's history of COPD, ischemic cardiomyopathy with chronic systolic congestive heart failure and medication adherence, he is high risk for readmissions Patient was denied first rehabilitation, case investigator will continue following Delmi Daniel MD Jul 15, 2017 11:13
[2017-07-15 11:23] LABS: PROTHROMBIN TIME - PATIENT 46.4 SEC (9.8-11.6)
--- NOTE | 2017-07-15 12:49 | PD.CARD.PN ---
Subjective Subjective Remarks No CP or SOB, he is worried about paying his rent Objective Medications Administered Medications Medications (Trade) Dose Ordered Sig/Alanis Route PRN Reason Start Time Stop Time Status Last Admin Dose Admin Clopidogrel Bisulfate (Plavix) 75 mg DAILY PO 07/11/17 14:30 07/15/17 09:58 Magnesium Oxide (Mag-Ox) 400 mg DAILY PO 07/11/17 14:30 07/15/17 09:57 Metoprolol Tartrate (Lopressor) 125 mg Q12H PO 07/11/17 16:00 07/15/17 03:47 Warfarin Sodium (Coumadin) 7.5 mg DAILY@16 PO 07/11/17 16:00 Future Hold 07/14/17 16:00 Lisinopril (Prinivil) 2.5 mg DAILY PO 07/12/17 09:00 07/15/17 09:59 Sodium Chloride (NS Flush) 2 ml BID IV FLUSH 07/11/17 21:00 07/14/17 20:39 Acetaminophen (Tylenol) 650 mg Q4H PRN PO TEMP > 100.4 07/11/17 14:45 07/12/17 04:36 Senna/Docusate Sodium (Caitlin-Colace) 1 tab BID PO 07/11/17 21:00 07/15/17 09:57 Albuterol/ Ipratropium (Duoneb Neb) 1 ampule Q4HR NEB NEB 07/11/17 16:00 07/15/17 11:03 Guaifenesin (Mucinex Er) 600 mg BID PO 07/11/17 21:00 07/15/17 09:57 Furosemide (Lasix) 40 mg BID PO 07/12/17 10:30 07/15/17 09:57 Potassium Chloride (KCl) 20 meq DAILY PO 07/13/17 09:00 07/15/17 09:57 Diltiazem HCl (Cardizem Cd) 240 mg DAILY PO 07/14/17 09:00 07/15/17 09:57 Vital Signs / I&O Vital Signs Date Time Temp Pulse Resp B/P (MAP) Pulse Ox O2 Delivery O2 Flow Rate FiO2 07/15/17 11:33 Room Air 07/15/17 08:14 98 21 07/15/17 07:30 97.7 96 18 120/76 (91) 94 07/15/17 06:00 98 07/15/17 05:00 90 07/15/17 04:00 98.4 103 18 138/78 (98) 96 07/15/17 04:00 103 07/15/17 04:00 Room Air 07/15/17 03:00 100 07/15/17 02:00 96 07/15/17 01:00 88 07/15/17 00:00 Room Air 07/15/17 00:00 98.1 82 18 118/71 (87) 97 07/15/17 00:00 82 07/14/17 23:00 75 07/14/17 22:00 78 07/14/17 21:00 73 07/14/17 20:46 98 07/14/17 20:00 78 07/14/17 20:00 98.4 78 18 108/75 (86) 97 07/14/17 18:00 68 07/14/17 17:00 63 07/14/17 16:00 87 07/14/17 15:00 82 07/14/17 15:00 98.1 91 18 121/77 (92) 96 07/14/17 14:00 81 07/14/17 13:00 79 I/O 07/14/17 07/14/17 07/14/17 07/15/17 07/15/17 07/15/17 07:00 15:00 23:00 07:00 15:00 23:00 Intake Total 240 ml 500 ml 480 ml Output Total 300 ml 800 ml 1000 ml Balance -60 ml -300 ml -520 ml Intake Oral 240 ml 500 ml 480 ml Output Urine Total 300 ml 800 ml 1000 ml # Voids 2 # Bowel Movements 2 1 0 Physical Exam GENERAL: In NAD SKIN: Warm and dry. HEAD: Normocephalic. EYES: No scleral icterus. No injection or drainage. NECK: Supple, trachea midline. No JVD or lymphadenopathy. CARDIOVASCULAR: Irregular, without murmurs, gallops, or rubs. RESPIRATORY: Breath sounds equal bilaterally. No accessory muscle use. GASTROINTESTINAL: Abdomen soft, non-tender, nondistended. MUSCULOSKELETAL: No cyanosis, trace edema. Laboratory Laboratory Tests Test 07/15/17 06:01 07/15/17 10:37 Activated Partial Thromboplast Time 41.8 SEC Prothrombin Time 46.4 SEC Prothromb Time International Ratio 4.0 RATIO Assessment and Plan Problem List: (1) Atrial fibrillation with RVR ICD Codes: I48.91 - Unspecified atrial fibrillation Status: Acute (2) Acute on chronic systolic (congestive) heart failure ICD Codes: I50.23 - Acute on chronic systolic (congestive) heart failure Status: Acute (3) Cardiomyopathy ICD Codes: I42.9 - Cardiomyopathy, unspecified (4) Chronic obstructive pulmonary disease ICD Codes: J44.9 - Chronic obstructive pulmonary disease Status: Acute (5) Noncompliance ICD Codes: Z91.19 - Patient's noncompliance with other medical treatment and regimen Assessment and Plan AF rate now controlled, continue rate control. Continue anticoagulation with warfarin. Continue therapy for CHF and COPD. Increase activity. He has history of noncompliance with medical care (did not fill his meds after the last visit) . I stressed the importance of taking his meds after discharge. F/u w PCP shortly after discharge. Davie Hernández MD Jul 15, 2017 12:49
[2017-07-15] MEDS: SODIUM CHLORIDE 0.9% FLUSH 10 ML FLUSH IV FLUSH SCH ×2 (16:55→20:44)
[2017-07-16] VITALS (13 sets, daily range): BP systolic 115–127; BP diastolic 69–83; PULSE 60–101; RESP 16–18; TEMP 98.2–98.5; O2SAT 95–97
[2017-07-16] MEDS: METOPROLOL TARTRATE 50 MG TAB PO SCH ×2 (03:31→15:23)
[2017-07-16 07:00] LABS: INTERNATIONAL NORMALIZED RATIO 2.6 RATIO; PROTHROMBIN TIME - PATIENT 29.4 SEC (9.8-11.6)
[2017-07-16] MEDS: guaiFENesin E.R. 600 MG TAB PO SCH (08:11)
[2017-07-16] MEDS: POTASSIUM CHLORIDE 20 MEQ CONTROLLED RELEASE TAB PO SCH (08:11)
[2017-07-16] MEDS: FUROSEMIDE 40 MG TAB PO SCH (08:11)
[2017-07-16] MEDS: CLOPIDOGREL 75 MG TAB PO SCH (08:12)
[2017-07-16] MEDS: DILTIAZEM-CD 240 MG CAP ER PO SCH (08:12)
[2017-07-16] MEDS: MAGNESIUM OXIDE 400 MG TAB PO SCH (08:12)
[2017-07-16] MEDS: SODIUM CHLORIDE 0.9% FLUSH 10 ML FLUSH IV FLUSH SCH (08:12)
[2017-07-16] MEDS: DOCUSATE SODIUM 50 MG/SENNA 8.6 MG TAB PO SCH (08:12)
[2017-07-16] MEDS: LISINOPRIL 5 MG TAB PO SCH (08:12)
--- NOTE | 2017-07-16 12:19 | HHI.PR ---
Subjective Remarks stable no acute issue, plan for SNF placement through [place], following Objective Vitals Vital Signs Date Time Temp Pulse Resp B/P (MAP) Pulse Ox O2 Delivery O2 Flow Rate FiO2 07/16/17 12:00 88 07/16/17 11:00 84 07/16/17 10:00 74 07/16/17 09:00 70 07/16/17 08:00 72 07/16/17 08:00 98.5 61 16 123/83 (96) 95 07/16/17 07:11 Room Air 07/16/17 07:00 64 07/16/17 06:00 60 07/16/17 05:00 72 07/16/17 04:00 Room Air 07/16/17 04:00 99 07/16/17 04:00 98.3 89 18 115/69 (84) 97 07/16/17 03:00 100 07/16/17 02:00 98 07/16/17 01:00 101 07/16/17 00:00 Room Air 07/16/17 00:00 98.2 70 18 121/71 (88) 97 07/16/17 00:00 70 07/15/17 23:00 80 07/15/17 22:00 84 07/15/17 21:00 82 07/15/17 20:00 98.4 75 18 110/71 (84) 96 07/15/17 20:00 Room Air 07/15/17 20:00 75 07/15/17 20:00 Room Air 07/15/17 18:00 72 07/15/17 17:00 96 07/15/17 16:59 98.3 07/15/17 16:00 90 07/15/17 15:00 104 07/15/17 15:00 100 18 108/73 (85) 95 07/15/17 14:00 118 07/15/17 13:00 97.6 07/15/17 13:00 112 I/O 07/15/17 07/15/17 07/15/17 07/16/17 07/16/17 07/16/17 07:00 15:00 23:00 07:00 15:00 23:00 Intake Total 480 ml 800 ml 480 ml Output Total 1000 ml 935 ml 1200 ml Balance -520 ml -135 ml -720 ml Intake Oral 480 ml 800 ml 480 ml Output Urine Total 1000 ml 935 ml 1200 ml # Bowel Movements 0 3 0 Result Diagram: 07/14/17 0400 07/14/17 1120 Objective Remarks GENERAL: This is a frail elderly patient, well-developed patient, in no apparent distress. SKIN: No rashes, warm and dry HEAD: Atraumatic. Normocephalic. EYES: Pupils equal round and reactive. Extraocular motions intact. No scleral icterus. ENT: Nose without bleeding, or drainage, Airway patent. NECK: Trachea midline. Supple CARDIOVASCULAR: Regular rate and rhythm without murmurs, gallops, or rubs. RESPIRATORY: Diminished breath sounds with crackles bilaterally. GASTROINTESTINAL: Abdomen soft, non-tender, nondistended. Positive bowel sounds MUSCULOSKELETAL: Extremities without clubbing, cyanosis, or edema. Pedal pulses appreciated NEUROLOGICAL: Awake and alert. Moves all extremity. 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 Cardiology recommended continuing medical treatment Nt was diagnosed with atrial fibrillation, 2 years ago. On Coumadin, INR 3.1 today Ischemic Cardiomyopathy. Acute on Chronic systolic CHF currently in exacerbation- likely worsening secondary to A Fib RVR now symptoms improving. Previous echocardiogram 05/28/18 shows ejection fraction 20-30%, moderate diffuse hypokinesis, moderately severely reduced systolic function, moderately to severely calcified mitral annulus BNP elevated at 2932, Cardiology consulted, Lasix IV will change to by mouth twice a day and continue strict monitoring of I&O's, continue lisinopril Elevated liver enzymes likely related to vascular congestion Chronic obstructive pulmonary disease Continue O2 supplementation maintain O2 sats greater 92%, wean O2 as tolerated continue Bronchodilator, encourage incentive spirometry. History of medication nonadherence, Non compliant patient- patient has been counseled, case management arranged to nursing home facility on discharge. COPD to continue Bronchodilator, Mucolytic and incentive spirometry Hyperlipidemia by history Tobacco dependence and alcohol abuse cessation counseling DVT prevention patient on heparin drip and Coumadin Deconditioning, physical therapy Discharge Planning Discharge to nursing home facility for continued medication education and rehabilitation due to patient's history of COPD, ischemic cardiomyopathy with chronic systolic congestive heart failure and medication adherence, he is high risk for readmissions Plan for SNF placement through the [place] Delmi Daniel MD Jul 16, 2017 12:19
--- NOTE | 2017-07-16 14:04 | PD.CARD.PN ---
Subjective Subjective Remarks No CP or SOB, no new c/o Objective Medications Administered Medications Medications (Trade) Dose Ordered Sig/Alanis Route PRN Reason Start Time Stop Time Status Last Admin Dose Admin Clopidogrel Bisulfate (Plavix) 75 mg DAILY PO 07/11/17 14:30 07/16/17 08:12 Magnesium Oxide (Mag-Ox) 400 mg DAILY PO 07/11/17 14:30 07/16/17 08:12 Metoprolol Tartrate (Lopressor) 125 mg Q12H PO 07/11/17 16:00 07/16/17 03:31 Lisinopril (Prinivil) 2.5 mg DAILY PO 07/12/17 09:00 07/16/17 08:12 Sodium Chloride (NS Flush) 2 ml BID IV FLUSH 07/11/17 21:00 07/16/17 08:12 Acetaminophen (Tylenol) 650 mg Q4H PRN PO TEMP > 100.4 07/11/17 14:45 07/12/17 04:36 Senna/Docusate Sodium (Caitlin-Colace) 1 tab BID PO 07/11/17 21:00 07/16/17 08:12 Guaifenesin (Mucinex Er) 600 mg BID PO 07/11/17 21:00 07/16/17 08:11 Furosemide (Lasix) 40 mg BID PO 07/12/17 10:30 07/16/17 08:11 Potassium Chloride (KCl) 20 meq DAILY PO 07/13/17 09:00 07/16/17 08:11 Diltiazem HCl (Cardizem Cd) 240 mg DAILY PO 07/14/17 09:00 07/16/17 08:12 Vital Signs / I&O Vital Signs Date Time Temp Pulse Resp B/P (MAP) Pulse Ox O2 Delivery O2 Flow Rate FiO2 07/16/17 12:00 98.2 76 16 127/77 (94) 96 07/16/17 12:00 88 07/16/17 11:00 84 07/16/17 10:00 74 07/16/17 09:00 70 07/16/17 08:00 72 07/16/17 08:00 98.5 61 16 123/83 (96) 95 07/16/17 07:11 Room Air 07/16/17 07:00 64 07/16/17 06:00 60 07/16/17 05:00 72 07/16/17 04:00 Room Air 07/16/17 04:00 99 07/16/17 04:00 98.3 89 18 115/69 (84) 97 07/16/17 03:00 100 07/16/17 02:00 98 07/16/17 01:00 101 07/16/17 00:00 Room Air 07/16/17 00:00 98.2 70 18 121/71 (88) 97 07/16/17 00:00 70 07/15/17 23:00 80 07/15/17 22:00 84 07/15/17 21:00 82 07/15/17 20:00 98.4 75 18 110/71 (84) 96 07/15/17 20:00 Room Air 07/15/17 20:00 75 07/15/17 20:00 Room Air 07/15/17 18:00 72 07/15/17 17:00 96 07/15/17 16:59 98.3 07/15/17 16:00 90 07/15/17 15:00 104 07/15/17 15:00 100 18 108/73 (85) 95 I/O 07/15/17 07/15/17 07/15/17 07/16/17 07/16/17 07/16/17 07:00 15:00 23:00 07:00 15:00 23:00 Intake Total 480 ml 800 ml 480 ml Output Total 1000 ml 935 ml 1200 ml Balance -520 ml -135 ml -720 ml Intake Oral 480 ml 800 ml 480 ml Output Urine Total 1000 ml 935 ml 1200 ml # Bowel Movements 0 3 0 Physical Exam GENERAL: In NAD SKIN: Warm and dry. HEAD: Normocephalic. EYES: No scleral icterus. No injection or drainage. NECK: Supple, trachea midline. No JVD or lymphadenopathy. CARDIOVASCULAR: Irregular, without murmurs, gallops, or rubs. RESPIRATORY: Breath sounds equal bilaterally. No accessory muscle use. GASTROINTESTINAL: Abdomen soft, non-tender, nondistended. MUSCULOSKELETAL: No cyanosis, trace edema. Laboratory Laboratory Tests Test 07/16/17 05:10 Prothrombin Time 29.4 SEC Prothromb Time International Ratio 2.6 RATIO Assessment and Plan Problem List: (1) Atrial fibrillation with RVR ICD Codes: I48.91 - Unspecified atrial fibrillation Status: Acute (2) Acute on chronic systolic (congestive) heart failure ICD Codes: I50.23 - Acute on chronic systolic (congestive) heart failure Status: Acute (3) Cardiomyopathy ICD Codes: I42.9 - Cardiomyopathy, unspecified (4) Chronic obstructive pulmonary disease ICD Codes: J44.9 - Chronic obstructive pulmonary disease Status: Acute (5) Noncompliance ICD Codes: Z91.19 - Patient's noncompliance with other medical treatment and regimen Assessment and Plan No new cardiac issues. AF rate controlled, continue rate control. Continue anticoagulation with warfarin. Continue therapy for CHF and COPD. Increase activity. He has history of noncompliance with medical care (did not fill his meds after the last visit). I stressed the importance of taking his meds after discharge. F/u w PCP after discharge. 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 Davie Hernández MD Jul 16, 2017 14:04
[2017-07-16 14:39] LABS: APTT (PATIENT) 35.8 SEC (24.3-30.1); PROTHROMBIN TIME - PATIENT 22.8 SEC (9.8-11.6)
[2017-07-16] MEDS ORDERED: WARFARIN SOD 5 MG TAB PO SCH (16:00)
== END 2017-07-16 17:49 | DRG 308 ==
LOC: NEPE 11:16 → NEDA 14:23 → INTOOBSV 14:23 → HCIS 17:45 → OBSVTOIN 07-12 08:51
PROVIDERS: ADMIT Hospitalist; ATTEND Hospitalist
DX: I48.2 Chronic atrial fibrillation (principal); I50.23 Acute on chronic systolic (congestive) heart failure; E87.5 Hyperkalemia; J44.9 Chronic obstructive pulmonary disease, unspecified; I11.0 Hypertensive heart disease with heart failure; I45.10 Unspecified right bundle-branch block; F17.210 Nicotine dependence, cigarettes, uncomplicated; I25.5 Ischemic cardiomyopathy; I25.10 Atherosclerotic heart disease of native coronary artery without angina pectoris; E78.5 Hyperlipidemia, unspecified; Z87.891 Personal history of nicotine dependence; Z79.02 Long term (current) use of antithrombotics/antiplatelets; I25.2 Old myocardial infarction; Z91.19 Patient's noncompliance with other medical treatment and regimen; Z95.5 Presence of coronary angioplasty implant and graft
CPT/HCPCS: 71010; 80048; 81001; 82550; 83735; 83880; 84100; 84484; 85025; 85027; 85610; 85730; 93005; 94150; 94640; 94664; 96365; 96375; G0378; J1644; J1940

== ENCOUNTER 2018-06-16 02:04 | Inpatient (IN) ==
--- NOTE | 2018-06-16 03:16 | XR ---
EXAM DATE: 06/16/2018 3:03 AM EDT AGE/SEX: 72 years / Male INDICATIONS: Shortness of breath for 2 days. CLINICAL DATA: This is the patient's initial encounter. Patient reports that signs and symptoms have been present for 2 days and indicates a pain score of 0/10. MEDICAL/SURGICAL HISTORY: . Hypercholesterolemia. Hypertension. COPD. Dyspnea. Kidney stones. A -fib. . Jaw surgery. COMPARISON: [facility] [place], CHEST SINGLE AP, 07/11/2017. . FINDINGS: The examination is performed with lordotic angulation. The lungs are symmetrically aerated and clear. Cardiomegaly stable from prior. Both hemidiaphragms well delineated. CONCLUSION: The lungs are clear. Electronically signed by: Sterling Vidales MD 06/16/2018 3:15 AM EDT
[2018-06-16 03:17] LABS: Baso % (Auto) 0.5 % (0.0-2.0); Eos # (Auto) 0.1 th/mm3 (0.0-0.4); Hematocrit 47.7 % (39.0-51.0); Hemoglobin 15.9 gm/dL (13.0-17.0); Lymph # (Auto) 1.4 th/mm3 (1.0-4.8); Lymph % (Auto) 19.2 % (9.0-44.0); Mean Corpuscular HGB Conc 33.4 % (32.0-36.0); Mean Corpuscular Hemoglobin 29.4 pg (27.0-34.0); Mean Platelet Volume 8.9 fL (7.0-11.0); Mono # (Auto) 0.6 th/mm3 (0.0-0.9); Mono % (Auto) 8.7 % (0.0-8.0); Neut # (Auto) 5.1 th/mm3 (1.8-7.7); Neut % (Auto) 70.6 % (16.0-70.0); Platelet Count 169 th/mm3 (150-450); Red Blood Count 5.42 mil/mm3 (4.50-5.90); Red Cell Distribution Width 13.8 % (11.6-17.2); White Blood Count 7.2 th/mm3 (4.0-11.0)
[2018-06-16 03:34] LABS: Alanine Aminotransferase 24 U/L (12-78); Albumin 3.6 g/dL (3.4-5.0); Anion Gap 8 meq/L (5-15); Aspartate Aminotransferase 32 U/L (15-37); Blood Urea Nitrogen 12 mg/dL (7-18); Calcium 8.3 mg/dL (8.5-10.1); Carbon Dioxide 28.8 meq/L (21.0-32.0); Chloride 102 meq/L (98-107); Glomerular Filtration Rate 55 mL/min (>89); Glucose,Random 142 mg/dL (74-106); Potassium 5.7 meq/L (3.5-5.1); Sodium 139 meq/L (136-145)
[2018-06-16 03:38] LABS: Alkaline Phosphatase 83 U/L (45-117); Total Protein 7.6 g/dL (6.4-8.2)
--- NOTE | 2018-06-16 05:24 | ED ---
HPI General Chief Complaint: Respiratory Symptoms Stated Complaint: Diff breathing Time Seen by Provider: 06/16/18 02:12 History of Present Illness HPI Narrative: pt is AFIB CHF COPD HTN patient with smoking and etoh usage still .. pt with prior history of MT Pt comes in tonight to ER tonight because he feels heart is fast and was SOB came on suddenly at rest "like when he had his heart attack ". pt comes in in Rapid afib pt was treated in route for COPD as EVAC heard wheezing and known history of COPD received nebs and solumedrol and arrives mild tachycardia ,,, no Left chest pressure or squeezing feeling to chest . SOB conitinues in ER but pt reports improvement since evac treatment Related Data Previous Rx's Medication Instructions Recorded aspirin 1 mg/kg PO DAILY 30 Days tab 06/18/18 carvedilol [Coreg] 25 mg PO BID 30 Days #120 tab 06/18/18 diltiazem HCl [Cardizem CD] 360 mg PO DAILY 30 Days #60 cap 06/18/18 furosemide [Lasix] 20 mg PO DAILY 30 Days #30 tab 06/18/18 potassium chloride 10 meq PO DAILY 30 Days #30 tab 06/18/18 pravastatin 40 mg PO DAILY 30 Days #30 tab 06/18/18 Allergies Allergy/AdvReac Type Severity Reaction Status Date / Time No Known Allergies Allergy Unverified 06/16/18 02:08 Review of Systems ROS: all other systems reviewed are negative Cardiovascular Reports system reviewed and no additional complaints, except as docu, Reports lightheadedness, Reports palpitations and Reports dyspnea PMFSH Medical History Medical History Afib (Acute) CHF (congestive heart failure) (Acute) COPD (chronic obstructive pulmonary disease) (Acute) Cardiomyopathy (Acute) Chronic alcohol use (Acute) History of Coumadin therapy (Acute) Hyperlipidemia (Acute) Hypertension (Acute) Myocardial infarct, old (Acute) Noncompliance with medication regimen (Acute) Tobacco dependence (Acute) Urolithiasis (Acute) Surgical History Surgical History History of facial surgery (Acute) History of mandibular surgery (Acute) Social History Social History Substance History: No History of Abuse Smoking Status: Current every day smoker Tobacco Type: Cigarettes How Often Do You Have a Drink Containing Alcohol: 4 or more times a week Recent Travel in [facility] within the Last 8 Weeks: No Recent Out of Country Travel within the Last 8 Weeks: No Immunization History Tetanus Immunization: Unsure Hx Influenza Vaccine This Season: No Exam Narrative Exam Narrative: GENERAL: appear slightly SOB no distress SKIN: Warm and dry. HEAD: Atraumatic. Normocephalic. EYES: Pupils equal and round. No scleral icterus. No injection or drainage. ENT: No nasal bleeding or discharge. Mucous membranes pink and moist. NECK: Trachea midline. No JVD. CARDIOVASCULAR: rapid irregular RESPIRATORY: No accessory muscle use.mild wheeze in upper lungs bilateral GASTROINTESTINAL: Abdomen soft, non-tender, nondistended. Hepatic and splenic margins not palpable. MUSCULOSKELETAL: Extremities without clubbing, cyanosis, or edema. No obvious deformities. NEUROLOGICAL: Awake and alert. No obvious cranial nerve deficits. Motor grossly within normal limits. Five out of 5 muscle strength in the arms and legs. Normal speech. PSYCHIATRIC: Appropriate mood and affect; insight and judgment normal. Course Initial Documented Vital Signs Temperature 98.1 F 06/16/18 02:12 Pulse Rate 101 H 06/16/18 02:12 Respiratory Rate 20 06/16/18 02:12 Blood Pressure 139/97 H 06/16/18 02:12 Pulse Oximetry 98 06/16/18 02:12 Last Documented Vital Signs Temperature 97.8 F 06/18/18 10:00 Pulse Rate 89 06/18/18 10:00 Respiratory Rate 18 06/18/18 10:00 Blood Pressure 133/74 06/18/18 10:00 Pulse Oximetry 98 06/18/18 10:00 Medical Decision Making [facility] Narrative Medical decision making narrative: labs reveiewd and CHEst no signs of CHF , dx COPD and SOB admit for further eval Medical Screen Exam Complete: Yes Emergency Medical Condition: Yes Differential Diagnosis Differential Diagnosis: COPD exacerbation vs ACS vs afib RVR with decreased ventricle fill time and decreased SV and SOB due to decrease O2 carrying , CHF vs Bronchitis vs ISCHEMIA Lab Data Result diagrams: 06/17/18 05:25 06/18/18 04:44 Lab Results 06/16/18 06/16/18 06/16/18 Range/Units 03:00 03:00 03:00 WBC 7.2 (4.0-11.0) th/mm3 RBC 5.42 (4.50-5.90) mil/mm3 Hgb 15.9 (13.0-17.0) gm/dL Hct 47.7 (39.0-51.0) % MCV 88.0 (80.0-100.0) fL MCH 29.4 (27.0-34.0) pg MCHC 33.4 (32.0-36.0) % RDW 13.8 (11.6-17.2) % Plt Count 169 (150-450) th/mm3 MPV 8.9 (7.0-11.0) fL Neut % (Auto) 70.6 H (16.0-70.0) % Lymph % (Auto) 19.2 (9.0-44.0) % [place] % (Auto) 8.7 H (0.0-8.0) % Eos % (Auto) 1.0 (0.0-4.0) % Baso % (Auto) 0.5 (0.0-2.0) % Neut # (Auto) 5.1 (1.8-7.7) th/mm3 Lymph # (Auto) 1.4 (1.0-4.8) th/mm3 [place] # (Auto) 0.6 (0.0-0.9) th/mm3 Eos # (Auto) 0.1 (0.0-0.4) th/mm3 Baso # (Auto) 0.0 (0.0-0.2) th/mm3 WBC Differential . Differential Comment Auto diff final Sodium 139 (136-145) meq/L Potassium 5.7 H (3.5-5.1) meq/L Chloride 102 (98-107) meq/L Carbon Dioxide 28.8 (21.0-32.0) meq/L Anion Gap 8 (5-15) meq/L BUN 12 (7-18) mg/dL Creatinine 1.29 (0.60-1.30) mg/dL Estimated GFR 55 L (>89) mL/min Random Glucose 142 H (74-106) mg/dL Calcium 8.3 L (8.5-10.1) mg/dL Total Bilirubin 1.0 (0.2-1.0) mg/dL AST 32 (15-37) U/L ALT 24 (12-78) U/L Alkaline Phosphatase 83 (45-117) U/L Troponin I Less than 0.02 L (0.02-0.05) ng/mL B-Natriuretic Peptide 906 H (0-100) pg/mL Total Protein 7.6 (6.4-8.2) g/dL Albumin 3.6 (3.4-5.0) g/dL 06/16/18 06/16/18 06/16/18 Range/Units 05:00 10:34 17:13 WBC (4.0-11.0) th/mm3 RBC (4.50-5.90) mil/mm3 Hgb (13.0-17.0) gm/dL Hct (39.0-51.0) % MCV (80.0-100.0) fL MCH (27.0-34.0) pg MCHC (32.0-36.0) % RDW (11.6-17.2) % Plt Count (150-450) th/mm3 MPV (7.0-11.0) fL Neut % (Auto) (16.0-70.0) % Lymph % (Auto) (9.0-44.0) % [place] % (Auto) (0.0-8.0) % Eos % (Auto) (0.0-4.0) % Baso % (Auto) (0.0-2.0) % Neut # (Auto) (1.8-7.7) th/mm3 Lymph # (Auto) (1.0-4.8) th/mm3 [place] # (Auto) (0.0-0.9) th/mm3 Eos # (Auto) (0.0-0.4) th/mm3 Baso # (Auto) (0.0-0.2) th/mm3 WBC Differential Differential Comment Sodium (136-145) meq/L Potassium (3.5-5.1) meq/L Chloride (98-107) meq/L Carbon Dioxide (21.0-32.0) meq/L Anion Gap (5-15) meq/L BUN (7-18) mg/dL Creatinine (0.60-1.30) mg/dL Estimated GFR (>89) mL/min Random Glucose (74-106) mg/dL Calcium (8.5-10.1) mg/dL Total Bilirubin (0.2-1.0) mg/dL AST (15-37) U/L ALT (12-78) U/L Alkaline Phosphatase (45-117) U/L Troponin I Less than 0.02 L Less than 0.02 L Less than 0.02 L (0.02-0.05) ng/mL B-Natriuretic Peptide (0-100) pg/mL Total Protein (6.4-8.2) g/dL Albumin (3.4-5.0) g/dL 06/17/18 06/17/18 06/18/18 Range/Units 05:25 05:25 04:44 WBC 8.0 (4.0-11.0) th/mm3 RBC 5.02 (4.50-5.90) mil/mm3 Hgb 14.7 (13.0-17.0) gm/dL Hct 44.3 (39.0-51.0) % MCV 88.3 (80.0-100.0) fL MCH 29.4 (27.0-34.0) pg MCHC 33.3 (32.0-36.0) % RDW 13.9 (11.6-17.2) % Plt Count 149 L (150-450) th/mm3 MPV 8.8 (7.0-11.0) fL Neut % (Auto) 88.5 H (16.0-70.0) % Lymph % (Auto) 5.5 L (9.0-44.0) % [place] % (Auto) 5.9 (0.0-8.0) % Eos % (Auto) 0.0 (0.0-4.0) % Baso % (Auto) 0.1 (0.0-2.0) % Neut # (Auto) 7.0 (1.8-7.7) th/mm3 Lymph # (Auto) 0.4 L (1.0-4.8) th/mm3 [place] # (Auto) 0.5 (0.0-0.9) th/mm3 Eos # (Auto) 0.0 (0.0-0.4) th/mm3 Baso # (Auto) 0.0 (0.0-0.2) th/mm3 WBC Differential . Differential Comment Auto diff final Sodium 135 L 141 (136-145) meq/L Potassium 4.0 D 3.3 L (3.5-5.1) meq/L Chloride 99 97 L (98-107) meq/L Carbon Dioxide 28.9 36.0 H (21.0-32.0) meq/L Anion Gap 7 8 (5-15) meq/L BUN 21 H 24 H (7-18) mg/dL Creatinine 1.07 1.10 (0.60-1.30) mg/dL Estimated GFR 68 L 66 L (>89) mL/min Random Glucose 134 H 127 H (74-106) mg/dL Calcium 8.5 8.1 L (8.5-10.1) mg/dL Total Bilirubin 0.7 (0.2-1.0) mg/dL AST 24 (15-37) U/L ALT 27 (12-78) U/L Alkaline Phosphatase 76 (45-117) U/L Troponin I (0.02-0.05) ng/mL B-Natriuretic Peptide (0-100) pg/mL Total Protein 7.2 (6.4-8.2) g/dL Albumin 3.6 (3.4-5.0) g/dL Imaging Data Radiologist's impression: Chest X-Ray 06/16/18 02:49 CONCLUSION: The lungs are clear. Myocardial Perfusion Scan Nuc Med 06/17/18 00:00 CONCLUSION: 1. Fixed defect at the apex. No reversible defects observed to suggest acute ischemia. Severe global hypokinesia with significantly reduced ejection fraction. Discharge Plan Discharge Disposition Patient Disposition: 30 Still Patient Discharge Condition Condition: Stable Discharge Order Discharge Orders: Discharge Order (Routine); Ordered 06/18/18 Ordered By: Otis Krueger Discharge Details Anticipated Discharge Date: 06/18/18 Physicians Team ED Provider: Glen Handy Primary Care Provider: [facility],Physician 's Attending Provider: Otis Krueger Other Providers: Minor,Evan Status ED Status: Left Department Discharge Information Discharge Date/Time: 06/16/18 08:28
[2018-06-16] MEDS ORDERED: dilTIAZem 30 MG Tablet PO ONE (05:38)
[2018-06-16] MEDS ORDERED: dilTIAZem CD 240 MG Capsule PO ONE (06:08)
[2018-06-16] MEDS ORDERED: dilTIAZem Inj 125 MG in Sodium Chlor 0.9% Inj 100 ML IV.CONT PRN (06:12)
[2018-06-16] MEDS ORDERED: Bisacodyl 10 MG Supp RECTAL PRN (06:22)
[2018-06-16] MEDS ORDERED: Acetaminophen 325 MG Tablet PO PRN (06:22)
[2018-06-16] MEDS ORDERED: Morphine Inj 4 MG/ML Vial IV.PUSH PRN (06:27)
[2018-06-16] MEDS ORDERED: Sodium Polystyrene Sulfonate/Sorbitol Liq 15 GM/60 ML UDC PO ONE (08:01)
[2018-06-16] MEDS ORDERED: Lisinopril 5 MG Tablet PO SCH (09:00)
[2018-06-16] MEDS ORDERED: Metoprolol Tartrate 100 MG Tablet PO SCH ×2 (09:00→21:00)
[2018-06-16] MEDS: Enoxaparin Inj 40 MG/0.4 ML Syringe SQ SCH (09:09)
[2018-06-16] MEDS: Senna/Docusate Sodium 8.6/50 MG Tablet PO SCH ×2 (09:11→21:01)
--- NOTE | 2018-06-16 09:16 | P.HPIM ---
History of Present Illness Service: [facility] Primary Care Physician: [facility] Chief Complaint: c/o started breathing fast and not getting better at home History of Present Illness: Patient is a 72-year-old years old male who came into the emergency room for evaluation of difficulty breathing, which was found to have A. fib with RVR. Patient was discharged in July 2017 after being admitted for A. fib with RVR and acute on chronic congestive heart failure. Patient had multiple admissions for the same problem in the past and was reported noncompliance of not filling his prescriptions. Patient was initially diagnosed with atrial fibrillation in 2014,chronic systolic heart failure cardiomyopathy with echocardiogram in May 28, 2017 which showed an EF of 25-30%. Patient also has a past medical history of hypertension, COPD, chronic tobacco use and chronic alcohol use. Patient seen and evaluated, sitting in the bed denies any pain or shortness of breath. States that he is feeling better since he came here. Patient stated he "started breathing fast and felt that he will have heart attack" and at that time he was not breathing normal and was breathing heavier. Today he denies any shortness of breath denies any chest pain, dizziness, or lightheadedness, denies nausea or vomiting, denies any diaphoresis. Patient stated he is eating well and had a good bowel movement. Patient states that he usually smokes a pack a day since he 23 years old until 72 years old and now he cut it down to 3 cigarettes per day. Patient also states that he stopped drinking "usually drinks 4-5 beers per day and now he is down to "only" 3 beers a day. " Inpatient Certification: I certify that the inpatient services were ordered in accordance with Medicare regulations governing the order. This includes certification that hospital inpatient services are reasonable and necessary and in the case of services not specified as inpatient-only under 42 CFR 419.22(n), that they are appropriately provided as inpatient services in accordance to with the 2-midnight benchmark under 43 CFR 412.3(e) Estimated Total Length of Stay (Days): 2 Plans for Post Hospital Care: Not yet determined Review of Systems All other systems reviewed negative except as stated in HPI [facility] - History History Provided By: Patient, Medical Record, Anesthetist / EMT - Medical History Medical History: Medical History (Last Updated 06/16/18 @ 13:37 by FRANKY Conner) Afib CHF (congestive heart failure) COPD (chronic obstructive pulmonary disease) Cardiomyopathy Chronic alcohol use History of Coumadin therapy Hyperlipidemia Hypertension Myocardial infarct, old Noncompliance with medication regimen Tobacco dependence Urolithiasis - Surgical History Surgical History: Surgical History (Last Updated 06/16/18 @ 13:35 by FRANKY Conner) History of facial surgery History of mandibular surgery - Tobacco History Tobacco Use In Past 30 Days: Yes Smoking Status: Current every day smoker Tobacco Type: Cigarettes - Alcohol History How Often Do You Have a Drink Containing Alcohol: 4 or more times a week - Substance Use History Substance History: No History of Abuse - Travel History Recent Travel in the [place] Within the Last 8 Weeks: No Recent Travel Out of the Country Within the Last 8 Weeks: No - Immunization History Tetanus Immunization: Unsure Hx Influenza Vaccine This Season: No Medications and Allergies Active Medications: Active Medications Acetaminophen (Tylenol) 650 mg PO Q4H PRN PRN Reason: Temp > 100.4 Al Hydroxide/Mg Hydroxide (Milk Of Magnesia Liq) 30 ml PO Q12H PRN PRN Reason: Mild Constipation Aspirin (Ecotrin) 81 mg PO DAILY [facility] Bisacodyl (Dulcolax Supp) 10 mg RECTAL DAILY PRN PRN Reason: SEVERE CONSITIPATION Enoxaparin Sodium (Lovenox Inj) 40 mg SQ Q24H [facility] Last Admin: 06/16/18 09:09 Dose: 40 mg Diltiazem HCl 125 mg/ Sodium (Chloride) 125 mls @ 5 mls/hr IV.CONT TITRATE PRN ; Protocol PRN Reason: Per Protocol Last Admin: 06/16/18 07:15 Dose: 5 mg/hr, 5 mls/hr Lactulose (Lactulose Liq) 30 ml PO DAILY PRN PRN Reason: SEVERE CONSITIPATION Metoprolol Tartrate (Lopressor) 100 mg PO DAILY [facility] Last Admin: 06/16/18 09:10 Dose: 100 mg Morphine Sulfate (Morphine Inj) 2 mg IV.PUSH Q4H PRN PRN Reason: PAIN 6-10 Nitroglycerin (Nitro-Bid 2% Oint) 0.5 inch TOPICAL Q6HR PRN PRN Reason: CHEST PAIN Ondansetron HCl (Zofran Inj) 4 mg IV.PUSH Q6H PRN PRN Reason: NAUSEA OR VOMITING Pravastatin Sodium (Pravachol) 40 mg PO DAILY [facility] Last Admin: 06/16/18 09:10 Dose: 40 mg Senna/Docusate Sodium (Caitlin-Colace) 1 tab PO BID [facility] Last Admin: 06/16/18 09:11 Dose: Not Given Sennosides (Senokot) 17.2 mg PO Q12H PRN PRN Reason: Moderate Constipation Allergies Allergy/AdvReac Type Severity Reaction Status Date / Time No Known Allergies Allergy Unverified 06/16/18 02:08 Home Medications Medication Instructions Recorded Confirmed Type diltiazem HCl 240 mg PO DAILY 06/16/18 06/16/18 History lisinopril 5 mg PO DAILY 06/16/18 06/16/18 History metoprolol tartrate 100 mg PO DAILY 06/16/18 06/16/18 History potassium chloride 20 meq PO DAILY 06/16/18 06/16/18 History Exam Vital signs: Vital Signs 06/16/18 02:12 06/16/18 05:45 06/16/18 07:11 Temperature 98.1 F Pulse Rate 101 H 118 H 85 Respiratory Rate 20 16 20 Blood Pressure 139/97 H 119/91 H 146/93 H Pulse Oximetry 98 98 100 06/16/18 07:27 Temperature Pulse Rate 93 H Respiratory Rate Blood Pressure Pulse Oximetry Intake & Output 06/15/18 06/16/18 06/16/18 18:59 06:59 18:59 Weight 72.575 kg Narrative: GENERAL: well built, well nourished, with no apparent distress SKIN: Warm and dry. HEAD: Atraumatic. Normocephalic. EYES: Pupils equal and round. No scleral icterus. No injection or drainage. ENT: No nasal bleeding or discharge. Mucous membranes pink and moist. NECK: Trachea midline. No JVD. CARDIOVASCULAR: Regular rate and irregular rhythm. RESPIRATORY: No accessory muscle use. Clear to auscultation. Breath sounds equal bilaterally. GASTROINTESTINAL: Abdomen soft, non-tender, nondistended. Hepatic and splenic margins not palpable. MUSCULOSKELETAL: Extremities without clubbing, cyanosis, or edema. No obvious deformities. NEUROLOGICAL: Awake and alert. No obvious cranial nerve deficits. Motor grossly within normal limits. Five out of 5 muscle strength in the arms and legs. Normal speech. PSYCHIATRIC: Appropriate mood and affect; insight and judgment normal. Results - Labs CBC & Chem 7: 06/16/18 03:00 06/16/18 03:00 Labs: Short CBC 06/16/18 Range/Units 03:00 WBC 7.2 (4.0-11.0) th/mm3 Hgb 15.9 (13.0-17.0) gm/dL Hct 47.7 (39.0-51.0) % Plt Count 169 (150-450) th/mm3 BMP 06/16/18 03:00 Sodium 139 Potassium 5.7 H Chloride 102 Carbon Dioxide 28.8 BUN 12 Creatinine 1.29 Calcium 8.3 L Cardiac Enzymes 06/16/18 06/16/18 Range/Units 03:00 05:00 Troponin I Less than 0.02 L Less than 0.02 L (0.02-0.05) ng/mL Liver Function 06/16/18 Range/Units 03:00 Total Bilirubin 1.0 (0.2-1.0) mg/dL AST 32 (15-37) U/L ALT 24 (12-78) U/L Alkaline Phosphatase 83 (45-117) U/L Albumin 3.6 (3.4-5.0) g/dL - Imaging Impressions Chest X-Ray 06/16/18 02:49 CONCLUSION: The lungs are clear. Caprini VTE Risk Assessment Caprini VTE Risk Assessment: No/Low Risk (score <= 1) Caprini Risk Assessment Model: Point Value = 1 Point Value = 2 Point Value = 3 Point Value = 5 Age 41-60 Minor surgery BMI > 25 kg/m2 Swollen legs Varicose veins or History of unexplained or recurrent spontaneous Oral contraceptives or hormone replacement Sepsis (< 1 month) Serious lung disease, including pneumonia (< 1 month) Abnormal pulmonary function Acute myocardial infarction Congestive heart failure (< 1 month) History of inflammatory bowel disease Medical patient at bed rest Age 61-74 Arthroscopic surgery Major open surgery (> 45 min) Laparoscopic surgery (> 45 min) Malignancy Confined to bed (> 72 hours) Immobilizing plaster cast Central venous access Age >= 75 History of VTE Family history of VTE Factor V Leiden Prothrombin [id number] Lupus anticoagulant Anticardiolipin antibodies Elevated serum homocysteine Heparin-induced thrombocytopenia Other congenital or acquired thrombophilia Stroke (< 1 month) Elective arthroplasty Hip, pelvis, or leg fracture Acute spinal cord injury (< 1 month) Prophylaxis Regimen: Total Risk Factor Score Risk Level Prophylaxis Regimen 0-1 Low Early ambulation 2 Moderate Order ONE of the following: *Sequential Compression Device (SCD) *Heparin 5000 units SQ BID 3-4 Higher Order ONE of the following medications: *Heparin 5000 units SQ TID *Enoxaparin/Lovenox 40 mg SQ daily (WT < 150 kg, CrCl > 30 mL/min) *Enoxaparin/Lovenox 30 mg SQ daily (WT < 150 kg, CrCl > 10-29 mL/min) *Enoxaparin/Lovenox 30 mg SQ BID (WT < 150 kg, CrCl > 30 mL/min) AND/OR *Sequential Compression Device (SCD) 5 or more Highest Order ONE of the following medications: *Heparin 5000 units SQ TID (Preferred with Epidurals) *Enoxaparin/Lovenox 40 mg SQ daily (WT < 150 kg, CrCl > 30 mL/min) *Enoxaparin/Lovenox 30 mg SQ daily (WT < 150 kg, CrCl > 10-29 mL/min) *Enoxaparin/Lovenox 30 mg SQ BID (WT < 150 kg, CrCl > 30 mL/min) AND *Sequential Compression Device (SCD) Assessment and Plan - Plan Patient is a 72-year-old years old male who came into the emergency room for evaluation of difficulty breathing, which was found to have A. fib with RVR which is now on Cardizem. Patient was discharged in July 2017 after being admitted for A. fib with RVR and acute on chronic congestive heart failure. Patient had multiple admissions for the same problem in the past and was reported noncompliance of not filling his prescriptions. Patient was initially diagnosed with atrial fibrillation in 2014,chronic systolic heart failure cardiomyopathy with echocardiogram in May 28, 2017 which showed an EF of 25- 30%. Patient also has a past medical history of hypertension, COPD, chronic tobacco use and chronic alcohol use. Afib with RVR -change cardizem to short term QID, to wean off cardizem drip -change metoprolol tartrate to BID, was on daily at home, most likely a mistake of dosage -monitor Hr and VS -Patient previously noncompliant with medications and treatment Cardiomyopathy/CHF -cardiology consult, previous LVEF 25-30% in May 2017 - 2D-Echo today - Cardiology consult for possible AICD -CHADS-VASC2 OF 3 , will defer anticoagulants to the produce team member History of VT -No chest pain, troponin less than 0.02 -Continue home medications, will monitor Hypertension -Slightly elevated diastolic blood pressure, home medication dose for metoprolol and Cardizem changed -Monitor blood pressure Hyperkalemia -Hold lisinopril, hold potassium -Kayexalate dose given -Monitor K level, monitor BMP Tobacco dependence/alcohol dependence -Smoking cessation given/counseling given History COPD -Add DuoNeb treatments as needed for shortness of breath -O2 via nasal cannula to keep Oxygen saturation greater than 90% History of hyperlipidemia -Not on any medication at home, will monitor DVT prophylaxis: Lovenox and increase ambulation Discussed Condition With: Dr Fuller
--- NOTE | 2018-06-16 12:24 | P.CONCA ---
History of Present Illness Service: Cardiology Consult date: 06/16/18 Reason for Consult: Atrial fibrillation, cardiomyopathy Primary Care Provider: [facility] Chief Complaint: s/o started breathing fast and not getting better History of Present Illness: This is 72-year-old gentleman without outpatient follow-up with history of noncompliance, hypertension, COPD, chronic alcohol and tobacco use, and cardiomyopathy who now presents to the emergency department progressive shortness of breath. Patient was found to be in atrial fibrillation with rapid ventricular rate. Patient had last been seen at the end of 2016, had a transthoracic echocardiogram performed which showed severely reduced left ventricular systolic function ejection fraction between 25 and 30%. Patient continues to smoke and use alcohol. Patient has been noncompliant with medications. He was initiated on Cardizem and heart rate is slightly improved. Patient states his breathing is better but still has some shortness of breath. Consulted for further recommendations. Review of Systems All other systems reviewed negative except as stated [facility] - History History Provided By: Patient, Diamond Cutter / EMT - Medical History Medical History: Medical History (Last Updated 06/16/18 @ 11:32 by FRANKY Conner) Afib CHF (congestive heart failure) COPD (chronic obstructive pulmonary disease) Cardiomyopathy Chronic alcohol use Hypertension Myocardial infarct, old Noncompliance with medication regimen Tobacco dependence - Tobacco History Tobacco Use In Past 30 Days: Yes Smoking Status: Current every day smoker Tobacco Type: Cigarettes - Alcohol History How Often Do You Have a Drink Containing Alcohol: 2 to 3 times a week - Substance Use History Substance History: No History of Abuse - Travel History Recent Travel in the [place] Within the Last 8 Weeks: No Recent Travel Out of the Country Within the Last 8 Weeks: No - Immunization History Tetanus Immunization: Unsure Hx Influenza Vaccine This Season: No Medications and Allergies Active Medications: Active Medications Acetaminophen (Tylenol) 650 mg PO Q4H PRN PRN Reason: Temp > 100.4 Al Hydroxide/Mg Hydroxide (Milk Of Magnesia Liq) 30 ml PO Q12H PRN PRN Reason: Mild Constipation Aspirin (Ecotrin) 81 mg PO DAILY [facility] Bisacodyl (Dulcolax Supp) 10 mg RECTAL DAILY PRN PRN Reason: SEVERE CONSITIPATION Diltiazem HCl (Cardizem) 60 mg PO QID [facility] Enoxaparin Sodium (Lovenox Inj) 40 mg SQ Q24H [facility] Last Admin: 06/16/18 09:09 Dose: 40 mg Diltiazem HCl 125 mg/ Sodium (Chloride) 125 mls @ 5 mls/hr IV.CONT TITRATE PRN ; Protocol PRN Reason: Per Protocol Last Admin: 06/16/18 07:15 Dose: 5 mg/hr, 5 mls/hr Lactulose (Lactulose Liq) 30 ml PO DAILY PRN PRN Reason: SEVERE CONSITIPATION Metoprolol Tartrate (Lopressor) 100 mg PO BID [facility] Morphine Sulfate (Morphine Inj) 2 mg IV.PUSH Q4H PRN PRN Reason: PAIN 6-10 Nitroglycerin (Nitro-Bid 2% Oint) 0.5 inch TOPICAL Q6HR PRN PRN Reason: CHEST PAIN Ondansetron HCl (Zofran Inj) 4 mg IV.PUSH Q6H PRN PRN Reason: NAUSEA OR VOMITING Pravastatin Sodium (Pravachol) 40 mg PO DAILY [facility] Last Admin: 06/16/18 09:10 Dose: 40 mg Senna/Docusate Sodium (Caitlin-Colace) 1 tab PO BID [facility] Last Admin: 06/16/18 09:11 Dose: Not Given Sennosides (Senokot) 17.2 mg PO Q12H PRN PRN Reason: Moderate Constipation Allergies Allergy/AdvReac Type Severity Reaction Status Date / Time No Known Allergies Allergy Unverified 06/16/18 02:08 Home Medications Medication Instructions Recorded Confirmed Type diltiazem HCl 240 mg PO DAILY 06/16/18 06/16/18 History lisinopril 5 mg PO DAILY 06/16/18 06/16/18 History metoprolol tartrate 100 mg PO DAILY 06/16/18 06/16/18 History potassium chloride 20 meq PO DAILY 06/16/18 06/16/18 History Exam Vital signs: Vital Signs 06/16/18 02:12 06/16/18 05:45 06/16/18 07:11 Temperature 98.1 F Pulse Rate 101 H 118 H 85 Respiratory Rate 20 16 20 Blood Pressure 139/97 H 119/91 H 146/93 H Pulse Oximetry 98 98 100 06/16/18 07:27 06/16/18 09:00 Temperature 97.6 F Pulse Rate 93 H 108 H Respiratory Rate 18 Blood Pressure 136/97 H Pulse Oximetry 98 Intake & Output 06/15/18 06/16/18 06/16/18 18:59 06:59 18:59 Weight 72.575 kg Other: Date of Last Bowel Movement 06/15/18 - Constitutional no acute distress - Routine HEENT Exam Eye: Present: EOMI, PERRL - Routine Neck Exam Present: JVD - Routine Cardiovascular Exam Present: irregular rhythm - Routine Abdominal Exam Present: soft - Routine Extremities Exam Absent: clubbing, edema - Routine Skin Exam Absent: cyanosis - Routine Neurological Exam Present: CN II-XII intact, sensory deficit, motor deficit Results 06/16/18 03:00 06/16/18 03:00 Cardiac Enzymes 06/16/18 06/16/18 06/16/18 Range/Units 03:00 03:00 05:00 AST 32 (15-37) U/L Troponin I Less than 0.02 L Less than 0.02 L (0.02-0.05) ng/mL B-Natriuretic Peptide 906 H (0-100) pg/mL Coagulation 06/16/18 Range/Units 03:00 B-Natriuretic Peptide 906 H (0-100) pg/mL CBC 06/16/18 Range/Units 03:00 WBC 7.2 (4.0-11.0) th/mm3 RBC 5.42 (4.50-5.90) mil/mm3 Hgb 15.9 (13.0-17.0) gm/dL Hct 47.7 (39.0-51.0) % Plt Count 169 (150-450) th/mm3 Neut # (Auto) 5.1 (1.8-7.7) th/mm3 Lymph # (Auto) 1.4 (1.0-4.8) th/mm3 [place] # (Auto) 0.6 (0.0-0.9) th/mm3 Eos # (Auto) 0.1 (0.0-0.4) th/mm3 Baso # (Auto) 0.0 (0.0-0.2) th/mm3 Comprehensive Metabolic Panel 06/16/18 Range/Units 03:00 Sodium 139 (136-145) meq/L Potassium 5.7 H (3.5-5.1) meq/L Chloride 102 (98-107) meq/L Carbon Dioxide 28.8 (21.0-32.0) meq/L BUN 12 (7-18) mg/dL Creatinine 1.29 (0.60-1.30) mg/dL Calcium 8.3 L (8.5-10.1) mg/dL AST 32 (15-37) U/L ALT 24 (12-78) U/L Alkaline Phosphatase 83 (45-117) U/L Total Protein 7.6 (6.4-8.2) g/dL Albumin 3.6 (3.4-5.0) g/dL Intake and Output 06/15/18 06/16/18 06/16/18 22:59 06:59 14:59 Other: Date of Last Bowel Movement 06/15/18 Weight 72.575 kg Assessment and Plan - Assessment (1) Congestive heart failure Code(s): I50.9 - Heart failure, unspecified Status: Acute (2) Acute on chronic systolic (congestive) heart failure Code(s): I50.23 - Acute on chronic systolic (congestive) heart failure Status : Acute (3) Cardiomyopathy Code(s): I42.9 - Cardiomyopathy, unspecified Status: Acute (4) Atrial fibrillation with rapid ventricular response Code(s): I48.91 - Unspecified atrial fibrillation Status: Acute (5) Tobacco abuse Code(s): Z72.0 - Tobacco use Status: Acute (6) Alcohol abuse Code(s): F10.10 - Alcohol abuse, uncomplicated Status: Acute - Plan We will continue diuresis. Follow electrolytes and creatinine. Will titrate Cardizem to 60 mg 4 times daily. Will await for 2D echocardiogram results. Patient has not been on guideline directed medical therapy and therefore would not be considered in a candidate for implantable cardioverter defibrillator even if his ejection fraction is reduced. If his ejection fraction is reduced, he should undergo Lexiscan to rule out ischemic etiology and initiate guideline directed medical therapy. We can have a discussion about an automatic external cardioverter defibrillator, although with his history of noncompliance I am not sure this would be ideal. The patient has cardiomyopathy on guideline directed medical therapy, depending on the etiology, he will need an outpatient follow- up transthoracic echocardiogram, at which point then he would or would not qualify for implantable cardioverter defibrillator. He has an elevated CHADS-VASC2 score, but I am not sure he is a good anticoagulation candidate. We will initiate aspirin 325 mg daily.
--- NOTE | 2018-06-16 12:58 | ECG ---
Date Performed: 06/16/2018 Time Performed: 05:11:29 PTAGE: 72 years EKG: ATRIAL FIBRILLATION WITH RAPID VENTRICULAR RESPONSE RIGHT BUNDLE BRANCH BLOCK INFERIOR MYOC ARDIAL INFARCTION MODERATE T-WAVE ABNORMALITY, CONSIDER LATERAL ISCHEMIA ABNORMAL ECG PREVIOUS TRACING : 06/16/2018 02.08 Since the previous tracing, no significant change noted DOCTOR: Alonso Faria Interpretating Date/Time 06/16/2018 12:57:39
--- NOTE | 2018-06-16 12:58 | ECG ---
Date Performed: 06/16/2018 Time Performed: 02:08:41 PTAGE: 72 years EKG: ATRIAL FIBRILLATION WITH RAPID VENTRICULAR RESPONSE MARKED RIGHT AXIS DEVIATION RIGHT BUNDL E BRANCH BLOCK INFERIOR MYOCARDIAL INFARCTION ABNORMAL ECG PREVIOUS TRACING : 07/11/2017 11.29 Since the previous tracing, no significant change noted DOCTOR: Alonso Faria Interpretating Date/Time 06/16/2018 12:57:52
[2018-06-16] MEDS ORDERED: dilTIAZem 60 MG Tablet PO SCH (13:00)
--- NOTE | 2018-06-16 13:16 | ECHRPT ---
Indication: ATRIAL FIB CONCLUSIONS The left ventricle is not well visualized. The left ventricular systolic function is severely reduced with an estimated ejection fraction in th e range of 25-30%. Moderately dilated left ventricle. There is global left ventricular dysfunction. Wall thickness is normal. Calcification of the posterior mitral valve leaflet. Mild mitral valve regurgitation. The aortic valve is not well visualized. There is mild tricuspid valve regurgitation. The estimated pulmonary arterial pressure is 51.5 mmHg. The inferior vena cava is dilated. There is less than 50% respiratory change in dimension of the inferior vena cava (abnormal). BP: / HR: Rhythm: Atrial fibrillation MEASUREMENTS (Male / Female) Normal Values Technical Quality:Poor 2D ECHO LV Diastolic Diameter PLAX 5.5 cm 4.2 - 5.9 / 3.9 - 5.3 cm LV Systolic Diameter PLAX 5.3 cm IVS Diastolic Thickness 1.1 cm 0.6 - 1.0 / 0.6 - 0.9 cm LVPW Diastolic Thickness 1.1 cm 0.6 - 1.0 / 0.6 - 0.9 cm LV Relative Wall Thickness 0.4 LVOT Diameter 2.1 cm LA Systolic Diameter LX 4.0 cm 3.0 - 4.0 / 2.7 - 3.8 cm LV Ejection Fraction MOD 4C 9.6 % LV Ejection Fraction 4C AL 11.5 % M-MODE Aortic Root Diameter MM 2.5 cm LA Systolic Diameter MM 3.5 cm LA Ao Ratio MM 1.4 AV Cusp Separation MM 1.5 cm DOPPLER AV Peak Velocity 54.3 cm/s AV Peak Gradient 1.2 mmHg LVOT Peak Velocity 55.3 cm/s LVOT Peak Gradient 1.2 mmHg AV Area Cont Eq pk 3.5 cm MV Area PHT 5.0 cm TR Peak Velocity 322.0 cm/s TR Peak Gradient 41.5 mmHg Right Atrial Pressure 10.0 mmHg Pulmonary Artery Systolic Pressu 51.5 mmHg Right Ventricular Systolic Press 51.5 mmHg FINDINGS LEFT VENTRICLE The left ventricle is not well visualized. The left ventricular systolic function is severely reduced with an estimated ejection fraction in th e range of 25-30%. Moderately dilated left ventricle. There is global left ventricular dysfunction. Wall thickness is normal. RIGHT VENTRICLE Normal right ventricular size and systolic function. LEFT ATRIUM The left atrial size is normal. RIGHT ATRIUM The right atrial size is normal. ATRIAL SEPTUM Normal atrial septal thickness without atrial level shunting by limited color doppler interrogation. AORTA The aortic root and proximal ascending aorta are normal in size on limited imaging. MITRAL VALVE Structurally normal mitral valve. Calcification of the posterior mitral valve leaflet. Mild mitral valve regurgitation. AORTIC VALVE The aortic valve is not well visualized. TRICUSPID VALVE Structurally normal tricuspid valve. There is mild tricuspid valve regurgitation. The estimated pulmonary arterial pressure is 51.5 mmHg. PULMONARY VALVE No pulmonary valve regurgitation or stenosis. VESSELS The inferior vena cava is dilated. There is less than 50% respiratory change in dimension of the inferior vena cava (abnormal). PERICARDIUM No pericardial effusion. Evan Valencia MD, FACC (Electronically Signed) Final Date:16 June 2018 13:15
[2018-06-16] MEDS: dilTIAZem 30 MG Tablet PO SCH ×2 (18:06→21:01)
[2018-06-16] MEDS ORDERED: Metoprolol Tartrate 50 MG Tablet PO SCH (21:00)
[2018-06-17 06:47] LABS: Baso % (Auto) 0.1 % (0.0-2.0); Hematocrit 44.3 % (39.0-51.0); Hemoglobin 14.7 gm/dL (13.0-17.0); Lymph # (Auto) 0.4 th/mm3 (1.0-4.8); Lymph % (Auto) 5.5 % (9.0-44.0); Mean Corpuscular HGB Conc 33.3 % (32.0-36.0); Mean Corpuscular Hemoglobin 29.4 pg (27.0-34.0); Mean Corpuscular Volume 88.3 fL (80.0-100.0); Mean Platelet Volume 8.8 fL (7.0-11.0); Mono # (Auto) 0.5 th/mm3 (0.0-0.9); Mono % (Auto) 5.9 % (0.0-8.0); Neut % (Auto) 88.5 % (16.0-70.0); Platelet Count 149 th/mm3 (150-450); Red Blood Count 5.02 mil/mm3 (4.50-5.90); Red Cell Distribution Width 13.9 % (11.6-17.2)
--- NOTE | 2018-06-17 08:01 | P.PNCA ---
Subjective Interval history: Patient seen and examined. Chart reviewed. Patient with no complaints today. Denies chest pain, dyspnea or symptoms of alcohol withdrawal Physical Exam Vital signs: Vital Signs 06/16/18 09:00 06/16/18 10:00 06/16/18 12:00 Temperature 97.6 F 97.8 F Pulse Rate 90 88 80 Respiratory Rate 18 18 Blood Pressure 136/97 H 138/99 H Pulse Oximetry 98 98 06/16/18 13:00 06/16/18 15:00 06/16/18 16:00 Temperature 97.4 F L Pulse Rate 104 H 68 78 Respiratory Rate 18 Blood Pressure 135/84 Pulse Oximetry 98 06/16/18 17:00 06/16/18 18:00 06/16/18 19:00 Temperature Pulse Rate 72 96 H 78 Respiratory Rate Blood Pressure Pulse Oximetry 06/16/18 20:00 06/16/18 21:00 06/16/18 22:00 Temperature 97.6 F Pulse Rate 72 78 74 Respiratory Rate 16 Blood Pressure 142/82 H Pulse Oximetry 98 06/16/18 23:00 06/17/18 00:00 06/17/18 01:00 Temperature Pulse Rate 91 H 88 80 Respiratory Rate 16 Blood Pressure 142/97 H Pulse Oximetry 98 06/17/18 02:00 06/17/18 03:00 06/17/18 03:35 Temperature Pulse Rate 94 H 94 H 98 H Respiratory Rate 16 Blood Pressure 132/88 Pulse Oximetry 96 06/17/18 04:00 06/17/18 05:00 06/17/18 06:00 Temperature Pulse Rate 98 H 96 H 102 H Respiratory Rate Blood Pressure Pulse Oximetry 06/17/18 07:00 Temperature Pulse Rate 102 H Respiratory Rate Blood Pressure Pulse Oximetry Intake & Output 06/16/18 06/17/18 06/17/18 18:59 06:59 18:59 Intake Total 620 / 620 285 / 285 Output Total 500 / 500 450 / 450 Balance 120 / 120 -165 / -165 Weight 72.5 kg Intake: IV 45 / 45 Cardizem Inj 125 MG In NS Inj 45 / 45 100 ML @ 5 MG/HR 5 mls/hr IV. CONT TITRATE PRN Rx#:[id number] Oral 620 / 620 240 / 240 Output: Urine 500 / 500 450 / 450 Other: Date of Last Bowel Movement 06/15/18 06/15/18 # Bowel Movements 0 Narrative: GENERAL: AOx 3. SKIN: Warm and dry. HEAD: Atraumatic. Normocephalic. EYES: Pupils equal and round. No scleral icterus. No injection or drainage. ENT: No nasal bleeding or discharge. Mucous membranes pink and moist. NECK: very large cervantes obscuring evaluation CARDIOVASCULAR: irregularly irregular and tachycardic. RESPIRATORY: No accessory muscle use. Clear to auscultation. Breath sounds equal bilaterally. MUSCULOSKELETAL: Extremities without clubbing, cyanosis. There is 2+ bilateral lower extremity edema. No obvious deformities. NEUROLOGICAL: Awake and alert. No obvious cranial nerve deficits. Normal speech. PSYCHIATRIC: Appropriate mood and affect; insight and judgment normal. Assessment and Plan - Plan Assessment: --AF with RVR --mild ADHF, systolic --Cardiomyopathy, EF 25-30% --RBBB with QRS duration 151ms --HTN, controlled --chronic alcohol abuse --medication non-compliance --It doesn't appear he was provided any diuretic therapy thus far. Provide Furosemide 40mg iv bid today as he was stating that he will likely not stay inpatient after tomorrow AM for personal reasons. --Continue to hold HUMPHREY-I with hyperkalemia --Lexiscan stress test today --Change metoprolol succinate to Carvedilol 25mg bid as he will not be able to afford the metoprolol succinate and tartrate would be inappropriate with underlying cardiomyopathy. --agree patient is poor candidate for chronic anticoagulation therapy due to medication non-compliance issues and fall risk as he has unstable gait and alcohol use. Defer for now. --Increase diltiazem to Cardizem CD 360mg daily. --AICD to be considered at later date as outpatient once patient has been maintained on OMT.
[2018-06-17 08:06] LABS: Alanine Aminotransferase 27 U/L (12-78); Albumin 3.6 g/dL (3.4-5.0); Alkaline Phosphatase 76 U/L (45-117); Anion Gap 7 meq/L (5-15); Aspartate Aminotransferase 24 U/L (15-37); Blood Urea Nitrogen 21 mg/dL (7-18); Calcium 8.5 mg/dL (8.5-10.1); Carbon Dioxide 28.9 meq/L (21.0-32.0); Chloride 99 meq/L (98-107); Glomerular Filtration Rate 68 mL/min (>89); Glucose,Random 134 mg/dL (74-106); Sodium 135 meq/L (136-145); Total Protein 7.2 g/dL (6.4-8.2)
[2018-06-17] MEDS: dilTIAZem CD 180 MG Capsule PO SCH (08:21)
[2018-06-17] MEDS: Carvedilol 12.5 MG Tablet PO SCH ×2 (08:21→20:38)
[2018-06-17] MEDS: Enoxaparin Inj 40 MG/0.4 ML Syringe SQ SCH (08:22)
[2018-06-17] MEDS ORDERED: Atropine Inj 1 MG/10 ML Syringe ONE ×2 (09:26→12:20)
[2018-06-17] MEDS ORDERED: Lidocaine 2% 100 MG/5 ML Syringe ONE ×2 (09:27→12:21)
--- NOTE | 2018-06-17 09:30 | P.PNIM ---
Subjective Interval history: Follow-up atrial fibrillation with RVR. Patient lying in bed denies any pain or shortness of breath, denies any chest pain or palpitation. Patient was upset trying to use the phone calling for someone to pick him up, stated one- person stated he is going on, stated another person said he is not going home. Patient states that nobody can pick him up today and will be better tomorrow that is why he is upset he has no right. However confirmed with the patient that he is going for stress test today and we will determine his discharge after the result. Patient feels better and agreed with it. Patient denies any other symptoms, denies any dizziness, nausea and vomiting. Physical Exam Vital signs: Vital Signs 06/16/18 10:00 06/16/18 12:00 06/16/18 13:00 Temperature 97.8 F Pulse Rate 88 80 104 H Respiratory Rate 18 Blood Pressure 138/99 H Pulse Oximetry 98 06/16/18 15:00 06/16/18 16:00 06/16/18 17:00 Temperature 97.4 F L Pulse Rate 68 78 72 Respiratory Rate 18 Blood Pressure 135/84 Pulse Oximetry 98 06/16/18 18:00 06/16/18 19:00 06/16/18 20:00 Temperature 97.6 F Pulse Rate 96 H 78 72 Respiratory Rate 16 Blood Pressure 142/82 H Pulse Oximetry 98 06/16/18 21:00 06/16/18 22:00 06/16/18 23:00 Temperature Pulse Rate 78 74 91 H Respiratory Rate Blood Pressure Pulse Oximetry 06/17/18 00:00 06/17/18 01:00 06/17/18 02:00 Temperature Pulse Rate 88 80 94 H Respiratory Rate 16 Blood Pressure 142/97 H Pulse Oximetry 98 06/17/18 03:00 06/17/18 03:35 06/17/18 04:00 Temperature Pulse Rate 94 H 98 H 98 H Respiratory Rate 16 Blood Pressure 132/88 Pulse Oximetry 96 06/17/18 05:00 06/17/18 06:00 06/17/18 07:00 Temperature Pulse Rate 96 H 102 H 102 H Respiratory Rate Blood Pressure Pulse Oximetry 06/17/18 08:00 Temperature Pulse Rate 115 H Respiratory Rate 18 Blood Pressure 147/107 H Pulse Oximetry 97 Intake & Output 06/16/18 06/17/1818 18:59 06:59 18:59 Intake Total 620 / 620 285 / 285 Output Total 500 / 500 450 / 450 Balance 120 / 120 -165 / -165 Weight 72.5 kg Intake: IV 45 / 45 Cardizem Inj 125 MG In NS Inj 45 / 45 100 ML @ 5 MG/HR 5 mls/hr IV. CONT TITRATE PRN Rx#:[id number] Oral 620 / 620 240 / 240 Output: Urine 500 / 500 450 / 450 Other: Date of Last Bowel Movement 06/15/18 06/15/18 # Bowel Movements 0 Narrative: GENERAL: Patient alert and oriented 3. Well-developed well-nourished with no apparent distress SKIN: Warm and dry. HEAD: Atraumatic. Normocephalic. EYES: Pupils equal and round. No scleral icterus. No injection or drainage. ENT: No nasal bleeding or discharge. Mucous membranes pink and moist. NECK: Trachea midline. With large cervantes obscuring neck area CARDIOVASCULAR: Irregular rate and irregular rhythm. Slight tachycardia, trace edema on lower extremity more on the right 1+ RESPIRATORY: No accessory muscle use. Clear to auscultation. Breath sounds equal bilaterally. GASTROINTESTINAL: Abdomen soft, non-tender, nondistended. Hepatic and splenic margins not palpable. MUSCULOSKELETAL: Extremities without clubbing, cyanosis, or edema. No obvious deformities. NEUROLOGICAL: Awake and alert. No obvious cranial nerve deficits. Motor grossly within normal limits. Five out of 5 muscle strength in the arms and legs. Normal speech. PSYCHIATRIC: Appropriate mood and affect; insight and judgment normal. Results - Labs CBC & Chem 7: 06/17/18 05:25 06/17/18 05:25 Laboratory Results - last 24 hr 06/16/18 06/16/18 06/17/18 10:34 17:13 05:25 WBC 8.0 RBC 5.02 Hgb 14.7 Hct 44.3 MCV 88.3 MCH 29.4 MCHC 33.3 RDW 13.9 Plt Count 149 L MPV 8.8 Neut % (Auto) 88.5 H Lymph % (Auto) 5.5 L Upson % (Auto) 5.9 Eos % (Auto) 0.0 Baso % (Auto) 0.1 Neut # (Auto) 7.0 Lymph # (Auto) 0.4 L Upson # (Auto) 0.5 Eos # (Auto) 0.0 Baso # (Auto) 0.0 WBC Differential . Differential Comment Auto diff final Sodium Potassium Chloride Carbon Dioxide Anion Gap BUN Creatinine Estimated GFR Random Glucose Calcium Total Bilirubin AST ALT Alkaline Phosphatase Troponin I Less than 0.02 L Less than 0.02 L Total Protein Albumin 06/17/18 05:25 WBC RBC Hgb Hct MCV MCH MCHC RDW Plt Count MPV Neut % (Auto) Lymph % (Auto) Upson % (Auto) Eos % (Auto) Baso % (Auto) Neut # (Auto) Lymph # (Auto) Upson # (Auto) Eos # (Auto) Baso # (Auto) WBC Differential Differential Comment Sodium 135 L Potassium 4.0 D Chloride 99 Carbon Dioxide 28.9 Anion Gap 7 BUN 21 H Creatinine 1.07 Estimated GFR 68 L Random Glucose 134 H Calcium 8.5 Total Bilirubin 0.7 AST 24 ALT 27 Alkaline Phosphatase 76 Troponin I Total Protein 7.2 Albumin 3.6 Assessment and Plan - Assessment (1) Acute on chronic systolic (congestive) heart failure Code(s): I50.23 - Acute on chronic systolic (congestive) heart failure Status : Acute (2) Cardiomyopathy Code(s): I42.9 - Cardiomyopathy, unspecified Status: Acute (3) Atrial fibrillation with rapid ventricular response Code(s): I48.91 - Unspecified atrial fibrillation Status: Acute (4) Tobacco abuse Code(s): Z72.0 - Tobacco use Status: Acute (5) Alcohol abuse Code(s): F10.10 - Alcohol abuse, uncomplicated Status: Acute - Plan Patient is a 72-year-old years old male who came into the emergency room for evaluation of difficulty breathing, which was found to have A. fib with RVR which is now on Cardizem. Patient was discharged in July 2017 after being admitted for A. fib with RVR and acute on chronic congestive heart failure. Patient had multiple admissions for the same problem in the past and was reported noncompliance of not filling his prescriptions. Patient was initially diagnosed with atrial fibrillation in 2014,chronic systolic heart failure cardiomyopathy with echocardiogram in May 28, 2017 which showed an EF of 25- 30%. Patient also has a past medical history of hypertension, COPD, chronic tobacco use and chronic alcohol use. Afib with RVR Cardiology consulted, for Lexiscan today -cardizem dose changed, weaned off cardizem drip -changed metoprolol to carvedilol per cardiology recommendation and patient's compliance as metoprolol succinate is more expensive and patient will not benefit from the metoprolol tartrate due to his cardiomyopathy patient not on any anticoagulation due to medication noncompliance and fall risk due to unstable gait and alcohol use -Continue aspirin -monitor HR and VS -Patient previously noncompliant with medications and treatment Cardiomyopathy/CHF -cardiology consult, previous LVEF 25-30% in May 2017 - 2D-Echo: left ventricular systolic function is severely reduced with an estimated ejection fraction in the range of 25-30%. Moderately dilated left ventricle. There is global left ventricular dysfunction. wall thickness is normal. - Cardiology: recommended outpatient follow up for AICD once he is maintained on outpatient medical therapy History of [place] -No chest pain, troponin less than 0.02 -patient for Laxiscan today, considering Afib RVR episode -Continue home medications, will monitor Hypertension -Slightly elevated diastolic blood pressure, home medication dose for metoprolol and Cardizem changed -Monitor blood pressure Hyperkalemia -continue to Hold lisinopril, hold potassium -Kayexalate dose given -K level improved at 4.0, monitor BMP Tobacco dependence/alcohol dependence -Smoking cessation given/counseling given History COPD -Add DuoNeb treatments as needed for shortness of breath -O2 via nasal cannula to keep Oxygen saturation greater than 90% History of hyperlipidemia -Not clear if he is on any medication at home, patient has been non-compliant, will follow up DVT prophylaxis: Lovenox and increase ambulation
--- NOTE | 2018-06-17 09:32 | P.DCO ---
- Home Health Nursing Order: Medical education, Signs/symptoms of disease process, CHF education Instructions: Medication compliance - Certification I have seen patient Isaias Morfin on 06/17/18. My clinical findings support the need for the requested home health care services because: Acute on chronic congestive heart failure, atrial fibrillation, noncompliance with medication Medication compliance is questionable I certify that my clinical findings support that this patient is homebound because: Poor cardiac reserve
[2018-06-17] MEDS: Senna/Docusate Sodium 8.6/50 MG Tablet PO SCH ×2 (10:30→20:38)
[2018-06-17] MEDS ORDERED: Regadenoson Inj 0.4 MG/5 ML Syringe IV.PUSH ONE (10:43)
--- NOTE | 2018-06-17 12:12 | NM ---
EXAM DATE: 06/17/2018 12:04 PM EDT AGE/SEX: 72 years / Male INDICATIONS:Myocardial infarction. . Atrial fibrillation with rapid ventricular rate. Noncompliant wi th medication. CLINICAL DATA: This is the patient's initial encounter. Patient reports that signs and symptoms have been present for 1 day and indicates a pain score of 0/10. MEDICAL/SURGICAL HISTORY: Chronic obstructive pulmonary disease. Hypertension. Alcohol use. Sm oker. . Face. COMPARISON: No prior exams available for comparison. DOSE: 8.5 mCi Tc 99m Myoview at rest 25.4 mCi [id number] at stress 0.4 mg Lexiscan STRESS SYMPTOMS: Weird feeling. EJECTION FRACTION: 11 % TECHNIQUE: The patient underwent pharmacologic stress with infusion of prescribed dose. Continuous ECG tracing was monitored during stress. Gated SPECT imaging was performed after stress and conventi onal SPECT imaging was performed at rest. The examination was performed on a SPECT/CT scanner, both attenuation and non-corrected datasets were reviewed. FINDINGS: Distribution: The maximum perfused segment at stress is in the anteroseptal wall. Perfusion Study: There is a fixed defect involving the septum. No significant redistribution seen b etween the stress and rest images.. Gated Study: There is severe global hypokinesia. The ejection fraction is calculated at 11%. RISK CATEGORY: Intermediate (1-3 % Annual Mortality Rate) CONCLUSION: 1. Fixed defect at the apex. No reversible defects observed to suggest acute ischemia. Severe global hypokinesia with significantly reduced ejection fraction. Electronically signed by: Sterling Reeves MD 06/17/2018 12:11 PM EDT
[2018-06-17] MEDS ORDERED: Digoxin Inj 500 MCG/2 ML Ampul IV.PUSH ONE (17:15)
[2018-06-18 06:27] LABS: Calcium 8.1 mg/dL (8.5-10.1); Potassium 3.3 meq/L (3.5-5.1)
--- NOTE | 2018-06-18 07:57 | P.PNCA ---
Subjective Interval history: Patient seen and examined. No events overnight. Feels well. no dyspnea palpitations or chest pain. Gave Digoxin 0.25mg yesterday and HR is now well controlled. Physical Exam Vital signs: Vital Signs 06/17/18 08:00 06/17/18 09:00 06/17/18 12:00 Temperature 98.0 F Pulse Rate 118 H 116 H 90 Respiratory Rate 18 18 Blood Pressure 147/107 H 124/89 Pulse Oximetry 97 97 06/17/18 13:00 06/17/18 14:00 06/17/18 15:00 Temperature Pulse Rate 94 H 94 H 101 H Respiratory Rate Blood Pressure Pulse Oximetry 06/17/18 16:00 06/17/18 17:00 06/17/18 18:00 Temperature 97.5 F L Pulse Rate 102 H 106 H 109 H Respiratory Rate 18 Blood Pressure 131/93 H Pulse Oximetry 99 06/17/18 19:00 06/17/18 20:00 06/17/18 21:00 Temperature 97.6 F Pulse Rate 98 H 98 H 95 H Respiratory Rate 18 Blood Pressure 122/74 Pulse Oximetry 97 06/17/18 22:00 06/17/18 23:00 06/18/18 00:00 Temperature 98.2 F Pulse Rate 102 H 83 86 Respiratory Rate 16 Blood Pressure 119/77 Pulse Oximetry 94 L 06/18/18 01:00 06/18/18 02:00 06/18/18 03:00 Temperature Pulse Rate 78 93 H 88 Respiratory Rate Blood Pressure Pulse Oximetry 06/18/18 04:00 06/18/18 05:00 06/18/18 06:00 Temperature 97.5 F L Pulse Rate 77 88 68 Respiratory Rate 18 Blood Pressure 141/79 H Pulse Oximetry 95 Intake & Output 06/17/18 06/18/18 06/18/18 18:59 06:59 18:59 Intake Total 480 / 480 360 / 360 Output Total 1050 / 1050 0 / 0 Balance -570 / -570 360 / 360 Weight 78.2 kg Intake: Oral 480 / 480 360 / 360 Output: Urine 1050 / 1050 0 / 0 Other: # Voids 1 Date of Last Bowel Movement 06/15/18 06/18/18 # Bowel Movements 1 Narrative: GENERAL: Patient alert and oriented 3. Well-developed well-nourished with no apparent distress SKIN: Warm and dry. HEAD: Atraumatic. Normocephalic. NECK: Trachea midline. With large cervantes obscuring neck area CARDIOVASCULAR: Irregularly irregular rhythm and regular rate. Slight tachycardia, No LE edema RESPIRATORY: No accessory muscle use. Clear to auscultation. Breath sounds equal bilaterally. GASTROINTESTINAL: Abdomen soft, non-tender, nondistended. MUSCULOSKELETAL: Extremities without clubbing, cyanosis, or edema. No obvious deformities. NEUROLOGICAL: Awake and alert. No obvious cranial nerve deficits. Normal speech. PSYCHIATRIC: Appropriate mood and affect; insight and judgment normal. Assessment and Plan - Plan Assessment: --AF with RVR, currently asymptomatic and HR well controlled --mild ADHF, systolic, now euvolemic --Nonischemic Cardiomyopathy, EF 25-30%, possibly tachycardia induced --RBBB with QRS duration 151ms --HTN, controlled --chronic alcohol abuse --medication non-compliance --Would change Lasix to 20mg po daily PRN dyspnea or LE edema only upon d/c. --Continue to hold HUMPHREY-I with admitting hyperkalemia. Would benefit from initiation of HUMPHREY-I as outpatient with close follow up. --Continue Carvedilol 25mg bid, Cardizem 360mg daily and digoxin 0.125mg daily upon d/c --agree patient is poor candidate for chronic anticoagulation therapy due to medication non-compliance issues and fall risk as he has unstable gait and alcohol use. Defer for now. --Repeat echocardiogram in 4 months as outpatient after continued OMT for cardiomyopathy and if EF< 35% then may benefit from AICD --Patient is not interested in a LifeVest at this time ok from cardiology standpoint for d/c today.
[2018-06-18] MEDS: dilTIAZem CD 180 MG Capsule PO SCH (08:58)
[2018-06-18] MEDS: Carvedilol 12.5 MG Tablet PO SCH (08:58)
[2018-06-18] MEDS: Enoxaparin Inj 40 MG/0.4 ML Syringe SQ SCH (08:59)
[2018-06-18] MEDS: Senna/Docusate Sodium 8.6/50 MG Tablet PO SCH (09:00)
[2018-06-18] MEDS ORDERED: Digoxin 125 MCG Tablet PO SCH (09:00)
--- NOTE | 2018-06-18 09:50 | P.PN ---
Subjective Interval history: awake and alert feels great states drinks beer "not too much" but agress to stop[ denies any chest pain Physical Exam Vital signs: Vital Signs 06/17/18 12:00 06/17/18 13:00 06/17/18 14:00 Temperature 98.0 F Pulse Rate 90 94 H 94 H Respiratory Rate 18 Blood Pressure 124/89 Pulse Oximetry 97 06/17/18 15:00 06/17/18 16:00 06/17/18 17:00 Temperature 97.5 F L Pulse Rate 101 H 102 H 106 H Respiratory Rate 18 Blood Pressure 131/93 H Pulse Oximetry 99 06/17/18 18:00 06/17/18 19:00 06/17/18 20:00 Temperature 97.6 F Pulse Rate 109 H 98 H 98 H Respiratory Rate 18 Blood Pressure 122/74 Pulse Oximetry 97 06/17/18 21:00 06/17/18 22:00 06/17/18 23:00 Temperature Pulse Rate 95 H 102 H 83 Respiratory Rate Blood Pressure Pulse Oximetry 06/18/18 00:00 06/18/18 01:00 06/18/18 02:00 Temperature 98.2 F Pulse Rate 86 78 93 H Respiratory Rate 16 Blood Pressure 119/77 Pulse Oximetry 94 L 06/18/18 03:00 06/18/18 04:00 06/18/18 05:00 Temperature 97.5 F L Pulse Rate 88 77 88 Respiratory Rate 18 Blood Pressure 141/79 H Pulse Oximetry 95 06/18/18 06:00 06/18/18 08:00 Temperature 96.5 F L Pulse Rate 68 81 Respiratory Rate 19 Blood Pressure 122/75 Pulse Oximetry 95 Intake & Output 06/17/18 06/18/18 06/18/18 18:59 06:59 18:59 Intake Total 480 / 480 360 / 360 Output Total 1050 / 1050 0 / 0 Balance -570 / -570 360 / 360 Weight 78.2 kg Intake: Oral 480 / 480 360 / 360 Output: Urine 1050 / 1050 0 / 0 Other: # Voids 1 Date of Last Bowel Movement 06/15/18 06/18/18 # Bowel Movements 1 Narrative: GENERAL: Patient alert and oriented 3. Well-developed well-nourished with no apparent distress SKIN: Warm and dry. HEAD: Atraumatic. Normocephalic. NECK: Trachea midline. With large cervantes obscuring neck area CARDIOVASCULAR: Irregularly irregular rhythm and regular rate HR- 80s RESPIRATORY: No accessory muscle use. Breath sounds equal bilaterally. no wheezes GASTROINTESTINAL: Abdomen soft, non-tender, nondistended. MUSCULOSKELETAL: Extremities without clubbing, cyanosis, or edema. No obvious deformities. NEUROLOGICAL: Awake and alert. No obvious cranial nerve deficits. Normal speech. moves all extremities spontaneously Results - Labs CBC & Chem 7: 06/17/18 05:25 06/18/18 04:44 Laboratory Results - last 24 hr 06/18/18 04:44 Sodium 141 Potassium 3.3 L Chloride 97 L Carbon Dioxide 36.0 H Anion Gap 8 BUN 24 H Creatinine 1.10 Estimated GFR 66 L Random Glucose 127 H Calcium 8.1 L - Imaging Impressions Myocardial Perfusion Scan Nuc Med 06/17/18 00:00 CONCLUSION: 1. Fixed defect at the apex. No reversible defects observed to suggest acute ischemia. Severe global hypokinesia with significantly reduced ejection fraction. Assessment and Plan - Assessment (1) Acute on chronic systolic (congestive) heart failure Code(s): I50.23 - Acute on chronic systolic (congestive) heart failure Status : Acute (2) Cardiomyopathy Code(s): I42.9 - Cardiomyopathy, unspecified Status: Acute (3) Atrial fibrillation with rapid ventricular response Code(s): I48.91 - Unspecified atrial fibrillation Status: Acute (4) Tobacco abuse Code(s): Z72.0 - Tobacco use Status: Acute (5) Alcohol abuse Code(s): F10.10 - Alcohol abuse, uncomplicated Status: Acute - Plan Patient is a 72-year-old years old male who came into the emergency room for evaluation of difficulty breathing, which was found to have A. fib with RVR which is now on Cardizem. Patient was discharged in July 2017 after being admitted for A. fib with RVR and acute on chronic congestive heart failure. Patient had multiple admissions for the same problem in the past and was reported noncompliance of not filling his prescriptions. Patient was initially diagnosed with atrial fibrillation in 2014,chronic systolic heart failure cardiomyopathy with echocardiogram in May 28, 2017 which showed an EF of 25- 30%. Patient also has a past medical history of hypertension, COPD, chronic tobacco use and chronic alcohol use. Afib with RVR- now rate controlled CMP - EF 20- 25% Cardiology - cleared for DC -Cardizem CD 360 mg daily, coreg 25 mg po bid, digoxin 0.125 mg daily -Continue aspirin -monitor HR and VS -Patient previously noncompliant with medications and treatment - 2D-Echo: left ventricular systolic function is severely reduced with an estimated ejection fraction in the range of 25-30%. Moderately dilated left ventricle. There is global left ventricular dysfunction. wall thickness is normal. - Cardiology: recommended outpatient follow up for AICD once he is maintained on outpatient medical therapy -Lasix 20 mg dialy on DC History of [place] -No chest pain, troponin less than 0.02 -Lexiscan- no defects -Continue home medications, will monitor Hypertension- imrpoved Hyperkalemia- resolved -continue to Hold lisinopril, hold potassium -Kayexalate dose given -K level improved at 4.0, monitor BMP Hypokalemia - give 20 meq po x 1 now - start KCL 10 meq po daily as OP = BMP in 2-3 days c/o PCP- [facility] Tobacco dependence/alcohol dependence -Smoking cessation given/counseling given History COPD- inremission - up and ambualting- good sats -Add DuoNeb treatments as needed for shortness of breath -O2 via nasal cannula to keep Oxygen saturation greater than 90% History of hyperlipidemia -Not clear if he is on any medication at home, patient has been non-compliant, will follow up DVT prophylaxis: Lovenox and increase ambulation DC home today OP ff up with Cardiology
== END 2018-06-18 11:27 | disposition home health service (06) ==
LOC: NEPE 02:04 → NEDA 02:04 → HCIS 07:55
PROVIDERS: ADMIT Internal Medicine; ATTEND Internal Medicine